=== PATIENT | female | born 1965 | race Two or more races ===

== ENCOUNTER 2020-01-20 08:34 | Inpatient (IN) | payer MEDICAID ==
[~2020-01-20] VITALS: Ht 157.5 cm; Wt 48.8 kg
[2020-01-20 08:28] VITALS: BP_SYST 10; BP_SYST 102; BP_DIAS 63; BP_DIAS 68
--- NOTE | 2020-01-20 08:34 | NUR ---
ED Nurse Note: Pt arrived to ED with RA 26 from [facility]. pt has a trach and is being ambu-bagged. pt placed in trauma and isolated. pt is unresponsive to name, touch, pain. per ems pt "suffered a stroke and is comatosed." Pt appears A&O 0. Pts upper extremities are flaccid. pt has gtube placed on abdomen, patterson intact, pt has sacral and left lower leg ulcer. Pt placed on ventilator per RT; review vent setting.
[2020-01-20] MEDS ORDERED: SYNTHROID25 MCG GT (08:43)
[2020-01-20] MEDS ORDERED: FAMOTIDINE20 MG GT (08:43)
[2020-01-20] MEDS ORDERED: NOVOLIN R100 UNIT/1 SUBQ (08:43)
[2020-01-20] MEDS ORDERED: ACETAMINOPHEN325 M1 GT (08:43)
[2020-01-20] MEDS ORDERED: DOCUSATE SODIU100 MG GT (08:43)
[2020-01-20] MEDS ORDERED: MULTIVITAMINS1 EAC8 ORAL (08:43)
--- NOTE | 2020-01-20 09:00 | NUR ---
ED Nurse Note: stool culture collected and appears black in color.
[2020-01-20 09:06] LABS: HEMATOCRIT 25.8 % (37.0-47.0); HEMOGLOBIN 8.5 G/DL (12.0-16.0); MEAN CORPUSCULAR VOLUME 90 FL (80-99); PLATELET COUNT 501 K/UL (150-450); RED BLOOD COUNT 2.88 M/UL (4.20-5.40); RED CELL DISTRIBUTION WIDTH 18.1 % (11.6-14.8)
[2020-01-20 09:07] LABS: APPEARANCE,URINE CLOUDY; BILIRUBIN, URINE NEGATIVE (NEGATIVE); GLUCOSE, URINE (UA) NEGATIVE (NEGATIVE); KETONES,URINE NEGATIVE (NEGATIVE); LEUKOCYTE ESTERASE ,URINE 3+ (NEGATIVE); NITRITE,URINE POSITIVE (NEGATIVE); PH,URINE 7 (4.5-8.0); PROTEIN,URINE 2+ (NEGATIVE); UROBILINOGEN,URINE 1 MG/DL (0.0-1.0)
[2020-01-20 09:08] LABS: WHITE BLOOD COUNT 24.6 K/UL (4.8-10.8)
--- NOTE | 2020-01-20 09:10 | NUR ---
Note alek in EDM - 01/20/20 at 0923 by BRAULIO ED Nurse Note: Xray at bedside.
[2020-01-20] MEDS ORDERED: Pantoprazole Inj ONE (09:19)
[2020-01-20 09:24] LABS: COLOR,URINE YELLOW
[2020-01-20 09:25] LABS: ANION GAP 4 mmol/L (5-15); BLOOD UREA NITROGEN 13 mg/dL (7-18); CALCIUM 8.8 MG/DL (8.5-10.1); CARBON DIOXIDE 33 MMOL/L (21-32); CHLORIDE 98 MMOL/L (98-107); CREATININE 0.4 MG/DL (0.55-1.30); POTASSIUM 4.4 MMOL/L (3.5-5.1); SODIUM 135 MMOL/L (136-145)
--- NOTE | 2020-01-20 09:25 | Emergency Room Report ---
History of Present Illness General Chief Complaint: Palpitations Source: Patient, EMS, Caregiver Present Illness HPI 84-year-old female presents to ED for palpitations. [facility] Noted by nursing staff x1 day. Tachycardic. Patient status post CVA. Status post trach on ventilator. Nonverbal at baseline. Unable to provide any additional history at this time. No signs of distress on arrival. Febrile in triage.. Recent COVID test negative. No other aggravating relieving factors. 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 COVID-19 Screening: Negative COVID-19 COVID-19 Testing Source: nasopharn Patient History Past Medical History: DM, HTN, CVA/TIA Pertinent Family History: none Social History: Denies: smoking, alcohol use, drug use Now: No Immunizations: UTD Reviewed Nursing Documentation: PMH: Agreed; PSxH: Agreed Nursing Documentation-PMH Past Medical History: No History, Except For Hx Hypertension: Yes Hx Diabetes: Yes - 2 Review of Systems All Other Systems: limited Physical Exam Vital Signs Date Time Temp Pulse Resp B/P (MAP) Pulse Ox O2 Delivery O2 Flow Rate FiO2 01/20/20 08:23 99.3 115 17 10/68 (49) 98 Room Air 01/20/20 08:28 30 Sp02 EP Interpretation: reviewed, normal General Appearance: other - nonverbal Head: normocephalic, atraumatic Eyes: bilateral eye normal inspection, bilateral eye PERRL ENT: hearing grossly normal, normal pharynx, no angioedema, normal voice Neck: full range of motion, supple/symm/no masses Respiratory: chest non-tender, lungs clear, normal breath sounds, speaking full sentences Cardiovascular #1: no edema, tachycardia Cardiovascular #2: 2+ carotid (R), 2+ carotid (L), 2+ radial (R), 2+ radial (L) , 2+ dorsalis pedis (R), 2+ dorsalis pedis (L) Gastrointestinal: normal bowel sounds, non tender, soft, non-distended, no guarding, no rebound Rectal: deferred Genitourinary: normal inspection, no CVA tenderness Musculoskeletal: back normal, non-tender Neurologic: other - nonverbal Psychiatric: other - nonverbal Reflexes: 3+ bicep (R), 3+ bicep (L), 3+ tricep (R), 3+ tricep (L), 3+ knee (R) , 3+ knee (L) Skin: other - see nursing notes Lymphatic: no adenopathy Procedures Critical Care Time Critical Care Time i. I feel this is a highly complex case requiring extensive working including EKG/Rhythm strip, Xray/CT/US, Blood/urine lab work, repeat exams while in ED, and administration of strong opiates/narcotics for pain control, admission to hospital or close patient follow up. Total time: 60 min bedside evaluation and treatment excludes procedures (EKG). Reason for critical care: tachycardia, fever, GI bleed, UTI Possible complications: hypotension, hypertension, MO, shock, arrhythmias, metabolic acidosis, end organ damage, respiratory failure. Interventions: Labs, EKG, IV fluids, chest x-ray, Tylenol, broad-spectrum antibiotics, discussion with education sales consultant Course: Presenting with tachycardia. Low-grade fever. Guaiac positive. Significant leukocytosis. Hemoglobin 8.5. Has UTI. COVID negative. Lactic within normal limits. Chest x-ray shows interstitial infiltrates. Initially hypotensive. Improved with IV fluid bolus. Given broad-spectrum antibiotics. Started on Protonix drip. Consultations: nursing staff, EMS, family Performed by: Dr Mitchell Tolerated well condition = critical j. because of unstable vital signs this patient had a condition that could potentially threaten life or limb. I feel this is a critical patient who required my full attention while patient was considered critical. Total Critical Care Time excluding procedures was greater than 60 minutes Medical Decision Making Diagnostic Impression: Primary Impression: LGI bleed Additional Impressions: Pneumonia Qualified Codes: J18.9 - Pneumonia, unspecified organism UTI (urinary tract infection) Qualified Codes: N39.0 - Urinary tract infection, site not specified Anemia Laboratory Tests Test 01/20/20 08:40 White Blood Count 24.6 K/UL (4.8-10.8) *H Red Blood Count 2.88 M/UL (4.20-5.40) L Hemoglobin 8.5 G/DL (12.0-16.0) L Hematocrit 25.8 % (37.0-47.0) L Mean Corpuscular Volume 90 FL (80-99) Mean Corpuscular Hemoglobin 29.6 PG (27.0-31.0) Mean Corpuscular Hemoglobin Concent 33.0 G/DL (32.0-36.0) Red Cell Distribution Width 18.1 % (11.6-14.8) H Platelet Count 501 K/UL (150-450) H Mean Platelet Volume 5.5 FL (6.5-10.1) L Neutrophils (%) (Auto) % (45.0-75.0) Lymphocytes (%) (Auto) % (20.0-45.0) Monocytes (%) (Auto) % (1.0-10.0) Eosinophils (%) (Auto) % (0.0-3.0) Basophils (%) (Auto) % (0.0-2.0) Differential Total Cells Counted 100 Neutrophils % (Manual) 85 % (45-75) H Lymphocytes % (Manual) 8 % (20-45) L Monocytes % (Manual) 7 % (1-10) Eosinophils % (Manual) 0 % (0-3) Basophils % (Manual) 0 % (0-2) Band Neutrophils 0 % (0-8) Platelet Estimate Adequate Platelet Morphology Normal Hypochromasia 2+ Anisocytosis 2+ Prothrombin Time 11.4 SEC (9.30-11.50) Prothromb Time International Ratio 1.0 (0.9-1.1) Activated Partial Thromboplast Time 24 SEC (23-33) D-Dimer 2.99 mg/L FEU (0.00-0.49) H Urine Color Yellow Urine Appearance Cloudy Urine pH 7 (4.5-8.0) Urine Specific [place] 1.005 (1.005-1.035) Urine Protein 2+ (NEGATIVE) H Urine Glucose (UA) Negative (NEGATIVE) Urine Ketones Negative (NEGATIVE) Urine Blood 3+ (NEGATIVE) H Urine Nitrite Positive (NEGATIVE) H Urine Bilirubin Negative (NEGATIVE) Urine Urobilinogen 1 MG/DL (0.0-1.0) H Urine Leukocyte Esterase 3+ (NEGATIVE) H Urine RBC 20-30 /HPF (0 - 2) H Urine WBC Tntc /HPF (0 - 2) H Urine Squamous Epithelial Cells Few /LPF (NONE/OCC) Urine Bacteria Moderate /HPF (NONE) H Sodium Level 135 MMOL/L (136-145) L Potassium Level 4.4 MMOL/L (3.5-5.1) Chloride Level 98 MMOL/L (98-107) Carbon Dioxide Level 33 MMOL/L (21-32) H Anion Gap 4 mmol/L (5-15) L Blood Urea Nitrogen 13 mg/dL (7-18) Creatinine 0.4 MG/DL (0.55-1.30) L Estimat Glomerular Filtration Rate > 60 mL/min (>60) Glucose Level 239 MG/DL (74-106) H Lactic Acid Level 1.50 mmol/L (0.4-2.0) Calcium Level 8.8 MG/DL (8.5-10.1) Ferritin 1046 NG/ML (8-388) H Total Bilirubin 0.3 MG/DL (0.2-1.0) Aspartate Amino Transf (AST/SGOT) 13 U/L (15-37) L Alanine Aminotransferase (ALT/SGPT) 14 U/L (12-78) Alkaline Phosphatase 171 U/L (46-116) H Lactate Dehydrogenase 173 U/L (81-234) Total Creatine Kinase 39 U/L (26-308) Creatine Kinase MB 2.7 NG/ML (0.0-3.6) Creatine Kinase MB Relative Index 6.9 Troponin I 0.000 ng/mL (0.000-0.056) C-Reactive Protein, Quantitative 22.2 mg/dL (0.00-0.90) H Pro-B-Type Natriuretic Peptide 773 pg/mL (0-125) H Total Protein 7.2 G/DL (6.4-8.2) Albumin 1.5 G/DL (3.4-5.0) L Globulin 5.7 g/dL Albumin/Globulin Ratio 0.3 (1.0-2.7) L Amylase Level 42 U/L (25-115) EKG Diagnostic Results Rate: tachycardiac Rhythm: NSR ST Segments: no acute changes ASA given to the pt in ED: No Rhythm Strip Diag. Results EP Interpretation: yes Rhythm: NSR, no PVC's, no ectopy Chest X-Ray Diagnostic Results Chest X-Ray Diagnostic Results : Chest X-Ray Ordered: Yes # of Views/Limited/Complete: 1 View Indication: Shortness of Breath EP Interpretation: Yes Interpretation: no pneumothorax, other - bilateral infiltrates Impression: Other - pneumonia Electronically Signed by: Electronically signed by Josué Mitchell MD Last Vital Signs Date Time Temp Pulse Resp B/P (MAP) Pulse Ox O2 Delivery O2 Flow Rate FiO2 01/20/20 08:50 40 01/20/20 08:44 124 10 01/20/20 08:28 100.2 102/63 100 Room Air Status: improved Disposition: ADMITTED INPATIENT Condition: Critical Referrals: Chi Castro MD (PCP) Josué Mitchell MD Jan 20, 2020 09:25
[2020-01-20] MEDS ORDERED: Pantoprazole 80 MG in NS 250 ML IV ONE (09:30)
[2020-01-20] MEDS ORDERED: Piperacillin/Tazobactam 3.375 GM in NS 110 ML IVPB ONE (09:30)
--- NOTE | 2020-01-20 09:37 | NUR ---
ED Nurse Note: Xray at bedside
[2020-01-20 09:41] LABS: ALANINE AMINOTRANSFERASE 14 U/L (12-78); ALBUMIN 1.5 G/DL (3.4-5.0); ALBUMIN/GLOBULIN RATIO 0.3 (1.0-2.7); ALKALINE PHOSPHATASE 171 U/L (46-116); AMYLASE 42 U/L (25-115); ASPARTATE AMINO TRANSFERASE 13 U/L (15-37); BILIRUBIN,TOTAL 0.3 MG/DL (0.2-1.0); CKMB 2.7 NG/ML (0.0-3.6); CREATINE KINASE 39 U/L (26-308); FERRITIN 1046 NG/ML (8-388); LACTATE DEHYDROGENASE 173 U/L (81-234)
[2020-01-20] MEDS: Acetaminophen 650mg/20.3ml GT ONE ×2 (10:12→10:22)
[2020-01-20] MEDS ORDERED: Azithromycin 500 MG in NS 275 ML IV ONE (10:15)
[2020-01-20 10:28] VITALS: BP 97/58
--- NOTE | 2020-01-20 10:29 | Diagnostic Imaging Report ---
Procedure: XRAY Chest 1v Reason for study: Shortness of breath. Comparison films: None. FINDINGS: There is a tracheostomy in place. Vascularity is normal. Bilateral mid to lower lung zone alveolar infiltrates noted. Cardiac and mediastinal silhouette are within normal limits. No large effusion seen. The bony thorax appear unremarkable. IMPRESSION: Bilateral infiltrates.
[2020-01-20] MEDS ORDERED: Acetaminophen 650 MG SUPP RECTAL ONE (10:30)
--- NOTE | 2020-01-20 11:25 | Emergency Room Report ---
Physical Exam Vital Signs Date Time Temp Pulse Resp B/P (MAP) Pulse Ox O2 Delivery O2 Flow Rate FiO2 01/20/20 08:23 99.3 115 17 10/68 (49) 98 Room Air 01/20/20 08:28 30 Medical Decision Making Diagnostic Impression: Primary Impression: LGI bleed Additional Impressions: Anemia UTI (urinary tract infection) Qualified Codes: N39.0 - Urinary tract infection, site not specified Pneumonia Qualified Codes: J18.9 - Pneumonia, unspecified organism ER Course Hospital Course 54-year-old female presenting to ED with tachycardia, fever. Differential diagnoses include: Pneumonia, UTI, sepsis, dehydration, MD/ unstable angina Clinical course Patient placed on stretcher. in isolation. 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 After initial history and physical, I ordered labs, IV fluids , EKG, chest x-ray, blood cultures, UA. Labs - electrolytes ok, marked leukocytosis, troponins negative, hb 8.5, lactic ok, UA grossly positive for UTI guaic +, covid - CXR - bilateral infiltrates EKG - sinus tachycardia no acute ischemic changes interpreted by me broad spectrum Abx given. given 30cc/kg fluid bolus. BP initially low slowly improving with IVFs. given protonix drip. Case discussed with Dr Castro and they agreed to admit patient to their service for further care and support I feel this is a highly complex case requiring extensive working including EKG/ Rhythm strip, Xray/CT/US, Blood/urine lab work, repeat exams while in ED, and administration of strong opiates/narcotics for pain control, admission to hospital or close patient follow up. Diagnosis - LGIB, anemia, pneumonia, UTI Patient admitted to SDU in critical condition Last Vital Signs Date Time Temp Pulse Resp B/P (MAP) Pulse Ox O2 Delivery O2 Flow Rate FiO2 01/20/20 11:07 98.3 01/20/20 10:28 109 10 97/58 98 Room Air 40 Status: improved Disposition: ADMITTED INPATIENT Condition: Critical Referrals: Chi Castro MD (PCP) Josué Mitchell MD Jan 20, 2020 11:25
--- NOTE | 2020-01-20 11:26 | Emergency Room Report ---
Sepsis Event Note Evaluation Current Stage of Sepsis: Sepsis Possible Source: CLABSI Focused Exam Allergies: Coded Allergies: No Known Allergies (Unverified , 01/20/20) Date Exam Occurred: Jan 20, 2020 Time Exam Occurred: 08:30 Laboratory Studies Laboratory Tests Test 01/20/20 08:40 White Blood Count 24.6 K/UL (4.8-10.8) *H Red Blood Count 2.88 M/UL (4.20-5.40) L Hemoglobin 8.5 G/DL (12.0-16.0) L Hematocrit 25.8 % (37.0-47.0) L Mean Corpuscular Volume 90 FL (80-99) Mean Corpuscular Hemoglobin 29.6 PG (27.0-31.0) Mean Corpuscular Hemoglobin Concent 33.0 G/DL (32.0-36.0) Red Cell Distribution Width 18.1 % (11.6-14.8) H Platelet Count 501 K/UL (150-450) H Mean Platelet Volume 5.5 FL (6.5-10.1) L Neutrophils (%) (Auto) % (45.0-75.0) Lymphocytes (%) (Auto) % (20.0-45.0) Monocytes (%) (Auto) % (1.0-10.0) Eosinophils (%) (Auto) % (0.0-3.0) Basophils (%) (Auto) % (0.0-2.0) Differential Total Cells Counted 100 Neutrophils % (Manual) 85 % (45-75) H Lymphocytes % (Manual) 8 % (20-45) L Monocytes % (Manual) 7 % (1-10) Eosinophils % (Manual) 0 % (0-3) Basophils % (Manual) 0 % (0-2) Band Neutrophils 0 % (0-8) Platelet Estimate Adequate Platelet Morphology Normal Hypochromasia 2+ Anisocytosis 2+ Prothrombin Time 11.4 SEC (9.30-11.50) Prothromb Time International Ratio 1.0 (0.9-1.1) Activated Partial Thromboplast Time 24 SEC (23-33) D-Dimer 2.99 mg/L FEU (0.00-0.49) H Urine Color Yellow Urine Appearance Cloudy Urine pH 7 (4.5-8.0) Urine Specific [place] 1.005 (1.005-1.035) Urine Protein 2+ (NEGATIVE) H Urine Glucose (UA) Negative (NEGATIVE) Urine Ketones Negative (NEGATIVE) Urine Blood 3+ (NEGATIVE) H Urine Nitrite Positive (NEGATIVE) H Urine Bilirubin Negative (NEGATIVE) Urine Urobilinogen 1 MG/DL (0.0-1.0) H Urine Leukocyte Esterase 3+ (NEGATIVE) H Urine RBC 20-30 /HPF (0 - 2) H Urine WBC Tntc /HPF (0 - 2) H Urine Squamous Epithelial Cells Few /LPF (NONE/OCC) Urine Bacteria Moderate /HPF (NONE) H Sodium Level 135 MMOL/L (136-145) L Potassium Level 4.4 MMOL/L (3.5-5.1) Chloride Level 98 MMOL/L (98-107) Carbon Dioxide Level 33 MMOL/L (21-32) H Anion Gap 4 mmol/L (5-15) L Blood Urea Nitrogen 13 mg/dL (7-18) Creatinine 0.4 MG/DL (0.55-1.30) L Estimat Glomerular Filtration Rate > 60 mL/min (>60) Glucose Level 239 MG/DL (74-106) H Lactic Acid Level 1.50 mmol/L (0.4-2.0) Calcium Level 8.8 MG/DL (8.5-10.1) Ferritin 1046 NG/ML (8-388) H Total Bilirubin 0.3 MG/DL (0.2-1.0) Aspartate Amino Transf (AST/SGOT) 13 U/L (15-37) L Alanine Aminotransferase (ALT/SGPT) 14 U/L (12-78) Alkaline Phosphatase 171 U/L (46-116) H Lactate Dehydrogenase 173 U/L (81-234) Total Creatine Kinase 39 U/L (26-308) Creatine Kinase MB 2.7 NG/ML (0.0-3.6) Creatine Kinase MB Relative Index 6.9 Troponin I 0.000 ng/mL (0.000-0.056) C-Reactive Protein, Quantitative 22.2 mg/dL (0.00-0.90) H Pro-B-Type Natriuretic Peptide 773 pg/mL (0-125) H Total Protein 7.2 G/DL (6.4-8.2) Albumin 1.5 G/DL (3.4-5.0) L Globulin 5.7 g/dL Albumin/Globulin Ratio 0.3 (1.0-2.7) L Amylase Level 42 U/L (25-115) Vital Signs Last 24 Hour Vital Signs Date Time Temp Pulse Resp B/P (MAP) Pulse Ox O2 Delivery O2 Flow Rate FiO2 01/20/20 11:07 98.3 01/20/20 10:28 100.2 109 10 97/58 98 Room Air 40 01/20/20 08:50 40 01/20/20 08:44 124 10 40 01/20/20 08:28 100.2 123 8 102/63 100 Room Air 30 01/20/20 08:23 99.3 115 17 10/68 (49) 98 Room Air Respiratory Exam: Crackles Cardiovascular Exam: Tachycardia Capillary Refill: Greater Than 2 Seconds Peripheral Pulse: Strong Pulse Location: Carotid Skin Exam: Normal Turgor Bedside Monitoring Date bedside monitoring occur: Jan 20, 2020 Time bedside monitoring occur: 10:30 Bedside Ultrasound Performed: No Passive Leg Raise/Fluid Bolus: Fluid Response Josué Mitchell MD Jan 20, 2020 11:26
[2020-01-20 12:01] VITALS: BP 93/63
[2020-01-20 12:28] VITALS: BP 101/65
--- NOTE | 2020-01-20 13:58 | NUR ---
ED Nurse Note: telephone report given to PETE Francisco for continuity of care
--- NOTE | 2020-01-20 14:10 | NUR ---
TRANSFER TO FLOOR: Patient transferred to SDU as ordered, per ERMD. Report given to PETE VELIZ. PT HAS NOT BELONGINGS.
--- NOTE | 2020-01-20 14:30 | NUR ---
NURSE NOTES: received patient report from No RN from ER. patient came in via gurney. came in with vent at prescribed settings. threat monitoring analyst initiated, St on the vs taken and recorded. wound care eval done by deshaun. pictures will be taken and uploaded.no belongings found. under the care of dr taylor. will continue to monitor.
[2020-01-20 14:51] VITALS: BP 111/76
--- NOTE | 2020-01-20 16:32 | NUR ---
NURSE NOTES:WOUND CARE NOTES:Pt Presented on admission with Gt, Suprapubic Cath, Multiple Pressure injuries. Unstageable Sacral Pressure injury that is Malodorous(L)10cm x (W)9.5cm. 90% soft necrosis, 10% mixed erythema with Biofilm at Base of wound. Moderate amt purulent exudate noted when base of wound minimally palpated. Periwound is black and indurated.. Full thickness Pressure Injury lateral L Tibia(L)3.8cm x (W)2.2cm . Base of wound is 10% necrotic, 25% slough ,65% pink epithelial. Edges are adherent to Base of wound. No odor or exudate noted. No erythema or induration periwound. DTPI Lateral R Tibia. (L)2.5cm x (W)1.5cm.Base of Pressure injury is purpuric with Maroon borders. Non-Blanchable erythema without induration/fluctuance medial L heel. R heel is blanchable with dry peeling skin. Purpuric area without induration /fluctuance R Hallux.(L)1.2cm x (W)0.6cm. Dry brown eschar medial R foot (L)0.4cm x (W)0.6cm. Tx.Plan: Cleanse Sacral wound with Dakin's 0.25% domingo. Apply Dakin's moist gauze to wound. Apply Moisture Barrier Paste Periwound. Cover with drsg Twice daily and prn. Cleanse wound lateral L tibia with Saline. Apply TheraHoney. Apply Cavilon Skin BArrier periwound. Cover with Optifoam drsg. Change every 3 days and prn. Apply Cavilon Skin Barrier to Lateral R tibia and R Hallux. Cover with Optifoam drsg. Change very 7 days and prn. Apply Cavilon Skin Barrier to Bilat heels and Malleoli. Cover each site with Optifoam drsg. Change every 7 days and prn. Cover Bony Prominences as needed with Optifoam drsgs. Reposition at least every 2hours or as tolerated. Off-load heels with pillow. APM</Lionel Mattress overlay.
--- NOTE | 2020-01-20 17:15 | History & Physical ---
History and Physical History & Physicial 84-year-old female presents to with palpitations. noted to be Tachycardic. Patient status post CVA. Status post trach on ventilator. Nonverbal at baseline. Unable to provide any additional history at this time. No signs of distress on arrival. Febrile in triage.. Recent COVID test negative. No other aggravating relieving factors. Patient admitted with rectal bleeding. and also elevated WBC with concern for sepsis Allergies: Coded Allergies: No Known Allergies (Unverified , 01/20/20) Past Medical History: DM, HTN, CVA/TIA, respiratory failure, comatose state, GT , tracheostomy Social History: no smoking, alcohol use, drug use; bed bound vent dependent Reviewed of systems: unable Physical WDWN NAD clear breath sounds bilaterally without rhonchi or wheeze [id number] tachy without MRG NABS nontender no HSM no CCE obtunded GT and trach Laboratory Tests Test 01/20/20 08:40 White Blood Count 24.6 K/UL (4.8-10.8) *H Red Blood Count 2.88 M/UL (4.20-5.40) L Hemoglobin 8.5 G/DL (12.0-16.0) L Hematocrit 25.8 % (37.0-47.0) L Mean Corpuscular Volume 90 FL (80-99) Mean Corpuscular Hemoglobin 29.6 PG (27.0-31.0) Mean Corpuscular Hemoglobin Concent 33.0 G/DL (32.0-36.0) Red Cell Distribution Width 18.1 % (11.6-14.8) H Platelet Count 501 K/UL (150-450) H Mean Platelet Volume 5.5 FL (6.5-10.1) L Neutrophils (%) (Auto) % (45.0-75.0) Lymphocytes (%) (Auto) % (20.0-45.0) Monocytes (%) (Auto) % (1.0-10.0) Eosinophils (%) (Auto) % (0.0-3.0) Basophils (%) (Auto) % (0.0-2.0) Differential Total Cells Counted 100 Neutrophils % (Manual) 85 % (45-75) H Lymphocytes % (Manual) 8 % (20-45) L Monocytes % (Manual) 7 % (1-10) Eosinophils % (Manual) 0 % (0-3) Basophils % (Manual) 0 % (0-2) Band Neutrophils 0 % (0-8) Platelet Estimate Adequate Platelet Morphology Normal Hypochromasia 2+ Anisocytosis 2+ Prothrombin Time 11.4 SEC (9.30-11.50) Prothromb Time International Ratio 1.0 (0.9-1.1) Activated Partial Thromboplast Time 24 SEC (23-33) D-Dimer 2.99 mg/L FEU (0.00-0.49) H Urine Color Yellow Urine Appearance Cloudy Urine pH 7 (4.5-8.0) Urine Specific [place] 1.005 (1.005-1.035) Urine Protein 2+ (NEGATIVE) H Urine Glucose (UA) Negative (NEGATIVE) Urine Ketones Negative (NEGATIVE) Urine Blood 3+ (NEGATIVE) H Urine Nitrite Positive (NEGATIVE) H Urine Bilirubin Negative (NEGATIVE) Urine Urobilinogen 1 MG/DL (0.0-1.0) H Urine Leukocyte Esterase 3+ (NEGATIVE) H Urine RBC 20-30 /HPF (0 - 2) H Urine WBC Tntc /HPF (0 - 2) H Urine Squamous Epithelial Cells Few /LPF (NONE/OCC) Urine Bacteria Moderate /HPF (NONE) H Sodium Level 135 MMOL/L (136-145) L Potassium Level 4.4 MMOL/L (3.5-5.1) Chloride Level 98 MMOL/L (98-107) Carbon Dioxide Level 33 MMOL/L (21-32) H Anion Gap 4 mmol/L (5-15) L Blood Urea Nitrogen 13 mg/dL (7-18) Creatinine 0.4 MG/DL (0.55-1.30) L Estimat Glomerular Filtration Rate > 60 mL/min (>60) Glucose Level 239 MG/DL (74-106) H Lactic Acid Level 1.50 mmol/L (0.4-2.0) Calcium Level 8.8 MG/DL (8.5-10.1) Ferritin 1046 NG/ML (8-388) H Total Bilirubin 0.3 MG/DL (0.2-1.0) Aspartate Amino Transf (AST/SGOT) 13 U/L (15-37) L Alanine Aminotransferase (ALT/SGPT) 14 U/L (12-78) Alkaline Phosphatase 171 U/L (46-116) H Lactate Dehydrogenase 173 U/L (81-234) Total Creatine Kinase 39 U/L (26-308) Creatine Kinase MB 2.7 NG/ML (0.0-3.6) Creatine Kinase MB Relative Index 6.9 Troponin I 0.000 ng/mL (0.000-0.056) C-Reactive Protein, Quantitative 22.2 mg/dL (0.00-0.90) H Pro-B-Type Natriuretic Peptide 773 pg/mL (0-125) H Total Protein 7.2 G/DL (6.4-8.2) Albumin 1.5 G/DL (3.4-5.0) L Globulin 5.7 g/dL Albumin/Globulin Ratio 0.3 (1.0-2.7) L Amylase Level 42 U/L (25-115) IMPRESSION leukocytosis possible sepsis anemia rectal bleeding palpitations pulmonary infiltrates PLAN Iv antibiotics ID evaluation consider CT chest resume SNF meds cardiology and ID and GI followup impression, plan, and exam edited and reviewed in detail care discussed with Chi Hodge MD Jan 20, 2020 17:14
--- NOTE | 2020-01-20 17:41 | Consultation ---
History of Present Illness General Date patient seen: Jan 20, 2020 Reason for Hospitalization: Palpitations Present Illness HPI 54 year old female with multiple medical comorbidities admitted to [facility] [place] for evaluation of GI bleed, abnormal labs, and palpitation. on admission noted to have large foul smelling sacral decubitus ulcer with necrotic tissue and drainage. leukocytosis. abnormal labs. malnutrition. surgery called to evaluate and assist with care. Allergies: Coded Allergies: No Known Allergies (Unverified , 01/20/20) COVID-19 Screening Contact w/high risk pt: No Experienced COVID-19 symptoms?: No Medication History Scheduled Docusate Sodium* (Docusate Sodium*), 100 MG ORAL TWICE A DAY, (Reported) Famotidine* (Pepcid 20mg tablet*), 20 MG GT DAILY, (Reported) Insulin Regular, Human* (Novolin R*), 0 SUBQ .SLIDING SCALE, (Reported) Levothyroxine Sodium* (Synthroid*), 50 MCG GT DAILY, (Reported) Multivitamin With Minerals (Multivitamins With Minerals*), 1 TAB ORAL DAILY, ( Reported) Scheduled PRN Acetaminophen* (Acetaminophen 325MG Tablet*), 650 MG GT Q6H PRN for For Pain, ( Reported) Patient History Limited by: medical condition History Provided By: Medical Record, PMD Healthcare decision maker Resuscitation status Advanced Directive on File Review of Systems Review of Symptoms General ROS: no weight loss or fever Psychological ROS: no depression or mood changes, no memory loss Ophthalmic ROS: no visual changes or eye irritation ENT ROS: no nasal congestion, hearing loss, dizziness Allergy and Immunology ROS: no allergic symptoms or urticaria Hematological and Lymphatic ROS: no swollen glands, unusual bleeding or bruising Endocrine ROS: no polyuria, polydipsia, weight changes, temperature intolerance Respiratory ROS: no cough, shortness of breath, or wheezing Cardiovascular ROS: no chest pain or dyspnea on exertion Gastrointestinal ROS: denies abdominal pain, bright red blood in stool. Musculoskeletal ROS: no myalgias or arthralgias Neurological ROS: no TIA or stroke symptoms Dermatological ROS: no new or changing skin lesions, rashes or pruritis Physical Exam Physical Exam General appearance: alert, cooperative, no distress, appears stated age Head: Normocephalic, without obvious abnormality, atraumatic Eyes: conjunctivae/corneas clear. PERRL, EOM's intact. Fundi benign Throat: Lips, mucosa, and tongue normal. Teeth and gums normal Neck: supple, symmetrical, trachea midline, no adenopathy, thyroid: not enlarged, symmetric, no tenderness/mass/nodules, no carotid bruit and no JVD Lungs: clear to auscultation bilaterally Heart: regular rate and rhythm, S1, S2 normal, no murmur, click, rub or gallop Abdomen: soft, non-tender. Bowel sounds normal. No masses, no organomegaly Extremities: extremities normal, atraumatic, no cyanosis or edema Pulses: 2+ and symmetric Skin: Skin color, see below Neurologic: Grossly normal Last 24 Hour Vital Signs Date Time Temp Pulse Resp B/P (MAP) Pulse Ox O2 Delivery O2 Flow Rate FiO2 01/20/20 16:00 Mechanical Ventilator 01/20/20 16:00 30 01/20/20 16:00 106 10 100 Mechanical Ventilator 40 01/20/20 15:55 106 10 40 01/20/20 15:03 Mechanical Ventilator 01/20/20 14:51 96.4 104 10 111/76 (88) 100 01/20/20 13:59 98.5 92 10 95/65 100 Mechanical Ventilator 40 01/20/20 13:23 96 10 40 01/20/20 12:28 98.3 93 10 101/65 100 Mechanical Ventilator 40 01/20/20 12:01 98.3 97 10 93/63 100 Mechanical Ventilator 40 01/20/20 11:41 101 10 40 01/20/20 11:07 98.3 01/20/20 10:28 100.2 109 10 97/58 98 Room Air 40 01/20/20 08:50 40 01/20/20 08:44 124 10 40 01/20/20 08:28 100.2 123 8 102/63 100 Room Air 30 01/20/20 08:23 99.3 115 17 10/68 (49) 98 Room Air Laboratory Tests Test 01/20/20 08:40 White Blood Count 24.6 K/UL (4.8-10.8) *H Red Blood Count 2.88 M/UL (4.20-5.40) L Hemoglobin 8.5 G/DL (12.0-16.0) L Hematocrit 25.8 % (37.0-47.0) L Mean Corpuscular Volume 90 FL (80-99) Mean Corpuscular Hemoglobin 29.6 PG (27.0-31.0) Mean Corpuscular Hemoglobin Concent 33.0 G/DL (32.0-36.0) Red Cell Distribution Width 18.1 % (11.6-14.8) H Platelet Count 501 K/UL (150-450) H Mean Platelet Volume 5.5 FL (6.5-10.1) L Neutrophils (%) (Auto) % (45.0-75.0) Lymphocytes (%) (Auto) % (20.0-45.0) Monocytes (%) (Auto) % (1.0-10.0) Eosinophils (%) (Auto) % (0.0-3.0) Basophils (%) (Auto) % (0.0-2.0) Differential Total Cells Counted 100 Neutrophils % (Manual) 85 % (45-75) H Lymphocytes % (Manual) 8 % (20-45) L Monocytes % (Manual) 7 % (1-10) Eosinophils % (Manual) 0 % (0-3) Basophils % (Manual) 0 % (0-2) Band Neutrophils 0 % (0-8) Platelet Estimate Adequate Platelet Morphology Normal Hypochromasia 2+ Anisocytosis 2+ Prothrombin Time 11.4 SEC (9.30-11.50) Prothromb Time International Ratio 1.0 (0.9-1.1) Activated Partial Thromboplast Time 24 SEC (23-33) D-Dimer 2.99 mg/L FEU (0.00-0.49) H Urine Color Yellow Urine Appearance Cloudy Urine pH 7 (4.5-8.0) Urine Specific [place] 1.005 (1.005-1.035) Urine Protein 2+ (NEGATIVE) H Urine Glucose (UA) Negative (NEGATIVE) Urine Ketones Negative (NEGATIVE) Urine Blood 3+ (NEGATIVE) H Urine Nitrite Positive (NEGATIVE) H Urine Bilirubin Negative (NEGATIVE) Urine Urobilinogen 1 MG/DL (0.0-1.0) H Urine Leukocyte Esterase 3+ (NEGATIVE) H Urine RBC 20-30 /HPF (0 - 2) H Urine WBC Tntc /HPF (0 - 2) H Urine Squamous Epithelial Cells Few /LPF (NONE/OCC) Urine Bacteria Moderate /HPF (NONE) H Sodium Level 135 MMOL/L (136-145) L Potassium Level 4.4 MMOL/L (3.5-5.1) Chloride Level 98 MMOL/L (98-107) Carbon Dioxide Level 33 MMOL/L (21-32) H Anion Gap 4 mmol/L (5-15) L Blood Urea Nitrogen 13 mg/dL (7-18) Creatinine 0.4 MG/DL (0.55-1.30) L Estimat Glomerular Filtration Rate > 60 mL/min (>60) Glucose Level 239 MG/DL (74-106) H Lactic Acid Level 1.50 mmol/L (0.4-2.0) Calcium Level 8.8 MG/DL (8.5-10.1) Ferritin 1046 NG/ML (8-388) H Total Bilirubin 0.3 MG/DL (0.2-1.0) Aspartate Amino Transf (AST/SGOT) 13 U/L (15-37) L Alanine Aminotransferase (ALT/SGPT) 14 U/L (12-78) Alkaline Phosphatase 171 U/L (46-116) H Lactate Dehydrogenase 173 U/L (81-234) Total Creatine Kinase 39 U/L (26-308) Creatine Kinase MB 2.7 NG/ML (0.0-3.6) Creatine Kinase MB Relative Index 6.9 Troponin I 0.000 ng/mL (0.000-0.056) C-Reactive Protein, Quantitative 22.2 mg/dL (0.00-0.90) H Pro-B-Type Natriuretic Peptide 773 pg/mL (0-125) H Total Protein 7.2 G/DL (6.4-8.2) Albumin 1.5 G/DL (3.4-5.0) L Globulin 5.7 g/dL Albumin/Globulin Ratio 0.3 (1.0-2.7) L Amylase Level 42 U/L (25-115) Microbiology Date/Time Source Procedure Growth Status 01/20/20 08:40 Nasopharynx SARS-CoV-2 RdRp Gene Assay - Final Complete Height (Feet): 5 Height (Inches): 3.00 Weight (Pounds): 110 Medications Current Medications Medications (Trade) Dose Ordered Sig/Elisa Route PRN Reason Start Time Stop Time Status Last Admin Dose Admin Acetaminophen (Tylenol) 650 mg Q4H PRN GT Mild Pain (Pain Scale 1-3) 01/20/20 17:00 02/19/20 16:59 Acetaminophen (Tylenol) 650 mg Q4H PRN GT Fever (T>100.5) 01/20/20 17:15 02/19/20 17:14 Al Hydroxide/Mg Hydroxide (Mylanta) 30 ml FOUR TIMES A DAY GT 01/20/20 21:00 02/19/20 20:59 Ascorbic Acid (Vitamin C) 500 mg DAILY GT 01/21/20 09:00 02/20/20 08:59 Docusate Sodium (Colace) 100 mg TWICE A DAY GT 01/21/20 18:00 02/20/20 17:59 Levothyroxine Sodium (Synthroid) 50 mcg DAILY@0630 GT 01/21/20 06:30 02/20/20 06:29 Multivitamins (Multivitamins W/ Minerals 15ml Liquid) 15 ml DAILY GT 01/21/20 09:00 02/20/20 08:59 Pantoprazole (Protonix) 40 mg DAILY ORAL 01/21/20 09:00 02/20/20 08:59 Pantoprazole 80 mg/Sodium Chloride 250 ml @ 25 mls/hr Q10H ONCE IV 01/20/20 09:30 01/20/20 19:29 01/20/20 09:22 Piperacillin Sod/ Tazobactam Sod 3.375 gm/Sodium Chloride 110 ml @ 27.5 mls/hr Q8HR IVPB 01/20/20 20:00 01/27/20 19:59 Vancomycin HCl (Vanco pharmacy to dose) 1 ea DAILY PRN MISC Per rx protocol 01/20/20 17:00 02/19/20 16:59 Vancomycin HCl 750 mg/Sodium Chloride 275 ml @ 183.333 mls/hr Q12HR@0600,1800 IVPB 01/21/20 06:00 01/26/20 05:59 Vancomycin HCl 1 gm/Sodium Chloride 275 ml @ 183.708 mls/hr ONCE ONCE IVPB 01/20/20 18:00 01/20/20 19:29 Assessment/Plan Problem List: (1) Stage 4 skin ulcer of sacral region Assessment & Plan: Patient Presented on admission with GT, Suprapubic Cath, Multiple Pressure injuries. Unstageable Sacral Pressure injury that is Malodorous(L)10cm x (W)9.5cm. 90% soft necrosis, 10% mixed erythema with Biofilm at Base of wound. Moderate amt purulent exudate noted when base of wound minimally palpated. Periwound is black and indurated. likely stage 4 given over necrosis the bone is directly palpable. Full thickness Pressure Injury lateral L Tibia(L)3.8cm x (W)2.2cm . Base of wound is 10% necrotic, 25% slough ,65% pink epithelial. Edges are adherent to Base of wound. No odor or exudate noted. No erythema or induration periwound. DTPI Lateral R Tibia. (L)2.5cm x (W)1.5cm.Base of Pressure injury is purpuric with Maroon borders. Non-Blanchable erythema without induration/fluctuance medial L heel. R heel is blanchable with dry peeling skin. Purpuric area without induration /fluctuance R Hallux.(L)1.2cm x (W)0.6cm. Dry brown eschar medial R foot (L)0.4cm x (W)0.6cm. Tx.Plan: Cleanse Sacral wound with Dakin's 0.25% domingo. Apply Dakin's moist gauze to wound. Apply Moisture Barrier Past Periwound. Cover with drsg Twice daily and prn. Cleanse wound lateral L tibia with Saline. Apply TheraHoney. Apply Cavilon Skin BArrier periwound. Cover with Optifoam drsg. Change every 3 days and prn. Apply Cavilon Skin Barrier to Lateral R tibia and R Hallux. Cover with Optifoam drsg. Change very 7 days and prn. Apply Cavilon Skin Barrier to Bilat heels and Malleoli. Cover each site with Optifoam drsg. Change every 7 days and prn. Cover Bony Prominences as needed with Optifoam drsgs. Reposition at least every 2hours or as tolerated. Off-load heels with pillow. APMLAl Mattress overlay. ICD Codes: L98.429 - Non-pressure chronic ulcer of back with unspecified severity SNOMED: 91449161, 901712667 (2) Anemia ICD Codes: D64.9 - Anemia, unspecified SNOMED: 989455504 (3) UTI (urinary tract infection) ICD Codes: N39.0 - Urinary tract infection, site not specified SNOMED: 49362649 Qualifiers: Qualified Codes: N39.0 - Urinary tract infection, site not specified (4) Pneumonia ICD Codes: J18.9 - Pneumonia, unspecified organism SNOMED: 316260495 Qualifiers: Qualified Codes: J18.9 - Pneumonia, unspecified organism (5) LGI bleed ICD Codes: K92.2 - Gastrointestinal hemorrhage, unspecified SNOMED: 02562263 (6) Palpitations ICD Codes: R00.2 - Palpitations SNOMED: 90147443 (7) LGI bleed ICD Codes: K92.2 - Gastrointestinal hemorrhage, unspecified SNOMED: 88867194 (8) GI bleeding Assessment & Plan: leukocytosis anemia guaiac positive no active bleeding currently trend h/h GI eval possible scope will follow with recs thank you ICD Codes: K92.2 - Gastrointestinal hemorrhage, unspecified SNOMED: 10250266 To Webb Jan 20, 2020 17:41
[2020-01-20] MEDS ORDERED: Vancomycin 1 GM in NS 275 ML IVPB ONE (18:00)
--- NOTE | 2020-01-20 19:15 | NUR ---
NURSE NOTES: Received report from Maryam Kennedy. Pt obtunded, unresponsive to pain, name and shaking. Slight smirk and head shaking upon giving deep pain stimulation. MD is aware of the LOC of patient per AM endorsement. VS within Normal limits on sinus tachy (112) on 5 lead quality assurance monitor chassis. On vent to trache. S6, SIMV 12, TV 450, FiO2 30, peep 5. With GT intact on meds only for now fo further evaluation. with left hand 20g and Right AC 18 IV lines intact, patent and asymptomatic.With suprapubic catheter to urine bag draining leonard yellow urine withotu any sediments or visible hematuria. Needs were attended. Call light within reach. Bed rails are up and wheels are locked. Continue plan of care
[2020-01-20 19:38] LABS: HEMATOCRIT 26.4 % (37.0-47.0); MEAN CORPUSCULAR VOLUME 93 FL (80-99); PLATELET COUNT 531 K/UL (150-450); RED BLOOD COUNT 2.82 M/UL (4.20-5.40); RED CELL DISTRIBUTION WIDTH 17.9 % (11.6-14.8)
[2020-01-20 19:42] LABS: WHITE BLOOD COUNT 24.2 K/UL (4.8-10.8)
--- NOTE | 2020-01-20 19:50 | NUR ---
NURSE NOTES: placed a call and spoke to Dr Hernandez and made aware of STAT CBC results.
[2020-01-20 20:00] VITALS: BP_SYST 131; BP_SYST 138; BP_DIAS 63; BP_DIAS 80
--- NOTE | 2020-01-20 20:38 | NUR ---
RESPIRATORY NOTE: Received pt on SIMV VC 10, 450VT, PS 12, 40%, PEEP +5. Pt is trach-dependent w/ a cuffed, Shiley 6 tube. Pt is obtunded. B/S mo. rhonchi, sxn small amounts of thick, turpin-yellow secretions. Vent plugged into red outlet, ambubag at bedside. Pt in no apparent distress at this time. Will continue plan of care.
[2020-01-20] MEDS: Piperacillin/Tazobactam 3.375 GM in NS 110 ML IVPB SCH (20:41)
[2020-01-20] MEDS: Pantoprazole Inj IVP SCH (20:55)
[2020-01-20] MEDS: Dakin's 0.25% (Half Strength) 16oz TOPIC SCH (20:59)
[2020-01-20] MEDS ORDERED: NovoLOG Insulin Flexpen SUBQ SCH (21:00)
--- NOTE | 2020-01-20 21:30 | NUR ---
NURSE NOTES: Placed a call and spoke to Spencer Menendez (son) and asked for verbal consent for the Endoscopy procedure of the patient tomorrow. Explained procedure, risk and benefits. Son understood and consented. Verbal consent was verified by another RN. consent form done and on the chart
--- NOTE | 2020-01-20 22:46 | General Progress Note ---
Assessment/Plan Assessment/Plan: Assessment - Melena / GIB - Anemia - malnutrition , albumin 1.5 - Resp failure, trach - s/p Suprapubic catheter - CVA / OBS Recommendations - NPO - IVF - Abx - PPI - EGD in am - Resume feed and protein supplements post EGD Thank you Kelton Hernandez MD Subjective Allergies: Coded Allergies: No Known Allergies (Unverified , 01/20/20) Objective Last 24 Hour Vital Signs Date Time Temp Pulse Resp B/P (MAP) Pulse Ox O2 Delivery O2 Flow Rate FiO2 01/20/20 20:35 117 11 40 01/20/20 20:00 40 01/20/20 20:00 Mechanical Ventilator 01/20/20 20:00 98.1 112 12 138/80 (99) 100 01/20/20 19:01 110 01/20/20 16:00 Mechanical Ventilator 01/20/20 16:00 30 01/20/20 16:00 106 10 100 Mechanical Ventilator 40 01/20/20 15:55 106 10 40 01/20/20 15:16 107 01/20/20 15:03 Mechanical Ventilator 01/20/20 14:51 96.4 104 10 111/76 (88) 100 01/20/20 13:59 98.5 92 10 95/65 100 Mechanical Ventilator 40 01/20/20 13:23 96 10 40 01/20/20 12:28 98.3 93 10 101/65 100 Mechanical Ventilator 40 01/20/20 12:01 98.3 97 10 93/63 100 Mechanical Ventilator 40 01/20/20 11:41 101 10 40 01/20/20 11:07 98.3 01/20/20 10:28 100.2 109 10 97/58 98 Room Air 40 01/20/20 08:50 40 01/20/20 08:44 124 10 40 01/20/20 08:28 100.2 123 8 102/63 100 Room Air 30 01/20/20 08:23 99.3 115 17 10/68 (49) 98 Room Air Laboratory Tests 01/20/20 08:40: White Blood Count 24.6*H, Red Blood Count 2.88L, Hemoglobin 8.5L, Hematocrit 25.8L, Mean Corpuscular Volume 90, Mean Corpuscular Hemoglobin 29.6, Mean Corpuscular Hemoglobin Concent 33.0, Red Cell Distribution Width 18.1H, Platelet Count 501H, Mean Platelet Volume 5.5L, Neutrophils (%) (Auto) , Lymphocytes (%) (Auto) , Monocytes (%) (Auto) , Eosinophils (%) (Auto) , Basophils (%) (Auto) , Differential Total Cells Counted 100, Neutrophils % ( Manual) 85H, Lymphocytes % (Manual) 8L, Monocytes % (Manual) 7, Eosinophils % ( Manual) 0, Basophils % (Manual) 0, Band Neutrophils 0, Platelet Estimate Adequate, Platelet Morphology Normal, Hypochromasia 2+, Anisocytosis 2+, Prothrombin Time 11.4, Prothromb Time International Ratio 1.0, Activated Partial Thromboplast Time 24, D-Dimer 2.99H, Urine Color Yellow, Urine Appearance Cloudy, Urine pH 7, Urine Specific [place] 1.005, Urine Protein 2+H, Urine Glucose (UA) Negative, Urine Ketones Negative, Urine Blood 3+H, Urine Nitrite PositiveH, Urine Bilirubin Negative, Urine Urobilinogen 1H, Urine Leukocyte Esterase 3+H, Urine RBC 20-30H, Urine WBC TntcH, Urine Squamous Epithelial Cells Few, Urine Bacteria ModerateH, Sodium Level 135L, Potassium Level 4.4, Chloride Level 98, Carbon Dioxide Level 33H, Anion Gap 4L, Blood Urea Nitrogen 13, Creatinine 0.4L, Estimat Glomerular Filtration Rate > 60, Glucose Level 239H, Lactic Acid Level 1.50, Calcium Level 8.8, Ferritin 1046H, Total Bilirubin 0.3, Aspartate Amino Transf (AST/SGOT) 13L, Alanine Aminotransferase (ALT/SGPT) 14, Alkaline Phosphatase 171H, Lactate Dehydrogenase 173, Total Creatine Kinase 39, Creatine Kinase MB 2.7, Creatine Kinase MB Relative Index 6.9, Troponin I 0.000, C-Reactive Protein, Quantitative 25.7H, Pro-B-Type Natriuretic Peptide 773H, Total Protein 7.2, Albumin 1.5L, Globulin 5.7, Albumin/Globulin Ratio 0.3L, Amylase Level 42 01/20/20 19:30: White Blood Count 24.2*H, Red Blood Count 2.82L, Hemoglobin 8.0L, Hematocrit 26.4L, Mean Corpuscular Volume 93, Mean Corpuscular Hemoglobin 28.4, Mean Corpuscular Hemoglobin Concent 30.4L, Red Cell Distribution Width 17.9H, Platelet Count 531H, Mean Platelet Volume 5.6L, Neutrophils (%) (Auto) , Lymphocytes (%) (Auto) , Monocytes (%) (Auto) , Eosinophils (%) (Auto) , Basophils (%) (Auto) , Differential Total Cells Counted 100, Neutrophils % ( Manual) 83H, Lymphocytes % (Manual) 3L, Monocytes % (Manual) 4, Eosinophils % ( Manual) 0, Basophils % (Manual) 0, Band Neutrophils 10H, Platelet Estimate IncreasedH, Platelet Morphology Normal, Hypochromasia 1+, Anisocytosis 2+, Polychromasia 1+ Height (Feet): 5 Height (Inches): 3.00 Weight (Pounds): 110 Kelton Hernandez MD Jan 20, 2020 22:46
[2020-01-21] VITALS: BP 126/71
--- NOTE | 2020-01-21 02:00 | NUR ---
NURSE NOTES: Patient was given bed bath. Gown and linen were change. Wound tx done. pt tolerated well. NO active bleeding noted. Continue plan of care
[2020-01-21 04:00] VITALS: BP 134/69
[2020-01-21 04:20] LABS: HEMATOCRIT 21.7 % (37.0-47.0); MEAN CORPUSCULAR VOLUME 91 FL (80-99); PLATELET COUNT 510 K/UL (150-450); RED BLOOD COUNT 2.38 M/UL (4.20-5.40); RED CELL DISTRIBUTION WIDTH 16.9 % (11.6-14.8); WHITE BLOOD COUNT 19.9 K/UL (4.8-10.8)
[2020-01-21 04:29] LABS: HEMOGLOBIN 6.8 G/DL (12.0-16.0)
[2020-01-21 04:30] LABS: INR 1.1 (0.9-1.1)
--- NOTE | 2020-01-21 04:40 | NUR ---
NURSE NOTES: Placed a call and left a voicemail to Dr Castro and Dr Hernandez regarding patient's Critical HGb result of 6.8 . No active bleeding noted. VS are stable but sinus Tachycardic. O2 Sat is 99-100%. Awaiting for response
--- NOTE | 2020-01-21 04:50 | NUR ---
NURSE NOTES: placed a call and spoke to Spencer Menendez (son) and asked for verbal consent for the Blood transfusion of 1 unit PRBC. Explained procedure, risk and benefits. Son understood and consented. Verbal consent was verified by another RN. consent form done and on the chart
[2020-01-21 04:53] LABS: ALANINE AMINOTRANSFERASE 11 U/L (12-78); ALBUMIN 1.3 G/DL (3.4-5.0); ALBUMIN/GLOBULIN RATIO 0.2 (1.0-2.7); ALKALINE PHOSPHATASE 130 U/L (46-116); ANION GAP 7 mmol/L (5-15); ASPARTATE AMINO TRANSFERASE 13 U/L (15-37); BILIRUBIN,TOTAL 0.4 MG/DL (0.2-1.0); BLOOD UREA NITROGEN 10 mg/dL (7-18); CALCIUM 8.3 MG/DL (8.5-10.1); CARBON DIOXIDE 30 MMOL/L (21-32); CHLORIDE 108 MMOL/L (98-107); CREATININE 0.4 MG/DL (0.55-1.30); POTASSIUM 3.9 MMOL/L (3.5-5.1); SODIUM 145 MMOL/L (136-145)
[2020-01-21] MEDS: Vancomycin 750mg/NS 275ml IVPB SCH ×4 (05:53→18:16)
[2020-01-21] MEDS: NovoLOG Insulin Flexpen SUBQ SCH ×4 (05:53→17:18)
[2020-01-21] MEDS: Piperacillin/Tazobactam 3.375 GM in NS 110 ML IVPB SCH ×3 (06:00→22:34)
--- NOTE | 2020-01-21 06:00 | NUR ---
NURSE NOTES: Pt will start Blood transfusion. ATB not given. informed Amy, pharmacist. Endorsed to AM nurse to call pharmacy when IV line is ready
--- NOTE | 2020-01-21 07:30 | NUR ---
NURSE HAND-OFF REPORT: Important Events on Shift: Low HGB Patient Status: Stable but on ST Diet: NPO Pending Orders: EGD and Blood transfusion PRBC today Pending Results/Labs: n Pending notification:n Latest Vital Signs: Temperature 99.0 , Pulse 111 , B/P 134 /69 , Respiratory Rate 10 , O2 SAT 100 , Mechanical Ventilator, O2 Flow Rate . Vital Sign Comment: BP monitoring EKG Rhythm: Sinus Tachycardia Rhythm change?: N MD Notified?: N -Dr Gloria BASS Response: Latest Colon Fall Score: 70 Fall Risk: High Risk Safety Measures: Call light Within Reach, Bed Alarm Zone 1, Side Rails Side Rails x3, Bed position Low and Locked. Fall Precautions: Yellow Socks Report given to Marcia york. Endorsed to start PRBC and PT is for EGD today.
--- NOTE | 2020-01-21 07:35 | NUR ---
NURSE NOTES: Received report from PETE Sinha. Patient is resting in bed, in stable condition. No s/sx of SOB, breathing is even and unlabored, vent settings are as ordered. Patient is nonverbal, observed no presence of pain or discomfort at this time. Per night nurse will receive 2 units of PRBC. First PRBC has begun transfusing, will continue to monitor patient. Bed is in lowest position, brakes engaged. Call light is kept within easy reach. Will continue to monitor patient.
[2020-01-21 08:00] VITALS: BP 127/67
--- NOTE | 2020-01-21 08:00 | NUR ---
NURSE NOTES: Began patient's 1 out of 2 blood transfusion PRBC. Vital signs: BP 131/69, HR 112, Temperature 98.1 axillary. Will monitor patient.
[2020-01-21] MEDS: Multivitamins W/Minerals 15 ML UDC GT SCH (08:11)
[2020-01-21] MEDS: Ascorbic Acid 500mg tab GT SCH (08:11)
[2020-01-21] MEDS: Pantoprazole Inj IVP SCH ×2 (08:12→20:11)
--- NOTE | 2020-01-21 08:15 | NUR ---
NURSE NOTES: Assessed patient 15 minutes after beginning first PRBC blood transfusion. Vital signs: BP 127/67, HR 116, Temperature 98.6 F axillary, no adverse reactions noted. Will continue to monitor patient.
--- NOTE | 2020-01-21 08:25 | Consultation ---
DATE OF CONSULTATION: 01/20/2020 CARDIOLOGY CONSULTATION CONSULTING PHYSICIAN: Kumar Pan MD REQUESTING PHYSICIAN: Chi Castro MD REASON FOR CONSULTATION: Tachycardia. HISTORY OF PRESENT ILLNESS: This is a 54-year-old female with respiratory failure and tracheostomy. She was transferred to the hospital for evaluation of GI bleeding. She was noted to have tachycardia. I have been asked to assist with care. PAST MEDICAL HISTORY: Includes type 2 diabetes mellitus, hypertension, cerebrovascular disease with history of CVA, respiratory failure with tracheostomy and comatose state, and dysphagia with G-tube. ALLERGIES: None. MEDICATIONS: Reviewed. FAMILY HISTORY: Not known. SOCIAL HISTORY: Not obtainable. PHYSICAL EXAMINATION: GENERAL: Finds her to have a trach, ventilator supported. LUNGS: Bilateral rhonchi. HEART: Regular rhythm. Rapid rate. Normal S1, S2. No murmur. ABDOMEN: Soft. No focal guarding or rebound. G-tube intact. EXTREMITIES: No edema. NEUROLOGIC: The patient is unresponsive. LABORATORY AND DIAGNOSTIC DATA: White count 24.6, hemoglobin 8.5, platelets 501,000. D-dimer 2.99. Urinalysis, too numerous to count white cells. BUN 13, creatinine 0.4, potassium 4.4, sodium 135, bicarb 33, and lactic acid 1.5. Troponin negative. Albumin 1.5. Pro-natriuretic peptide 773. The EKG revealed sinus tachycardia with nonspecific, no acute ST abnormalities. Chest x-ray, and bilateral basilar infiltrates. IMPRESSION: Sinus tachycardia, multifactorial; severe sepsis; leukocytosis; urinary tract infection; healthcare-associated pneumonia; ventilator-dependent respiratory failure; severe protein-calorie malnutrition; acute diastolic congestive heart failure; hypovolemia; dehydration; chronic encephalopathy and comatose state with probable component of autonomic dysfunction; and suspected GI bleeding.. PLAN: Ventilator support. Avoid beta-agonist. Panculture. Empiric antibiotics. IV fluid hydration. Monitor blood counts. Antipyretics. Avoid antiplatelets and anticoagulants for now. No role for antiarrhythmics. Kumar Pan M.D. : [place] JOB#: [id number] CC:
--- NOTE | 2020-01-21 08:25 | Consultation ---
DATE OF CONSULTATION: 01/20/2020 GASTROLOGY CONSULTATION CHIEF COMPLAINT: I was asked to see patient by Dr. Chi Castro for concern of some gastrointestinal bleeding. HISTORY OF PRESENT ILLNESS: The patient is an unfortunate 54-year-old woman with a history of stroke and brain injury with resultant functional paraplegia. She has a tracheostomy and gastrostomy and suprapubic catheter placed for long-term care. She is in a long-term half-way facility. The patient herself is nonverbal and noncommunicative and most of the information is available from her chart and discussion with the son. The son stated that the patient had an endoscopy and colonoscopy, but this was many years ago. The indications, risks, alternatives, and possible complications of the endoscopic procedure were explained to the patient's son and informed consent was obtained. PAST MEDICAL HISTORY: History of stroke, hypertension, diabetes mellitus, respiratory failure, status post gastrostomy, status post tracheostomy, status post suprapubic catheter placement. FAMILY HISTORY: Noncontributory. SOCIAL HISTORY: The patient is a long-term half-way resident, and her son looks after her affairs. MEDICATIONS: See the chart list for details. REVIEW OF SYSTEMS: Otherwise negative. PHYSICAL EXAMINATION: GENERAL: A debilitated woman, seen in her room. HEENT: Normocephalic, atraumatic. Tracheostomy was in place. NECK: Supple. CHEST: Coarse breath sounds and scattered rhonchi. CARDIOVASCULAR: Regular rate. ABDOMEN: Soft and flat with the gastrostomy tube in the left upper quadrant and suprapubic catheter in the pelvic area. EXTREMITIES: Some contractures. LABORATORY DATA: Noted. ASSESSMENT: This patient presents with anemia and dark stools, consistent with upper gastrointestinal bleeding. She has also had some hypotension and tachycardia, but this has improved. The patient should undergo an endoscopy to evaluate the source of the upper GI bleeding. In the meantime, antibiotics were given for supportive care and treatment of infiltrates. The patient's overall prognosis is poor and limited by her multiorgan dysfunction. Recommendations per above discussion and per orders written in the chart. Thank you for asking me to participate in the care of this patient. Payman Khorrami, M.D. DR: LONNIE JOB#: [id number] CC: [place]
--- NOTE | 2020-01-21 08:29 | NUR ---
RD ASSESSMENT & RECOMMENDATIONS SEE CARE ACTIVITY FOR COMPLETE ASSESSMENT DAILY ESTIMATED NEEDS: Needs based on Wound, critical care 44.1kg 27-32 kcals/kg 4424-0768 total kcals 1.25-2 g protein/kg 55-88 g total protein 25-30 mL/kg 6303-9140 total fluid mLs NUTRITION DIAGNOSIS: Increased kcal and pro needs r/t underweight status and wound healing as evidenced by BMI 16.7, pt is 81% of [employer] Body Weight, generalized wasting noted, w/ wounds including full thickness and unstageable x1, refer to WC eval for full eval. CURRENT TF:NPO ENTERAL NUTRITION RECOMMENDATIONS: As medically able, rec Glucerna 1.2 goal of 50ml/hr x22 hrs to provide 1100ml, 1320 kcal, 66g pro, 886ml free H2O - As medically able, rec start TF @30ml/hr for 6 hrs. Advance as tolerated 10ml/hr q4-6 hrs to goal. - Flush per MD. HOB Over 30 degrees. - HOLD TF 1 hr before and after synthroid meds. - TF @goal meets 100% est needs. ADDITIONAL RECOMMENDATIONS: 1) Per SNF: 5'4" tall, 97 lbs/44.09kg Maintain calibrated bed scale wts 2) Wound care: w/ TF orders add HALEY BID + ZnSo4 220mg qd x10 days 3) Lytes daily, replete as needed
[2020-01-21] MEDS: Dakin's 0.25% (Half Strength) 16oz TOPIC SCH (09:07)
--- NOTE | 2020-01-21 10:55 | Anethesia Preoperative Eval ---
Anesthesia Pre-op PMH/ROS General Date of Evaluation: Jan 21, 2020 Time of Evaluation: 10:51 Anesthesiologist: Grey ASA Score: ASA 4 Mallampati Score Class I : Soft palate, uvula, fauces, pillars visible Class II: Soft palate, uvula, fauces visible Class III: Soft palate, base of uvula visible Class IV: Only hard plate visible Mallampati Classification: Class III Surgeon: Devorah Diagnosis: GI bleed anemia Surgical Procedure: EGD Anesthesia History: none Family History: no anesthesia problems Allergies: Coded Allergies: No Known Allergies (Unverified , 01/20/20) Medications: see eMAR Patient NPO?: Yes Past Medical History Cardiovascular: Reports: HTN, arrhythmia; Denies: CAD, ND, valve dz, other Pulmonary: Reports: other - respiratory failure tracheostomy rad place; Denies: asthma, COPD, DAYSI Gastrointestinal/Genitourinary: Reports: GERD; Denies: CRI, ESRD, other Neurologic/Psychiatric: Reports: dementia, CVA; Denies: depression/anxiety, TIA, other Endocrine: Reports: DM; Denies: hypothyroidism, steroids, other HEENT: Denies: cataract (L), cataract (R), glaucoma, TULALIP (L), TULALIP (R), other Hematology/Immune: Reports: anemia - severe posthemorrhagic; Denies: DVT, bleeding disorder, other Musculoskeletal/Integumentary: Reports: OA, other - contructed; Denies: RA, DJD, DDD, edema Other: other - malnourished PMH Narrative: as above PSxH Narrative: Peg tube, tracheostomy Anesthesia Pre-op Phys. Exam Physician Exam Last Vital Signs Date Time Temp Pulse Resp B/P (MAP) Pulse Ox O2 Delivery O2 Flow Rate FiO2 01/21/20 08:00 98.6 116 14 127/67 (87) 100 01/21/20 08:00 40 01/21/20 08:00 Mechanical Ventilator Constitutional: NAD Neurologic: other - unable to obtaine Cardiovascular: RRR Respiratory: CTA Gastrointestinal: S/NT/ND Airway Exam Mallampati Score: Class III MO: limited Neck: tracheostomy ROM: limited Teeth: missing Dentures: no upper, no lower Anesthesia Pre-op A/P Labs Hematology Test 01/20/20 19:30 01/21/20 03:10 White Blood Count 24.2 K/UL (4.8-10.8) *H 19.9 K/UL (4.8-10.8) H Red Blood Count 2.82 M/UL (4.20-5.40) L 2.38 M/UL (4.20-5.40) L Hemoglobin 8.0 G/DL (12.0-16.0) L 6.8 G/DL (12.0-16.0) *L Hematocrit 26.4 % (37.0-47.0) L 21.7 % (37.0-47.0) L Mean Corpuscular Volume 93 FL (80-99) 91 FL (80-99) Mean Corpuscular Hemoglobin 28.4 PG (27.0-31.0) 28.6 PG (27.0-31.0) Mean Corpuscular Hemoglobin Concent 30.4 G/DL (32.0-36.0) L 31.3 G/DL (32.0-36.0) L Red Cell Distribution Width 17.9 % (11.6-14.8) H 16.9 % (11.6-14.8) H Platelet Count 531 K/UL (150-450) H 510 K/UL (150-450) H Mean Platelet Volume 5.6 FL (6.5-10.1) L 5.1 FL (6.5-10.1) L Neutrophils (%) (Auto) % (45.0-75.0) % (45.0-75.0) Lymphocytes (%) (Auto) % (20.0-45.0) % (20.0-45.0) Monocytes (%) (Auto) % (1.0-10.0) % (1.0-10.0) Eosinophils (%) (Auto) % (0.0-3.0) % (0.0-3.0) Basophils (%) (Auto) % (0.0-2.0) % (0.0-2.0) Differential Total Cells Counted 100 100 Neutrophils % (Manual) 83 % (45-75) H 81 % (45-75) H Lymphocytes % (Manual) 3 % (20-45) L 13 % (20-45) L Monocytes % (Manual) 4 % (1-10) 6 % (1-10) Eosinophils % (Manual) 0 % (0-3) 0 % (0-3) Basophils % (Manual) 0 % (0-2) 0 % (0-2) Band Neutrophils 10 % (0-8) H 0 % (0-8) Platelet Estimate Increased H Increased H Platelet Morphology Normal Normal Polychromasia 1+ 1+ Hypochromasia 1+ 1+ Anisocytosis 2+ 1+ Erythrocyte Sedimentation Rate 132 MM/HR (0-30) H Coagulation Test 01/21/20 03:10 Prothrombin Time 12.4 SEC (9.30-11.50) H Prothromb Time International Ratio 1.1 (0.9-1.1) Activated Partial Thromboplast Time 30 SEC (23-33) Chemistry Test 01/20/20 23:45 01/21/20 03:10 01/21/20 05:14 POC Whole Blood Glucose 152 MG/DL (74-106) H 135 MG/DL (74-106) H Sodium Level 145 MMOL/L (136-145) # Potassium Level 3.9 MMOL/L (3.5-5.1) Chloride Level 108 MMOL/L (98-107) H Carbon Dioxide Level 30 MMOL/L (21-32) Anion Gap 7 mmol/L (5-15) Blood Urea Nitrogen 10 mg/dL (7-18) Creatinine 0.4 MG/DL (0.55-1.30) L Estimat Glomerular Filtration Rate > 60 mL/min (>60) Glucose Level 139 MG/DL (74-106) #H Calcium Level 8.3 MG/DL (8.5-10.1) L Total Bilirubin 0.4 MG/DL (0.2-1.0) Aspartate Amino Transf (AST/SGOT) 13 U/L (15-37) L Alanine Aminotransferase (ALT/SGPT) 11 U/L (12-78) L Alkaline Phosphatase 130 U/L (46-116) H Total Protein 6.7 G/DL (6.4-8.2) Albumin 1.3 G/DL (3.4-5.0) L Globulin 5.4 g/dL Albumin/Globulin Ratio 0.2 (1.0-2.7) L Lipase 65 U/L (73-393) L Risk Assessment & Plan Assessment: ASA 4 Plan: MAC Status Change Before Surgery: No Pre-Antibiotics Drug: as scheduled Cas Edmonds MD Jan 21, 2020 10:55
--- NOTE | 2020-01-21 10:59 | NUR ---
NURSE NOTES: Obtained telephone consent for "endoscopy with possible biopsy, polypectomy, hemostasis, dilation and submucosal injection" to be performed by Dr. Gallardo. Spoke with patient's son, Spencer Menendez; . Second witness PETE Ballard. Consent is in chart. Noted. Will continue to monitor patient.
[2020-01-21] MEDS: Acetaminophen 650mg/20.3ml GT PRN ×2 (11:30→19:38)
--- NOTE | 2020-01-21 11:30 | NUR ---
NURSE NOTES: Assessed patient post first PRBC blood transfusion. Vital signs: BP 116/66, HR 110, Temperature 98.8 F axillary, no adverse reactions noted. Will continue to monitor patient.
--- NOTE | 2020-01-21 11:30 | General Progress Note ---
Assessment/Plan Assessment/Plan: IMPRESSION leukocytosis possible sepsis anemia rectal bleeding palpitations pulmonary infiltrates UTI PLAN Iv antibiotics ID evaluation consider CT chest- will order resume SNF meds cardiology and ID and GI followup transfuse today monitor labs impression, plan, and exam edited and reviewed in detail care discussed with RN Subjective Allergies: Coded Allergies: No Known Allergies (Unverified , 01/20/20) Subjective worsening anemia noted Objective Last 24 Hour Vital Signs Date Time Temp Pulse Resp B/P (MAP) Pulse Ox O2 Delivery O2 Flow Rate FiO2 01/21/20 10:51 107 10 40 01/21/20 08:00 98.6 116 14 127/67 (87) 100 01/21/20 08:00 40 01/21/20 08:00 Mechanical Ventilator 01/21/20 07:11 111 10 40 01/21/20 04:00 Mechanical Ventilator 01/21/20 04:00 99.0 126 12 134/69 (90) 100 01/21/20 03:31 127 01/21/20 03:25 127 14 40 01/21/20 00:00 98.2 120 12 126/71 (89) 100 01/21/20 00:00 40 01/21/20 00:00 Mechanical Ventilator 01/20/20 23:37 122 10 40 01/20/20 23:26 122 01/20/20 20:35 117 11 40 01/20/20 20:00 40 01/20/20 20:00 Mechanical Ventilator 01/20/20 20:00 98.1 112 12 138/80 (99) 100 01/20/20 19:01 110 01/20/20 16:00 Mechanical Ventilator 01/20/20 16:00 30 01/20/20 16:00 106 10 100 Mechanical Ventilator 40 01/20/20 15:55 106 10 40 01/20/20 15:16 107 01/20/20 15:03 Mechanical Ventilator 01/20/20 14:51 96.4 104 10 111/76 (88) 100 01/20/20 13:59 98.5 92 10 95/65 100 Mechanical Ventilator 40 01/20/20 13:23 96 10 40 01/20/20 12:28 98.3 93 10 101/65 100 Mechanical Ventilator 40 01/20/20 12:01 98.3 97 10 93/63 100 Mechanical Ventilator 40 01/20/20 11:41 101 10 40 Intake and Output 9/14/20 9/15/20 19:00 07:00 Intake Total 3155 ml 323.333 ml Output Total 0 ml Balance 3155 ml 323.333 ml Intake Free Water 20 ml 30 ml IV Total 3135 ml 293.333 ml Output Urine Total 0 ml # Bowel Movements 3 1 Laboratory Tests 01/20/20 19:30: White Blood Count 24.2*H, Red Blood Count 2.82L, Hemoglobin 8.0L, Hematocrit 26.4L, Mean Corpuscular Volume 93, Mean Corpuscular Hemoglobin 28.4, Mean Corpuscular Hemoglobin Concent 30.4L, Red Cell Distribution Width 17.9H, Platelet Count 531H, Mean Platelet Volume 5.6L, Neutrophils (%) (Auto) , Lymphocytes (%) (Auto) , Monocytes (%) (Auto) , Eosinophils (%) (Auto) , Basophils (%) (Auto) , Differential Total Cells Counted 100, Neutrophils % ( Manual) 83H, Lymphocytes % (Manual) 3L, Monocytes % (Manual) 4, Eosinophils % ( Manual) 0, Basophils % (Manual) 0, Band Neutrophils 10H, Platelet Estimate IncreasedH, Platelet Morphology Normal, Polychromasia 1+, Hypochromasia 1+, Anisocytosis 2+ 01/20/20 21:55: Stool Occult Blood [Pending] 01/20/20 23:45: POC Whole Blood Glucose 152H 01/21/20 03:10: White Blood Count 19.9H, Red Blood Count 2.38L, Hemoglobin 6.8*L, Hematocrit 21.7L, Mean Corpuscular Volume 91, Mean Corpuscular Hemoglobin 28.6, Mean Corpuscular Hemoglobin Concent 31.3L, Red Cell Distribution Width 16.9H, Platelet Count 510H, Mean Platelet Volume 5.1L, Neutrophils (%) (Auto) , Lymphocytes (%) (Auto) , Monocytes (%) (Auto) , Eosinophils (%) (Auto) , Basophils (%) (Auto) , Differential Total Cells Counted 100, Neutrophils % ( Manual) 81H, Lymphocytes % (Manual) 13L, Monocytes % (Manual) 6, Eosinophils % ( Manual) 0, Basophils % (Manual) 0, Band Neutrophils 0, Platelet Estimate IncreasedH, Platelet Morphology Normal, Polychromasia 1+, Hypochromasia 1+, Anisocytosis 1+, Erythrocyte Sedimentation Rate 132H, Prothrombin Time 12.4H, Prothromb Time International Ratio 1.1, Activated Partial Thromboplast Time 30, Sodium Level 145#, Potassium Level 3.9, Chloride Level 108H, Carbon Dioxide Level 30, Anion Gap 7, Blood Urea Nitrogen 10, Creatinine 0.4L, Estimat Glomerular Filtration Rate > 60, Glucose Level 139#H, Calcium Level 8.3L, Total Bilirubin 0.4, Aspartate Amino Transf (AST/SGOT) 13L, Alanine Aminotransferase ( ALT/SGPT) 11L, Alkaline Phosphatase 130H, Total Protein 6.7, Albumin 1.3L, Globulin 5.4, Albumin/Globulin Ratio 0.2L, Lipase 65L 01/21/20 05:14: POC Whole Blood Glucose 135H Height (Feet): 5 Height (Inches): 2.00 Weight (Pounds): 103 Objective WDWN NAD reduced breath sounds bilaterally without rhonchi or wheeze [id number] tachy without MRG NABS nontender no CCE poor LOC trach and GT Chi Castro MD Jan 21, 2020 11:30
[2020-01-21 12:00] VITALS: BP 116/66
[2020-01-21] MEDS ORDERED: fentaNYL 100 mcg/2 mL IV ONE (12:00)
--- NOTE | 2020-01-21 12:00 | NUR ---
NURSE NOTES: Assessed patient's temperature pre transfusion for second PRBC, temperature noted at 100.6 F axillary. Administered PRN tylenol and cooling measures. Will monitor.
--- NOTE | 2020-01-21 12:02 | Pre-Procedure Note/Attestation ---
Pre-Procedure Note/Attestation Complete Prior to Procedure Planned Procedure: not applicable Procedure Narrative: egd Indications for Procedure Pre-Operative Diagnosis: GIB Attestation I attest that I discussed the nature of the procedure; its benefits; risks and complications; and alternatives (and the risks and benefits of such alternatives ), prior to the procedure, with the patient (or the patient's legal patient representative). I attest that, if there was a reasonable possibility of needing a blood transfusion, the patient (or the patient's legal patient representative) was given the [facility] standardized written summary, pursuant to the Osiel Oumar Blood Safety Act ([place] Health and Safety Code # 1645, as amended). I attest that I re-evaluated the patient just prior to the surgery and that there has been no change in the patient's H&P, except as documented below: Alonso Gallardo MD Jan 21, 2020 12:02
--- NOTE | 2020-01-21 12:04 | Diagnostic Imaging Report ---
EXAM: XRAY Abdomen 1v HISTORY: Abdominal pain COMPARISON: None. TECHNIQUE: Frontal view of the abdomen obtained. FINDINGS: There is a nonobstructed bowel gas pattern. Increased stool lucencies noted in the colon. There is a G-tube in place. No definite pathologic calcifications identified. There is no sign of free air. No acute abnormality noted of the visualized osseous structures. IMPRESSION: INCREASED STOOL LUCENCIES IN THE COLON. G-TUBE IN PLACE.
--- NOTE | 2020-01-21 12:14 | Consultation ---
DATE OF CONSULTATION: 01/21/2020 INFECTIOUS DISEASES CONSULTATION CONSULTING PHYSICIAN: Des San MD. REFERRING PHYSICIAN: Chi Castro MD. REASON FOR CONSULTATION: Leukocytosis. HISTORY OF PRESENTING ILLNESS: This is an 54-year-old lady with history of diabetes, hypertension, CVA, respiratory failure status post tracheostomy, G-tube placement, who comes in because she was found to have rectal bleeding and leukocytosis. An Infectious Diseases consultation has been obtained for antibiotics. PAST MEDICAL HISTORY: 1. History of diabetes. 2. Hypertension. 3. CVA. 4. Respiratory failure, status post tracheostomy. 5. Status post G-tube placement. SOCIAL HISTORY: No history of smoking, alcohol, or drug use. FAMILY HISTORY: Unknown. REVIEW OF SYSTEMS: Unable to obtain currently. MEDICATIONS: As an inpatient, she is on docusate, multivitamin, ascorbic acid, levothyroxine, vancomycin, insulin, Mylanta, Protonix, Zosyn, Tylenol. ALLERGIES: No known drug allergies. PHYSICAL EXAMINATION: VITAL SIGNS: Temperature 98.5, T-max of 100.2, pulse of 116, respiratory rate of 14, blood pressure 127/67, O2 saturation of 100%. HEENT: Pupils equally reactive to light and accommodation. Mouth appears clean without thrush. NECK: Supple. No adenopathy. No JVD. Tracheostomy site is clean CARDIOVASCULAR: Regular rate and rhythm. No murmurs. LUNGS: Clear to auscultation bilaterally. No crackles. No wheezes. ABDOMEN: Soft, nontender. No organomegaly. G-tube site appears clean. EXTREMITIES: No cyanosis, no clubbing, no edema. LABORATORY AND DIAGNOSTIC DATA: White count of 24 on 01/20/2020. White count of 19 today, hemoglobin 6.8, hematocrit 21.7, MCV 91, platelet count of 510, neutrophils of 81%. Sodium 145, potassium 3.9, chloride 108, bicarb 30, BUN 10, creatinine 0.4, glucose 139, calcium 8.3. Total bilirubin 0.4, AST 13, ALT 11, alkaline phosphatase 130, total protein 6.7, albumin 1.3. Lipase of 65. C-reactive protein of 25. Beta-natriuretic peptide 773. Total protein 7.2, albumin 1.5. Amylase of 42. Troponin of 0, CK-MB 2.7, CK of 39, LDH 173. UA is showing too numerous to count white cells. Urine culture showing gram-negative rods more than 100,000 colonies. COVID-19 test is negative. Chest x-ray is showing bilateral infiltrates. ASSESSMENT: This is a 54-year-old lady with a history of diabetes, hypertension, respiratory failure status post tracheostomy, CVA, who comes in with. 1. Leukocytosis could be secondary to gram-negative urinary tract infection. 2. Gram-negative urinary tract infection. 3. Possible aspiration pneumonia. 4. Leukocytosis is improving. 5. Respiratory failure. 6. CVA. PLAN: 1. Continue IV vancomycin and Zosyn. 2. We will order sputum for Gram stain and culture. 3. We will follow up cultures and adjust antibiotics accordingly. I would like to thank, Dr. Castro for this consultation. Des San M.D. DR: Freddy JOB#: [id number] CC: Chi Castro M.D.; Fax#: [phone]
--- NOTE | 2020-01-21 12:22 | Immediate Post-Op Evaluation ---
Immediate Post-Op Evalulation Immediate Post-Op Evalulation Procedure: EGD with Bx, epinephrin injection with coagulation Date of Evaluation: Jan 21, 2020 Time of Evaluation: 12:21 IV Fluids: 1200 Blood Products: none Estimated Blood Loss: none Urinary Output: none Blood Pressure Systolic: 116 Blood Pressure Diastolic: 52 Pulse Rate: 102 Respiratory Rate: 16 O2 Sat by Pulse Oximetry: 99 Temperature (Fahrenheit): 98.9 Pain Score (1-10): 1 Nausea: No Vomiting: No Complications none Patient Status: no response, ventilated, none Cas Edmonds MD Jan 21, 2020 12:22
--- NOTE | 2020-01-21 12:23 | 48 Hour Post Anesthesia Eval ---
Post Anesthesia Evaluation Procedure: EGD with Bx, epinephrin injection with coagulation Date of Evaluation: Jan 21, 2020 Time of Evaluation: 12:55 Blood Pressure Systolic: 108 0: 54 Pulse Rate: 86 Respiratory Rate: 20 Temperature (Fahrenheit): 97.6 O2 Sat by Pulse Oximetry: 98 Airway: other - tracheostomy Nausea: No Vomiting: No Pain Intensity: 1 Hydration Status: adequate Cardiopulmonary Status: stable Mental Status/LOC: patient returned to baseline Follow-up Care/Observations: n/a Post-Anesthesia Complications: none Follow-up care needed: N/A Cas Edmonds MD Jan 21, 2020 12:23
--- NOTE | 2020-01-21 12:24 | Endoscopy Procedure Note ---
Endoscopy Procedure Note General Indication for Procedure: gib Procedures Performed: EGD Operative Findings/Diagnosis: gu Specimen: yes Pt Tolerated Procedure Well: Yes Estimated Blood Loss: none Anesthesia Anesthesiologist: elliott Anesthesia: MAC Inserted Devices Implant(s) used?: No GI Core Measures 50 yrs or older w/o bx or poly: Not Applicable 10yrs. F/U recommended: Not Applicable Alonso Gallardo MD Jan 21, 2020 12:24
--- NOTE | 2020-01-21 12:30 | NUR ---
NURSE NOTES: Reassessed patient's temperature after tylenol and cooling measures. Temperature noted at 100.2 F axillary. Contacted and informed Dr. Castro regarding persistent elevated temperature and instructions for second unit of PRBC blood transfusion. Dr. Castro acknowledged and instructed nurse to get fever down and then continue with second unit of PRBC blood transfusion. Charge nurse made aware. Will continue to monitor patient.
--- NOTE | 2020-01-21 12:45 | NUR ---
NURSE NOTES: Per microbiology patient's blood cultures is positive for gram positive cocci in clusters x 2 bottles. Patient is on Zosyn 3.375 gm IV Q8HR and Vancomycin IV per pharmacy to dose. Called and left message to Dr. San regarding assessments. Awaiting call back from Dr. San. Will continue to monitor patient.
--- NOTE | 2020-01-21 12:58 | NUR ---
CASE MANAGEMENT:REVIEW BIBA FROM [facility] PMH: TRACH/VENT/GTUBE SI: LGIB. ANEMIA. PNA. UTI 100.2 115 17 97/58 98% ON RA WBC+24.6 H/H-8.5/25.8 IS: 1L NS BOLUS IV PROTONIX IV AZITHROMYCIN TYLENOL WI URINE CX CXR : TO STEP DOWN UNIT
--- NOTE | 2020-01-21 13:07 | NUR ---
CASE MANAGEMENT:REVIEW 01/21/20 SI: LGIB. ANEMIA. PNA. UTI TRACH/VENT/GTUBE 99.5 116 14 127/67 100% ON VENT SUPPORT W/40% FIO2 WBC+19.9 H/H-6.8/21.7 IS: TRANSFUSE PRBC'S IV EPI X1 IV VANCOMYCIN Q12 IV ZOSYN Q8HRS IVF@100/HR IV PROTONIX Q12 : STEP DOWN UNIT DCP: RETURN TO [facility] UPON DISCHARGE
--- NOTE | 2020-01-21 13:45 | Procedure Note ---
DATE OF PROCEDURE: 01/21/2020 SURGEON: Alonso Gallardo MD. PROCEDURE: Upper endoscopy with biopsy and hemostasis. ANESTHESIA: Per Dr. Edmonds. INSTRUMENT: Olympus adult flexible upper endoscope. INDICATION: Upper GI bleeding. REASON FOR PROCEDURE: The procedure, risks, benefits, and possible consequences, including hemorrhage, aspiration, perforation and infection, and alternative treatments, were explained to the patient/legal guardian by Dr. Alonso Gallardo and the patient/legal guardian understood and accepted these risks. PROCEDURE IN DETAIL: After informed consent was obtained and the patient was adequately sedated, Olympus upper endoscope was advanced from mouth into the second portion of the duodenum and retroflexion was performed in the stomach. The patient had a lesion under the G-tube, possibly the source of bleeding. There was one red spot. We injected with 1 mL of 1:10,000 dilution of epinephrine and then used the gold probe cauterization to cauterize it easily. No active bleeding. The patient also has evidence of gastritis. Random biopsy from antrum was obtained to rule out H. pylori infection. SUMMARY OF FINDINGS: 1. Lesion under the G-tube site, possibly the source of bleeding, status post hemostasis. 2. Gastritis, status biopsy. RECOMMENDATIONS: 1. Follow biopsy results and treat accordingly. 2. Monitor H and H, transfuse as needed to keep hemoglobin above 7. 3. Resume tube feeding. 4. Plan for possible colonoscopy per Dr. Hernandez if needed. Alonso Gallardo M.D. DR: DERRICK JOB#: [id number] CC:
--- NOTE | 2020-01-21 14:00 | NUR ---
NURSE NOTES: Dr. Gallardo completed EGD and ordered to continue patient's tube feeding at low rate of 20 ml/hr then advance 10 ml/h as tolerated unto goal of 60 ml/hr. Patient noted with Glucerna 1.2 tube feeding formula. Orders entered, noted, and carried out. Will continue to monitor patient.
--- NOTE | 2020-01-21 14:21 | Cardiology Report ---
APPROVED REPORT EKG Measurement Heart [id number] CT [id number] <Conclusion> Sinus tachycardia with short CT Nonspecific T wave abnormality Abnormal ECG
--- NOTE | 2020-01-21 15:22 | NUR ---
NURSE NOTES: Patient noted with two different types of vent settings AC and SIMV, contacted Dr. Castro to clarify orders, per Dr. Castro place patient on AC. RT made aware. Orders entered, noted, and carried out. Will continue to monitor patient.
[2020-01-21 16:00] VITALS: BP_SYST 100; BP_SYST 121; BP_DIAS 59; BP_DIAS 60
[2020-01-21] MEDS ORDERED: NOVOLOG100 UNIT/5 SQ (16:02)
[2020-01-21] MEDS ORDERED: VITAMIN C500 MG/11 GT (16:02)
[2020-01-21] MEDS ORDERED: MULTI-DELYN237 ML GT (16:02)
[2020-01-21] MEDS ORDERED: UTI-STAT L3875 MG/31 PO (16:03)
[2020-01-21] MEDS ORDERED: PRO-STAT LIQUID30 ML GT (16:03)
--- NOTE | 2020-01-21 17:15 | NUR ---
NURSE NOTES: Per microbiology patient's blood cultures is positive for gram positive cocci in clusters x 2 bottles. Patient is on Zosyn 3.375 gm IV Q8HR and Vancomycin IV per pharmacy to dose. Second call and second message to Dr. San regarding assessments. Awaiting call back from Dr. San. Will continue to monitor patient
[2020-01-21] MEDS: Docusate 100mg/10ml Liq GT SCH (17:53)
--- NOTE | 2020-01-21 18:05 | NUR ---
NURSE NOTES: Continue to monitor pt for any untoward signs and symptoms or any signs of fever. temp- 98.8
--- NOTE | 2020-01-21 18:12 | Surgery Progress Note ---
Surgery Progress Note Subjective Additional Comments wbc noted h/h trending down scope results noted Objective Last 24 Hour Vital Signs Date Time Temp Pulse Resp B/P (MAP) Pulse Ox O2 Delivery O2 Flow Rate FiO2 01/21/20 16:23 105 01/21/20 16:00 100.2 103 14 100/59 (73) 100 01/21/20 16:00 Mechanical Ventilator 01/21/20 16:00 40 01/21/20 16:00 121/60 (80) 01/21/20 15:02 111 10 40 01/21/20 12:23 86 20 98 01/21/20 12:22 102 16 99 01/21/20 12:00 Mechanical Ventilator 01/21/20 12:00 110 01/21/20 12:00 99.5 01/21/20 12:00 100.2 111 14 116/66 (83) 100 01/21/20 12:00 40 01/21/20 11:30 100.6 01/21/20 10:51 107 10 40 01/21/20 08:00 98.6 116 14 127/67 (87) 100 01/21/20 08:00 40 01/21/20 08:00 117 01/21/20 08:00 Mechanical Ventilator 01/21/20 07:11 111 10 40 01/21/20 04:00 Mechanical Ventilator 01/21/20 04:00 99.0 126 12 134/69 (90) 100 01/21/20 03:31 127 01/21/20 03:25 127 14 40 01/21/20 00:00 98.2 120 12 126/71 (89) 100 01/21/20 00:00 40 01/21/20 00:00 Mechanical Ventilator 01/20/20 23:37 122 10 40 01/20/20 23:26 122 01/20/20 20:35 117 11 40 01/20/20 20:00 40 01/20/20 20:00 Mechanical Ventilator 01/20/20 20:00 98.1 112 12 138/80 (99) 100 01/20/20 19:01 110 I&O Intake and Output 01/20/20 01/21/20 19:00 07:00 Intake Total 3155 ml 323.333 ml Output Total 0 ml Balance 3155 ml 323.333 ml Intake Free Water 20 ml 30 ml IV Total 3135 ml 293.333 ml Output Urine Total 0 ml # Bowel Movements 3 1 Wound: other Cardiovascular: RSR Respiratory: decreased breath sounds Abdomen: soft, non-tender, present bowel sounds Extremities: no tenderness, no cyanosis Laboratory Tests Test 01/20/20 19:30 01/20/20 21:55 01/20/20 23:45 01/21/20 03:10 White Blood Count 24.2 K/UL (4.8-10.8) *H 19.9 K/UL (4.8-10.8) H Red Blood Count 2.82 M/UL (4.20-5.40) L 2.38 M/UL (4.20-5.40) L Hemoglobin 8.0 G/DL (12.0-16.0) L 6.8 G/DL (12.0-16.0) *L Hematocrit 26.4 % (37.0-47.0) L 21.7 % (37.0-47.0) L Mean Corpuscular Volume 93 FL (80-99) 91 FL (80-99) Mean Corpuscular Hemoglobin 28.4 PG (27.0-31.0) 28.6 PG (27.0-31.0) Mean Corpuscular Hemoglobin Concent 30.4 G/DL (32.0-36.0) L 31.3 G/DL (32.0-36.0) L Red Cell Distribution Width 17.9 % (11.6-14.8) H 16.9 % (11.6-14.8) H Platelet Count 531 K/UL (150-450) H 510 K/UL (150-450) H Mean Platelet Volume 5.6 FL (6.5-10.1) L 5.1 FL (6.5-10.1) L Neutrophils (%) (Auto) % (45.0-75.0) % (45.0-75.0) Lymphocytes (%) (Auto) % (20.0-45.0) % (20.0-45.0) Monocytes (%) (Auto) % (1.0-10.0) % (1.0-10.0) Eosinophils (%) (Auto) % (0.0-3.0) % (0.0-3.0) Basophils (%) (Auto) % (0.0-2.0) % (0.0-2.0) Differential Total Cells Counted 100 100 Neutrophils % (Manual) 83 % (45-75) H 81 % (45-75) H Lymphocytes % (Manual) 3 % (20-45) L 13 % (20-45) L Monocytes % (Manual) 4 % (1-10) 6 % (1-10) Eosinophils % (Manual) 0 % (0-3) 0 % (0-3) Basophils % (Manual) 0 % (0-2) 0 % (0-2) Band Neutrophils 10 % (0-8) H 0 % (0-8) Platelet Estimate Increased H Increased H Platelet Morphology Normal Normal Polychromasia 1+ 1+ Hypochromasia 1+ 1+ Anisocytosis 2+ 1+ Stool Occult Blood Positive (NEGATIVE) POC Whole Blood Glucose 152 MG/DL (74-106) H Erythrocyte Sedimentation Rate 132 MM/HR (0-30) H Prothrombin Time 12.4 SEC (9.30-11.50) H Prothromb Time International Ratio 1.1 (0.9-1.1) Activated Partial Thromboplast Time 30 SEC (23-33) Sodium Level 145 MMOL/L (136-145) # Potassium Level 3.9 MMOL/L (3.5-5.1) Chloride Level 108 MMOL/L (98-107) H Carbon Dioxide Level 30 MMOL/L (21-32) Anion Gap 7 mmol/L (5-15) Blood Urea Nitrogen 10 mg/dL (7-18) Creatinine 0.4 MG/DL (0.55-1.30) L Estimat Glomerular Filtration Rate > 60 mL/min (>60) Glucose Level 139 MG/DL (74-106) #H Calcium Level 8.3 MG/DL (8.5-10.1) L Total Bilirubin 0.4 MG/DL (0.2-1.0) Aspartate Amino Transf (AST/SGOT) 13 U/L (15-37) L Alanine Aminotransferase (ALT/SGPT) 11 U/L (12-78) L Alkaline Phosphatase 130 U/L (46-116) H Total Protein 6.7 G/DL (6.4-8.2) Albumin 1.3 G/DL (3.4-5.0) L Globulin 5.4 g/dL Albumin/Globulin Ratio 0.2 (1.0-2.7) L Lipase 65 U/L (73-393) L Test 01/21/20 05:14 01/21/20 11:58 01/21/20 16:56 POC Whole Blood Glucose 135 MG/DL (74-106) H 124 MG/DL (74-106) H 107 MG/DL (74-106) H Plan Problems: (1) Stage 4 skin ulcer of sacral region Assessment & Plan: Patient Presented on admission with GT, Suprapubic Cath, Multiple Pressure injuries. Unstageable Sacral Pressure injury that is Malodorous(L)10cm x (W)9.5cm. 90% soft necrosis, 10% mixed erythema with Biofilm at Base of wound. Moderate amt purulent exudate noted when base of wound minimally palpated. Periwound is black and indurated. likely stage 4 given over necrosis the bone is directly palpable. Full thickness Pressure Injury lateral L Tibia(L)3.8cm x (W)2.2cm . Base of wound is 10% necrotic, 25% slough ,65% pink epithelial. Edges are adherent to Base of wound. No odor or exudate noted. No erythema or induration periwound. DTPI Lateral R Tibia. (L)2.5cm x (W)1.5cm.Base of Pressure injury is purpuric with Maroon borders. Non-Blanchable erythema without induration/fluctuance medial L heel. R heel is blanchable with dry peeling skin. Purpuric area without induration /fluctuance R Hallux.(L)1.2cm x (W)0.6cm. Dry brown eschar medial R foot (L)0.4cm x (W)0.6cm. Tx.Plan: Cleanse Sacral wound with Dakin's 0.25% domingo. Apply Dakin's moist gauze to wound. Apply Moisture Barrier Past Periwound. Cover with drsg Twice daily and prn. Cleanse wound lateral L tibia with Saline. Apply TheraHoney. Apply Cavilon Skin BArrier periwound. Cover with Optifoam drsg. Change every 3 days and prn. Apply Cavilon Skin Barrier to Lateral R tibia and R Hallux. Cover with Optifoam drsg. Change very 7 days and prn. Apply Cavilon Skin Barrier to Bilat heels and Malleoli. Cover each site with Optifoam drsg. Change every 7 days and prn. Cover Bony Prominences as needed with Optifoam drsgs. Reposition at least every 2hours or as tolerated. Off-load heels with pillow. APMLAl Mattress overlay. DAILY ESTIMATED NEEDS: Needs based on Wound, critical care 44.1kg 27-32 kcals/kg 3273-5318 total kcals 1.25-2 g protein/kg 55-88 g total protein 25-30 mL/kg 2736-0592 total fluid mLs NUTRITION DIAGNOSIS: Increased kcal and pro needs r/t underweight status and wound healing as evidenced by BMI 16.7, pt is 81% of [place] Body Weight, generalized wasting noted, w/ wounds including full thickness and unstageable x1, refer to WC eval for full eval. CURRENT TF:NPO ENTERAL NUTRITION RECOMMENDATIONS: As medically able, rec Glucerna 1.2 goal of 50ml/hr x22 hrs to provide 1100ml, 1320 kcal, 66g pro, 886ml free H2O - As medically able, rec start TF @30ml/hr for 6 hrs. Advance as tolerated 10ml/hr q4-6 hrs to goal. - Flush per MD. HOB Over 30 degrees. - HOLD TF 1 hr before and after synthroid meds. - TF @goal meets 100% est needs. ADDITIONAL RECOMMENDATIONS: 1) Per SNF: 5'4" tall, 97 lbs/44.09kg Maintain calibrated bed scale wts 2) Wound care: w/ TF orders add HALEY BID + ZnSo4 220mg qd x10 days 3) Lytes daily, replete as needed (2) Anemia (3) UTI (urinary tract infection) (4) Pneumonia (5) LGI bleed (6) Palpitations (7) LGI bleed (8) GI bleeding Assessment & Plan: leukocytosis anemia guaiac positive no active bleeding currently trend h/h GI eval possible scope - results noted will follow with recs thank you There is a nonobstructed bowel gas pattern. Increased stool lucencies noted in the colon. There is a G-tube in place. No definite pathologic calcifications identified. There is no sign of free air. No acute abnormality noted of the visualized osseous structures To Webb Jan 21, 2020 18:12
--- NOTE | 2020-01-21 19:15 | NUR ---
NURSE NOTES: Received handoff report from ROSENDO Knapp. Pt is sleeping in bed comfortably with temperature of 98.2 warm to touch. Pt withdraws to pain. Pt has vent attached to pt with settings as ordered. Pt has gtube attached to pt. No feeding running Dr. Gallardo aware. per endorsement. Pt is with suprapubic patent and still flowing. IV site on Right arm gauge 22 still intact and patent. Left arm with gauge 20 patent and intact. No any signs of active bleeding noted. Pt bed in lowest position. For 2nd bag of blood transfusion, aware pt is running fever post transfusion of 1st bag. VS right now Stable. Call light within reach. Continue to plan of care.
--- NOTE | 2020-01-21 19:24 | NUR ---
NURSE HAND-OFF REPORT: Important Events on Shift: Patient Status: Stable Diet: Glucerna 1.2 goal of 60 ml/hr. Awaiting G-tube pump to begin tube feeding. Pending Orders: None Pending Results/Labs:None Pending MD notification:None Latest Vital Signs: Temperature 100.2 , Pulse 92 , B/P 121 /60 , Respiratory Rate 10 , O2 SAT 100 , Mechanical Ventilator, O2 Flow Rate . Vital Sign Comment: Stable EKG Rhythm: Sinus Tachycardia Rhythm change?: N Notified?: N -Dr Gloria BASS Response: Latest Colon Fall Score: 70 Fall Risk: High Risk Safety Measures: Call light Within Reach, Bed Alarm Zone 1, Side Rails Side Rails x3, Bed position Low and Locked. Fall Precautions: Yellow Socks Report given to PETE Reardon.
--- NOTE | 2020-01-21 19:35 | NUR ---
NURSE NOTES: Started blood transfusion. No any signs of fever. pt not in respiratory distress. shena of 98.8. Continue to monitor pt.
[2020-01-21 20:00] VITALS: BP 126/59
--- NOTE | 2020-01-21 21:40 | General Progress Note ---
Assessment/Plan Assessment/Plan: Assessment - Melena / GIB - gastric bumper lesion - Anemia - malnutrition , albumin 1.5 - Resp failure, trach - s/p Suprapubic catheter - CVA / OBS Recommendations - restart TF - IVF - Abx - PPI - follow nutritional status Subjective Allergies: Coded Allergies: No Known Allergies (Unverified , 01/20/20) Subjective seen earlier this am GI procedure postponed due to anemia and tachycardia subsequent EGD --> small lesion under GT bumper - cauterized Objective Last 24 Hour Vital Signs Date Time Temp Pulse Resp B/P (MAP) Pulse Ox O2 Delivery O2 Flow Rate FiO2 01/21/20 20:08 98.8 01/21/20 20:00 98.8 91 14 126/59 (81) 100 01/21/20 20:00 40 01/21/20 18:39 92 10 40 01/21/20 16:23 105 01/21/20 16:00 100.2 103 14 100/59 (73) 100 01/21/20 16:00 Mechanical Ventilator 01/21/20 16:00 40 01/21/20 16:00 121/60 (80) 01/21/20 15:02 111 10 40 01/21/20 12:23 86 20 98 01/21/20 12:22 102 16 99 01/21/20 12:00 Mechanical Ventilator 01/21/20 12:00 110 01/21/20 12:00 99.5 01/21/20 12:00 100.2 111 14 116/66 (83) 100 01/21/20 12:00 40 01/21/20 11:30 100.6 01/21/20 10:51 107 10 40 01/21/20 08:00 98.6 116 14 127/67 (87) 100 01/21/20 08:00 40 01/21/20 08:00 117 01/21/20 08:00 Mechanical Ventilator 01/21/20 07:11 111 10 40 01/21/20 04:00 Mechanical Ventilator 01/21/20 04:00 99.0 126 12 134/69 (90) 100 01/21/20 03:31 127 01/21/20 03:25 127 14 40 01/21/20 00:00 98.2 120 12 126/71 (89) 100 9/15/20 00:00 40 01/21/20 00:00 Mechanical Ventilator 01/20/20 23:37 122 10 40 01/20/20 23:26 122 Intake and Output 01/20/20 01/21/20 19:00 07:00 Intake Total 3155 ml 323.333 ml Output Total 0 ml Balance 3155 ml 323.333 ml Intake Free Water 20 ml 30 ml IV Total 3135 ml 293.333 ml Output Urine Total 0 ml # Bowel Movements 3 1 Laboratory Tests 01/20/20 21:55: Stool Occult Blood Positive 01/20/20 23:45: POC Whole Blood Glucose 152H 01/21/20 03:10: White Blood Count 19.9H, Red Blood Count 2.38L, Hemoglobin 6.8*L, Hematocrit 21.7L, Mean Corpuscular Volume 91, Mean Corpuscular Hemoglobin 28.6, Mean Corpuscular Hemoglobin Concent 31.3L, Red Cell Distribution Width 16.9H, Platelet Count 510H, Mean Platelet Volume 5.1L, Neutrophils (%) (Auto) , Lymphocytes (%) (Auto) , Monocytes (%) (Auto) , Eosinophils (%) (Auto) , Basophils (%) (Auto) , Differential Total Cells Counted 100, Neutrophils % ( Manual) 81H, Lymphocytes % (Manual) 13L, Monocytes % (Manual) 6, Eosinophils % ( Manual) 0, Basophils % (Manual) 0, Band Neutrophils 0, Platelet Estimate IncreasedH, Platelet Morphology Normal, Polychromasia 1+, Hypochromasia 1+, Anisocytosis 1+, Erythrocyte Sedimentation Rate 132H, Prothrombin Time 12.4H, Prothromb Time International Ratio 1.1, Activated Partial Thromboplast Time 30, Sodium Level 145#, Potassium Level 3.9, Chloride Level 108H, Carbon Dioxide Level 30, Anion Gap 7, Blood Urea Nitrogen 10, Creatinine 0.4L, Estimat Glomerular Filtration Rate > 60, Glucose Level 139#H, Calcium Level 8.3L, Total Bilirubin 0.4, Aspartate Amino Transf (AST/SGOT) 13L, Alanine Aminotransferase ( ALT/SGPT) 11L, Alkaline Phosphatase 130H, Total Protein 6.7, Albumin 1.3L, Globulin 5.4, Albumin/Globulin Ratio 0.2L, Lipase 65L 01/21/20 05:14: POC Whole Blood Glucose 135H 01/21/20 11:58: POC Whole Blood Glucose 124H 01/21/20 16:56: POC Whole Blood Glucose 107H Height (Feet): 5 Height (Inches): 2.00 Weight (Pounds): 103 Objective Thin AA woman NCAT (+) trach CTA Tachy abd soft, flat, GT no edema Kelton Hernandez MD Jan 21, 2020 21:40
--- NOTE | 2020-01-21 22:25 | NUR ---
NURSE NOTES: End of blood transfusion. VS WNL. BP:123/69, PA- 83 O2 sat -100% temp:97. Pt isn ot in respiratory distress.
[2020-01-22] VITALS: BP 106/69
--- NOTE | 2020-01-22 02:09 | Cardiology Progress Note ---
Subjective DATE OF SERVICE: Jan 21, 2020 s/p EGD with cauterized bleeding site near GTube. s/p PRBC transfusion remains on vent support via trach Objective Last 24 Hour Vital Signs Date Time Temp Pulse Resp B/P (MAP) Pulse Ox O2 Delivery O2 Flow Rate FiO2 01/22/20 00:48 77 01/22/20 00:00 Mechanical Ventilator 01/22/20 00:00 97.2 83 15 106/69 (81) 100 01/21/20 22:30 86 10 40 01/21/20 20:08 98.8 01/21/20 20:00 Mechanical Ventilator 01/21/20 20:00 87 01/21/20 20:00 98.8 91 14 126/59 (81) 100 01/21/20 20:00 40 01/21/20 18:39 92 10 40 01/21/20 16:23 105 01/21/20 16:00 100.2 103 14 100/59 (73) 100 01/21/20 16:00 Mechanical Ventilator 01/21/20 16:00 40 01/21/20 16:00 121/60 (80) 01/21/20 15:02 111 10 40 01/21/20 12:23 86 20 98 01/21/20 12:22 102 16 99 01/21/20 12:00 Mechanical Ventilator 01/21/20 12:00 110 01/21/20 12:00 99.5 01/21/20 12:00 100.2 111 14 116/66 (83) 100 01/21/20 12:00 40 01/21/20 11:30 100.6 01/21/20 10:51 107 10 40 01/21/20 08:00 98.6 116 14 127/67 (87) 100 01/21/20 08:00 40 01/21/20 08:00 117 01/21/20 08:00 Mechanical Ventilator 01/21/20 07:11 111 10 40 01/21/20 04:00 Mechanical Ventilator 01/21/20 04:00 99.0 126 12 134/69 (90) 100 01/21/20 03:31 127 01/21/20 03:25 127 14 40 ROS: unchanged from my evaluation of 01/20/20 HEENT: Mechanically Ventilated, Thin Trach secretions LUNGS: bilateral rhonchi, trach site clean ABDOMEN: normal bowel sounds, non tender, soft, no organomegaly, decreased bowel sounds EXTREMITIES: No edema Laboratory Tests Test 01/21/20 03:10 01/21/20 05:14 01/21/20 11:58 01/21/20 16:56 White Blood Count 19.9 K/UL (4.8-10.8) H Red Blood Count 2.38 M/UL (4.20-5.40) L Hemoglobin 6.8 G/DL (12.0-16.0) *L Hematocrit 21.7 % (37.0-47.0) L Mean Corpuscular Volume 91 FL (80-99) Mean Corpuscular Hemoglobin 28.6 PG (27.0-31.0) Mean Corpuscular Hemoglobin Concent 31.3 G/DL (32.0-36.0) L Red Cell Distribution Width 16.9 % (11.6-14.8) H Platelet Count 510 K/UL (150-450) H Mean Platelet Volume 5.1 FL (6.5-10.1) L Neutrophils (%) (Auto) % (45.0-75.0) Lymphocytes (%) (Auto) % (20.0-45.0) Monocytes (%) (Auto) % (1.0-10.0) Eosinophils (%) (Auto) % (0.0-3.0) Basophils (%) (Auto) % (0.0-2.0) Differential Total Cells Counted 100 Neutrophils % (Manual) 81 % (45-75) H Lymphocytes % (Manual) 13 % (20-45) L Monocytes % (Manual) 6 % (1-10) Eosinophils % (Manual) 0 % (0-3) Basophils % (Manual) 0 % (0-2) Band Neutrophils 0 % (0-8) Platelet Estimate Increased H Platelet Morphology Normal Polychromasia 1+ Hypochromasia 1+ Anisocytosis 1+ Erythrocyte Sedimentation Rate 132 MM/HR (0-30) H Prothrombin Time 12.4 SEC (9.30-11.50) H Prothromb Time International Ratio 1.1 (0.9-1.1) Activated Partial Thromboplast Time 30 SEC (23-33) Sodium Level 145 MMOL/L (136-145) # Potassium Level 3.9 MMOL/L (3.5-5.1) Chloride Level 108 MMOL/L (98-107) H Carbon Dioxide Level 30 MMOL/L (21-32) Anion Gap 7 mmol/L (5-15) Blood Urea Nitrogen 10 mg/dL (7-18) Creatinine 0.4 MG/DL (0.55-1.30) L Estimat Glomerular Filtration Rate > 60 mL/min (>60) Glucose Level 139 MG/DL (74-106) #H Calcium Level 8.3 MG/DL (8.5-10.1) L Total Bilirubin 0.4 MG/DL (0.2-1.0) Aspartate Amino Transf (AST/SGOT) 13 U/L (15-37) L Alanine Aminotransferase (ALT/SGPT) 11 U/L (12-78) L Alkaline Phosphatase 130 U/L (46-116) H Total Protein 6.7 G/DL (6.4-8.2) Albumin 1.3 G/DL (3.4-5.0) L Globulin 5.4 g/dL Albumin/Globulin Ratio 0.2 (1.0-2.7) L Lipase 65 U/L (73-393) L POC Whole Blood Glucose 135 MG/DL (74-106) H 124 MG/DL (74-106) H 107 MG/DL (74-106) H Test 01/22/20 00:19 POC Whole Blood Glucose 124 MG/DL (74-106) H Microbiology Date/Time Source Procedure Growth Status 01/20/20 08:40 Urine,Clean Catch Urine Culture - Preliminary Gram Negative Bacillus 1 Resulted 01/20/20 08:40 Nasopharynx SARS-CoV-2 RdRp Gene Assay - Final Complete 01/20/20 08:40 Blood Blood Culture - Preliminary Resulted 01/20/20 08:40 Blood Blood Culture - Preliminary Resulted Assessment/Plan Assessment/Plan GI bleed Severe sepsis Sinus tachycardia HCA Pneumonia Vent dep respiratory failure UTI Severe protein calorie malnutrition Hypovolemia/dehydration IVF Monitor hemoglobin; transfuse as needed Abx Vent support Feedings on hold Cardiac monitoring DVT prophylaxis Kumar Pan MD Jan 22, 2020 02:09
--- NOTE | 2020-01-22 02:45 | NUR ---
NURSE NOTES: Seen pt in semi-gannon's position. Changed position and changed linen. Pt stool is black and liquidy. Dr is previously aware. No signs of hypotension. No signs of respiratory distress. Continue plan of care.
[2020-01-22 04:00] VITALS: BP 102/62
[2020-01-22] MEDS: Piperacillin/Tazobactam 3.375 GM in NS 110 ML IVPB SCH (05:27)
[2020-01-22] MEDS: Vancomycin 750mg/NS 275ml IVPB SCH ×8 (05:27→23:21)
[2020-01-22] MEDS: NovoLOG Insulin Flexpen SUBQ SCH ×5 (05:29→23:25)
[2020-01-22 05:48] LABS: HEMATOCRIT 30.2 % (37.0-47.0); HEMOGLOBIN 9.7 G/DL (12.0-16.0); MEAN CORPUSCULAR VOLUME 90 FL (80-99); PLATELET COUNT 494 K/UL (150-450); RED BLOOD COUNT 3.38 M/UL (4.20-5.40); RED CELL DISTRIBUTION WIDTH 16.3 % (11.6-14.8); WHITE BLOOD COUNT 17.2 K/UL (4.8-10.8)
[2020-01-22 06:26] LABS: ALANINE AMINOTRANSFERASE 13 U/L (12-78); ALBUMIN 1.2 G/DL (3.4-5.0); ALBUMIN/GLOBULIN RATIO 0.2 (1.0-2.7); ALKALINE PHOSPHATASE 113 U/L (46-116); ANION GAP 8 mmol/L (5-15); ASPARTATE AMINO TRANSFERASE 14 U/L (15-37); BILIRUBIN,TOTAL 0.4 MG/DL (0.2-1.0); BLOOD UREA NITROGEN 9 mg/dL (7-18); CALCIUM 8.2 MG/DL (8.5-10.1); CARBON DIOXIDE 27 MMOL/L (21-32); CHLORIDE 112 MMOL/L (98-107); CREATININE 0.3 MG/DL (0.55-1.30); POTASSIUM 3.5 MMOL/L (3.5-5.1); SODIUM 147 MMOL/L (136-145)
--- NOTE | 2020-01-22 07:00 | NUR ---
RESPIRATORY NOTE: PT RECEIVED ON CMV WITH CURRENT SETTINGS. AC/VC: 10, 450, 40%, +5. ALARMS ARE ON AND AUDIBLE. VENT CIRCUIT IS SECURE AND OUT OF THE WAY. NO S/S OF RESPIRATORY DISTRESS NOTED AT THIS TIME. WILL CONTINUE TO MONITOR.
--- NOTE | 2020-01-22 07:03 | NUR ---
NURSE HAND-OFF REPORT: Important Events on Shift:Low-grade fever Patient Status: stable Diet: Glucerna 1.2, goal is 60cc/hr. Pending Orders: n Pending Results/Labs: vanco trough Pending notification:n Latest Vital Signs: Temperature 96.4 , Pulse 91 , B/P 102 /62 , Respiratory Rate 14 , O2 SAT 100 , Mechanical Ventilator, O2 Flow Rate . Vital Sign Comment: [] EKG Rhythm: Sinus Rhythm Rhythm change?: N MD Notified?: N -Dr Gloria BASS Response: Latest Colon Fall Score: 70 Fall Risk: High Risk Safety Measures: Call light Within Reach, Bed Alarm Zone 1, Side Rails Side Rails x3, Bed position Low and Locked. Fall Precautions: Yellow Socks Report given to PETE Knapp
--- NOTE | 2020-01-22 07:25 | NUR ---
NURSE NOTES: Received report from PETE Reardon. Patient is resting in bed, in stable condition. No s/sx of SOB, breathing is even and unlabored, patient is on vent settings as ordered. Patient is nonverbal, observed no presence of pain or discomfort at this time. Bed is in lowest position, brakes engaged. Call light is kept within easy reach. Will continue to monitor patient.
[2020-01-22 08:00] VITALS: BP 114/73
[2020-01-22] MEDS: Multivitamins W/Minerals 15 ML UDC GT SCH (08:07)
[2020-01-22] MEDS: Ascorbic Acid 500mg tab GT SCH (08:07)
[2020-01-22] MEDS: Docusate 100mg/10ml Liq GT SCH ×2 (08:07→17:05)
[2020-01-22] MEDS: Dakin's 0.25% (Half Strength) 16oz TOPIC SCH (08:08)
[2020-01-22] MEDS: Pantoprazole Inj IVP SCH ×2 (08:25→20:38)
--- NOTE | 2020-01-22 09:43 | General Progress Note ---
Assessment/Plan Assessment/Plan: IMPRESSION leukocytosis possible sepsis anemia rectal bleeding palpitations pulmonary infiltrates UTI bacteremia sepsis PLAN Iv antibiotics ID evaluation noted consider CT chest- will order and assess further resume SNF meds cardiology and ID and GI followup monitor HH monitor labs maintain vent impression, plan, and exam edited and reviewed in detail care discussed with RN Subjective ROS Limited/Unobtainable: Yes Allergies: Coded Allergies: No Known Allergies (Unverified , 01/20/20) Subjective s/p transfusion s/p EGD Objective Last 24 Hour Vital Signs Date Time Temp Pulse Resp B/P (MAP) Pulse Ox O2 Delivery O2 Flow Rate FiO2 01/22/20 08:00 97.0 79 14 114/73 (87) 100 01/22/20 08:00 80 01/22/20 08:00 40 01/22/20 08:00 Mechanical Ventilator 01/22/20 04:00 Mechanical Ventilator 01/22/20 04:00 96.4 94 14 102/62 (75) 100 01/22/20 04:00 91 01/22/20 04:00 40 01/22/20 02:53 90 11 40 01/22/20 00:48 77 01/22/20 00:00 Mechanical Ventilator 01/22/20 00:00 97.2 83 15 106/69 (81) 100 01/21/20 22:30 86 10 40 01/21/20 20:08 98.8 01/21/20 20:00 Mechanical Ventilator 01/21/20 20:00 87 01/21/20 20:00 98.8 91 14 126/59 (81) 100 01/21/20 20:00 40 01/21/20 18:39 92 10 40 01/21/20 16:23 105 01/21/20 16:00 100.2 103 14 100/59 (73) 100 01/21/20 16:00 Mechanical Ventilator 01/21/20 16:00 40 01/21/20 16:00 121/60 (80) 01/21/20 15:02 111 10 40 01/21/20 12:23 86 20 98 01/21/20 12:22 102 16 99 01/21/20 12:00 Mechanical Ventilator 01/21/20 12:00 110 01/21/20 12:00 99.5 01/21/20 12:00 100.2 111 14 116/66 (83) 100 01/21/20 12:00 40 01/21/20 11:30 100.6 01/21/20 10:51 107 10 40 Intake and Output 01/21/20 01/22/20 19:00 07:00 Intake Total 401.667 ml 1820.0 ml Output Total 300 ml 400 ml Balance 101.667 ml 1420.0 ml Intake Free Water 150 ml 180 ml IV Total 191.667 ml 1310.0 ml Tube Feeding 60 ml 330 ml Output Urine Total 300 ml 400 ml # Bowel Movements 4 1 Laboratory Tests 01/21/20 11:58: POC Whole Blood Glucose 124H 01/21/20 16:56: POC Whole Blood Glucose 107H 01/22/20 00:19: POC Whole Blood Glucose 124H 01/22/20 04:55: White Blood Count 17.2H, Red Blood Count 3.38L, Hemoglobin 9.7#L, Hematocrit 30.2#L, Mean Corpuscular Volume 90, Mean Corpuscular Hemoglobin 28.6, Mean Corpuscular Hemoglobin Concent 31.9L, Red Cell Distribution Width 16.3H, Platelet Count 494H, Mean Platelet Volume 5.1L, Neutrophils (%) (Auto) , Lymphocytes (%) (Auto) , Monocytes (%) (Auto) , Eosinophils (%) (Auto) , Basophils (%) (Auto) , Neutrophils % (Manual) [Pending], Lymphocytes % (Manual) [Pending], Platelet Estimate [Pending], Platelet Morphology [Pending], Sodium Level 147H, Potassium Level 3.5, Chloride Level 112H, Carbon Dioxide Level 27, Anion Gap 8, Blood Urea Nitrogen 9, Creatinine 0.3L, Estimat Glomerular Filtration Rate > 60, Glucose Level 171H, Calcium Level 8.2L, Total Bilirubin 0.4, Aspartate Amino Transf (AST/SGOT) 14L, Alanine Aminotransferase (ALT/SGPT) 13, Alkaline Phosphatase 113, Total Protein 6.1L, Albumin 1.2L, Globulin 4.9, Albumin/Globulin Ratio 0.2L, Vancomycin Level Trough 10.5 01/22/20 04:58: POC Whole Blood Glucose 142H Height (Feet): 5 Height (Inches): 2.00 Weight (Pounds): 103 Objective WDWN NAD reduced breath sounds bilaterally without rhonchi or wheeze [id number] tachy without MRG NABS nontender no CCE poor LOC trach and GT Chi Castro MD Jan 22, 2020 09:43
--- NOTE | 2020-01-22 09:53 | NUR ---
NURSE NOTES: Patient noted with sodium level of 147. Patient is on normal saline IV at 100 ml/hr. Contacted and informed Dr. Hernandez of assessments. Dr. Hernandez acknowledged and ordered to change IV fluids to 0.45% normal saline IV 100 ml/hr. Orders entered, noted, and carried out. Will continue to monitor patient.
--- NOTE | 2020-01-22 10:39 | Infectious Diseases Prog Note ---
"Assessment/Plan Assessment/Plan antibiotics : vancomycin iv, zosyn A 1. enterobacter UTI 2. staph aureus | gram negative pneumonia COVID 19 negative 3. gram positive sepsis 4. respiratory failure 5. CVA 6. diabetes mellitus 7. hypertension P 1. continue iv vancomycin 2. d/c zosyn 3. start cefepime 4. will follow up cultures Subjective ROS Limited/Unobtainable: Yes Allergies: Coded Allergies: No Known Allergies (Unverified , 01/20/20) Objective Last 24 Hour Vital Signs Date Time Temp Pulse Resp B/P (MAP) Pulse Ox O2 Delivery O2 Flow Rate FiO2 01/22/20 08:00 97.0 79 14 114/73 (87) 100 01/22/20 08:00 80 01/22/20 08:00 40 01/22/20 08:00 Mechanical Ventilator 01/22/20 04:00 Mechanical Ventilator 01/22/20 04:00 96.4 94 14 102/62 (75) 100 01/22/20 04:00 91 01/22/20 04:00 40 01/22/20 02:53 90 11 40 01/22/20 00:48 77 01/22/20 00:00 Mechanical Ventilator 01/22/20 00:00 97.2 83 15 106/69 (81) 100 01/21/20 22:30 86 10 40 01/21/20 20:08 98.8 01/21/20 20:00 Mechanical Ventilator 01/21/20 20:00 87 01/21/20 20:00 98.8 91 14 126/59 (81) 100 01/21/20 20:00 40 01/21/20 18:39 92 10 40 01/21/20 16:23 105 01/21/20 16:00 100.2 103 14 100/59 (73) 100 01/21/20 16:00 Mechanical Ventilator 01/21/20 16:00 40 01/21/20 16:00 121/60 (80) 01/21/20 15:02 111 10 40 01/21/20 12:23 86 20 98 01/21/20 12:22 102 16 99 01/21/20 12:00 Mechanical Ventilator 01/21/20 12:00 110 01/21/20 12:00 99.5 01/21/20 12:00 100.2 111 14 116/66 (83) 100 01/21/20 12:00 40 01/21/20 11:30 100.6 01/21/20 10:51 107 10 40 Height (Feet): 5 Height (Inches): 2.00 Weight (Pounds): 103 HEENT: status post trach Respiratory/Chest: lungs clear Cardiovascular: normal rate, regular rhythm, no gallop/murmur Abdomen: soft, non tender, other - GT Extremities: no edema Microbiology Date/Time Source Procedure Growth Status 01/20/20 11:40 Sputum Gram Stain Pending Resulted 01/20/20 11:40 Sputum Culture - Preliminary Staphylococcus Aureus Gram Negative Bacillus 1 Resulted 01/20/20 08:40 Urine,Clean Catch Urine Culture - Preliminary Enterobacter Cloacae Complex Resulted 01/20/20 08:40 Nasopharynx SARS-CoV-2 RdRp Gene Assay - Final Complete 01/20/20 08:40 Blood Blood Culture - Preliminary Gram Positive Cocci Resulted 01/20/20 08:40 Blood Blood Culture - Preliminary Gram Positive Cocci Resulted Laboratory Tests Test 01/21/20 11:58 01/21/20 16:56 01/22/20 00:19 01/22/20 04:55 POC Whole Blood Glucose 124 MG/DL (74-106) H 107 MG/DL (74-106) H 124 MG/DL (74-106) H White Blood Count 17.2 K/UL (4.8-10.8) H Red Blood Count 3.38 M/UL (4.20-5.40) L Hemoglobin 9.7 G/DL (12.0-16.0) #L Hematocrit 30.2 % (37.0-47.0) #L Mean Corpuscular Volume 90 FL (80-99) Mean Corpuscular Hemoglobin 28.6 PG (27.0-31.0) Mean Corpuscular Hemoglobin Concent 31.9 G/DL (32.0-36.0) L Red Cell Distribution Width 16.3 % (11.6-14.8) H Platelet Count 494 K/UL (150-450) H Mean Platelet Volume 5.1 FL (6.5-10.1) L Neutrophils (%) (Auto) % (45.0-75.0) Lymphocytes (%) (Auto) % (20.0-45.0) Monocytes (%) (Auto) % (1.0-10.0) Eosinophils (%) (Auto) % (0.0-3.0) Basophils (%) (Auto) % (0.0-2.0) Neutrophils % (Manual) Pending Lymphocytes % (Manual) Pending Platelet Estimate Pending Platelet Morphology Pending Sodium Level 147 MMOL/L (136-145) H Potassium Level 3.5 MMOL/L (3.5-5.1) Chloride Level 112 MMOL/L (98-107) H Carbon Dioxide Level 27 MMOL/L (21-32) Anion Gap 8 mmol/L (5-15) Blood Urea Nitrogen 9 mg/dL (7-18) Creatinine 0.3 MG/DL (0.55-1.30) L Estimat Glomerular Filtration Rate > 60 mL/min (>60) Glucose Level 171 MG/DL (74-106) H Calcium Level 8.2 MG/DL (8.5-10.1) L Total Bilirubin 0.4 MG/DL (0.2-1.0) Aspartate Amino Transf (AST/SGOT) 14 U/L (15-37) L Alanine Aminotransferase (ALT/SGPT) 13 U/L (12-78) Alkaline Phosphatase 113 U/L (46-116) Total Protein 6.1 G/DL (6.4-8.2) L Albumin 1.2 G/DL (3.4-5.0) L Globulin 4.9 g/dL Albumin/Globulin Ratio 0.2 (1.0-2.7) L Vancomycin Level Trough 10.5 ug/mL (5.0-12.0) Test 01/22/20 04:58 POC Whole Blood Glucose 142 MG/DL (74-106) H Current Medications Medications (Trade) Dose Ordered Sig/Elisa Route PRN Reason Start Time Stop Time Status Last Admin Dose Admin Acetaminophen (Tylenol) 650 mg Q4H PRN GT Mild Pain (Pain Scale 1-3) 01/20/20 17:00 02/19/20 16:59 01/21/20 19:38 Acetaminophen (Tylenol) 650 mg Q4H PRN GT Fever (T>100.5) 01/20/20 17:15 02/19/20 17:14 01/21/20 11:30 Al Hydroxide/Mg Hydroxide (Mylanta) 30 ml FOUR TIMES A DAY GT 01/20/20 21:00 02/19/20 20:59 01/22/20 08:07 Ascorbic Acid (Vitamin C) 500 mg DAILY GT 01/21/20 09:00 02/20/20 08:59 01/22/20 08:07 Dextrose (Dextrose 50%) 25 ml Q30M PRN IV Hypoglycemia 01/20/20 19:00 04/19/20 18:59 Dextrose (Dextrose 50%) 50 ml Q30M PRN IV Hypoglycemia 01/20/20 19:00 04/19/20 18:59 Docusate Sodium (Colace) 100 mg TWICE A DAY GT 01/21/20 18:00 02/20/20 17:59 01/22/20 08:07 Insulin Aspart (NovoLOG) Q6HR SUBQ 01/21/20 00:00 04/19/20 20:59 01/22/20 05:29 Levothyroxine Sodium (Synthroid) 50 mcg DAILY@0630 GT 01/21/20 06:30 02/20/20 06:29 01/22/20 05:27 Multivitamins (Multivitamins W/ Minerals 15ml Liquid) 15 ml DAILY GT 01/21/20 09:00 02/20/20 08:59 01/22/20 08:07 Pantoprazole (Protonix) 40 mg EVERY 12 HOURS IVP 01/20/20 21:00 02/19/20 20:59 01/22/20 08:25 Piperacillin Sod/ Tazobactam Sod 3.375 gm/Sodium Chloride 110 ml @ 27.5 mls/hr Q8HR IVPB 01/20/20 20:00 01/27/20 19:59 01/22/20 05:27 Sodium Hypochlorite (Dakin's Half Strength) 1 applic DAILY TOPIC 01/20/20 20:00 02/19/20 19:59 01/22/20 08:08 Sodium Chloride 1,000 ml @ 100 mls/hr Q10H IV 01/22/20 09:30 02/21/20 09:29 01/22/20 09:37 Vancomycin HCl (Vanco pharmacy to dose) 1 ea DAILY PRN MISC Per rx protocol 01/20/20 17:00 02/19/20 16:59 Vancomycin HCl 750 mg/Sodium Chloride 275 ml @ 183.333 mls/hr Q8HR@0000,0800,1600 IVPB 01/22/20 16:00 01/27/20 15:59 Des San MD Jan 22, 2020 10:39"
[2020-01-22] MEDS: Cefepime HCl 2 GM in D5W 55 ML IV SCH ×2 (11:44→20:39)
[2020-01-22 12:00] VITALS: BP 105/66
--- NOTE | 2020-01-22 13:56 | NUR ---
NURSE NOTES: Patient noted bilateral upper extremity + 3 pitting edema. Patient is on 1/2 NS IVF at 100 ml/h per orders of Dr. Hernandez, VS BP 105/66 HR 86 bpm SR, patient is on tube feeding Glucerna 1.2 currently at 40 ml/hr to reach goal of 60 ml/hr, patient was noted with 60 ml residual on 60 ml/hr tube feeding rate. Tube feeding held for one hour, 0 ml residual noted and restarted tube feeding at 40 ml/hr. Contacted and informed Dr. Hernandez of assessments. Dr. Hernandez acknowledged and ordered to discontinue 1/2 NS IV fluids. Orders entered, noted, and carried out. Will continue to monitor patient.
--- NOTE | 2020-01-22 14:14 | Surgery Progress Note ---
Surgery Progress Note Subjective Additional Comments no acute events comfortable no bleeding h/h noted wbc improved resuming tube feeds today Objective Last 24 Hour Vital Signs Date Time Temp Pulse Resp B/P (MAP) Pulse Ox O2 Delivery O2 Flow Rate FiO2 01/22/20 12:00 Mechanical Ventilator 01/22/20 12:00 40 01/22/20 12:00 96.6 86 14 105/66 (79) 100 01/22/20 12:00 85 01/22/20 10:40 85 10 40 01/22/20 08:00 97.0 79 14 114/73 (87) 100 01/22/20 08:00 80 01/22/20 08:00 40 01/22/20 08:00 Mechanical Ventilator 01/22/20 07:00 81 10 40 01/22/20 04:00 Mechanical Ventilator 01/22/20 04:00 96.4 94 14 102/62 (75) 100 01/22/20 04:00 91 01/22/20 04:00 40 01/22/20 02:53 90 11 40 01/22/20 00:48 77 01/22/20 00:00 Mechanical Ventilator 01/22/20 00:00 97.2 83 15 106/69 (81) 100 01/21/20 22:30 86 10 40 01/21/20 20:08 98.8 01/21/20 20:00 Mechanical Ventilator 01/21/20 20:00 87 01/21/20 20:00 98.8 91 14 126/59 (81) 100 01/21/20 20:00 40 01/21/20 18:39 92 10 40 01/21/20 16:23 105 01/21/20 16:00 100.2 103 14 100/59 (73) 100 01/21/20 16:00 Mechanical Ventilator 01/21/20 16:00 40 01/21/20 16:00 121/60 (80) 01/21/20 15:02 111 10 40 I&O Intake and Output 01/21/20 01/22/20 19:00 07:00 Intake Total 401.667 ml 1820.0 ml Output Total 300 ml 400 ml Balance 101.667 ml 1420.0 ml Intake Free Water 150 ml 180 ml IV Total 191.667 ml 1310.0 ml Tube Feeding 60 ml 330 ml Output Urine Total 300 ml 400 ml # Bowel Movements 4 1 Dressing: other Wound: other Cardiovascular: RSR Respiratory: decreased breath sounds Abdomen: soft, non-tender, present bowel sounds Extremities: no tenderness, no cyanosis Laboratory Tests Test 01/21/20 16:56 01/22/20 00:19 01/22/20 04:55 01/22/20 04:58 POC Whole Blood Glucose 107 MG/DL (74-106) H 124 MG/DL (74-106) H 142 MG/DL (74-106) H White Blood Count 17.2 K/UL (4.8-10.8) H Red Blood Count 3.38 M/UL (4.20-5.40) L Hemoglobin 9.7 G/DL (12.0-16.0) #L Hematocrit 30.2 % (37.0-47.0) #L Mean Corpuscular Volume 90 FL (80-99) Mean Corpuscular Hemoglobin 28.6 PG (27.0-31.0) Mean Corpuscular Hemoglobin Concent 31.9 G/DL (32.0-36.0) L Red Cell Distribution Width 16.3 % (11.6-14.8) H Platelet Count 494 K/UL (150-450) H Mean Platelet Volume 5.1 FL (6.5-10.1) L Neutrophils (%) (Auto) % (45.0-75.0) Lymphocytes (%) (Auto) % (20.0-45.0) Monocytes (%) (Auto) % (1.0-10.0) Eosinophils (%) (Auto) % (0.0-3.0) Basophils (%) (Auto) % (0.0-2.0) Differential Total Cells Counted 100 Neutrophils % (Manual) 87 % (45-75) H Lymphocytes % (Manual) 3 % (20-45) L Monocytes % (Manual) 9 % (1-10) Eosinophils % (Manual) 1 % (0-3) Basophils % (Manual) 0 % (0-2) Band Neutrophils 0 % (0-8) Platelet Estimate Adequate Platelet Morphology Normal Hypochromasia 2+ Anisocytosis 1+ Sodium Level 147 MMOL/L (136-145) H Potassium Level 3.5 MMOL/L (3.5-5.1) Chloride Level 112 MMOL/L (98-107) H Carbon Dioxide Level 27 MMOL/L (21-32) Anion Gap 8 mmol/L (5-15) Blood Urea Nitrogen 9 mg/dL (7-18) Creatinine 0.3 MG/DL (0.55-1.30) L Estimat Glomerular Filtration Rate > 60 mL/min (>60) Glucose Level 171 MG/DL (74-106) H Calcium Level 8.2 MG/DL (8.5-10.1) L Total Bilirubin 0.4 MG/DL (0.2-1.0) Aspartate Amino Transf (AST/SGOT) 14 U/L (15-37) L Alanine Aminotransferase (ALT/SGPT) 13 U/L (12-78) Alkaline Phosphatase 113 U/L (46-116) Total Protein 6.1 G/DL (6.4-8.2) L Albumin 1.2 G/DL (3.4-5.0) L Globulin 4.9 g/dL Albumin/Globulin Ratio 0.2 (1.0-2.7) L Vancomycin Level Trough 10.5 ug/mL (5.0-12.0) Test 01/22/20 11:37 POC Whole Blood Glucose 158 MG/DL (74-106) H Plan Problems: (1) Stage 4 skin ulcer of sacral region Assessment & Plan: Patient Presented on admission with GT, Suprapubic Cath, Multiple Pressure injuries. Unstageable Sacral Pressure injury that is Malodorous(L)10cm x (W)9.5cm. 90% soft necrosis, 10% mixed erythema with Biofilm at Base of wound. Moderate amt purulent exudate noted when base of wound minimally palpated. Periwound is black and indurated. likely stage 4 given over necrosis the bone is directly palpable. Full thickness Pressure Injury lateral L Tibia(L)3.8cm x (W)2.2cm . Base of wound is 10% necrotic, 25% slough ,65% pink epithelial. Edges are adherent to Base of wound. No odor or exudate noted. No erythema or induration periwound. DTPI Lateral R Tibia. (L)2.5cm x (W)1.5cm.Base of Pressure injury is purpuric with Maroon borders. Non-Blanchable erythema without induration/fluctuance medial L heel. R heel is blanchable with dry peeling skin. Purpuric area without induration /fluctuance R Hallux.(L)1.2cm x (W)0.6cm. Dry brown eschar medial R foot (L)0.4cm x (W)0.6cm. Tx.Plan: Cleanse Sacral wound with Dakin's 0.25% domingo. Apply Dakin's moist gauze to wound. Apply Moisture Barrier Past Periwound. Cover with drsg Twice daily and prn. Cleanse wound lateral L tibia with Saline. Apply TheraHoney. Apply Cavilon Skin BArrier periwound. Cover with Optifoam drsg. Change every 3 days and prn. Apply Cavilon Skin Barrier to Lateral R tibia and R Hallux. Cover with Optifoam drsg. Change very 7 days and prn. Apply Cavilon Skin Barrier to Bilat heels and Malleoli. Cover each site with Optifoam drsg. Change every 7 days and prn. Cover Bony Prominences as needed with Optifoam drsgs. Reposition at least every 2hours or as tolerated. Off-load heels with pillow. APMLAl Mattress overlay. DAILY ESTIMATED NEEDS: Needs based on Wound, critical care 44.1kg 27-32 kcals/kg 2309-2158 total kcals 1.25-2 g protein/kg 55-88 g total protein 25-30 mL/kg 2029-4663 total fluid mLs NUTRITION DIAGNOSIS: Increased kcal and pro needs r/t underweight status and wound healing as evidenced by BMI 16.7, pt is 81% of [place] Body Weight, generalized wasting noted, w/ wounds including full thickness and unstageable x1, refer to WC eval for full eval. CURRENT TF:NPO ENTERAL NUTRITION RECOMMENDATIONS: As medically able, rec Glucerna 1.2 goal of 50ml/hr x22 hrs to provide 1100ml, 1320 kcal, 66g pro, 886ml free H2O - As medically able, rec start TF @30ml/hr for 6 hrs. Advance as tolerated 10ml/hr q4-6 hrs to goal. - Flush per MD. HOB Over 30 degrees. - HOLD TF 1 hr before and after synthroid meds. - TF @goal meets 100% est needs. ADDITIONAL RECOMMENDATIONS: 1) Per SNF: 5'4" tall, 97 lbs/44.09kg Maintain calibrated bed scale wts 2) Wound care: w/ TF orders add HALEY BID + ZnSo4 220mg qd x10 days 3) Lytes daily, replete as needed (2) Anemia (3) UTI (urinary tract infection) (4) Pneumonia (5) LGI bleed (6) Palpitations (7) LGI bleed (8) GI bleeding Assessment & Plan: leukocytosis anemia guaiac positive no active bleeding currently trend h/h GI eval possible scope - results noted will follow with recs thank you There is a nonobstructed bowel gas pattern. Increased stool lucencies noted in the colon. There is a G-tube in place. No definite pathologic calcifications identified. There is no sign of free air. No acute abnormality noted of the visualized osseous structures oT Webb Jan 22, 2020 14:14
--- NOTE | 2020-01-22 15:33 | NUR ---
CASE MANAGEMENT:REVIEW 01/22/20 SI: LGIB. ANEMIA. PNA. UTI TRACH/VENT/GTUBE 96.6 86 14 105/66 100% ON VENT SUPPORT W/40% FIO2 WBC+17.2 H/H-9.7/30.2 IS: IV VANCOMYCIN Q8HRS IV CEFEPIME Q12 : STEP DOWN UNIT DCP: [facility]
--- NOTE | 2020-01-22 15:39 | NUR ---
NURSE NOTES: Pt given bed bath, noted tarry stools, known assessment. Wound dressing done per wound care nurse recommendations.
[2020-01-22 16:00] VITALS: BP 104/66
--- NOTE | 2020-01-22 17:52 | NUR ---
NURSE NOTES: Patient noted with elevated D-dimer, 2.99, on 01/20/2020. No SOB noted, tolerating vent settings as ordered, patient has no medical history of DVT noted. Patient has SCD for embolism prevention. Contacted and followed up with Dr. Castro regarding assessments. Dr. Castro acknowledged and gave no new orders at this time. Will continue to monitor patient.
[2020-01-22] MEDS ORDERED: Tubing IV Secondary IV ONE (18:31)
[2020-01-22] MEDS ORDERED: NS 275ml ONE (18:31)
[2020-01-22] MEDS ORDERED: Tubing Blood Filter IV ONE (18:31)
[2020-01-22] MEDS ORDERED: NS 500ML ONE (18:31)
--- NOTE | 2020-01-22 19:05 | NUR ---
NURSE HAND-OFF REPORT: Important Events on Shift: Patient Status: Stable Diet: Glucerna 1.2 goal of 60 ml/hr currently at 40 ml/hr to advance as tolerated. Pending Orders: None Pending Results/Labs:None Pending MD notification:None Latest Vital Signs: Temperature 97.5 , Pulse 95 , B/P 104 /66 , Respiratory Rate 10 , O2 SAT 100 , Mechanical Ventilator, O2 Flow Rate . Vital Sign Comment: None EKG Rhythm: Sinus Rhythm Rhythm change?: N Notified?: N -Dr Gloria BASS Response: Latest Colon Fall Score: 70 Fall Risk: High Risk Safety Measures: Call light Within Reach, Bed Alarm Zone 1, Side Rails Side Rails x3, Bed position Low and Locked. Fall Precautions: Yellow Socks Report given to PETE Mojica.
--- NOTE | 2020-01-22 19:10 | NUR ---
NURSE NOTES: Received pt's report from PETE Knapp. Pt is on bed, sleeping. Pt is on vent, SpO2 99%, HR 99, RR 10. No s/s of respiratory distress noted. Pt is on G-tube, Glucerna 1.2 running now. Pt is on suprapubic catheter, yellow color urine noted. IV sites are clean and intact noted. Call-light within reach, bed is low and locked. Will continue to monitor with plan of care.
[2020-01-22 20:00] VITALS: BP 104/62
--- NOTE | 2020-01-22 22:40 | General Progress Note ---
Subjective Allergies: Coded Allergies: No Known Allergies (Unverified , 01/20/20) Subjective above noted on TF IVF discontinued Objective Last 24 Hour Vital Signs Date Time Temp Pulse Resp B/P (MAP) Pulse Ox O2 Delivery O2 Flow Rate FiO2 01/22/20 22:26 106 10 40 01/22/20 19:05 103 11 40 01/22/20 16:00 40 01/22/20 16:00 Mechanical Ventilator 01/22/20 16:00 91 01/22/20 16:00 97.5 95 10 104/66 (79) 100 01/22/20 15:21 88 10 40 01/22/20 12:00 Mechanical Ventilator 01/22/20 12:00 40 01/22/20 12:00 96.6 86 14 105/66 (79) 100 01/22/20 12:00 85 01/22/20 10:40 85 10 40 01/22/20 08:00 97.0 79 14 114/73 (87) 100 01/22/20 08:00 80 01/22/20 08:00 40 01/22/20 08:00 Mechanical Ventilator 01/22/20 07:00 81 10 40 01/22/20 04:00 Mechanical Ventilator 01/22/20 04:00 96.4 94 14 102/62 (75) 100 01/22/20 04:00 91 01/22/20 04:00 40 01/22/20 02:53 90 11 40 01/22/20 00:48 77 01/22/20 00:00 Mechanical Ventilator 01/22/20 00:00 97.2 83 15 106/69 (81) 100 Intake and Output 01/21/20 01/22/20 19:00 07:00 Intake Total 401.667 ml 1820.0 ml Output Total 300 ml 400 ml Balance 101.667 ml 1420.0 ml Intake Free Water 150 ml 180 ml IV Total 191.667 ml 1310.0 ml Tube Feeding 60 ml 330 ml Output Urine Total 300 ml 400 ml # Bowel Movements 4 1 Laboratory Tests 01/22/20 00:19: POC Whole Blood Glucose 124H 01/22/20 04:55: White Blood Count 17.2H, Red Blood Count 3.38L, Hemoglobin 9.7#L, Hematocrit 30 .2#L, Mean Corpuscular Volume 90, Mean Corpuscular Hemoglobin 28.6, Mean Corpuscular Hemoglobin Concent 31.9L, Red Cell Distribution Width 16.3H, Platelet Count 494H, Mean Platelet Volume 5.1L, Neutrophils (%) (Auto) , Lymphocytes (%) (Auto) , Monocytes (%) (Auto) , Eosinophils (%) (Auto) , Basophils (%) (Auto) , Differential Total Cells Counted 100, Neutrophils % (Manual) 87H, Lymphocytes % (Manual) 3L, Monocytes % (Manual) 9, Eosinophils % (Manual) 1, Basophils % (Manual) 0, Band Neutrophils 0, Platelet Estimate Adequate, Platelet Morphology Normal, Hypochromasia 2+, Anisocytosis 1+, Sodium Level 147H, Potassium Level 3.5, Chloride Level 112H, Carbon Dioxide Level 27, Anion Gap 8, Blood Urea Nitrogen 9, Creatinine 0.3L, Estimat Glomerular Filtration Rate > 60, Glucose Level 171H, Calcium Level 8.2L, Total Bilirubin 0.4, Aspartate Amino Transf (AST/SGOT) 14L, Alanine Aminotransferase (ALT/SGPT) 13, Alkaline Phosphatase 113, Total Protein 6.1L, Albumin 1.2L, Globulin 4.9, Albumin/Globulin Ratio 0.2L, Vancomycin Level Trough 10.5 01/22/20 04:58: POC Whole Blood Glucose 142H 01/22/20 11:37: POC Whole Blood Glucose 158H 01/22/20 16:34: POC Whole Blood Glucose 191H Height (Feet): 5 Height (Inches): 2.00 Weight (Pounds): 103 Objective Thin AA woman NCAT (+) trach CTA Tachy abd soft, flat, GT no edema Assessment/Plan Assessment/Plan: Assessment - Melena / GIB - gastric bumper lesion - Anemia - malnutrition , albumin 1.5 - Resp failure, trach - s/p Suprapubic catheter - CVA / OBS Recommendations - advance TF - d/c IVF - Abx - PPI - follow nutritional status Kelton Hernandez MD Jan 22, 2020 22:40
--- NOTE | 2020-01-22 23:35 | Cardiology Progress Note ---
Subjective DATE OF SERVICE: Jan 22, 2020 s/p EGD with cauterized bleeding site near GTube. s/p PRBC transfusion remains on vent support via trach Feedings resumed by Gtube; IVF discont'd Objective Last 24 Hour Vital Signs Date Time Temp Pulse Resp B/P (MAP) Pulse Ox O2 Delivery O2 Flow Rate FiO2 01/22/20 22:26 106 10 40 01/22/20 20:00 Mechanical Ventilator 01/22/20 20:00 98.1 102 10 104/62 (76) 99 01/22/20 20:00 40 01/22/20 19:05 103 11 40 01/22/20 16:00 40 01/22/20 16:00 Mechanical Ventilator 01/22/20 16:00 91 01/22/20 16:00 97.5 95 10 104/66 (79) 100 01/22/20 15:21 88 10 40 01/22/20 12:00 Mechanical Ventilator 01/22/20 12:00 40 01/22/20 12:00 96.6 86 14 105/66 (79) 100 01/22/20 12:00 85 01/22/20 10:40 85 10 40 01/22/20 08:00 97.0 79 14 114/73 (87) 100 01/22/20 08:00 80 01/22/20 08:00 40 01/22/20 08:00 Mechanical Ventilator 01/22/20 07:00 81 10 40 01/22/20 04:00 Mechanical Ventilator 01/22/20 04:00 96.4 94 14 102/62 (75) 100 01/22/20 04:00 91 01/22/20 04:00 40 01/22/20 02:53 90 11 40 01/22/20 00:48 77 01/22/20 00:00 Mechanical Ventilator 01/22/20 00:00 97.2 83 15 106/69 (81) 100 ROS: unchanged from my evaluation of 01/20/20 HEENT: Mechanically Ventilated, Thin Trach secretions LUNGS: bilateral rhonchi, trach site clean ABDOMEN: normal bowel sounds, non tender, soft, no organomegaly, decreased bowel sounds EXTREMITIES: No edema Laboratory Tests Test 01/22/20 00:19 01/22/20 04:55 01/22/20 04:58 01/22/20 11:37 POC Whole Blood Glucose 124 MG/DL (74-106) H 142 MG/DL (74-106) H 158 MG/DL (74-106) H White Blood Count 17.2 K/UL (4.8-10.8) H Red Blood Count 3.38 M/UL (4.20-5.40) L Hemoglobin 9.7 G/DL (12.0-16.0) #L Hematocrit 30.2 % (37.0-47.0) #L Mean Corpuscular Volume 90 FL (80-99) Mean Corpuscular Hemoglobin 28.6 PG (27.0-31.0) Mean Corpuscular Hemoglobin Concent 31.9 G/DL (32.0-36.0) L Red Cell Distribution Width 16.3 % (11.6-14.8) H Platelet Count 494 K/UL (150-450) H Mean Platelet Volume 5.1 FL (6.5-10.1) L Neutrophils (%) (Auto) % (45.0-75.0) Lymphocytes (%) (Auto) % (20.0-45.0) Monocytes (%) (Auto) % (1.0-10.0) Eosinophils (%) (Auto) % (0.0-3.0) Basophils (%) (Auto) % (0.0-2.0) Differential Total Cells Counted 100 Neutrophils % (Manual) 87 % (45-75) H Lymphocytes % (Manual) 3 % (20-45) L Monocytes % (Manual) 9 % (1-10) Eosinophils % (Manual) 1 % (0-3) Basophils % (Manual) 0 % (0-2) Band Neutrophils 0 % (0-8) Platelet Estimate Adequate Platelet Morphology Normal Hypochromasia 2+ Anisocytosis 1+ Sodium Level 147 MMOL/L (136-145) H Potassium Level 3.5 MMOL/L (3.5-5.1) Chloride Level 112 MMOL/L (98-107) H Carbon Dioxide Level 27 MMOL/L (21-32) Anion Gap 8 mmol/L (5-15) Blood Urea Nitrogen 9 mg/dL (7-18) Creatinine 0.3 MG/DL (0.55-1.30) L Estimat Glomerular Filtration Rate > 60 mL/min (>60) Glucose Level 171 MG/DL (74-106) H Calcium Level 8.2 MG/DL (8.5-10.1) L Total Bilirubin 0.4 MG/DL (0.2-1.0) Aspartate Amino Transf (AST/SGOT) 14 U/L (15-37) L Alanine Aminotransferase (ALT/SGPT) 13 U/L (12-78) Alkaline Phosphatase 113 U/L (46-116) Total Protein 6.1 G/DL (6.4-8.2) L Albumin 1.2 G/DL (3.4-5.0) L Globulin 4.9 g/dL Albumin/Globulin Ratio 0.2 (1.0-2.7) L Vancomycin Level Trough 10.5 ug/mL (5.0-12.0) Test 01/22/20 16:34 POC Whole Blood Glucose 191 MG/DL (74-106) H Microbiology Date/Time Source Procedure Growth Status 01/21/20 14:15 Sputum Gram Stain - Final Resulted 01/21/20 14:15 Sputum Sputum Culture Pending Resulted 01/20/20 11:40 Sputum Gram Stain - Final Resulted 01/20/20 11:40 Sputum Culture - Preliminary Staphylococcus Aureus Gram Negative Bacillus 1 Resulted 01/20/20 09:00 Stool Stool Culture - Preliminary NORMAL FECAL PIPPA. Resulted 01/20/20 08:40 Urine,Clean Catch Urine Culture - Preliminary Enterobacter Cloacae Complex Resulted 01/20/20 08:40 Nasopharynx SARS-CoV-2 RdRp Gene Assay - Final Complete 01/20/20 08:40 Blood Blood Culture - Preliminary Gram Positive Cocci Resulted 01/20/20 08:40 Blood Blood Culture - Preliminary Gram Positive Cocci Resulted Assessment/Plan Assessment/Plan GI bleed Severe sepsis Sinus tachycardia HCA Pneumonia Vent dep respiratory failure UTI Severe protein calorie malnutrition Hypovolemia/dehydration/hypernatremia IVF discontinued Monitor hemoglobin; transfuse as needed Abx Vent support Feedings on-going; observe for residuals Cardiac monitoring DVT prophylaxis Free water per Kumar Peters MD Jan 22, 2020 23:35
[2020-01-23] VITALS: BP 124/75
--- NOTE | 2020-01-23 | NUR ---
NURSE NOTES: Pt has mild fever 100.0, cooling measure applied.
[2020-01-23 04:00] VITALS: BP 137/88
--- NOTE | 2020-01-23 04:00 | NUR ---
NURSE NOTES: Rectum cultures for VRE and CRE are delivered to Lab.
--- NOTE | 2020-01-23 04:41 | NUR ---
NURSE HAND-OFF REPORT: Important Events on Shift:Pt is tachycardia. Patient Status: Stable, except HR Diet: Glucerna 1.2 Pending Orders: N/A Pending Results/Labs:N/A Pending MD notification:N/A Latest Vital Signs: Temperature 100.0 , Pulse 113 , B/P 124 /75 , Respiratory Rate 10 , O2 SAT 99 , Mechanical Ventilator, O2 Flow Rate . Vital Sign Comment: Tackycardia, Mild fever. EKG Rhythm: Sinus Tachycardia Rhythm change?: N Notified?: N -Dr Gloria BASS Response: Latest Colon Fall Score: 70 Fall Risk: High Risk Safety Measures: Call light Within Reach, Bed Alarm Zone 1, Side Rails Side Rails x3, Bed position Low and Locked. Fall Precautions: Yellow Socks Report given to PETE Knapp.
[2020-01-23] MEDS: NovoLOG Insulin Flexpen SUBQ SCH ×4 (05:45→23:34)
--- NOTE | 2020-01-23 07:20 | NUR ---
NURSE NOTES: Nurse report given by PETE Mojica. Patient's sleeping, responses to deep pain stimulation, obtunded, nonverbal, AAO x 0. No s/s of distress or SOB, no s/s of pain using FLACC score. IVs are saline locked, flushed well, no s/s of tenderness or infiltration. Vent/trach present, oral care and trach care provided. GT noted, flushed well, no residual noted. Supra pubic catheter, draining well with yellow color urine. Wound assessment performed, sacral stage 4 noted. Bilateral arms noted with +4 pitting edema, bilateral extremities elevated. Will continue to monitor.
--- NOTE | 2020-01-23 07:30 | NUR ---
NURSE HAND-OFF REPORT: Important Events on Shift:[Fever] Patient Status: Stable at this moment Diet: Glucerna 1.2 Pending Orders: N/A Pending Results/Labs:Rectum culture for CRE,VRE, sputum culture. Pending MD notification:N/A Latest Vital Signs: Temperature 97.9 , Pulse 114 , B/P 137 /88 , Respiratory Rate 10 , O2 SAT 98 , Mechanical Ventilator, O2 Flow Rate . Vital Sign Comment: stable EKG Rhythm: Sinus Tachycardia Rhythm change?: N Notified?: N -Dr Gloria BASS Response: Latest Colon Fall Score: 70 Fall Risk: High Risk Safety Measures: Call light Within Reach, Bed Alarm Zone 1, Side Rails Side Rails x3, Bed position Low and Locked. Fall Precautions: Yellow Socks Report given to PETE Melo.
[2020-01-23 08:00] VITALS: BP 122/76
--- NOTE | 2020-01-23 08:09 | General Progress Note ---
Subjective ROS Limited/Unobtainable: Yes Allergies: Coded Allergies: No Known Allergies (Unverified , 01/20/20) Subjective off IVF Objective Last 24 Hour Vital Signs Date Time Temp Pulse Resp B/P (MAP) Pulse Ox O2 Delivery O2 Flow Rate FiO2 01/23/20 08:00 40 01/23/20 04:00 113 01/23/20 04:00 97.9 114 10 137/88 (104) 98 01/23/20 04:00 40 01/23/20 04:00 Mechanical Ventilator 01/23/20 02:49 94 10 40 01/23/20 00:00 40 01/23/20 00:00 100.0 117 10 124/75 (91) 99 01/23/20 00:00 Mechanical Ventilator 01/22/20 23:31 118 01/22/20 22:26 106 10 40 01/22/20 20:00 Mechanical Ventilator 01/22/20 20:00 98.1 102 10 104/62 (76) 99 01/22/20 20:00 40 01/22/20 19:05 103 11 40 01/22/20 19:04 102 01/22/20 16:00 40 01/22/20 16:00 Mechanical Ventilator 01/22/20 16:00 91 01/22/20 16:00 97.5 95 10 104/66 (79) 100 01/22/20 15:21 88 10 40 01/22/20 12:00 Mechanical Ventilator 01/22/20 12:00 40 01/22/20 12:00 96.6 86 14 105/66 (79) 100 01/22/20 12:00 85 01/22/20 10:40 85 10 40 Intake and Output 01/22/20 01/23/20 19:00 07:00 Intake Total 1470.000 ml 740.000 ml Output Total 450 ml Balance 1020.000 ml 740.000 ml Intake Free Water 260 ml 50 ml IV Total 730.000 ml 330.000 ml Tube Feeding 480 ml 360 ml Output Urine Total 450 ml # Bowel Movements 4 Laboratory Tests 01/22/20 11:37: POC Whole Blood Glucose 158H 01/22/20 16:34: POC Whole Blood Glucose 191H Height (Feet): 5 Height (Inches): 2.00 Weight (Pounds): 103 Objective WDWN NAD reduced breath sounds bilaterally without rhonchi or wheeze [id number] tachy without MRG NABS nontender no CCE poor LOC trach and GT Assessment/Plan Assessment/Plan: IMPRESSION leukocytosis possible sepsis anemia rectal bleeding palpitations pulmonary infiltrates UTI bacteremia sepsis PLAN Iv antibiotics ID evaluation noted await CT chest resume SNF meds cardiology and ID and GI followup monitor HH monitor labs maintain vent optimize not ready for dc yet impression, plan, and exam edited and reviewed in detail care discussed with Chi Hodge MD Jan 23, 2020 08:09
[2020-01-23] MEDS: Vancomycin 750mg/NS 275ml IVPB SCH ×2 (08:21)
[2020-01-23] MEDS: Cefepime HCl 2 GM in D5W 55 ML IV SCH ×2 (08:21→20:39)
[2020-01-23] MEDS: Docusate 100mg/10ml Liq GT SCH ×2 (08:22→17:41)
[2020-01-23] MEDS: Pantoprazole Inj IVP SCH ×2 (08:22→20:42)
[2020-01-23] MEDS: Multivitamins W/Minerals 15 ML UDC GT SCH (08:22)
[2020-01-23] MEDS: Ascorbic Acid 500mg tab GT SCH (08:22)
[2020-01-23] MEDS: Dakin's 0.25% (Half Strength) 16oz TOPIC SCH (08:23)
--- NOTE | 2020-01-23 09:36 | Infectious Diseases Prog Note ---
Assessment/Plan Assessment/Plan A 1. Enterobacter & MSSA UTI 2. staph aureus( MSSA) & serratia pneumonia COVID 19 negative 3. Positive blood cultures,likely contamination 4. Ventilator dependent respiratory failure 5. CVA 6. Diabetes mellitus 7. Hypertension 8. GI bleeding, Melena P 1. Discontinue iv vancomycin 2. Continue cefepime 3. will follow up cultures Subjective ROS Limited/Unobtainable: Yes Constitutional: Reports: fever, other - [id number] Allergies: Coded Allergies: No Known Allergies (Unverified , 01/20/20) Objective Last 24 Hour Vital Signs Date Time Temp Pulse Resp B/P (MAP) Pulse Ox O2 Delivery O2 Flow Rate FiO2 01/23/20 08:00 Mechanical Ventilator 01/23/20 08:00 98.1 100 12 122/76 (91) 97 01/23/20 08:00 109 01/23/20 08:00 40 01/23/20 07:10 108 10 40 01/23/20 04:00 113 01/23/20 04:00 97.9 114 10 137/88 (104) 98 01/23/20 04:00 40 01/23/20 04:00 Mechanical Ventilator 01/23/20 02:49 94 10 40 01/23/20 00:00 40 01/23/20 00:00 100.0 117 10 124/75 (91) 99 01/23/20 00:00 Mechanical Ventilator 01/22/20 23:31 118 01/22/20 22:26 106 10 40 01/22/20 20:00 Mechanical Ventilator 01/22/20 20:00 98.1 102 10 104/62 (76) 99 01/22/20 20:00 40 01/22/20 19:05 103 11 40 01/22/20 19:04 102 01/22/20 16:00 40 01/22/20 16:00 Mechanical Ventilator 01/22/20 16:00 91 01/22/20 16:00 97.5 95 10 104/66 (79) 100 01/22/20 15:21 88 10 40 01/22/20 12:00 Mechanical Ventilator 01/22/20 12:00 40 01/22/20 12:00 96.6 86 14 105/66 (79) 100 01/22/20 12:00 85 01/22/20 10:40 85 10 40 Height (Feet): 5 Height (Inches): 2.00 Weight (Pounds): 103 General Appearance: no acute distress HEENT: status post trach Respiratory/Chest: lungs clear, other - on ventilator Cardiovascular: normal rate Abdomen: soft, non tender, other - GT in place Extremities: other - hands edema, SCD of legs Neurologic/Psychiatric: unresponsiveness Microbiology Date/Time Source Procedure Growth Status 01/23/20 02:30 Rectum Received 01/21/20 14:15 Sputum Gram Stain - Final Resulted 01/21/20 14:15 Sputum Culture - Preliminary Gram Negative Bacillus 1 Resulted 01/20/20 11:40 Sputum Gram Stain - Final Complete 01/20/20 11:40 Sputum Culture - Final Staphylococcus Aureus Serratia Marcescens Usual Respiratory Alida Complete Laboratory Tests Test 01/22/20 11:37 01/22/20 16:34 POC Whole Blood Glucose 158 MG/DL (74-106) H 191 MG/DL (74-106) H Current Medications Medications (Trade) Dose Ordered Sig/Elisa Route PRN Reason Start Time Stop Time Status Last Admin Dose Admin Acetaminophen (Tylenol) 650 mg Q4H PRN GT Mild Pain (Pain Scale 1-3) 01/20/20 17:00 02/19/20 16:59 01/21/20 19:38 Acetaminophen (Tylenol) 650 mg Q4H PRN GT Fever (T>100.5) 01/20/20 17:15 02/19/20 17:14 01/21/20 11:30 Al Hydroxide/Mg Hydroxide (Mylanta) 30 ml FOUR TIMES A DAY GT 01/20/20 21:00 02/19/20 20:59 01/23/20 08:22 Ascorbic Acid (Vitamin C) 500 mg DAILY GT 01/21/20 09:00 02/20/20 08:59 01/23/20 08:22 Cefepime HCl 2 gm/ Dextrose 55 ml @ 110 mls/hr EVERY 12 HOURS IV 01/22/20 12:00 01/29/20 11:59 01/23/20 08:21 Dextrose (Dextrose 50%) 25 ml Q30M PRN IV Hypoglycemia 01/20/20 19:00 04/19/20 18:59 Dextrose (Dextrose 50%) 50 ml Q30M PRN IV Hypoglycemia 01/20/20 19:00 04/19/20 18:59 Docusate Sodium (Colace) 100 mg TWICE A DAY GT 01/21/20 18:00 02/20/20 17:59 01/23/20 08:22 Insulin Aspart (NovoLOG) Q6HR SUBQ 01/21/20 00:00 04/19/20 20:59 01/23/20 05:45 Levothyroxine Sodium (Synthroid) 50 mcg DAILY@0630 GT 01/21/20 06:30 02/20/20 06:29 01/23/20 05:42 Multivitamins (Multivitamins W/ Minerals 15ml Liquid) 15 ml DAILY GT 01/21/20 09:00 02/20/20 08:59 01/23/20 08:22 Pantoprazole (Protonix) 40 mg EVERY 12 HOURS IVP 01/20/20 21:00 02/19/20 20:59 01/23/20 08:22 Sodium Hypochlorite (Dakin's Half Strength) 1 applic DAILY TOPIC 01/20/20 20:00 02/19/20 19:59 01/23/20 08:23 Vancomycin HCl (Vanco pharmacy to dose) 1 ea DAILY PRN MISC Per rx protocol 01/20/20 17:00 02/19/20 16:59 Vancomycin HCl 750 mg/Sodium Chloride 275 ml @ 183.333 mls/hr Q8HR@0000,0800,1600 IVPB 01/22/20 16:00 01/27/20 15:59 01/23/20 08:21 Jaspal Cintron MD Jan 23, 2020 09:36
--- NOTE | 2020-01-23 09:45 | NUR ---
NURSE NOTES: Patient's getting CT scan of the head and chest; patient went down to the CT with nurse and RT at bedside. ST 112, O2 at 100% with ambu bag.
--- NOTE | 2020-01-23 10:10 | NUR ---
NURSE NOTES: Patient came back from CT. Patient tolerated well, no s/s of distress or SOB, ST 108. Patient's connected back with ventilator, RR 10, O2 100%. Resumed feeding and IV medication. Air mattress and SCD reconnected. Vital signs stable: BP 135/72, RR 10, O2 100%, Temp 98.2, TN 115. Suction provided. Will continue to monitor.
--- NOTE | 2020-01-23 10:21 | Surgery Progress Note ---
Surgery Progress Note Subjective Additional Comments labs improving wbc trending down path noted from scope oay Objective Last 24 Hour Vital Signs Date Time Temp Pulse Resp B/P (MAP) Pulse Ox O2 Delivery O2 Flow Rate FiO2 01/23/20 08:00 Mechanical Ventilator 01/23/20 08:00 98.1 100 12 122/76 (91) 97 01/23/20 08:00 109 01/23/20 08:00 40 01/23/20 07:10 108 10 40 01/23/20 04:00 113 01/23/20 04:00 97.9 114 10 137/88 (104) 98 01/23/20 04:00 40 01/23/20 04:00 Mechanical Ventilator 01/23/20 02:49 94 10 40 01/23/20 00:00 40 01/23/20 00:00 100.0 117 10 124/75 (91) 99 01/23/20 00:00 Mechanical Ventilator 01/22/20 23:31 118 01/22/20 22:26 106 10 40 01/22/20 20:00 Mechanical Ventilator 01/22/20 20:00 98.1 102 10 104/62 (76) 99 01/22/20 20:00 40 01/22/20 19:05 103 11 40 01/22/20 19:04 102 01/22/20 16:00 40 01/22/20 16:00 Mechanical Ventilator 01/22/20 16:00 91 01/22/20 16:00 97.5 95 10 104/66 (79) 100 01/22/20 15:21 88 10 40 01/22/20 12:00 Mechanical Ventilator 01/22/20 12:00 40 01/22/20 12:00 96.6 86 14 105/66 (79) 100 01/22/20 12:00 85 01/22/20 10:40 85 10 40 I&O Intake and Output 01/22/20 01/23/20 19:00 07:00 Intake Total 1470.000 ml 740.000 ml Output Total 450 ml Balance 1020.000 ml 740.000 ml Intake Free Water 260 ml 50 ml IV Total 730.000 ml 330.000 ml Tube Feeding 480 ml 360 ml Output Urine Total 450 ml # Bowel Movements 4 Dressing: saturated Cardiovascular: RSR Respiratory: decreased breath sounds Abdomen: soft, non-tender, present bowel sounds Extremities: no tenderness, no cyanosis Laboratory Tests Test 01/22/20 11:37 01/22/20 16:34 POC Whole Blood Glucose 158 MG/DL (74-106) H 191 MG/DL (74-106) H Plan Problems: (1) Stage 4 skin ulcer of sacral region Assessment & Plan: Patient Presented on admission with GT, Suprapubic Cath, Multiple Pressure injuries. Unstageable Sacral Pressure injury that is Malodorous(L)10cm x (W)9.5cm. 90% soft necrosis, 10% mixed erythema with Biofilm at Base of wound. Moderate amt purulent exudate noted when base of wound minimally palpated. Periwound is black and indurated. likely stage 4 given over necrosis the bone is directly palpable. Full thickness Pressure Injury lateral L Tibia(L)3.8cm x (W)2.2cm . Base of wound is 10% necrotic, 25% slough ,65% pink epithelial. Edges are adherent to Base of wound. No odor or exudate noted. No erythema or induration periwound. DTPI Lateral R Tibia. (L)2.5cm x (W)1.5cm.Base of Pressure injury is purpuric with Maroon borders. Non-Blanchable erythema without induration/fluctuance medial L heel. R heel is blanchable with dry peeling skin. Purpuric area without induration /fluctuance R Hallux.(L)1.2cm x (W)0.6cm. Dry brown eschar medial R foot (L)0.4cm x (W)0.6cm. Tx.Plan: Cleanse Sacral wound with Dakin's 0.25% domingo. Apply Dakin's moist gauze to wound. Apply Moisture Barrier Past Periwound. Cover with drsg Twice daily and prn. Cleanse wound lateral L tibia with Saline. Apply TheraHoney. Apply Cavilon Skin BArrier periwound. Cover with Optifoam drsg. Change every 3 days and prn. Apply Cavilon Skin Barrier to Lateral R tibia and R Hallux. Cover with Optifoam drsg. Change very 7 days and prn. Apply Cavilon Skin Barrier to Bilat heels and Malleoli. Cover each site with Optifoam drsg. Change every 7 days and prn. Cover Bony Prominences as needed with Optifoam drsgs. Reposition at least every 2hours or as tolerated. Off-load heels with pillow. APMLAl Mattress overlay. DAILY ESTIMATED NEEDS: Needs based on Wound, critical care 44.1kg 27-32 kcals/kg 9266-1428 total kcals 1.25-2 g protein/kg 55-88 g total protein 25-30 mL/kg 1014-2092 total fluid mLs NUTRITION DIAGNOSIS: Increased kcal and pro needs r/t underweight status and wound healing as evidenced by BMI 16.7, pt is 81% of [place] Body Weight, generalized wasting noted, w/ wounds including full thickness and unstageable x1, refer to WC eval for full eval. CURRENT TF:NPO ENTERAL NUTRITION RECOMMENDATIONS: As medically able, rec Glucerna 1.2 goal of 50ml/hr x22 hrs to provide 1100ml, 1320 kcal, 66g pro, 886ml free H2O - As medically able, rec start TF @30ml/hr for 6 hrs. Advance as tolerated 10ml/hr q4-6 hrs to goal. - Flush per MD. HOB Over 30 degrees. - HOLD TF 1 hr before and after synthroid meds. - TF @goal meets 100% est needs. ADDITIONAL RECOMMENDATIONS: 1) Per SNF: 5'4" tall, 97 lbs/44.09kg Maintain calibrated bed scale wts 2) Wound care: w/ TF orders add HALEY BID + ZnSo4 220mg qd x10 days 3) Lytes daily, replete as needed (2) Anemia (3) UTI (urinary tract infection) (4) Pneumonia (5) LGI bleed (6) Palpitations (7) LGI bleed (8) GI bleeding Assessment & Plan: leukocytosis anemia guaiac positive no active bleeding currently trend h/h GI eval possible scope - results noted will follow with recs thank you There is a nonobstructed bowel gas pattern. Increased stool lucencies noted in the colon. There is a G-tube in place. No definite pathologic calcifications identified. There is no sign of free air. No acute abnormality noted of the visualized osseous structures To Webb Jan 23, 2020 10:21
[2020-01-23 12:00] VITALS: BP 124/75
[2020-01-23] MEDS ORDERED: Tubing IV Blood Pump IV ONE (13:55)
[2020-01-23] MEDS ORDERED: 1/2 NS 1000ml IV ONE (13:55)
[2020-01-23] MEDS ORDERED: Tubing IV Secondary IV ONE (13:55)
--- NOTE | 2020-01-23 14:28 | Diagnostic Imaging Report ---
Indication: Altered mental status Technique: Continuous helical CT scanning of the head was performed utilizing automated exposure control without intravenous contrast material. Axial and coronal reconstructions were obtained. Comparison: None CT dose: Total DLP 1125.7 mGycm; CTDI vol 53.4 mGy Findings: There is no acute intracranial hemorrhage, mass effect or cortical edema. There is no shift of midline structures. The ventricles, cisterns and sulci are within normal limits for age. Mild periventricular hypoattenuation is seen, a nonspecific finding. Bilateral mastoid effusions. There is complete opacification of the right maxillary sinus with bony changes suggesting chronic sinusitis. There is also opacification of the posterior nasopharynx. IMPRESSION: No evidence of acute intracranial hemorrhage, mass effect or cortical edema. MRI may be obtained for more sensitive evaluation as clinically indicated. Findings suggesting chronic sinusitis of the right maxillary sinus. Bilateral mastoid effusions versus mastoiditis. Partial opacification of the posterior nasopharynx. The CT scanner at [facility] is accredited by the [employer] and the scans are performed using protocols designed to limit radiation exposure to as low as reasonably achievable to attain images of sufficient resolution adequate for diagnostic evaluation.
--- NOTE | 2020-01-23 15:16 | Diagnostic Imaging Report ---
EXAM: CT CT Chest no Contrast CLINICAL HISTORY: Reason For Exam: SOB. TECHNIQUE: Axial images obtained through the chest without contrast. All CT scans at this facility are performed using dose modulation techniques as appropriate to a performed exam including the following: automated exposure control with adjustment of the mA and/or kV according to patient size. RADIATION DOSE: CTDIvol: 3 mGy DLP: 106 mGy-cm Dose information generated by the CT scanner is available in PACS. COMPARISON: Chest x-ray 01/20/2020 FINDINGS: Tracheostomy again noted in place. There are bilateral dependent alveolar infiltrates in both lungs. Air bronchograms noted within the consolidation at the right lung base. There are bilateral moderate layering pleural effusions. Within the aerated anterior lung segments, there are scattered ground glass infiltrates as well. There is no pathologic size adenopathy. Images through the upper abdomen show NG tube in place. IMPRESSION: BILATERAL SCATTERED GROUNDGLASS INFILTRATES ALONG WITH POSTERIOR DEPENDENT CONSOLIDATIONS WITH AIR BRONCHOGRAM. BILATERAL PLEURAL EFFUSIONS.
[2020-01-23 16:00] VITALS: BP 104/63
--- NOTE | 2020-01-23 16:31 | NUR ---
CASE MANAGEMENT:REVIEW 01/23/20 SI: LGIB. ANEMIA. PNA. UTI TRACH/VENT/GTUBE T 98.2 HR 115 RR 10 B/P 124/75 SATS 98% ON MECH VENT FIO2 40 LABS: GLU 185 IS: IV VANCOMYCIN Q8HRS IV CEFEPIME Q12 INSULIN ASPART SUBQ Q6H : STEP DOWN UNIT DCP: FROM [facility]
--- NOTE | 2020-01-23 16:33 | NUR ---
INSURANCE PROGRESS NOTES AND REVIEW FAXED [facility] JOSE # [phone] EXT [phone] FAX# [phone] CM S/W WITH JOSE @ [facility] PATIENT IS OK TO STAY AT THIS HOSPITAL IF NO SURGERIES TO BE PERFORMED.
--- NOTE | 2020-01-23 19:17 | NUR ---
NURSE NOTES: Received pt's report from EPTE Melo. Pt is on bed, sleeping. Pt is on vent. SpO2 99%, RR 10, HR 90. No s/s of respiratory distress noted. Pt is on suprapubic catheter, yellow urine noted. Pt is on G-tube, Glucerna 1.2 running. IV site clean and intact noted. Pt is on SCD. Call-light within reach. Bed is low and locked. Will continue to monitor with plan of care.
--- NOTE | 2020-01-23 19:17 | NUR ---
NURSE HAND-OFF REPORT: Important Events on Shift: chest CT and head CT performed Patient Status: fair Diet: tube feeding Pending Orders: n/a Pending Results/Labs:n/a Pending notification: left message to Dr. Castro regarding Chest CT result Latest Vital Signs: Temperature 99.2 , Pulse 98 , B/P 104 /63 , Respiratory Rate 10 , O2 SAT 100 , Mechanical Ventilator, O2 Flow Rate . Vital Sign Comment: EKG Rhythm: Sinus Tachycardia Rhythm change?: N MD Notified?: N -Dr Gloria BASS Response: Latest Colon Fall Score: 70 Fall Risk: High Risk Safety Measures: Call light Within Reach, Bed Alarm Zone 1, Side Rails Side Rails x3, Bed position Low and Locked. Fall Precautions: Yellow Socks Report given to PETE Jaramillo.
--- NOTE | 2020-01-23 19:26 | General Progress Note ---
Subjective Allergies: Coded Allergies: No Known Allergies (Unverified , 01/20/20) Subjective above noted on TF non communicative Objective Last 24 Hour Vital Signs Date Time Temp Pulse Resp B/P (MAP) Pulse Ox O2 Delivery O2 Flow Rate FiO2 01/23/20 18:50 98 10 40 01/23/20 16:00 Mechanical Ventilator 01/23/20 16:00 97 01/23/20 16:00 40 01/23/20 16:00 99.2 98 10 104/63 (77) 100 01/23/20 12:00 115 01/23/20 12:00 98.2 114 10 124/75 (91) 98 01/23/20 12:00 Mechanical Ventilator 01/23/20 12:00 40 01/23/20 11:10 117 10 40 01/23/20 08:00 Mechanical Ventilator 01/23/20 08:00 98.1 100 12 122/76 (91) 97 01/23/20 08:00 109 01/23/20 08:00 40 01/23/20 07:10 108 10 40 01/23/20 04:00 113 01/23/20 04:00 97.9 114 10 137/88 (104) 98 01/23/20 04:00 40 01/23/20 04:00 Mechanical Ventilator 01/23/20 02:49 94 10 40 01/23/20 00:00 40 01/23/20 00:00 100.0 117 10 124/75 (91) 99 01/23/20 00:00 Mechanical Ventilator 01/22/20 23:31 118 01/22/20 22:26 106 10 40 01/22/20 20:00 Mechanical Ventilator 01/22/20 20:00 98.1 102 10 104/62 (76) 99 01/22/20 20:00 40 Intake and Output 01/22/20 01/23/20 19:00 07:00 Intake Total 1470.000 ml 780.000 ml Output Total 450 ml Balance 1020.000 ml 780.000 ml Intake Free Water 260 ml 50 ml IV Total 730.000 ml 330.000 ml Tube Feeding 480 ml 400 ml Output Urine Total 450 ml # Bowel Movements 4 Laboratory Tests 01/23/20 12:04: POC Whole Blood Glucose 185H 01/23/20 17:40: POC Whole Blood Glucose 155H Height (Feet): 5 Height (Inches): 2.00 Weight (Pounds): 103 Objective Thin AA woman NCAT (+) trach CTA Tachy abd soft, flat, GT no edema Assessment/Plan Assessment/Plan: Assessment - Melena / GIB - gastric bumper lesion - Anemia - malnutrition , albumin 1.5 - Resp failure, trach - s/p Suprapubic catheter - pyuria - CVA / OBS Recommendations - Continue TF - Abx - PPI - follow nutritional status Kelton Hernandez MD Jan 23, 2020 19:26
[2020-01-23 20:00] VITALS: BP 100/58
[2020-01-23] MEDS: Acetaminophen 650mg/20.3ml GT PRN (20:42)
--- NOTE | 2020-01-23 21:00 | NUR ---
NURSE NOTES: Pt has fever, cooling measure applied, PRN Tylenol given.
[2020-01-24] VITALS: BP 104/65
--- NOTE | 2020-01-24 01:19 | Cardiology Progress Note ---
Subjective DATE OF SERVICE: Jan 23, 2020 s/p EGD with cauterized bleeding site near GTube. s/p PRBC transfusion remains on vent support via trach Feedings resumed by Gtube; IVF discont'd Objective Last 24 Hour Vital Signs Date Time Temp Pulse Resp B/P (MAP) Pulse Ox O2 Delivery O2 Flow Rate FiO2 01/24/20 00:00 Mechanical Ventilator 01/24/20 00:00 40 01/24/20 00:00 97.3 78 10 104/65 (78) 100 01/23/20 22:55 79 10 40 01/23/20 21:12 98.1 01/23/20 20:00 Mechanical Ventilator 01/23/20 20:00 100.5 95 10 100/58 (72) 98 01/23/20 20:00 94 01/23/20 20:00 40 01/23/20 18:50 98 10 40 01/23/20 16:00 Mechanical Ventilator 01/23/20 16:00 97 01/23/20 16:00 40 01/23/20 16:00 99.2 98 10 104/63 (77) 100 01/23/20 12:00 115 01/23/20 12:00 98.2 114 10 124/75 (91) 98 01/23/20 12:00 Mechanical Ventilator 01/23/20 12:00 40 01/23/20 11:10 117 10 40 01/23/20 08:00 Mechanical Ventilator 01/23/20 08:00 98.1 100 12 122/76 (91) 97 01/23/20 08:00 109 01/23/20 08:00 40 01/23/20 07:10 108 10 40 01/23/20 04:00 113 01/23/20 04:00 97.9 114 10 137/88 (104) 98 01/23/20 04:00 40 01/23/20 04:00 Mechanical Ventilator 01/23/20 02:49 94 10 40 ROS: unchanged from my evaluation of 01/20/20 HEENT: Mechanically Ventilated, Thin Trach secretions LUNGS: bilateral rhonchi, trach site clean ABDOMEN: normal bowel sounds, non tender, soft, no organomegaly, decreased bowel sounds, other - suprapubic cath EXTREMITIES: No edema Laboratory Tests Test 01/23/20 12:04 01/23/20 17:40 POC Whole Blood Glucose 185 MG/DL (74-106) H 155 MG/DL (74-106) H Microbiology Date/Time Source Procedure Growth Status 01/23/20 02:30 Rectum Received 01/21/20 14:15 Sputum Gram Stain - Final Resulted 01/21/20 14:15 Sputum Culture - Preliminary Gram Negative Bacillus 1 Resulted Assessment/Plan Assessment/Plan GI bleed Severe sepsis Sinusitis Mastoiditis Sinus tachycardia HCA Pneumonia Vent dep respiratory failure UTI Severe protein calorie malnutrition Hypovolemia/dehydration/hypernatremia IVF discontinued Monitor hemoglobin; transfuse as needed Abx Vent support Feedings on-going; observe for residuals Cardiac monitoring DVT prophylaxis Free water per Kumar Peters MD Jan 24, 2020 01:19
[2020-01-24 04:00] VITALS: BP 113/70
[2020-01-24] MEDS: NovoLOG Insulin Flexpen SUBQ SCH ×3 (05:39→18:08)
--- NOTE | 2020-01-24 07:20 | NUR ---
NURSE NOTES: received report from mena pavon rn. pt is seen lyingi n bed eye closed. pt is arousable with deep pain. pt has no fever at this time. pt on SCD attached. Pt has IV site line is intact and patent and draining well. Pt has no signs of pain at this time. pt has no signs of respiratory distress. Pt has Gtube site attached to pt patent and intact. With vent attached to pt with settings as ordered. Continue to plan of care. Bed in lowest position. Call light within reach.
--- NOTE | 2020-01-24 07:27 | NUR ---
NURSE HAND-OFF REPORT: Important Events on Shift:Pt had fever Patient Status: stable at this moment Diet: Glucerna 1.2 Pending Orders: n/a Pending Results/Labs:Rectum culture for VRE, CRE Pending MD notification:n/a Latest Vital Signs: Temperature 97.2 , Pulse 78 , B/P 113 /70 , Respiratory Rate 11 , O2 SAT 98 , Mechanical Ventilator, O2 Flow Rate . Vital Sign Comment: stable EKG Rhythm: Sinus Rhythm Rhythm change?: N Notified?: N -Dr Gloria BASS Response: Latest Colon Fall Score: 70 Fall Risk: High Risk Safety Measures: Call light Within Reach, Bed Alarm Zone 1, Side Rails Side Rails x3, Bed position Low and Locked. Fall Precautions: Yellow Socks Report given to PETE Haddad.
--- NOTE | 2020-01-24 08:10 | General Progress Note ---
Subjective ROS Limited/Unobtainable: Yes Allergies: Coded Allergies: No Known Allergies (Unverified , 01/20/20) Subjective off IVF Objective Last 24 Hour Vital Signs Date Time Temp Pulse Resp B/P (MAP) Pulse Ox O2 Delivery O2 Flow Rate FiO2 01/24/20 07:29 88 11 40 01/24/20 04:00 Mechanical Ventilator 01/24/20 04:00 97.2 86 11 113/70 (84) 98 01/24/20 04:00 78 01/24/20 04:00 40 01/24/20 02:50 76 10 40 01/24/20 00:00 Mechanical Ventilator 01/24/20 00:00 40 01/24/20 00:00 97.3 78 10 104/65 (78) 100 01/23/20 23:55 79 01/23/20 22:55 79 10 40 01/23/20 21:12 98.1 01/23/20 20:00 Mechanical Ventilator 01/23/20 20:00 100.5 95 10 100/58 (72) 98 01/23/20 20:00 94 01/23/20 20:00 40 01/23/20 18:50 98 10 40 01/23/20 16:00 Mechanical Ventilator 01/23/20 16:00 97 01/23/20 16:00 40 01/23/20 16:00 99.2 98 10 104/63 (77) 100 01/23/20 12:00 115 01/23/20 12:00 98.2 114 10 124/75 (91) 98 01/23/20 12:00 Mechanical Ventilator 01/23/20 12:00 40 01/23/20 11:10 117 10 40 Intake and Output 01/23/20 01/24/20 19:00 07:00 Intake Total 590 ml 685 ml Output Total 800 ml 650 ml Balance -210 ml 35 ml Intake Free Water 150 ml 50 ml IV Total 55 ml Tube Feeding 440 ml 480 ml Other 100 ml Output Urine Total 800 ml 650 ml Laboratory Tests 01/23/20 12:04: POC Whole Blood Glucose 185H 01/23/20 17:40: POC Whole Blood Glucose 155H Height (Feet): 5 Height (Inches): 2.00 Weight (Pounds): 103 Objective WDWN NAD reduced breath sounds bilaterally without rhonchi or wheeze [id number] tachy without MRG NABS nontender no CCE poor LOC trach and GT Assessment/Plan Assessment/Plan: IMPRESSION leukocytosis possible sepsis anemia rectal bleeding palpitations pulmonary infiltrates UTI bacteremia sepsis PLAN Iv antibiotics ID evaluation noted reviewed CT head and CT chest resume SNF meds cardiology and ID and GI followup monitor HH monitor labs maintain vent optimize not ready for dc yet impression, plan, and exam edited and reviewed in detail care discussed with Chi Hodge MD Jan 24, 2020 08:10
[2020-01-24 08:12] VITALS: BP 110/71
[2020-01-24] MEDS: Docusate 100mg/10ml Liq GT SCH ×2 (08:28→18:04)
[2020-01-24] MEDS: Multivitamins W/Minerals 15 ML UDC GT SCH (08:28)
[2020-01-24] MEDS: Dakin's 0.25% (Half Strength) 16oz TOPIC SCH (08:29)
[2020-01-24] MEDS: Pantoprazole Inj IVP SCH ×2 (08:29→21:15)
[2020-01-24] MEDS: Ascorbic Acid 500mg tab GT SCH (08:29)
[2020-01-24] MEDS: Cefepime HCl 2 GM in D5W 55 ML IV SCH ×2 (08:29→21:15)
--- NOTE | 2020-01-24 09:28 | NUR ---
RD ASSESSMENT & RECOMMENDATIONS SEE CARE ACTIVITY FOR COMPLETE ASSESSMENT DAILY ESTIMATED NEEDS: Needs based on Wound, critical care 44.1kg 27-32 kcals/kg 8240-9691 total kcals 1.25-2 g protein/kg 55-88 g total protein 25-30 mL/kg 4567-8134 total fluid mLs NUTRITION DIAGNOSIS: Increased kcal and pro needs r/t underweight status and wound healing as evidenced by BMI 16.7, pt is 81% of [place] Body Weight, generalized wasting noted, w/ wounds including full thickness and unstageable x1, refer to WC eval for full eval. CURRENT TF:Glucerna 1.2 @ 60ml/hr x 22 hrs ENTERAL NUTRITION RECOMMENDATIONS: As medically able, rec Glucerna 1.2 goal of 50ml/hr x22 hrs to provide 1100ml, 1320 kcal, 66g pro, 886ml free H2O - LOWER goal rate to 50ml/hr x 22 hrs: meets 100% est kcal/prot needs, current goal rate exceeds est needs - Flush per MD. HOB Over 30 degrees. - HOLD TF 1 hr before and after synthroid meds. ADDITIONAL RECOMMENDATIONS: 1) Per SNF: 5'4" tall, 97 lbs/44.09kg Maintain calibrated bed scale wts 2) Wound care: add HALEY BID add ZnSo4 220mg qd x10 days continue Vit C 3) Lytes daily, replete as needed
--- NOTE | 2020-01-24 10:31 | NUR ---
CASE MANAGEMENT:REVIEW 01/24/20 SI: LGIB. ANEMIA. PNA. UTI TRACH/VENT/GTUBE T 97.3 HR 82 RR 17 B/P 110/71 SATS 97% ON MECH VENT FIO2 40 LABS: GLU 155 IS: IV VANCOMYCIN Q8HRS IV CEFEPIME Q12 INSULIN ASPART SUBQ Q6H : STEP DOWN UNIT DCP: FROM [place] PLAN OF CARE: monitor HH monitor labs maintain vent
--- NOTE | 2020-01-24 10:38 | NUR ---
INSURANCE PROGRESS NOTES AND REVIEW FAXED [facility] # [phone] EXT [id number] FAX# [phone]
--- NOTE | 2020-01-24 11:00 | NUR ---
NURSE NOTES: Dr. fong seen pt. Made aware that pt runs fever 100.5 last night. But pt remains afebrile this morning. No new orders made.
--- NOTE | 2020-01-24 11:06 | Infectious Diseases Prog Note ---
"Assessment/Plan Assessment/Plan antibiotics : cefepime 01.22.20 - A 1. enterobacter | staph aureus UTI 2. staph aureus | serratia pneumonia COVID 19 negative 3. + blood culture with coag neg staph likely contaminated 4. respiratory failure 5. CVA 6. diabetes mellitus 7. hypertension 8. fever improving P 1. continue iv cefepime 7 more days 2. will follow up cultures Subjective ROS Limited/Unobtainable: Yes Allergies: Coded Allergies: No Known Allergies (Unverified , 01/20/20) Objective Last 24 Hour Vital Signs Date Time Temp Pulse Resp B/P (MAP) Pulse Ox O2 Delivery O2 Flow Rate FiO2 01/24/20 10:46 92 10 40 01/24/20 08:12 97.3 82 17 110/71 (84) 97 01/24/20 08:00 86 01/24/20 08:00 Mechanical Ventilator 01/24/20 08:00 Mechanical Ventilator 01/24/20 08:00 40 01/24/20 07:29 88 11 40 01/24/20 04:00 Mechanical Ventilator 01/24/20 04:00 97.2 86 11 113/70 (84) 98 01/24/20 04:00 78 01/24/20 04:00 40 01/24/20 02:50 76 10 40 01/24/20 00:00 Mechanical Ventilator 01/24/20 00:00 40 01/24/20 00:00 97.3 78 10 104/65 (78) 100 01/23/20 23:55 79 01/23/20 22:55 79 10 40 01/23/20 21:12 98.1 01/23/20 20:00 Mechanical Ventilator 01/23/20 20:00 100.5 95 10 100/58 (72) 98 01/23/20 20:00 94 01/23/20 20:00 40 01/23/20 18:50 98 10 40 01/23/20 16:00 Mechanical Ventilator 01/23/20 16:00 97 01/23/20 16:00 40 01/23/20 16:00 99.2 98 10 104/63 (77) 100 01/23/20 12:00 115 01/23/20 12:00 98.2 114 10 124/75 (91) 98 01/23/20 12:00 Mechanical Ventilator 01/23/20 12:00 40 01/23/20 11:10 117 10 40 Height (Feet): 5 Height (Inches): 2.00 Weight (Pounds): 103 HEENT: status post trach Respiratory/Chest: lungs clear Cardiovascular: normal rate, regular rhythm, no gallop/murmur, other - GT Abdomen: soft, non tender, other - GT Extremities: no edema Microbiology Date/Time Source Procedure Growth Status 01/23/20 02:30 Rectum Received 01/21/20 14:15 Sputum Gram Stain - Final Resulted 01/21/20 14:15 Sputum Culture - Preliminary Gram Negative Bacillus 1 Gram Negative Bacillus 2 Resulted Laboratory Tests Test 01/23/20 12:04 01/23/20 17:40 POC Whole Blood Glucose 185 MG/DL (74-106) H 155 MG/DL (74-106) H Current Medications Medications (Trade) Dose Ordered Sig/Elisa Route PRN Reason Start Time Stop Time Status Last Admin Dose Admin Acetaminophen (Tylenol) 650 mg Q4H PRN GT Mild Pain (Pain Scale 1-3) 01/20/20 17:00 02/19/20 16:59 01/21/20 19:38 Acetaminophen (Tylenol) 650 mg Q4H PRN GT Fever (T>100.5) 01/20/20 17:15 02/19/20 17:14 01/23/20 20:42 Al Hydroxide/Mg Hydroxide (Mylanta) 30 ml FOUR TIMES A DAY GT 01/20/20 21:00 02/19/20 20:59 01/24/20 08:28 Ascorbic Acid (Vitamin C) 500 mg DAILY GT 01/21/20 09:00 02/20/20 08:59 01/24/20 08:29 Cefepime HCl 2 gm/ Dextrose 55 ml @ 110 mls/hr EVERY 12 HOURS IV 01/22/20 12:00 01/29/20 11:59 01/24/20 08:29 Dextrose (Dextrose 50%) 25 ml Q30M PRN IV Hypoglycemia 01/20/20 19:00 04/19/20 18:59 Dextrose (Dextrose 50%) 50 ml Q30M PRN IV Hypoglycemia 01/20/20 19:00 04/19/20 18:59 Docusate Sodium (Colace) 100 mg TWICE A DAY GT 01/21/20 18:00 02/20/20 17:59 01/24/20 08:28 Insulin Aspart (NovoLOG) Q6HR SUBQ 01/21/20 00:00 04/19/20 20:59 01/24/20 05:39 Levothyroxine Sodium (Synthroid) 50 mcg DAILY@0630 GT 01/21/20 06:30 02/20/20 06:29 01/24/20 05:37 Multivitamins (Multivitamins W/ Minerals 15ml Liquid) 15 ml DAILY GT 01/21/20 09:00 02/20/20 08:59 01/24/20 08:28 Pantoprazole (Protonix) 40 mg EVERY 12 HOURS IVP 01/20/20 21:00 02/19/20 20:59 01/24/20 08:29 Sodium Hypochlorite (Dakin's Half Strength) 1 applic DAILY TOPIC 01/20/20 20:00 02/19/20 19:59 01/24/20 08:29 Des San MD Jan 24, 2020 11:06"
--- NOTE | 2020-01-24 11:36 | Surgery Progress Note ---
Surgery Progress Note Subjective Additional Comments no acute events labs noted on abx comfortable Objective Last 24 Hour Vital Signs Date Time Temp Pulse Resp B/P (MAP) Pulse Ox O2 Delivery O2 Flow Rate FiO2 01/24/20 10:46 92 10 40 01/24/20 08:12 97.3 82 17 110/71 (84) 97 01/24/20 08:00 86 01/24/20 08:00 Mechanical Ventilator 01/24/20 08:00 Mechanical Ventilator 01/24/20 08:00 40 01/24/20 07:29 88 11 40 01/24/20 04:00 Mechanical Ventilator 01/24/20 04:00 97.2 86 11 113/70 (84) 98 01/24/20 04:00 78 01/24/20 04:00 40 01/24/20 02:50 76 10 40 01/24/20 00:00 Mechanical Ventilator 01/24/20 00:00 40 01/24/20 00:00 97.3 78 10 104/65 (78) 100 01/23/20 23:55 79 01/23/20 22:55 79 10 40 01/23/20 21:12 98.1 01/23/20 20:00 Mechanical Ventilator 01/23/20 20:00 100.5 95 10 100/58 (72) 98 01/23/20 20:00 94 01/23/20 20:00 40 01/23/20 18:50 98 10 40 01/23/20 16:00 Mechanical Ventilator 01/23/20 16:00 97 01/23/20 16:00 40 01/23/20 16:00 99.2 98 10 104/63 (77) 100 01/23/20 12:00 115 01/23/20 12:00 98.2 114 10 124/75 (91) 98 01/23/20 12:00 Mechanical Ventilator 01/23/20 12:00 40 I&O Intake and Output 01/23/20 01/24/20 19:00 07:00 Intake Total 590 ml 685 ml Output Total 800 ml 650 ml Balance -210 ml 35 ml Intake Free Water 150 ml 50 ml IV Total 55 ml Tube Feeding 440 ml 480 ml Other 100 ml Output Urine Total 800 ml 650 ml Dressing: other Wound: other Cardiovascular: RSR Respiratory: decreased breath sounds Abdomen: soft, non-tender, present bowel sounds Extremities: no tenderness, no cyanosis Laboratory Tests Test 01/23/20 12:04 01/23/20 17:40 01/24/20 11:28 POC Whole Blood Glucose 185 MG/DL (74-106) H 155 MG/DL (74-106) H 198 MG/DL (74-106) H Plan Problems: (1) Stage 4 skin ulcer of sacral region Assessment & Plan: Patient Presented on admission with GT, Suprapubic Cath, Multiple Pressure injuries. Unstageable Sacral Pressure injury that is Malodorous(L)10cm x (W)9.5cm. 90% soft necrosis, 10% mixed erythema with Biofilm at Base of wound. Moderate amt purulent exudate noted when base of wound minimally palpated. Periwound is black and indurated. likely stage 4 given over necrosis the bone is directly palpable. Full thickness Pressure Injury lateral L Tibia(L)3.8cm x (W)2.2cm . Base of w ound is 10% necrotic, 25% slough ,65% pink epithelial. Edges are adherent to Base of wound. No odor or exudate noted. No erythema or induration periwound. DTPI Lateral R Tibia. (L)2.5cm x (W)1.5cm.Base of Pressure injury is purpuric with Maroon borders. Non-Blanchable erythema without induration/fluctuance medial L heel. R heel is blanchable with dry peeling skin. Purpuric area without induration /fluctuance R Hallux.(L)1.2cm x (W)0.6cm. Dry brown eschar medial R foot (L)0.4cm x (W)0.6cm. Tx.Plan: Cleanse Sacral wound with Dakin's 0.25% domingo. Apply Dakin's moist gauze to wound. Apply Moisture Barrier Past Periwound. Cover with drsg Twice daily and prn. Cleanse wound lateral L tibia with Saline. Apply TheraHoney. Apply Cavilon Skin BArrier periwound. Cover with Optifoam drsg. Change every 3 days and prn. Apply Cavilon Skin Barrier to Lateral R tibia and R Hallux. Cover with Optifoam drsg. Change very 7 days and prn. Apply Cavilon Skin Barrier to Bilat heels and Malleoli. Cover each site with Optifoam drsg. Change every 7 days and prn. Cover Bony Prominences as needed with Optifoam drsgs. Reposition at least every 2hours or as tolerated. Off-load heels with pillow. APMLAl Mattress overlay. DAILY ESTIMATED NEEDS: Needs based on Wound, critical care 44.1kg 27-32 kcals/kg 9684-4551 total kcals 1.25-2 g protein/kg 55-88 g total protein 25-30 mL/kg 9430-6423 total fluid mLs NUTRITION DIAGNOSIS: Increased kcal and pro needs r/t underweight status and wound healing as evidenced by BMI 16.7, pt is 81% of [place] Body Weight, generalized wasting noted, w/ wounds including full thickness and unstageable x1, refer to WC eval for full eval. CURRENT TF:NPO ENTERAL NUTRITION RECOMMENDATIONS: As medically able, rec Glucerna 1.2 goal of 50ml/hr x22 hrs to provide 1100ml, 1320 kcal, 66g pro, 886ml free H2O - As medically able, rec start TF @30ml/hr for 6 hrs. Advance as tolerated 10ml/hr q4-6 hrs to goal. - Flush per MD. HOB Over 30 degrees. - HOLD TF 1 hr before and after synthroid meds. - TF @goal meets 100% est needs. ADDITIONAL RECOMMENDATIONS: 1) Per SNF: 5'4" tall, 97 lbs/44.09kg Maintain calibrated bed scale wts 2) Wound care: w/ TF orders add HALEY BID + ZnSo4 220mg qd x10 days 3) Lytes daily, replete as needed (2) Anemia (3) UTI (urinary tract infection) (4) Pneumonia (5) LGI bleed (6) Palpitations (7) LGI bleed (8) GI bleeding Assessment & Plan: leukocytosis anemia guaiac positive no active bleeding currently trend h/h GI eval possible scope - results noted will follow with recs thank you There is a nonobstructed bowel gas pattern. Increased stool lucencies noted in the colon. There is a G-tube in place. No definite pathologic calcifications identified. There is no sign of free air. No acute abnormality noted of the visualized osseous structures DAILY ESTIMATED NEEDS: Needs based on Wound, critical care 44.1kg 27-32 kcals/kg 3464-5978 total kcals 1.25-2 g protein/kg 55-88 g total protein 25-30 mL/kg 6388-3002 total fluid mLs NUTRITION DIAGNOSIS: Increased kcal and pro needs r/t underweight status and wound healing as evidenced by BMI 16.7, pt is 81% of [place] Body Weight, generalized wasting noted, w/ wounds including full thickness and unstageable x1, refer to WC eval for full eval. CURRENT TF:Glucerna 1.2 @ 60ml/hr x 22 hrs ENTERAL NUTRITION RECOMMENDATIONS: As medically able, rec Glucerna 1.2 goal of 50ml/hr x22 hrs to provide 1100ml, 1320 kcal, 66g pro, 886ml free H2O - LOWER goal rate to 50ml/hr x 22 hrs: meets 100% est kcal/prot needs, current goal rate exceeds est needs - Flush per MD. HOB Over 30 degrees. - HOLD TF 1 hr before and after synthroid meds. ADDITIONAL RECOMMENDATIONS: 1) Per SNF: 5'4" tall, 97 lbs/44.09kg Maintain calibrated bed scale wts 2) Wound care: add HALEY BID add ZnSo4 220mg qd x10 days continue Vit C 3) Lytes daily, replete as needed To Webb Jan 24, 2020 11:36
[2020-01-24 12:00] VITALS: BP 118/71
[2020-01-24 16:00] VITALS: BP 120/72
[2020-01-24] MEDS: Acetaminophen 650mg/20.3ml GT PRN (18:05)
--- NOTE | 2020-01-24 18:15 | General Progress Note ---
Subjective Allergies: Coded Allergies: No Known Allergies (Unverified , 01/20/20) Subjective above noted on TF non communicative Objective Last 24 Hour Vital Signs Date Time Temp Pulse Resp B/P (MAP) Pulse Ox O2 Delivery O2 Flow Rate FiO2 01/24/20 16:00 98.1 96 18 120/72 (88) 99 01/24/20 16:00 Mechanical Ventilator 01/24/20 16:00 40 01/24/20 15:58 96 10 40 01/24/20 12:00 95 01/24/20 12:00 Mechanical Ventilator 01/24/20 12:00 98.1 96 18 118/71 (87) 99 01/24/20 12:00 40 01/24/20 10:46 92 10 40 01/24/20 08:12 97.3 82 17 110/71 (84) 97 01/24/20 08:00 86 01/24/20 08:00 Mechanical Ventilator 01/24/20 08:00 Mechanical Ventilator 01/24/20 08:00 40 01/24/20 07:29 88 11 40 01/24/20 04:00 Mechanical Ventilator 01/24/20 04:00 97.2 86 11 113/70 (84) 98 01/24/20 04:00 78 01/24/20 04:00 40 01/24/20 02:50 76 10 40 01/24/20 00:00 Mechanical Ventilator 01/24/20 00:00 40 01/24/20 00:00 97.3 78 10 104/65 (78) 100 01/23/20 23:55 79 01/23/20 22:55 79 10 40 01/23/20 21:12 98.1 01/23/20 20:00 Mechanical Ventilator 01/23/20 20:00 100.5 95 10 100/58 (72) 98 01/23/20 20:00 94 01/23/20 20:00 40 01/23/20 18:50 98 10 40 Intake and Output 01/23/20 01/24/20 19:00 07:00 Intake Total 590 ml 685 ml Output Total 800 ml 650 ml Balance -210 ml 35 ml Intake Free Water 150 ml 50 ml IV Total 55 ml Tube Feeding 440 ml 480 ml Other 100 ml Output Urine Total 800 ml 650 ml Laboratory Tests 01/24/20 11:28: POC Whole Blood Glucose 198H 01/24/20 17:54: POC Whole Blood Glucose 179H Height (Feet): 5 Height (Inches): 2.00 Weight (Pounds): 103 Objective Thin AA woman NCAT (+) trach CTA Tachy abd soft, flat, GT no edema Assessment/Plan Assessment/Plan: Assessment - Melena / GIB - gastric bumper lesion - Anemia - malnutrition , albumin 1.5 - Resp failure, trach - s/p Suprapubic catheter - pyuria - CVA / OBS Recommendations - Continue TF - Abx - PPI - follow nutritional status - I will return Monday to see pt Kelton Hernandez MD Jan 24, 2020 18:15
--- NOTE | 2020-01-24 19:35 | NUR ---
NURSE HAND-OFF REPORT: Important Events on Shift: Pt stable. Gtube Glucerna 1.2 goal reached Patient Status: Stable, no fever Diet: Gtube feeding Pending Orders: None Pending Results/Labs:None Pending notification:None Latest Vital Signs: Temperature 98.1 , Pulse 105 , B/P 120 /72 , Respiratory Rate 10 , O2 SAT 99 , Mechanical Ventilator, O2 Flow Rate . Vital Sign Comment: WNL EKG Rhythm: Sinus Rhythm Rhythm change?: N Notified?: N -Dr Gloria BASS Response: Latest Colon Fall Score: 70 Fall Risk: High Risk Safety Measures: Call light Within Reach, Bed Alarm Zone 1, Side Rails Side Rails x3, Bed position Low and Locked. Fall Precautions: Yellow Socks Report given to [PETE Flores].
--- NOTE | 2020-01-24 19:36 | NUR ---
NURSE NOTES: Received report from PETE Haddad. Pt is obtunded. Pt is on Trach to vent with Shiley #6 .settings are AC 10 TV 450 Fio2 40% PEEP 5 SpO2 99%,ST with HR of 106. No s/s of respiratory distress noted. Pt is on suprapubic catheter, yellow urine noted. Pt is on G-tube, Glucerna 1.2 running at 60cc/hr .No GT residual noted, HOB elevated. IV site clean and intact noted. Bed is low and locked.Bed alarm on. Will continue to monitor with plan of care.
[2020-01-24 20:00] VITALS: BP 104/58
[2020-01-25] VITALS: BP 129/85
--- NOTE | 2020-01-25 00:30 | NUR ---
NURSE NOTES: Patient asleep in bed comfortably. no s/s of acute distress noted with current vent settings. o2 satting 96-100%.Afebrile. vss.Turned and repositioned.patient has small black tarry stool . sponge bath given.no grimacing or moaning noted.
[2020-01-25] MEDS: NovoLOG Insulin Flexpen SUBQ SCH ×5 (00:44→23:23)
--- NOTE | 2020-01-25 02:56 | Cardiology Progress Note ---
Subjective DATE OF SERVICE: Jan 24, 2020 s/p EGD with cauterized bleeding site near GTube. s/p PRBC transfusion remains on vent support via trach Feedings resumed by Gtube; IVF discont'd +blood cultures noted Objective Last 24 Hour Vital Signs Date Time Temp Pulse Resp B/P (MAP) Pulse Ox O2 Delivery O2 Flow Rate FiO2 01/25/20 00:00 Mechanical Ventilator 01/25/20 00:00 100 01/25/20 00:00 97.0 98 12 129/85 (100) 100 01/24/20 23:25 96 10 40 01/24/20 20:00 99.7 106 12 104/58 (73) 96 01/24/20 20:00 40 01/24/20 20:00 Mechanical Ventilator 01/24/20 20:00 105 01/24/20 19:18 105 10 40 01/24/20 18:43 98.1 01/24/20 16:00 98.1 96 18 120/72 (88) 99 01/24/20 16:00 88 01/24/20 16:00 Mechanical Ventilator 01/24/20 16:00 40 01/24/20 15:58 96 10 40 01/24/20 12:00 95 01/24/20 12:00 Mechanical Ventilator 01/24/20 12:00 98.1 96 18 118/71 (87) 99 01/24/20 12:00 40 01/24/20 10:46 92 10 40 01/24/20 08:12 97.3 82 17 110/71 (84) 97 01/24/20 08:00 86 01/24/20 08:00 Mechanical Ventilator 01/24/20 08:00 Mechanical Ventilator 01/24/20 08:00 40 01/24/20 07:29 88 11 40 01/24/20 04:00 Mechanical Ventilator 01/24/20 04:00 97.2 86 11 113/70 (84) 98 01/24/20 04:00 78 01/24/20 04:00 40 ROS: unchanged from my evaluation of 01/20/20 HEENT: Mechanically Ventilated, Thin Trach secretions RHYTHM: NSR, ST LUNGS: bilateral rhonchi, trach site clean ABDOMEN: normal bowel sounds, non tender, soft, no organomegaly, decreased bowel sounds, other - suprapubic cath EXTREMITIES: No edema Laboratory Tests Test 01/24/20 11:28 01/24/20 17:54 01/25/20 00:40 POC Whole Blood Glucose 198 MG/DL (74-106) H 179 MG/DL (74-106) H 233 MG/DL (74-106) H Microbiology Date/Time Source Procedure Growth Status 01/23/20 02:30 Rectum - Final NO CARBAPENEM-RESISTANT ENTEROBACTERI... Complete 01/23/20 02:30 Rectum VRE Culture - Final NO VANCOMYCIN RESISTANT ENTEROCOCCUS ... Complete Assessment/Plan Assessment/Plan GI bleed Severe sepsis Bacteremia with risk for endocarditis Sinusitis Mastoiditis Sinus tachycardia [facility] Pneumonia Vent dep respiratory failure UTI Severe protein calorie malnutrition Hypovolemia/dehydration/hypernatremia IVF discontinued Monitor hemoglobin; transfuse as needed Abx Vent support Feedings on-going; observe for residuals Cardiac monitoring DVT prophylaxis Free water per GTube 2D Echo Kumar Pan MD Jan 25, 2020 02:56
[2020-01-25 04:00] VITALS: BP 136/86
--- NOTE | 2020-01-25 07:15 | NUR ---
NURSE NOTES: Received report from PETE Flores. PT is lying bed in semi-gannon's position. Pt is attached to vent settings as ordered.Pt has suprapubic draing and patent. IV site on Right hand patent and asymptomatic.. pt has no signs of respiratory distress. No pain noted at this time. Pt is obtunded and non verbal open eyes spontaneously. Bed in lowest position. Call light within reach. Continue to plan of care.
[2020-01-25 07:28] LABS: BASOPHILS % (AUTO) 0.3 % (0.0-2.0); EOSINOPHILS % (AUTO) 0.4 % (0.0-3.0); HEMATOCRIT 30.5 % (37.0-47.0); HEMOGLOBIN 9.7 G/DL (12.0-16.0); LYMPHOCYTES % (AUTO) 10.2 % (20.0-45.0); MEAN CORPUSCULAR VOLUME 89 FL (80-99); MONOCYTES % (AUTO) 4.4 % (1.0-10.0); NEUTROPHILS % (AUTO) 84.7 % (45.0-75.0); PLATELET COUNT 445 K/UL (150-450); RED BLOOD COUNT 3.43 M/UL (4.20-5.40); WHITE BLOOD COUNT 15.4 K/UL (4.8-10.8)
--- NOTE | 2020-01-25 07:29 | NUR ---
NURSE HAND-OFF REPORT: Important Events on Shift: Patient Status: stable Diet: GTF with Glucerna 1.2 at 60cc/hr Pending Orders: NO Pending Results/Labs:NO Pending MD notification:NO Latest Vital Signs: Temperature 98.1 , Pulse 98 , B/P 136 /86 , Respiratory Rate 18 , O2 SAT 100 , Mechanical Ventilator, O2 Flow Rate . Vital Sign Comment:NO EKG Rhythm: Sinus Rhythm Rhythm change?: N Notified?: N -Dr Gloria BASS Response: Latest Colon Fall Score: 70 Fall Risk: High Risk Safety Measures: Call light Within Reach, Bed Alarm Zone 1, Side Rails Side Rails x3, Bed position Low and Locked. Fall Precautions: Yellow Socks Report given to PRINCESS FREEMAN.
[2020-01-25 08:00] VITALS: BP 142/66
[2020-01-25 08:01] LABS: ALANINE AMINOTRANSFERASE 12 U/L (12-78); ALBUMIN 1.2 G/DL (3.4-5.0); ALBUMIN/GLOBULIN RATIO 0.2 (1.0-2.7); ALKALINE PHOSPHATASE 132 U/L (46-116); ANION GAP 2 mmol/L (5-15); ASPARTATE AMINO TRANSFERASE 16 U/L (15-37); BILIRUBIN,TOTAL 0.2 MG/DL (0.2-1.0); BLOOD UREA NITROGEN 9 mg/dL (7-18); CALCIUM 8.1 MG/DL (8.5-10.1); CARBON DIOXIDE 37 MMOL/L (21-32); CHLORIDE 105 MMOL/L (98-107); CREATININE 0.3 MG/DL (0.55-1.30); POTASSIUM 4.1 MMOL/L (3.5-5.1); SODIUM 144 MMOL/L (136-145)
[2020-01-25] MEDS: Docusate 100mg/10ml Liq GT SCH ×2 (08:36→17:53)
[2020-01-25] MEDS: Dakin's 0.25% (Half Strength) 16oz TOPIC SCH (08:37)
[2020-01-25] MEDS: Multivitamins W/Minerals 15 ML UDC GT SCH (08:37)
[2020-01-25] MEDS: Pantoprazole Inj IVP SCH ×2 (08:37→20:14)
[2020-01-25] MEDS: Cefepime HCl 2 GM in D5W 55 ML IV SCH ×2 (08:37→20:14)
[2020-01-25] MEDS: Ascorbic Acid 500mg tab GT SCH (08:37)
[2020-01-25] MEDS: Zinc Sulfate 220mg ORAL SCH (08:37)
--- NOTE | 2020-01-25 10:40 | NUR ---
Seen pt lying in bed. Eyes closed and resting. VS WNL. No fever noted at this time.
[2020-01-25 12:00] VITALS: BP 134/83
--- NOTE | 2020-01-25 12:22 | Pulmonology Progress Note ---
Subjective ROS Limited/Unobtainable: No Constitutional: Reports: fever, other - [id number] Allergies: Coded Allergies: No Known Allergies (Unverified , 01/20/20) Objective Last 24 Hour Vital Signs Date Time Temp Pulse Resp B/P (MAP) Pulse Ox O2 Delivery O2 Flow Rate FiO2 01/25/20 10:58 91 10 40 01/25/20 09:00 96 01/25/20 08:00 Mechanical Ventilator 01/25/20 08:00 97.5 98 16 142/66 (91) 100 01/25/20 08:00 40 01/25/20 07:38 95 10 40 01/25/20 04:00 102 01/25/20 04:00 Mechanical Ventilator 01/25/20 04:00 98.1 98 18 136/86 (103) 100 01/25/20 04:00 40 01/25/20 03:24 102 10 40 01/25/20 00:00 Mechanical Ventilator 01/25/20 00:00 100 01/25/20 00:00 40 01/25/20 00:00 97.0 98 12 129/85 (100) 100 01/24/20 23:25 96 10 40 01/24/20 20:00 99.7 106 12 104/58 (73) 96 01/24/20 20:00 40 01/24/20 20:00 Mechanical Ventilator 01/24/20 20:00 105 01/24/20 19:18 105 10 40 01/24/20 18:43 98.1 01/24/20 16:00 98.1 96 18 120/72 (88) 99 01/24/20 16:00 88 01/24/20 16:00 Mechanical Ventilator 01/24/20 16:00 40 01/24/20 15:58 96 10 40 Intake and Output 01/24/20 01/25/20 19:00 07:00 Intake Total 870 ml 925 ml Output Total 650 ml 650 ml Balance 220 ml 275 ml Intake Free Water 100 ml 150 ml IV Total 110 ml 55 ml Tube Feeding 660 ml 720 ml Output Urine Total 650 ml 650 ml # Bowel Movements 2 3 Microbiology Date/Time Source Procedure Growth Status 01/23/20 02:30 Rectum - Final NO CARBAPENEM-RESISTANT ENTEROBACTERI... Complete 01/23/20 02:30 Rectum VRE Culture - Final NO VANCOMYCIN RESISTANT ENTEROCOCCUS ... Complete Laboratory Tests 01/24/20 17:54: POC Whole Blood Glucose 179H 01/25/20 00:40: POC Whole Blood Glucose 233H 01/25/20 05:56: POC Whole Blood Glucose 256H 01/25/20 06:25: White Blood Count 15.4H, Red Blood Count 3.43L, Hemoglobin 9.7L, Hematocrit 30.5L, Mean Corpuscular Volume 89, Mean Corpuscular Hemoglobin 28.4, Mean Corpuscular Hemoglobin Concent 31.9L, Red Cell Distribution Width 16.0H, Platelet Count 445, Mean Platelet Volume 5.2L, Neutrophils (%) (Auto) 84.7H, Lymphocytes (%) (Auto) 10.2L, Monocytes (%) (Auto) 4.4, Eosinophils (%) (Auto) 0.4, Basophils (%) (Auto) 0.3, Sodium Level 144, Potassium Level 4.1, Chloride Level 105, Carbon Dioxide Level 37H, Anion Gap 2L, Blood Urea Nitrogen 9, Creatinine 0.3L, Estimat Glomerular Filtration Rate > 60, Glucose Level 242H, Calcium Level 8.1L, Total Bilirubin 0.2, Aspartate Amino Transf (AST/SGOT) 16, Alanine Aminotransferase (ALT/SGPT) 12, Alkaline Phosphatase 132H, Total Protein 6.1L, Albumin 1.2L, Globulin 4.9, Albumin/Globulin Ratio 0.2L 01/25/20 11:16: POC Whole Blood Glucose 219H Current Medications Medications (Trade) Dose Ordered Sig/Elisa Route PRN Reason Start Time Stop Time Status Last Admin Dose Admin Acetaminophen (Tylenol) 650 mg Q4H PRN GT Mild Pain (Pain Scale 1-3) 01/20/20 17:00 02/19/20 16:59 01/24/20 18:05 Acetaminophen (Tylenol) 650 mg Q4H PRN GT Fever (T>100.5) 01/20/20 17:15 02/19/20 17:14 01/23/20 20:42 Al Hydroxide/Mg Hydroxide (Mylanta) 30 ml FOUR TIMES A DAY GT 01/20/20 21:00 02/19/20 20:59 01/25/20 08:36 Ascorbic Acid (Vitamin C) 500 mg DAILY GT 01/21/20 09:00 02/20/20 08:59 01/25/20 08:37 Cefepime HCl 2 gm/ Dextrose 55 ml @ 110 mls/hr EVERY 12 HOURS IV 01/22/20 12:00 01/31/20 23:59 01/25/20 08:37 Dextrose (Dextrose 50%) 25 ml Q30M PRN IV Hypoglycemia 01/20/20 19:00 04/19/20 18:59 Dextrose (Dextrose 50%) 50 ml Q30M PRN IV Hypoglycemia 01/20/20 19:00 04/19/20 18:59 Docusate Sodium (Colace) 100 mg TWICE A DAY GT 01/21/20 18:00 02/20/20 17:59 01/25/20 08:36 Insulin Aspart (NovoLOG) Q6HR SUBQ 01/21/20 00:00 04/19/20 20:59 01/25/20 06:25 Levothyroxine Sodium (Synthroid) 50 mcg DAILY@0630 GT 01/21/20 06:30 02/20/20 06:29 01/25/20 06:24 Multivitamins (Multivitamins W/ Minerals 15ml Liquid) 15 ml DAILY GT 01/21/20 09:00 02/20/20 08:59 01/25/20 08:37 Pantoprazole (Protonix) 40 mg EVERY 12 HOURS IVP 01/20/20 21:00 02/19/20 20:59 01/25/20 08:37 Sodium Hypochlorite (Dakin's Half Strength) 1 applic DAILY TOPIC 01/20/20 20:00 02/19/20 19:59 01/25/20 08:37 Zinc Sulfate (Zinc Sulfate) 220 mg DAILY ORAL 01/25/20 09:00 02/04/20 08:59 01/25/20 08:37 Assessment/Plan Assessment/Plan Pulmonary Progress Note Subjective ROS Limited/Unobtainable: Yes Allergies: Coded Allergies: No Known Allergies (Unverified , 01/20/20) Objective Vital Signs Noted Laboratory Tests Noted Height (Feet): 5 Height (Inches): 2.00 Weight (Pounds): 103 Objective WDWN NAD reduced breath sounds bilaterally without rhonchi or wheeze [id number] tachy without MRG NABS nontender no CCE poor LOC trach and GT Assessment/Plan IMPRESSION leukocytosis possible sepsis anemia rectal bleeding palpitations pulmonary infiltrates UTI bacteremia sepsis PLAN Iv antibiotics ID evaluation noted reviewed CT head and CT chest resume SNF meds cardiology and ID and GI followup monitor HH monitor labs maintain vent optimize impression, plan, and exam edited and reviewed in detail care discussed with Kumar Pillai MD Jan 25, 2020 12:22
--- NOTE | 2020-01-25 15:03 | Surgery Progress Note ---
Surgery Progress Note Subjective Additional Comments afebrile HD stable labs okay no n/v Objective Last 24 Hour Vital Signs Date Time Temp Pulse Resp B/P (MAP) Pulse Ox O2 Delivery O2 Flow Rate FiO2 01/25/20 12:00 98.4 101 14 134/83 (100) 99 01/25/20 12:00 40 01/25/20 12:00 101 01/25/20 12:00 Mechanical Ventilator 01/25/20 10:58 91 10 40 01/25/20 09:00 96 01/25/20 08:00 Mechanical Ventilator 01/25/20 08:00 97.5 98 16 142/66 (91) 100 01/25/20 08:00 40 01/25/20 07:38 95 10 40 01/25/20 04:00 102 01/25/20 04:00 Mechanical Ventilator 01/25/20 04:00 98.1 98 18 136/86 (103) 100 01/25/20 04:00 40 01/25/20 03:24 102 10 40 01/25/20 00:00 Mechanical Ventilator 01/25/20 00:00 100 01/25/20 00:00 40 01/25/20 00:00 97.0 98 12 129/85 (100) 100 01/24/20 23:25 96 10 40 01/24/20 20:00 99.7 106 12 104/58 (73) 96 01/24/20 20:00 40 01/24/20 20:00 Mechanical Ventilator 01/24/20 20:00 105 01/24/20 19:18 105 10 40 01/24/20 18:43 98.1 01/24/20 16:00 98.1 96 18 120/72 (88) 99 01/24/20 16:00 88 01/24/20 16:00 Mechanical Ventilator 01/24/20 16:00 40 01/24/20 15:58 96 10 40 I&O Intake and Output 01/24/20 01/25/20 19:00 07:00 Intake Total 870 ml 925 ml Output Total 650 ml 650 ml Balance 220 ml 275 ml Intake Free Water 100 ml 150 ml IV Total 110 ml 55 ml Tube Feeding 660 ml 720 ml Output Urine Total 650 ml 650 ml # Bowel Movements 2 3 Dressing: other Wound: other Cardiovascular: RSR Respiratory: decreased breath sounds Abdomen: soft, non-tender, present bowel sounds Extremities: no cyanosis Laboratory Tests Test 01/24/20 17:54 01/25/20 00:40 01/25/20 05:56 01/25/20 06:25 POC Whole Blood Glucose 179 MG/DL (74-106) H 233 MG/DL (74-106) H 256 MG/DL (74-106) H White Blood Count 15.4 K/UL (4.8-10.8) H Red Blood Count 3.43 M/UL (4.20-5.40) L Hemoglobin 9.7 G/DL (12.0-16.0) L Hematocrit 30.5 % (37.0-47.0) L Mean Corpuscular Volume 89 FL (80-99) Mean Corpuscular Hemoglobin 28.4 PG (27.0-31.0) Mean Corpuscular Hemoglobin Concent 31.9 G/DL (32.0-36.0) L Red Cell Distribution Width 16.0 % (11.6-14.8) H Platelet Count 445 K/UL (150-450) Mean Platelet Volume 5.2 FL (6.5-10.1) L Neutrophils (%) (Auto) 84.7 % (45.0-75.0) H Lymphocytes (%) (Auto) 10.2 % (20.0-45.0) L Monocytes (%) (Auto) 4.4 % (1.0-10.0) Eosinophils (%) (Auto) 0.4 % (0.0-3.0) Basophils (%) (Auto) 0.3 % (0.0-2.0) Sodium Level 144 MMOL/L (136-145) Potassium Level 4.1 MMOL/L (3.5-5.1) Chloride Level 105 MMOL/L (98-107) Carbon Dioxide Level 37 MMOL/L (21-32) H Anion Gap 2 mmol/L (5-15) L Blood Urea Nitrogen 9 mg/dL (7-18) Creatinine 0.3 MG/DL (0.55-1.30) L Estimat Glomerular Filtration Rate > 60 mL/min (>60) Glucose Level 242 MG/DL (74-106) H Calcium Level 8.1 MG/DL (8.5-10.1) L Total Bilirubin 0.2 MG/DL (0.2-1.0) Aspartate Amino Transf (AST/SGOT) 16 U/L (15-37) Alanine Aminotransferase (ALT/SGPT) 12 U/L (12-78) Alkaline Phosphatase 132 U/L (46-116) H Total Protein 6.1 G/DL (6.4-8.2) L Albumin 1.2 G/DL (3.4-5.0) L Globulin 4.9 g/dL Albumin/Globulin Ratio 0.2 (1.0-2.7) L Test 01/25/20 11:16 POC Whole Blood Glucose 219 MG/DL (74-106) H Plan Problems: (1) Stage 4 skin ulcer of sacral region Assessment & Plan: Patient Presented on admission with GT, Suprapubic Cath, Multiple Pressure injuries. Unstageable Sacral Pressure injury that is Malodorous(L)10cm x (W)9.5cm. 90% soft necrosis, 10% mixed erythema with Biofilm at Base of wound. Moderate amt purulent exudate noted when base of wound minimally palpated. Periwound is black and indurated. likely stage 4 given over necrosis the bone is directly palpable. Full thickness Pressure Injury lateral L Tibia(L)3.8cm x (W)2.2cm . Base of wound is 10% necrotic, 25% slough ,65% pink epithelial. Edges are adherent to Base of wound. No odor or exudate noted. No erythema or induration periwound. DTPI Lateral R Tibia. (L)2.5cm x (W)1.5cm.Base of Pressure injury is purpuric with Maroon borders. Non-Blanchable erythema without induration/fluctuance medial L heel. R heel is blanchable with dry peeling skin. Purpuric area without induration /fluctuance R Hallux.(L)1.2cm x (W)0.6cm. Dry brown eschar medial R foot (L)0.4cm x (W)0.6cm. Tx.Plan: Cleanse Sacral wound with Dakin's 0.25% domingo. Apply Dakin's moist gauze to wound. Apply Moisture Barrier Past Periwound. Cover with drsg Twice daily and prn. Cleanse wound lateral L tibia with Saline. Apply TheraHoney. Apply Cavilon Skin BArrier periwound. Cover with Optifoam drsg. Change every 3 days and prn. Apply Cavilon Skin Barrier to Lateral R tibia and R Hallux. Cover with Optifoam drsg. Change very 7 days and prn. Apply Cavilon Skin Barrier to Bilat heels and Malleoli. Cover each site with Optifoam drsg. Change every 7 days and prn. Cover Bony Prominences as needed with Optifoam drsgs. Reposition at least every 2hours or as tolerated. Off-load heels with pillow. APMLAl Mattress overlay. DAILY ESTIMATED NEEDS: Needs based on Wound, critical care 44.1kg 27-32 kcals/kg 1809-4508 total kcals 1.25-2 g protein/kg 55-88 g total protein 25-30 mL/kg 9097-5424 total fluid mLs NUTRITION DIAGNOSIS: Increased kcal and pro needs r/t underweight status and wound healing as evidenced by BMI 16.7, pt is 81% of [place] Body Weight, generalized wasting noted, w/ wounds including full thickness and unstageable x1, refer to WC eval for full eval. CURRENT TF:NPO ENTERAL NUTRITION RECOMMENDATIONS: As medically able, rec Glucerna 1.2 goal of 50ml/hr x22 hrs to provide 1100ml, 1320 kcal, 66g pro, 886ml free H2O - As medically able, rec start TF @30ml/hr for 6 hrs. Advance as tolerated 10ml/hr q4-6 hrs to goal. - Flush per MD. HOB Over 30 degrees. - HOLD TF 1 hr before and after synthroid meds. - TF @goal meets 100% est needs. ADDITIONAL RECOMMENDATIONS: 1) Per SNF: 5'4" tall, 97 lbs/44.09kg Maintain calibrated bed scale wts 2) Wound care: w/ TF orders add HALEY BID + ZnSo4 220mg qd x10 days 3) Lytes daily, replete as needed (2) Anemia (3) UTI (urinary tract infection) (4) Pneumonia (5) LGI bleed (6) Palpitations (7) LGI bleed (8) GI bleeding Assessment & Plan: leukocytosis anemia guaiac positive no active bleeding currently trend h/h GI eval possible scope - results noted will follow with recs thank you There is a nonobstructed bowel gas pattern. Increased stool lucencies noted in the colon. There is a G-tube in place. No definite pathologic calcifications identified. There is no sign of free air. No acute abnormality noted of the visualized osseous structures DAILY ESTIMATED NEEDS: Needs based on Wound, critical care 44.1kg 27-32 kcals/kg 7420-1098 total kcals 1.25-2 g protein/kg 55-88 g total protein 25-30 mL/kg 1905-3472 total fluid mLs NUTRITION DIAGNOSIS: Increased kcal and pro needs r/t underweight status and wound healing as evidenced by BMI 16.7, pt is 81% of [place] Body Weight, generalized wasting noted, w/ wounds including full thickness and unstageable x1, refer to WC eval for full eval. CURRENT TF:Glucerna 1.2 @ 60ml/hr x 22 hrs ENTERAL NUTRITION RECOMMENDATIONS: As medically able, rec Glucerna 1.2 goal of 50ml/hr x22 hrs to provide 1100ml, 1320 kcal, 66g pro, 886ml free H2O - LOWER goal rate to 50ml/hr x 22 hrs: meets 100% est kcal/prot needs, current goal rate exceeds est needs - Flush per MD. HOB Over 30 degrees. - HOLD TF 1 hr before and after synthroid meds. ADDITIONAL RECOMMENDATIONS: 1) Per SNF: 5'4" tall, 97 lbs/44.09kg Maintain calibrated bed scale wts 2) Wound care: add HALEY BID add ZnSo4 220mg qd x10 days continue Vit C 3) Lytes daily, replete as needed To Webb Jan 25, 2020 15:03
[2020-01-25 16:00] VITALS: BP 129/74
--- NOTE | 2020-01-25 19:10 | NUR ---
NURSE NOTES: Received report from Marcia Haddad. Pt obtunded, unresponsive to light pain, name and shaking. Slight smirk and head shaking upon giving deep pain stimulation. VS within Normal limits on sinus tachy (110) on 5 lead lead cashier. On vent to trache. S6, AC10, TV 450, FiO2 40%, peep 5. On glucerna 1.2 at 60cc/hr infusing well withotu residual and sediments. with right hand 22g and left AC 22g IV lines intact, patent and asymptomatic.With suprapubic catheter to urine bag draining leonard yellow urine without any sediments or visible hematuria. Needs were attended. Call light within reach. Bed rails are up and wheels are locked. Continue plan of care
--- NOTE | 2020-01-25 19:15 | NUR ---
NURSE HAND-OFF REPORT: Important Events on Shift: 2d echo done-60%, stable, no fever Patient Status: Stable Diet: Gtube feeding Pending Orders: None Pending Results/Labs: None Pending MD notification: None Latest Vital Signs: Temperature 98.4 , Pulse 94 , B/P 129 /74 , Respiratory Rate 15 , O2 SAT 100 , Mechanical Ventilator, O2 Flow Rate . Vital Sign Comment: WNL EKG Rhythm: Sinus Rhythm Rhythm change?: Y MD Notified?: N -Dr Gloria BASS Response: Latest Colon Fall Score: 70 Fall Risk: High Risk Safety Measures: Call light Within Reach, Bed Alarm Zone 1, Side Rails Side Rails x3, Bed position Low and Locked. Fall Precautions: Yellow Socks Report given to [LEONARDO raymond].
[2020-01-25 20:00] VITALS: BP 110/63
--- NOTE | 2020-01-25 20:30 | NUR ---
NURSE NOTES: Provided cooling measures such as cold packs and off blankets. No sweating but warm to touch. Continue to monitor the patient
[2020-01-25] MEDS: Acetaminophen 650mg/20.3ml GT PRN (20:54)
[2020-01-26] VITALS: BP 107/72
--- NOTE | 2020-01-26 01:19 | Cardiology Progress Note ---
Subjective DATE OF SERVICE: Jan 24, 2019 s/p EGD with cauterized bleeding site near GTube. s/p PRBC transfusion remains on vent support via trach Feedings resumed by Gtube; IVF discont'd +blood cultures noted Objective Last 24 Hour Vital Signs Date Time Temp Pulse Resp B/P (MAP) Pulse Ox O2 Delivery O2 Flow Rate FiO2 01/26/20 00:00 Mechanical Ventilator 01/26/20 00:00 97.9 88 15 107/72 (84) 100 01/25/20 23:33 89 01/25/20 22:46 87 10 40 01/25/20 21:24 98.2 01/25/20 20:00 100.8 99 15 110/63 (79) 100 01/25/20 20:00 40 01/25/20 20:00 Mechanical Ventilator 01/25/20 19:55 100 10 40 01/25/20 19:31 101 01/25/20 19:10 94 01/25/20 16:00 98.4 99 15 129/74 (92) 100 01/25/20 16:00 40 01/25/20 16:00 Mechanical Ventilator 01/25/20 15:00 94 10 40 01/25/20 15:00 94 10 100 Mechanical Ventilator 40 01/25/20 12:00 98.4 101 14 134/83 (100) 99 01/25/20 12:00 40 01/25/20 12:00 101 01/25/20 12:00 Mechanical Ventilator 01/25/20 10:58 91 10 40 01/25/20 09:00 96 01/25/20 08:00 Mechanical Ventilator 01/25/20 08:00 97.5 98 16 142/66 (91) 100 01/25/20 08:00 40 01/25/20 07:38 95 10 40 01/25/20 04:00 102 01/25/20 04:00 Mechanical Ventilator 01/25/20 04:00 98.1 98 18 136/86 (103) 100 01/25/20 04:00 40 01/25/20 03:24 102 10 40 ROS: unchanged from my evaluation of 01/20/20 HEENT: Mechanically Ventilated, Thin Trach secretions RHYTHM: NSR, ST LUNGS: bilateral rhonchi, trach site clean ABDOMEN: normal bowel sounds, non tender, soft, no organomegaly, decreased bowel sounds, other - suprapubic cath EXTREMITIES: No edema Laboratory Tests Test 01/25/20 05:56 01/25/20 06:25 01/25/20 11:16 01/25/20 17:52 POC Whole Blood Glucose 256 MG/DL (74-106) H 219 MG/DL (74-106) H 195 MG/DL (74-106) H White Blood Count 15.4 K/UL (4.8-10.8) H Red Blood Count 3.43 M/UL (4.20-5.40) L Hemoglobin 9.7 G/DL (12.0-16.0) L Hematocrit 30.5 % (37.0-47.0) L Mean Corpuscular Volume 89 FL (80-99) Mean Corpuscular Hemoglobin 28.4 PG (27.0-31.0) Mean Corpuscular Hemoglobin Concent 31.9 G/DL (32.0-36.0) L Red Cell Distribution Width 16.0 % (11.6-14.8) H Platelet Count 445 K/UL (150-450) Mean Platelet Volume 5.2 FL (6.5-10.1) L Neutrophils (%) (Auto) 84.7 % (45.0-75.0) H Lymphocytes (%) (Auto) 10.2 % (20.0-45.0) L Monocytes (%) (Auto) 4.4 % (1.0-10.0) Eosinophils (%) (Auto) 0.4 % (0.0-3.0) Basophils (%) (Auto) 0.3 % (0.0-2.0) Sodium Level 144 MMOL/L (136-145) Potassium Level 4.1 MMOL/L (3.5-5.1) Chloride Level 105 MMOL/L (98-107) Carbon Dioxide Level 37 MMOL/L (21-32) H Anion Gap 2 mmol/L (5-15) L Blood Urea Nitrogen 9 mg/dL (7-18) Creatinine 0.3 MG/DL (0.55-1.30) L Estimat Glomerular Filtration Rate > 60 mL/min (>60) Glucose Level 242 MG/DL (74-106) H Calcium Level 8.1 MG/DL (8.5-10.1) L Total Bilirubin 0.2 MG/DL (0.2-1.0) Aspartate Amino Transf (AST/SGOT) 16 U/L (15-37) Alanine Aminotransferase (ALT/SGPT) 12 U/L (12-78) Alkaline Phosphatase 132 U/L (46-116) H Total Protein 6.1 G/DL (6.4-8.2) L Albumin 1.2 G/DL (3.4-5.0) L Globulin 4.9 g/dL Albumin/Globulin Ratio 0.2 (1.0-2.7) L Test 01/25/20 23:20 POC Whole Blood Glucose 210 MG/DL (74-106) H Microbiology Date/Time Source Procedure Growth Status 01/23/20 02:30 Rectum - Final NO CARBAPENEM-RESISTANT ENTEROBACTERI... Complete 01/23/20 02:30 Rectum VRE Culture - Final NO VANCOMYCIN RESISTANT ENTEROCOCCUS ... Complete Assessment/Plan Assessment/Plan GI bleed Severe sepsis Bacteremia with risk for endocarditis Sinusitis Mastoiditis Sinus tachycardia [facility] Pneumonia Vent dep respiratory failure UTI Severe protein calorie malnutrition Hypovolemia/dehydration/hypernatremia IRDM with hyperglycemia Monitor hemoglobin; transfuse as needed Abx Vent support Feedings on-going; observe for residuals Cardiac monitoring DVT prophylaxis Free water per GTube Protein supplement Advance insulin regimen 2D Echo to be reviewed Kumar Pan MD Jan 26, 2020 01:19
--- NOTE | 2020-01-26 01:30 | NUR ---
NURSE NOTES: Patient was given bed bath. Gown and linen were change. Wound tx done. pt tolerated well.Continue plan of care
[2020-01-26 04:00] VITALS: BP 108/73
[2020-01-26] MEDS: NovoLOG Insulin Flexpen SUBQ SCH ×4 (05:16→23:30)
[2020-01-26] MEDS ORDERED: NovoLOG Insulin Flexpen SUBQ SCH (06:30)
--- NOTE | 2020-01-26 07:10 | NUR ---
NURSE NOTES: received patient report from christiano tom. patient is on bed asleep. on vent at prescribed rate. gtube feeding at prescribed rate. Sr on the monitor. no acute events last night. wound care per order. will follow plan of care.
--- NOTE | 2020-01-26 07:10 | NUR ---
NURSE HAND-OFF REPORT: Important Events on Shift: none Patient Status: none Diet: glucerna at 60cc/hr Pending Orders: n Pending Results/Labs:n Pending MD notification:n Latest Vital Signs: Temperature 98.2 , Pulse 93 , B/P 108 /73 , Respiratory Rate 15 , O2 SAT 100 , Mechanical Ventilator, O2 Flow Rate . Vital Sign Comment: n EKG Rhythm: Sinus Rhythm Rhythm change?: Y Notified?: N -Dr Gloria BASS Response: Latest Cooln Fall Score: 70 Fall Risk: High Risk Safety Measures: Call light Within Reach, Bed Alarm Zone 1, Side Rails Side Rails x3, Bed position Low and Locked. Fall Precautions: Yellow Socks Report given to PETE Francisco.
[2020-01-26 07:38] VITALS: BP 100/69
[2020-01-26] MEDS: Ascorbic Acid 500mg tab GT SCH (08:20)
[2020-01-26] MEDS: Pantoprazole Inj IVP SCH ×2 (08:20→20:24)
[2020-01-26] MEDS: Zinc Sulfate 220mg ORAL SCH (08:20)
[2020-01-26] MEDS: Dakin's 0.25% (Half Strength) 16oz TOPIC SCH (08:21)
[2020-01-26] MEDS: Docusate 100mg/10ml Liq GT SCH ×2 (08:21→16:39)
[2020-01-26] MEDS: Multivitamins W/Minerals 15 ML UDC GT SCH (08:21)
[2020-01-26] MEDS: Cefepime HCl 2 GM in D5W 55 ML IV SCH (08:28)
--- NOTE | 2020-01-26 08:48 | Pulmonology Progress Note ---
Subjective ROS Limited/Unobtainable: No Constitutional: Reports: fever, other - Oc=[id number] Allergies: Coded Allergies: No Known Allergies (Unverified , 01/20/20) Objective Last 24 Hour Vital Signs Date Time Temp Pulse Resp B/P (MAP) Pulse Ox O2 Delivery O2 Flow Rate FiO2 01/26/20 07:45 40 01/26/20 07:38 98.0 96 16 100/69 (79) 99 01/26/20 04:00 98.2 93 15 108/73 (85) 100 01/26/20 04:00 40 01/26/20 04:00 Mechanical Ventilator 01/26/20 03:34 91 01/26/20 03:12 94 10 40 01/26/20 00:00 Mechanical Ventilator 01/26/20 00:00 97.9 88 15 107/72 (84) 100 01/25/20 23:33 89 01/25/20 22:46 87 10 40 01/25/20 21:24 98.2 01/25/20 20:00 100.8 99 15 110/63 (79) 100 01/25/20 20:00 40 01/25/20 20:00 Mechanical Ventilator 01/25/20 19:55 100 10 40 01/25/20 19:31 101 01/25/20 19:10 94 01/25/20 16:00 98.4 99 15 129/74 (92) 100 01/25/20 16:00 40 01/25/20 16:00 Mechanical Ventilator 01/25/20 15:00 94 10 40 01/25/20 15:00 94 10 100 Mechanical Ventilator 40 01/25/20 12:00 98.4 101 14 134/83 (100) 99 01/25/20 12:00 40 01/25/20 12:00 101 01/25/20 12:00 Mechanical Ventilator 01/25/20 10:58 91 10 40 01/25/20 09:00 96 Intake and Output 01/25/20 01/26/20 19:00 07:00 Intake Total 930 ml 925 ml Output Total 750 ml 1800 ml Balance 180 ml -875 ml Intake Free Water 100 ml 150 ml IV Total 110 ml 55 ml Tube Feeding 720 ml 720 ml Output Urine Total 750 ml 1800 ml # Bowel Movements 3 1 Laboratory Tests 01/25/20 11:16: POC Whole Blood Glucose 219H 01/25/20 17:52: POC Whole Blood Glucose 195H 01/25/20 23:20: POC Whole Blood Glucose 210H 01/26/20 05:14: POC Whole Blood Glucose 185H Current Medications Medications (Trade) Dose Ordered Sig/Elisa Route PRN Reason Start Time Stop Time Status Last Admin Dose Admin Acetaminophen (Tylenol) 650 mg Q4H PRN GT Mild Pain (Pain Scale 1-3) 01/20/20 17:00 02/19/20 16:59 01/25/20 20:54 Acetaminophen (Tylenol) 650 mg Q4H PRN GT Fever (T>100.5) 01/20/20 17:15 02/19/20 17:14 01/23/20 20:42 Al Hydroxide/Mg Hydroxide (Mylanta) 30 ml FOUR TIMES A DAY GT 01/20/20 21:00 02/19/20 20:59 01/26/20 08:20 Ascorbic Acid (Vitamin C) 500 mg DAILY GT 01/21/20 09:00 02/20/20 08:59 01/26/20 08:20 Cefepime HCl 2 gm/ Dextrose 55 ml @ 110 mls/hr EVERY 12 HOURS IV 01/22/20 12:00 01/31/20 23:59 01/26/20 08:28 Dextrose (Dextrose 50%) 25 ml Q30M PRN IV Hypoglycemia 01/26/20 01:30 04/25/20 01:29 Dextrose (Dextrose 50%) 50 ml Q30M PRN IV Hypoglycemia 01/26/20 01:30 04/25/20 01:29 Docusate Sodium (Colace) 100 mg TWICE A DAY GT 01/21/20 18:00 02/20/20 17:59 01/25/20 17:53 Insulin Aspart (NovoLOG) Q6HR SUBQ 01/26/20 06:00 04/25/20 05:59 01/26/20 05:16 Levothyroxine Sodium (Synthroid) 50 mcg DAILY@0630 GT 01/21/20 06:30 02/20/20 06:29 01/26/20 05:59 Multivitamins (Multivitamins W/ Minerals 15ml Liquid) 15 ml DAILY GT 01/21/20 09:00 02/20/20 08:59 01/26/20 08:21 Pantoprazole (Protonix) 40 mg EVERY 12 HOURS IVP 01/20/20 21:00 02/19/20 20:59 01/26/20 08:20 Sodium Hypochlorite (Dakin's Half Strength) 1 applic DAILY TOPIC 01/20/20 20:00 02/19/20 19:59 01/26/20 08:21 Zinc Sulfate (Zinc Sulfate) 220 mg DAILY ORAL 01/25/20 09:00 02/04/20 08:59 01/26/20 08:20 Assessment/Plan Assessment/Plan Pulmonary Progress Note Subjective ROS Limited/Unobtainable: Yes Allergies: Coded Allergies: No Known Allergies (Unverified , 01/20/20) Objective Vital Signs Noted Laboratory Tests Noted Height (Feet): 5 Height (Inches): 2.00 Weight (Pounds): 103 Objective WDWN NAD reduced breath sounds bilaterally without rhonchi or wheeze S1S2RR tachy without MRG NABS nontender no CCE poor LOC trach and GT Assessment/Plan IMPRESSION leukocytosis possible sepsis anemia rectal bleeding palpitations pulmonary infiltrates UTI bacteremia sepsis PLAN Iv antibiotics ID evaluation noted reviewed CT head and CT chest resume SNF meds cardiology and ID and GI followup monitor monitor labs maintain vent optimize impression, plan, and exam edited and reviewed in detail care discussed with Kumar Pillai MD Jan 26, 2020 08:48
--- NOTE | 2020-01-26 09:00 | General Progress Note ---
Subjective ROS Limited/Unobtainable: No Allergies: Coded Allergies: No Known Allergies (Unverified , 01/20/20) Objective Last 24 Hour Vital Signs Date Time Temp Pulse Resp B/P (MAP) Pulse Ox O2 Delivery O2 Flow Rate FiO2 01/26/20 07:45 40 01/26/20 07:38 98.0 96 16 100/69 (79) 99 01/26/20 04:00 98.2 93 15 108/73 (85) 100 01/26/20 04:00 40 01/26/20 04:00 Mechanical Ventilator 01/26/20 03:34 91 01/26/20 03:12 94 10 40 01/26/20 00:00 Mechanical Ventilator 01/26/20 00:00 97.9 88 15 107/72 (84) 100 01/25/20 23:33 89 01/25/20 22:46 87 10 40 01/25/20 21:24 98.2 01/25/20 20:00 100.8 99 15 110/63 (79) 100 01/25/20 20:00 40 01/25/20 20:00 Mechanical Ventilator 01/25/20 19:55 100 10 40 01/25/20 19:31 101 01/25/20 19:10 94 01/25/20 16:00 98.4 99 15 129/74 (92) 100 01/25/20 16:00 40 01/25/20 16:00 Mechanical Ventilator 01/25/20 15:00 94 10 40 01/25/20 15:00 94 10 100 Mechanical Ventilator 40 01/25/20 12:00 98.4 101 14 134/83 (100) 99 01/25/20 12:00 40 01/25/20 12:00 101 01/25/20 12:00 Mechanical Ventilator 01/25/20 10:58 91 10 40 Intake and Output 01/25/20 01/26/20 19:00 07:00 Intake Total 930 ml 925 ml Output Total 750 ml 1800 ml Balance 180 ml -875 ml Intake Free Water 100 ml 150 ml IV Total 110 ml 55 ml Tube Feeding 720 ml 720 ml Output Urine Total 750 ml 1800 ml # Bowel Movements 3 1 Laboratory Tests 01/25/20 11:16: POC Whole Blood Glucose 219H 01/25/20 17:52: POC Whole Blood Glucose 195H 01/25/20 23:20: POC Whole Blood Glucose 210H 01/26/20 05:14: POC Whole Blood Glucose 185H Height (Feet): 5 Height (Inches): 2.00 Weight (Pounds): 103 General Appearance: lethargic EENT: normal ENT inspection Neck: supple Cardiovascular: normal rate Respiratory/Chest: decreased breath sounds Abdomen: normal bowel sounds, non tender, soft Extremities: non-tender Assessment/Plan Assessment/Plan: Assessment/Plan Assessment/Plan: Assessment - Melena / GIB - gastric bumper lesion - Anemia - malnutrition , albumin 1.5 - Resp failure, trach - s/p Suprapubic catheter - pyuria - CVA / OBS Recommendations - Continue TF - Abx - PPI - follow nutritional status Alonso Gallardo MD Jan 26, 2020 09:00
[2020-01-26 12:00] VITALS: BP 112/68
--- NOTE | 2020-01-26 13:22 | Surgery Progress Note ---
Surgery Progress Note Subjective Additional Comments no acute events Objective Last 24 Hour Vital Signs Date Time Temp Pulse Resp B/P (MAP) Pulse Ox O2 Delivery O2 Flow Rate FiO2 01/26/20 12:00 40 01/26/20 11:09 101 10 40 01/26/20 08:00 Mechanical Ventilator 01/26/20 07:58 95 01/26/20 07:45 40 01/26/20 07:38 98.0 96 16 100/69 (79) 99 01/26/20 07:30 97 10 40 01/26/20 04:00 98.2 93 15 108/73 (85) 100 01/26/20 04:00 40 01/26/20 04:00 Mechanical Ventilator 01/26/20 03:34 91 01/26/20 03:12 94 10 40 01/26/20 00:00 Mechanical Ventilator 01/26/20 00:00 97.9 88 15 107/72 (84) 100 01/25/20 23:33 89 01/25/20 22:46 87 10 40 01/25/20 21:24 98.2 01/25/20 20:00 100.8 99 15 110/63 (79) 100 01/25/20 20:00 40 01/25/20 20:00 Mechanical Ventilator 01/25/20 19:55 100 10 40 01/25/20 19:31 101 01/25/20 19:10 94 01/25/20 16:00 98.4 99 15 129/74 (92) 100 01/25/20 16:00 40 01/25/20 16:00 Mechanical Ventilator 01/25/20 15:00 94 10 40 01/25/20 15:00 94 10 100 Mechanical Ventilator 40 I&O Intake and Output 01/25/20 01/26/20 19:00 07:00 Intake Total 930 ml 925 ml Output Total 750 ml 1800 ml Balance 180 ml -875 ml Intake Free Water 100 ml 150 ml IV Total 110 ml 55 ml Tube Feeding 720 ml 720 ml Output Urine Total 750 ml 1800 ml # Bowel Movements 3 1 Dressing: other Wound: other Cardiovascular: RSR Respiratory: decreased breath sounds Abdomen: soft, non-tender, present bowel sounds Extremities: no tenderness, no cyanosis Laboratory Tests Test 01/25/20 17:52 01/25/20 23:20 01/26/20 05:14 01/26/20 12:35 POC Whole Blood Glucose 195 MG/DL (74-106) H 210 MG/DL (74-106) H 185 MG/DL (74-106) H 116 MG/DL (74-106) H Plan Problems: (1) Stage 4 skin ulcer of sacral region Assessment & Plan: Patient Presented on admission with GT, Suprapubic Cath, Multiple Pressure injuries. Unstageable Sacral Pressure injury that is Malodorous(L)10cm x (W)9.5cm. 90% soft necrosis, 10% mixed erythema with Biofilm at Base of wound. Moderate amt purulent exudate noted when base of wound minimally palpated. Periwound is black and indurated. likely stage 4 given over necrosis the bone is directly palpable. Full thickness Pressure Injury lateral L Tibia(L)3.8cm x (W)2.2cm . Base of wound is 10% necrotic, 25% slough ,65% pink epithelial. Edges are adherent to Base of wound. No odor or exudate noted. No erythema or induration periwound. DTPI Lateral R Tibia. (L)2.5cm x (W)1.5cm.Base of Pressure injury is purpuric with Maroon borders. Non-Blanchable erythema without induration/fluctuance medial L heel. R heel is blanchable with dry peeling skin. Purpuric area without induration /fluctuance R Hallux.(L)1.2cm x (W)0.6cm. Dry brown eschar medial R foot (L)0.4cm x (W)0.6cm. Tx.Plan: Cleanse Sacral wound with Dakin's 0.25% domingo. Apply Dakin's moist gauze to wound. Apply Moisture Barrier Past Periwound. Cover with drsg Twice daily and prn. Cleanse wound lateral L tibia with Saline. Apply TheraHoney. Apply Cavilon Skin BArrier periwound. Cover with Optifoam drsg. Change every 3 days and prn. Apply Cavilon Skin Barrier to Lateral R tibia and R Hallux. Cover with Optifoam drsg. Change very 7 days and prn. Apply Cavilon Skin Barrier to Bilat heels and Malleoli. Cover each site with Optifoam drsg. Change every 7 days and prn. Cover Bony Prominences as needed with Optifoam drsgs. Reposition at least every 2hours or as tolerated. Off-load heels with pillow. APMLAl Mattress overlay. DAILY ESTIMATED NEEDS: Needs based on Wound, critical care 44.1kg 27-32 kcals/kg 8794-7757 total kcals 1.25-2 g protein/kg 55-88 g total protein 25-30 mL/kg 9567-1295 total fluid mLs NUTRITION DIAGNOSIS: Increased kcal and pro needs r/t underweight status and wound healing as evidenced by BMI 16.7, pt is 81% of [place] Body Weight, generalized wasting noted, w/ wounds including full thickness and unstageable x1, refer to WC eval for full eval. CURRENT TF:NPO ENTERAL NUTRITION RECOMMENDATIONS: As medically able, rec Glucerna 1.2 goal of 50ml/hr x22 hrs to provide 1100ml, 1320 kcal, 66g pro, 886ml free H2O - As medically able, rec start TF @30ml/hr for 6 hrs. Advance as tolerated 10ml/hr q4-6 hrs to goal. - Flush per MD. HOB Over 30 degrees. - HOLD TF 1 hr before and after synthroid meds. - TF @goal meets 100% est needs. ADDITIONAL RECOMMENDATIONS: 1) Per SNF: 5'4" tall, 97 lbs/44.09kg Maintain calibrated bed scale wts 2) Wound care: w/ TF orders add HALEY BID + ZnSo4 220mg qd x10 days 3) Lytes daily, replete as needed (2) Anemia (3) UTI (urinary tract infection) (4) Pneumonia (5) LGI bleed (6) Palpitations (7) LGI bleed (8) GI bleeding Assessment & Plan: leukocytosis anemia guaiac positive no active bleeding currently trend h/h GI eval possible scope - results noted will follow with recs thank you There is a nonobstructed bowel gas pattern. Increased stool lucencies noted in the colon. There is a G-tube in place. No definite pathologic calcifications identified. There is no sign of free air. No acute abnormality noted of the visualized osseous structures DAILY ESTIMATED NEEDS: Needs based on Wound, critical care 44.1kg 27-32 kcals/kg 2608-8112 total kcals 1.25-2 g protein/kg 55-88 g total protein 25-30 mL/kg 2800-8855 total fluid mLs NUTRITION DIAGNOSIS: Increased kcal and pro needs r/t underweight status and wound healing as evidenced by BMI 16.7, pt is 81% of [place] Body Weight, generalized wasting noted, w/ wounds including full thickness and unstageable x1, refer to WC eval for full eval. CURRENT TF:Glucerna 1.2 @ 60ml/hr x 22 hrs ENTERAL NUTRITION RECOMMENDATIONS: As medically able, rec Glucerna 1.2 goal of 50ml/hr x22 hrs to provide 1100ml, 1320 kcal, 66g pro, 886ml free H2O - LOWER goal rate to 50ml/hr x 22 hrs: meets 100% est kcal/prot needs, current goal rate exceeds est needs - Flush per MD. HOB Over 30 degrees. - HOLD TF 1 hr before and after synthroid meds. ADDITIONAL RECOMMENDATIONS: 1) Per SNF: 5'4" tall, 97 lbs/44.09kg Maintain calibrated bed scale wts 2) Wound care: add HALEY BID add ZnSo4 220mg qd x10 days continue Vit C 3) Lytes daily, replete as needed To Webb Jan 26, 2020 13:22
--- NOTE | 2020-01-26 14:24 | Infectious Diseases Prog Note ---
Assessment/Plan Assessment/Plan A 1. Enterobacter & MSSA UTI 2. staph aureus( MSSA), Acinetobacter & serratia pneumonia COVID 19 negative 3. Positive blood cultures,likely contamination 4. Ventilator dependent respiratory failure 5. CVA 6. Diabetes mellitus 7. Hypertension 8. GI bleeding, Melena P 1. Change cefepime to Meropenem 2. will follow up cultures Subjective ROS Limited/Unobtainable: Yes Constitutional: Reports: fever, other - last night Allergies: Coded Allergies: No Known Allergies (Unverified , 01/20/20) Objective Last 24 Hour Vital Signs Date Time Temp Pulse Resp B/P (MAP) Pulse Ox O2 Delivery O2 Flow Rate FiO2 01/26/20 12:00 Mechanical Ventilator 01/26/20 12:00 104 01/26/20 12:00 99.7 99 16 112/68 (83) 100 01/26/20 12:00 40 01/26/20 11:09 101 10 40 01/26/20 08:00 Mechanical Ventilator 01/26/20 07:58 95 01/26/20 07:45 40 01/26/20 07:38 98.0 96 16 100/69 (79) 99 01/26/20 07:30 97 10 40 01/26/20 04:00 98.2 93 15 108/73 (85) 100 01/26/20 04:00 40 01/26/20 04:00 Mechanical Ventilator 01/26/20 03:34 91 01/26/20 03:12 94 10 40 01/26/20 00:00 Mechanical Ventilator 01/26/20 00:00 97.9 88 15 107/72 (84) 100 01/25/20 23:33 89 01/25/20 22:46 87 10 40 01/25/20 21:24 98.2 01/25/20 20:00 100.8 99 15 110/63 (79) 100 01/25/20 20:00 40 01/25/20 20:00 Mechanical Ventilator 01/25/20 19:55 100 10 40 01/25/20 19:31 101 01/25/20 19:10 94 01/25/20 16:00 98.4 99 15 129/74 (92) 100 01/25/20 16:00 40 01/25/20 16:00 Mechanical Ventilator 01/25/20 15:00 94 10 40 01/25/20 15:00 94 10 100 Mechanical Ventilator 40 Height (Feet): 5 Height (Inches): 2.00 Weight (Pounds): 103 General Appearance: no acute distress HEENT: status post trach Respiratory/Chest: rhonchi - bilaterally, other - on ventilator Cardiovascular: tachycardia Abdomen: soft, non tender, other - GT feeding Extremities: other - dependent edema Neurologic/Psychiatric: aphasia Laboratory Tests Test 01/25/20 17:52 01/25/20 23:20 01/26/20 05:14 01/26/20 12:35 POC Whole Blood Glucose 195 MG/DL (74-106) H 210 MG/DL (74-106) H 185 MG/DL (74-106) H 116 MG/DL (74-106) H Current Medications Medications (Trade) Dose Ordered Sig/Elisa Route PRN Reason Start Time Stop Time Status Last Admin Dose Admin Acetaminophen (Tylenol) 650 mg Q4H PRN GT Mild Pain (Pain Scale 1-3) 01/20/20 17:00 02/19/20 16:59 01/25/20 20:54 Acetaminophen (Tylenol) 650 mg Q4H PRN GT Fever (T>100.5) 01/20/20 17:15 02/19/20 17:14 01/23/20 20:42 Al Hydroxide/Mg Hydroxide (Mylanta) 30 ml FOUR TIMES A DAY GT 01/20/20 21:00 02/19/20 20:59 01/26/20 12:44 Ascorbic Acid (Vitamin C) 500 mg DAILY GT 01/21/20 09:00 02/20/20 08:59 01/26/20 08:20 Cefepime HCl 2 gm/ Dextrose 55 ml @ 110 mls/hr EVERY 12 HOURS IV 01/22/20 12:00 01/31/20 23:59 01/26/20 08:28 Dextrose (Dextrose 50%) 25 ml Q30M PRN IV Hypoglycemia 01/26/20 01:30 04/25/20 01:29 Dextrose (Dextrose 50%) 50 ml Q30M PRN IV Hypoglycemia 01/26/20 01:30 04/25/20 01:29 Docusate Sodium (Colace) 100 mg TWICE A DAY GT 01/21/20 18:00 02/20/20 17:59 01/25/20 17:53 Insulin Aspart (NovoLOG) Q6HR SUBQ 01/26/20 06:00 04/25/20 05:59 01/26/20 05:16 Levothyroxine Sodium (Synthroid) 50 mcg DAILY@0630 GT 01/21/20 06:30 02/20/20 06:29 01/26/20 05:59 Multivitamins (Multivitamins W/ Minerals 15ml Liquid) 15 ml DAILY GT 01/21/20 09:00 02/20/20 08:59 01/26/20 08:21 Pantoprazole (Protonix) 40 mg EVERY 12 HOURS IVP 01/20/20 21:00 02/19/20 20:59 01/26/20 08:20 Sodium Hypochlorite (Dakin's Half Strength) 1 applic DAILY TOPIC 01/20/20 20:00 02/19/20 19:59 01/26/20 08:21 Zinc Sulfate (Zinc Sulfate) 220 mg DAILY ORAL 01/25/20 09:00 02/04/20 08:59 01/26/20 08:20 Jaspal Cintron MD Jan 26, 2020 14:24
[2020-01-26 16:00] VITALS: BP 123/70
[2020-01-26] MEDS: Meropenem 1 GM in NS 55 ML IVPB SCH ×4 (16:26→23:26)
[2020-01-26] MEDS: Acetaminophen 650mg/20.3ml GT PRN (17:11)
--- NOTE | 2020-01-26 19:23 | NUR ---
NURSE HAND-OFF REPORT: Important Events on Shift:fever 100.4 Patient Status: full code Diet: glucerna 1.2 @ 60 Pending Orders: Pending Results/Labs:[] Pending MD notification:[] Latest Vital Signs: Temperature 99.7 , Pulse 99 , B/P 123 /70 , Respiratory Rate 18 , O2 SAT 100 , Mechanical Ventilator, O2 Flow Rate . Vital Sign Comment: stable EKG Rhythm: Sinus Rhythm Rhythm change?: N Notified?: N -Dr Gloria BASS Response: Latest Colon Fall Score: 70 Fall Risk: High Risk Safety Measures: Call light Within Reach, Bed Alarm Zone 2, Side Rails Side Rails x2, Bed position Low and Locked. Fall Precautions: Yellow Socks Report given to sharron tom.
--- NOTE | 2020-01-26 19:24 | NUR ---
NURSE NOTES: received pt from Maryam FREEMAN., pt is resting on the bed at this time, opens eyes, and obtunded. pt is now at SR. Vent intact, no SOB noted. O2sat is at 98%. Right hand 22 and Left AC 22 G IV sites are intact, clean, and patent. no active bleeding noted at this time. ABD soft round. call light within reach. bed at the lowest position, alarmed, and locked. will continue to monitor pt with plan of care.
[2020-01-26 20:00] VITALS: BP 106/71
[2020-01-27] VITALS: BP 116/78
--- NOTE | 2020-01-27 | NUR ---
NURSE NOTES: pt is comfortably resting and sleeping at this time. no SOB noted. no FLACC pain noted. call light within reach. will continue to monitor pt with plan of care.
--- NOTE | 2020-01-27 02:00 | NUR ---
NURSE NOTES: cleaned pt, oral care given, no SOB noted at this time. O2 sat is at 100%. pt is resting on the bed. large BM noted dark green color with isadora texture. repositioned pt Q 2hrs. call light within reach. will continue to monitor pt with plan of care.
--- NOTE | 2020-01-27 02:39 | Cardiology Progress Note ---
Subjective DATE OF SERVICE: Jan 26, 2020 s/p EGD with cauterized bleeding site near GTube. s/p PRBC transfusion remains on vent support via trach Feedings continued by Gtube; IVF discont'd +blood cultures noted 2D Echo: no valvular vegetations, severe pulm hypertension, normal ej fxn Objective Last 24 Hour Vital Signs Date Time Temp Pulse Resp B/P (MAP) Pulse Ox O2 Delivery O2 Flow Rate FiO2 01/27/20 00:00 97.7 86 17 116/78 (91) 100 01/27/20 00:00 Mechanical Ventilator 01/26/20 23:48 86 01/26/20 22:56 82 10 40 01/26/20 20:00 40 01/26/20 20:00 98.5 91 18 106/71 (83) 100 01/26/20 20:00 Mechanical Ventilator 01/26/20 19:38 84 01/26/20 19:32 88 10 40 01/26/20 17:41 99.7 01/26/20 16:00 40 01/26/20 16:00 Mechanical Ventilator 01/26/20 16:00 100.4 99 18 123/70 (87) 100 01/26/20 15:26 103 01/26/20 15:08 107 10 40 01/26/20 12:00 Mechanical Ventilator 01/26/20 12:00 104 01/26/20 12:00 99.7 99 16 112/68 (83) 100 01/26/20 12:00 40 01/26/20 11:09 101 10 40 01/26/20 08:00 Mechanical Ventilator 01/26/20 07:58 95 01/26/20 07:45 40 01/26/20 07:38 98.0 96 16 100/69 (79) 99 01/26/20 07:30 97 10 40 01/26/20 04:00 98.2 93 15 108/73 (85) 100 01/26/20 04:00 40 01/26/20 04:00 Mechanical Ventilator 01/26/20 03:34 91 01/26/20 03:12 94 10 40 ROS: unchanged from my evaluation of 01/20/20 HEENT: Mechanically Ventilated, Thin Trach secretions RHYTHM: NSR, ST LUNGS: bilateral rhonchi, trach site clean ABDOMEN: normal bowel sounds, non tender, soft, no organomegaly, decreased bowel sounds, other - suprapubic cath EXTREMITIES: No edema Laboratory Tests Test 01/26/20 05:14 01/26/20 12:35 01/26/20 16:26 01/26/20 23:28 POC Whole Blood Glucose 185 MG/DL (74-106) H 116 MG/DL (74-106) H Pending Pending Assessment/Plan Assessment/Plan GI bleed Severe sepsis Bacteremia with low risk for endocarditis based on 2D echo findings Sinusitis Mastoiditis Sinus tachycardia HCA Pneumonia Vent dep respiratory failure UTI Severe protein calorie malnutrition Hypovolemia/dehydration/hypernatremia IRDM with hyperglycemia Severe pulmonary hypertension Monitor hemoglobin; transfuse as needed Abx Vent support Feedings on-going; observe for residuals Cardiac monitoring DVT prophylaxis Free water per GTube Protein supplement Advance insulin regimen Kumar Pan MD Jan 27, 2020 02:38
[2020-01-27 04:00] VITALS: BP 128/80
[2020-01-27] MEDS: NovoLOG Insulin Flexpen SUBQ SCH ×3 (05:05→18:00)
[2020-01-27 05:17] LABS: BASOPHILS % (AUTO) 0.6 % (0.0-2.0); EOSINOPHILS % (AUTO) 1.2 % (0.0-3.0); HEMATOCRIT 31.5 % (37.0-47.0); HEMOGLOBIN 9.9 G/DL (12.0-16.0); LYMPHOCYTES % (AUTO) 16.1 % (20.0-45.0); MEAN CORPUSCULAR VOLUME 90 FL (80-99); MONOCYTES % (AUTO) 3.7 % (1.0-10.0); NEUTROPHILS % (AUTO) 78.5 % (45.0-75.0); PLATELET COUNT 439 K/UL (150-450); RED BLOOD COUNT 3.51 M/UL (4.20-5.40); WHITE BLOOD COUNT 11.7 K/UL (4.8-10.8)
--- NOTE | 2020-01-27 07:15 | NUR ---
NURSE HAND-OFF REPORT: Important Events on Shift:large dark green BM, had fever once but no fever after words, endorsed to follow up with sputum culture result Patient Status: stable Diet: Glucerna 1.2 @ 60ml/hr Pending Orders: none Pending Results/Labs:n/a Pending notification:n/a Latest Vital Signs: Temperature 97.0 , Pulse 77 , B/P 128 /80 , Respiratory Rate 15 , O2 SAT 100 , Mechanical Ventilator, O2 Flow Rate . Vital Sign Comment: stable EKG Rhythm: Sinus Rhythm Rhythm change?: N Notified?: N -Dr Gloria BASS Response: Latest Colon Fall Score: 70 Fall Risk: High Risk Safety Measures: Call light Within Reach, Bed Alarm Zone 2, Side Rails Side Rails x2, Bed position Low and Locked. Fall Precautions: Yellow Socks Report given to Rodger FREEMAN.
[2020-01-27] MEDS: Meropenem 1 GM in NS 55 ML IVPB SCH ×2 (07:57→15:38)
[2020-01-27 08:00] VITALS: BP 125/74
--- NOTE | 2020-01-27 08:03 | General Progress Note ---
Subjective ROS Limited/Unobtainable: Yes Allergies: Coded Allergies: No Known Allergies (Unverified , 01/20/20) Subjective events noted consultants appreciated Objective Last 24 Hour Vital Signs Date Time Temp Pulse Resp B/P (MAP) Pulse Ox O2 Delivery O2 Flow Rate FiO2 01/27/20 04:00 Mechanical Ventilator 01/27/20 04:00 97.0 77 15 128/80 (96) 100 01/27/20 04:00 40 01/27/20 03:36 82 01/27/20 03:12 86 10 40 01/27/20 00:00 97.7 86 17 116/78 (91) 100 01/27/20 00:00 Mechanical Ventilator 01/26/20 23:48 86 01/26/20 22:56 82 10 40 01/26/20 20:00 40 01/26/20 20:00 98.5 91 18 106/71 (83) 100 01/26/20 20:00 Mechanical Ventilator 01/26/20 19:38 84 01/26/20 19:32 88 10 40 01/26/20 17:41 99.7 01/26/20 16:00 40 01/26/20 16:00 Mechanical Ventilator 01/26/20 16:00 100.4 99 18 123/70 (87) 100 01/26/20 15:26 103 01/26/20 15:08 107 10 40 01/26/20 12:00 Mechanical Ventilator 01/26/20 12:00 104 01/26/20 12:00 99.7 99 16 112/68 (83) 100 01/26/20 12:00 40 01/26/20 11:09 101 10 40 Intake and Output 01/26/20 01/27/20 19:00 07:00 Intake Total 1030 ml 835 ml Output Total 750 ml 900 ml Balance 280 ml -65 ml Intake Free Water 200 ml 120 ml IV Total 110 ml 55 ml Tube Feeding 720 ml 660 ml Output Urine Total 750 ml 900 ml # Bowel Movements 2 2 Laboratory Tests 01/26/20 12:35: POC Whole Blood Glucose 116H 01/26/20 16:26: POC Whole Blood Glucose [Pending] 01/26/20 23:28: POC Whole Blood Glucose [Pending] 01/27/20 03:23: White Blood Count 11.7H, Red Blood Count 3.51L, Hemoglobin 9.9L, Hematocrit 31.5L, Mean Corpuscular Volume 90, Mean Corpuscular Hemoglobin 28.1, Mean Corpuscular Hemoglobin Concent 31.3L, Red Cell Distribution Width 16.0H, Platelet Count 439, Mean Platelet Volume 5.4L, Neutrophils (%) (Auto) 78.5H, Lymphocytes (%) (Auto) 16.1L, Monocytes (%) (Auto) 3.7, Eosinophils (%) (Auto) 1.2, Basophils (%) (Auto) 0.6 01/27/20 05:04: POC Whole Blood Glucose [Pending] Height (Feet): 5 Height (Inches): 2.00 Weight (Pounds): 103 Objective WDWN NAD reduced breath sounds bilaterally without rhonchi or wheeze [id number] tachy without MRG NABS nontender no CCE poor LOC trach and GT Assessment/Plan Assessment/Plan: IMPRESSION leukocytosis possible sepsis anemia rectal bleeding palpitations pulmonary infiltrates UTI bacteremia sepsis PLAN Iv antibiotics ID evaluation maintain SNF meds repeat CXR monitor HH monitor labs maintain vent optimize not ready for dc yet impression, plan, and exam edited and reviewed in detail care discussed with Chi Hodge MD Jan 27, 2020 08:03
[2020-01-27] MEDS: Ascorbic Acid 500mg tab GT SCH (09:09)
[2020-01-27] MEDS: Zinc Sulfate 220mg ORAL SCH (09:09)
[2020-01-27] MEDS: Docusate 100mg/10ml Liq GT SCH ×2 (09:09→18:21)
[2020-01-27] MEDS: Pantoprazole Inj IVP SCH ×2 (09:09→21:10)
[2020-01-27] MEDS: Multivitamins W/Minerals 15 ML UDC GT SCH (09:09)
[2020-01-27] MEDS: Dakin's 0.25% (Half Strength) 16oz TOPIC SCH (09:10)
--- NOTE | 2020-01-27 09:21 | Surgery Progress Note ---
Surgery Progress Note Subjective Additional Comments h/h stable wbc trending down on matress. trach okay tf going patterson in place Objective Last 24 Hour Vital Signs Date Time Temp Pulse Resp B/P (MAP) Pulse Ox O2 Delivery O2 Flow Rate FiO2 01/27/20 07:21 113 10 40 01/27/20 04:00 Mechanical Ventilator 01/27/20 04:00 97.0 77 15 128/80 (96) 100 01/27/20 04:00 40 01/27/20 03:36 82 01/27/20 03:12 86 10 40 01/27/20 00:00 97.7 86 17 116/78 (91) 100 01/27/20 00:00 Mechanical Ventilator 01/26/20 23:48 86 01/26/20 22:56 82 10 40 01/26/20 20:00 40 01/26/20 20:00 98.5 91 18 106/71 (83) 100 01/26/20 20:00 Mechanical Ventilator 01/26/20 19:38 84 01/26/20 19:32 88 10 40 01/26/20 17:41 99.7 01/26/20 16:00 40 01/26/20 16:00 Mechanical Ventilator 01/26/20 16:00 100.4 99 18 123/70 (87) 100 01/26/20 15:26 103 01/26/20 15:08 107 10 40 01/26/20 12:00 Mechanical Ventilator 01/26/20 12:00 104 01/26/20 12:00 99.7 99 16 112/68 (83) 100 01/26/20 12:00 40 01/26/20 11:09 101 10 40 I&O Intake and Output 01/26/20 01/27/20 19:00 07:00 Intake Total 1030 ml 835 ml Output Total 750 ml 900 ml Balance 280 ml -65 ml Intake Free Water 200 ml 120 ml IV Total 110 ml 55 ml Tube Feeding 720 ml 660 ml Output Urine Total 750 ml 900 ml # Bowel Movements 2 2 Dressing: other Wound: other Cardiovascular: RSR Respiratory: decreased breath sounds Abdomen: soft, non-tender, present bowel sounds Extremities: no tenderness, no cyanosis Laboratory Tests Test 01/26/20 12:35 01/26/20 16:26 01/26/20 23:28 01/27/20 03:23 POC Whole Blood Glucose 116 MG/DL (74-106) H Pending Pending White Blood Count 11.7 K/UL (4.8-10.8) H Red Blood Count 3.51 M/UL (4.20-5.40) L Hemoglobin 9.9 G/DL (12.0-16.0) L Hematocrit 31.5 % (37.0-47.0) L Mean Corpuscular Volume 90 FL (80-99) Mean Corpuscular Hemoglobin 28.1 PG (27.0-31.0) Mean Corpuscular Hemoglobin Concent 31.3 G/DL (32.0-36.0) L Red Cell Distribution Width 16.0 % (11.6-14.8) H Platelet Count 439 K/UL (150-450) Mean Platelet Volume 5.4 FL (6.5-10.1) L Neutrophils (%) (Auto) 78.5 % (45.0-75.0) H Lymphocytes (%) (Auto) 16.1 % (20.0-45.0) L Monocytes (%) (Auto) 3.7 % (1.0-10.0) Eosinophils (%) (Auto) 1.2 % (0.0-3.0) Basophils (%) (Auto) 0.6 % (0.0-2.0) Test 01/27/20 05:04 POC Whole Blood Glucose Pending Plan Problems: (1) Stage 4 skin ulcer of sacral region Assessment & Plan: Patient Presented on admission with GT, Suprapubic Cath, Multiple Pressure injuries. Unstageable Sacral Pressure injury that is Malodorous(L)10cm x (W)9.5cm. 90% soft necrosis, 10% mixed erythema with Biofilm at Base of wound. Moderate amt purulent exudate noted when base of wound minimally palpated. Periwound is black and indurated. likely stage 4 given over necrosis the bone is directly palpable. Full thickness Pressure Injury lateral L Tibia(L)3.8cm x (W)2.2cm . Base of wound is 10% necrotic, 25% slough ,65% pink epithelial. Edges are adherent to Base of wound. No odor or exudate noted. No erythema or induration periwound. DTPI Lateral R Tibia. (L)2.5cm x (W)1.5cm.Base of Pressure injury is purpuric with Maroon borders. Non-Blanchable erythema without induration/fluctuance medial L heel. R heel is blanchable with dry peeling skin. Purpuric area without induration /fluctuance R Hallux.(L)1.2cm x (W)0.6cm. Dry brown eschar medial R foot (L)0.4cm x (W)0.6cm. Tx.Plan: Cleanse Sacral wound with Dakin's 0.25% domingo. Apply Dakin's moist gauze to wound. Apply Moisture Barrier Past Periwound. Cover with drsg Twice daily and prn. Cleanse wound lateral L tibia with Saline. Apply TheraHoney. Apply Cavilon Skin BArrier periwound. Cover with Optifoam drsg. Change every 3 days and prn. Apply Cavilon Skin Barrier to Lateral R tibia and R Hallux. Cover with Optifoam drsg. Change very 7 days and prn. Apply Cavilon Skin Barrier to Bilat heels and Malleoli. Cover each site with Optifoam drsg. Change every 7 days and prn. Cover Bony Prominences as needed with Optifoam drsgs. Reposition at least every 2hours or as tolerated. Off-load heels with pillow. APMLAl Mattress overlay. DAILY ESTIMATED NEEDS: Needs based on Wound, critical care 44.1kg 27-32 kcals/kg 6864-0934 total kcals 1.25-2 g protein/kg 55-88 g total protein 25-30 mL/kg 7847-4419 total fluid mLs NUTRITION DIAGNOSIS: Increased kcal and pro needs r/t underweight status and wound healing as evidenced by BMI 16.7, pt is 81% of [place] Body Weight, generalized wasting noted, w/ wounds including full thickness and unstageable x1, refer to WC eval for full eval. CURRENT TF:NPO ENTERAL NUTRITION RECOMMENDATIONS: As medically able, rec Glucerna 1.2 goal of 50ml/hr x22 hrs to provide 1100ml, 1320 kcal, 66g pro, 886ml free H2O - As medically able, rec start TF @30ml/hr for 6 hrs. Advance as tolerated 10ml/hr q4-6 hrs to goal. - Flush per HOB Over 30 degrees. - HOLD TF 1 hr before and after synthroid meds. - TF @goal meets 100% est needs. ADDITIONAL RECOMMENDATIONS: 1) Per SNF: 5'4" tall, 97 lbs/44.09kg Maintain calibrated bed scale wts 2) Wound care: w/ TF orders add HALEY BID + ZnSo4 220mg qd x10 days 3) Lytes daily, replete as needed (2) Anemia (3) UTI (urinary tract infection) (4) Pneumonia (5) LGI bleed (6) Palpitations (7) LGI bleed (8) GI bleeding Assessment & Plan: leukocytosis anemia guaiac positive no active bleeding currently trend h/h GI eval possible scope - results noted will follow with recs thank you There is a nonobstructed bowel gas pattern. Increased stool lucencies noted in the colon. There is a G-tube in place. No definite pathologic calcifications identified. There is no sign of free air. No acute abnormality noted of the visualized osseous structures DAILY ESTIMATED NEEDS: Needs based on Wound, critical care 44.1kg 27-32 kcals/kg 5290-1781 total kcals 1.25-2 g protein/kg 55-88 g total protein 25-30 mL/kg 2537-6595 total fluid mLs NUTRITION DIAGNOSIS: Increased kcal and pro needs r/t underweight status and wound healing as evidenced by BMI 16.7, pt is 81% of [place] Body Weight, generalized wasting noted, w/ wounds including full thickness and unstageable x1, refer to WC eval for full eval. CURRENT TF:Glucerna 1.2 @ 60ml/hr x 22 hrs ENTERAL NUTRITION RECOMMENDATIONS: As medically able, rec Glucerna 1.2 goal of 50ml/hr x22 hrs to provide 1100ml, 1320 kcal, 66g pro, 886ml free H2O - LOWER goal rate to 50ml/hr x 22 hrs: meets 100% est kcal/prot needs, current goal rate exceeds est needs - Flush per MD. HOB Over 30 degrees. - HOLD TF 1 hr before and after synthroid meds. ADDITIONAL RECOMMENDATIONS: 1) Per SNF: 5'4" tall, 97 lbs/44.09kg Maintain calibrated bed scale wts 2) Wound care: add HALEY BID add ZnSo4 220mg qd x10 days continue Vit C 3) Lytes daily, replete as needed To Webb Jan 27, 2020 09:21
--- NOTE | 2020-01-27 10:35 | Infectious Diseases Prog Note ---
Assessment/Plan Assessment/Plan A 1. Enterobacter & MSSA UTI 2. staph aureus( MSSA), Acinetobacter & serratia pneumonia COVID 19 negative 3. Positive blood cultures,likely contamination 4. Ventilator dependent respiratory failure 5. CVA 6. Diabetes mellitus 7. Hypertension 8. GI bleeding, Melena P 1. Continue Meropenem 2. will follow up cultures Subjective ROS Limited/Unobtainable: Yes Allergies: Coded Allergies: No Known Allergies (Unverified , 01/20/20) Objective Last 24 Hour Vital Signs Date Time Temp Pulse Resp B/P (MAP) Pulse Ox O2 Delivery O2 Flow Rate FiO2 01/27/20 07:21 113 10 40 01/27/20 04:00 Mechanical Ventilator 01/27/20 04:00 97.0 77 15 128/80 (96) 100 01/27/20 04:00 40 01/27/20 03:36 82 01/27/20 03:12 86 10 40 01/27/20 00:00 97.7 86 17 116/78 (91) 100 01/27/20 00:00 Mechanical Ventilator 01/26/20 23:48 86 01/26/20 22:56 82 10 40 01/26/20 20:00 40 01/26/20 20:00 98.5 91 18 106/71 (83) 100 01/26/20 20:00 Mechanical Ventilator 01/26/20 19:38 84 01/26/20 19:32 88 10 40 01/26/20 17:41 99.7 01/26/20 16:00 40 01/26/20 16:00 Mechanical Ventilator 01/26/20 16:00 100.4 99 18 123/70 (87) 100 01/26/20 15:26 103 01/26/20 15:08 107 10 40 01/26/20 12:00 Mechanical Ventilator 01/26/20 12:00 104 01/26/20 12:00 99.7 99 16 112/68 (83) 100 01/26/20 12:00 40 01/26/20 11:09 101 10 40 Height (Feet): 5 Height (Inches): 2.00 Weight (Pounds): 103 General Appearance: no acute distress HEENT: mucous membranes moist, status post trach Respiratory/Chest: lungs clear, other - on ventilator Cardiovascular: tachycardia Abdomen: soft, non tender Extremities: other - hands edema Neurologic/Psychiatric: unresponsiveness, aphasia Laboratory Tests Test 01/26/20 12:35 01/26/20 16:26 01/26/20 23:28 01/27/20 03:23 POC Whole Blood Glucose 116 MG/DL (74-106) H Pending Pending White Blood Count 11.7 K/UL (4.8-10.8) H Red Blood Count 3.51 M/UL (4.20-5.40) L Hemoglobin 9.9 G/DL (12.0-16.0) L Hematocrit 31.5 % (37.0-47.0) L Mean Corpuscular Volume 90 FL (80-99) Mean Corpuscular Hemoglobin 28.1 PG (27.0-31.0) Mean Corpuscular Hemoglobin Concent 31.3 G/DL (32.0-36.0) L Red Cell Distribution Width 16.0 % (11.6-14.8) H Platelet Count 439 K/UL (150-450) Mean Platelet Volume 5.4 FL (6.5-10.1) L Neutrophils (%) (Auto) 78.5 % (45.0-75.0) H Lymphocytes (%) (Auto) 16.1 % (20.0-45.0) L Monocytes (%) (Auto) 3.7 % (1.0-10.0) Eosinophils (%) (Auto) 1.2 % (0.0-3.0) Basophils (%) (Auto) 0.6 % (0.0-2.0) Test 01/27/20 05:04 POC Whole Blood Glucose Pending Current Medications Medications (Trade) Dose Ordered Sig/Elisa Route PRN Reason Start Time Stop Time Status Last Admin Dose Admin Acetaminophen (Tylenol) 650 mg Q4H PRN GT Mild Pain (Pain Scale 1-3) 01/20/20 17:00 02/19/20 16:59 01/25/20 20:54 Acetaminophen (Tylenol) 650 mg Q4H PRN GT Fever (T>100.5) 01/20/20 17:15 02/19/20 17:14 01/26/20 17:11 Al Hydroxide/Mg Hydroxide (Mylanta) 30 ml Q4HR PRN GT Abdominal cramps 01/26/20 18:45 02/19/20 20:59 Ascorbic Acid (Vitamin C) 500 mg DAILY GT 01/21/20 09:00 02/20/20 08:59 01/27/20 09:09 Dextrose (Dextrose 50%) 25 ml Q30M PRN IV Hypoglycemia 01/26/20 01:30 04/25/20 01:29 Dextrose (Dextrose 50%) 50 ml Q30M PRN IV Hypoglycemia 01/26/20 01:30 04/25/20 01:29 Docusate Sodium (Colace) 100 mg TWICE A DAY GT 01/21/20 18:00 02/20/20 17:59 01/27/20 09:09 Insulin Aspart (NovoLOG) Q6HR SUBQ 01/26/20 06:00 04/25/20 05:59 01/26/20 23:30 Levothyroxine Sodium (Synthroid) 50 mcg DAILY@0630 GT 01/21/20 06:30 02/20/20 06:29 01/27/20 05:45 Meropenem 1 gm/ Sodium Chloride 55 ml @ 110 mls/hr Q8H IVPB 01/26/20 16:00 01/31/20 15:59 01/27/20 07:57 Multivitamins (Multivitamins W/ Minerals 15ml Liquid) 15 ml DAILY GT 01/21/20 09:00 02/20/20 08:59 01/27/20 09:09 Pantoprazole (Protonix) 40 mg EVERY 12 HOURS IVP 01/20/20 21:00 02/19/20 20:59 01/27/20 09:09 Sodium Hypochlorite (Dakin's Half Strength) 1 applic DAILY TOPIC 01/20/20 20:00 02/19/20 19:59 01/27/20 09:10 Zinc Sulfate (Zinc Sulfate) 220 mg DAILY ORAL 01/25/20 09:00 02/04/20 08:59 01/27/20 09:09 Jaspal Cintron MD Jan 27, 2020 10:35
[2020-01-27 12:00] VITALS: BP 106/65
[2020-01-27] MEDS: Acetaminophen 650mg/20.3ml GT PRN ×2 (15:39→21:10)
--- NOTE | 2020-01-27 15:55 | NUR ---
CASE MANAGEMENT: REVIEW SI: GI BLEED . UTI . ANEMIA T 100.2 HR 120 RR 10 BP 106/65 SAT 96% MECH VENT FIO2 40 WBC 11.7 H/H 9.9/31.5 WBC 184 IS: MEROPENEM IV Q8HR PROTONIX IV Q12HR S/P TRANSFUSION PRBC STEP DOWN UNIT STATUS DCP: PATIENT IS FROM [facility]
[2020-01-27 16:00] VITALS: BP 123/69
--- NOTE | 2020-01-27 16:52 | Diagnostic Imaging Report ---
Indication: Shortness of breath Technique: One view of the chest Comparison: 01/20/2020 Findings: Stable satisfactory position of tracheostomy. Bilateral interstitial and airspace disease is again demonstrated. This appears worse in the left perihilar region, probably unchanged elsewhere.. There may be increased pleural fluid bilaterally. Impression: Increasing left perihilar consolidation on a background of stable diffuse interstitial and airspace disease. Increased bilateral pleural fluid
--- NOTE | 2020-01-27 19:10 | NUR ---
RESPIRATORY NOTE: PT RECEIVED STABLE ON CMV WITH CURRENT SETTINGS. AIRWAY IS SECURE AND PATENT. VENT CIRCUIT IS SECURE AND OUT OF THE WAY. NO S/S OF RESPIRATORY DISTRESS NOTED AT THIS TIME. WILL CONTINUE TO MONITOR.
--- NOTE | 2020-01-27 19:30 | NUR ---
NURSE NOTES: Report received from PETE Soares. Observed pt lying in the bed, obtunded, flaccid. SR on manager cardiac cath. Trach to vent, Shiley 6, AC 10/450/40%/5. GT intact, running Glucerna 1.2 at 60cc/hr. Suprapubic cath noted, intact. IV on R AC 22G, SL. L AC 22G, TKO. Noted pt temperature of 100, prn will be given, cooling measures done. Bed in the lowest position. Side rails up x3. Will continue to monitor.
[2020-01-27 20:00] VITALS: BP 107/68
--- NOTE | 2020-01-27 21:26 | General Progress Note ---
Subjective Allergies: Coded Allergies: No Known Allergies (Unverified , 01/20/20) Subjective above noted on TF non communicative Objective Last 24 Hour Vital Signs Date Time Temp Pulse Resp B/P (MAP) Pulse Ox O2 Delivery O2 Flow Rate FiO2 01/27/20 20:00 Mechanical Ventilator 01/27/20 20:00 40 01/27/20 20:00 100.2 90 10 107/68 (81) 100 01/27/20 16:15 99.8 01/27/20 16:00 Mechanical Ventilator 01/27/20 16:00 120 01/27/20 16:00 40 01/27/20 16:00 99.1 120 10 123/69 (87) 98 01/27/20 15:10 110 10 40 01/27/20 12:00 100.2 120 10 106/65 (79) 96 01/27/20 12:00 119 01/27/20 12:00 40 01/27/20 12:00 Mechanical Ventilator 01/27/20 11:16 113 10 40 01/27/20 10:47 107 01/27/20 08:00 97.7 109 10 125/74 (91) 96 01/27/20 08:00 40 01/27/20 08:00 Mechanical Ventilator 01/27/20 07:21 113 10 40 01/27/20 04:00 Mechanical Ventilator 01/27/20 04:00 97.0 77 15 128/80 (96) 100 01/27/20 04:00 40 01/27/20 03:36 82 01/27/20 03:12 86 10 40 01/27/20 00:00 97.7 86 17 116/78 (91) 100 01/27/20 00:00 Mechanical Ventilator 01/26/20 23:48 86 01/26/20 22:56 82 10 40 Intake and Output 01/26/20 01/27/20 19:00 07:00 Intake Total 1030 ml 835 ml Output Total 750 ml 900 ml Balance 280 ml -65 ml Intake Free Water 200 ml 120 ml IV Total 110 ml 55 ml Tube Feeding 720 ml 660 ml Output Urine Total 750 ml 900 ml # Bowel Movements 2 2 Laboratory Tests 01/26/20 23:28: POC Whole Blood Glucose [Pending] 01/27/20 03:23: White Blood Count 11.7H, Red Blood Count 3.51L, Hemoglobin 9.9L, Hematocrit 31. 5L, Mean Corpuscular Volume 90, Mean Corpuscular Hemoglobin 28.1, Mean Corpuscular Hemoglobin Concent 31.3L, Red Cell Distribution Width 16.0H, Platelet Count 439, Mean Platelet Volume 5.4L, Neutrophils (%) (Auto) 78.5H, Lymphocytes (%) (Auto) 16.1L, Monocytes (%) (Auto) 3.7, Eosinophils (%) (Auto) 1.2, Basophils (%) (Auto) 0.6 01/27/20 05:04: POC Whole Blood Glucose [Pending] 01/27/20 12:07: POC Whole Blood Glucose 184H 01/27/20 18:01: POC Whole Blood Glucose [Pending] Height (Feet): 5 Height (Inches): 2.00 Weight (Pounds): 103 Objective Thin AA woman NCAT (+) trach CTA Tachy abd soft, flat, GT no edema Assessment/Plan Assessment/Plan: Assessment - Melena / GIB - gastric bumper lesion - Anemia - malnutrition , albumin 1.2 - Resp failure, trach - s/p Suprapubic catheter - pyuria - CVA / OBS Recommendations - Continue TF - Abx - PPI - follow nutritional status Kelton Hernandez MD Jan 27, 2020 21:26
[2020-01-28] VITALS: BP 121/72
--- NOTE | 2020-01-28 00:10 | NUR ---
NURSE NOTES: Pt lying in the bed. No acute distress noted at this time. T of 99.8 noted. VS WNL. Reposition done. Oral care given. Will continue to monitor.
[2020-01-28] MEDS: Meropenem 1 GM in NS 55 ML IVPB SCH ×3 (00:21→17:14)
[2020-01-28] MEDS: NovoLOG Insulin Flexpen SUBQ SCH ×4 (00:22→17:14)
--- NOTE | 2020-01-28 03:16 | Cardiology Progress Note ---
Subjective DATE OF SERVICE: Jan 27, 2020 s/p EGD with cauterized bleeding site near GTube. s/p PRBC transfusion remains on vent support via trach Feedings continued by Gtube; IVF discont'd +blood cultures noted 2D Echo: no valvular vegetations, severe pulm hypertension, normal ej fxn CXR (01/26) Worsening infiltrate and effusions Objective Last 24 Hour Vital Signs Date Time Temp Pulse Resp B/P (MAP) Pulse Ox O2 Delivery O2 Flow Rate FiO2 01/28/20 02:16 97 01/28/20 00:00 Mechanical Ventilator 01/28/20 00:00 99.8 88 10 121/72 (88) 100 01/27/20 23:10 89 10 40 01/27/20 21:40 99.8 01/27/20 20:00 Mechanical Ventilator 01/27/20 20:00 40 01/27/20 20:00 100.2 90 10 107/68 (81) 100 01/27/20 20:00 98 01/27/20 19:10 94 10 40 01/27/20 16:15 99.8 01/27/20 16:00 Mechanical Ventilator 01/27/20 16:00 120 01/27/20 16:00 40 01/27/20 16:00 99.1 120 10 123/69 (87) 98 01/27/20 15:10 110 10 40 01/27/20 12:00 100.2 120 10 106/65 (79) 96 01/27/20 12:00 119 01/27/20 12:00 40 01/27/20 12:00 Mechanical Ventilator 01/27/20 11:16 113 10 40 01/27/20 10:47 107 01/27/20 08:00 97.7 109 10 125/74 (91) 96 01/27/20 08:00 40 01/27/20 08:00 Mechanical Ventilator 01/27/20 07:21 113 10 40 01/27/20 04:00 Mechanical Ventilator 01/27/20 04:00 97.0 77 15 128/80 (96) 100 01/27/20 04:00 40 01/27/20 03:36 82 ROS: unchanged from my evaluation of 01/20/20 HEENT: Mechanically Ventilated, Thin Trach secretions RHYTHM: NSR, ST LUNGS: bilateral rhonchi, trach site clean ABDOMEN: normal bowel sounds, non tender, soft, no organomegaly, decreased bowel sounds, other - suprapubic cath EXTREMITIES: No edema Laboratory Tests Test 01/27/20 03:23 01/27/20 05:04 01/27/20 12:07 01/27/20 18:01 White Blood Count 11.7 K/UL (4.8-10.8) H Red Blood Count 3.51 M/UL (4.20-5.40) L Hemoglobin 9.9 G/DL (12.0-16.0) L Hematocrit 31.5 % (37.0-47.0) L Mean Corpuscular Volume 90 FL (80-99) Mean Corpuscular Hemoglobin 28.1 PG (27.0-31.0) Mean Corpuscular Hemoglobin Concent 31.3 G/DL (32.0-36.0) L Red Cell Distribution Width 16.0 % (11.6-14.8) H Platelet Count 439 K/UL (150-450) Mean Platelet Volume 5.4 FL (6.5-10.1) L Neutrophils (%) (Auto) 78.5 % (45.0-75.0) H Lymphocytes (%) (Auto) 16.1 % (20.0-45.0) L Monocytes (%) (Auto) 3.7 % (1.0-10.0) Eosinophils (%) (Auto) 1.2 % (0.0-3.0) Basophils (%) (Auto) 0.6 % (0.0-2.0) POC Whole Blood Glucose Pending 184 MG/DL (74-106) H Pending Test 01/28/20 00:04 POC Whole Blood Glucose 172 MG/DL (74-106) H Assessment/Plan Assessment/Plan GI bleed Severe sepsis Bacteremia with low risk for endocarditis based on 2D echo findings Sinusitis Mastoiditis Sinus tachycardia HCA Pneumonia Vent dep respiratory failure UTI Severe protein calorie malnutrition Hypovolemia/dehydration/hypernatremia IRDM with hyperglycemia Severe pulmonary hypertension Monitor hemoglobin; transfuse as needed Abx Vent support Feedings on-going; observe for residuals Cardiac monitoring DVT prophylaxis Free water per GTube Protein supplement Advance insulin regimen Check BNP; consider diuresis and anti-failure regimen Kumar Pan MD Jan 28, 2020 03:16
[2020-01-28 04:00] VITALS: BP 117/72
[2020-01-28 05:03] LABS: BASOPHILS % (AUTO) 0.4 % (0.0-2.0); EOSINOPHILS % (AUTO) 0.9 % (0.0-3.0); HEMATOCRIT 29.5 % (37.0-47.0); HEMOGLOBIN 9.4 G/DL (12.0-16.0); LYMPHOCYTES % (AUTO) 12.3 % (20.0-45.0); MEAN CORPUSCULAR VOLUME 90 FL (80-99); NEUTROPHILS % (AUTO) 81.5 % (45.0-75.0); PLATELET COUNT 431 K/UL (150-450); RED BLOOD COUNT 3.28 M/UL (4.20-5.40); RED CELL DISTRIBUTION WIDTH 15.8 % (11.6-14.8); WHITE BLOOD COUNT 14.8 K/UL (4.8-10.8)
[2020-01-28 05:51] LABS: ALANINE AMINOTRANSFERASE 9 U/L (12-78); ALBUMIN 1.2 G/DL (3.4-5.0); ALBUMIN/GLOBULIN RATIO 0.2 (1.0-2.7); ALKALINE PHOSPHATASE 118 U/L (46-116); ANION GAP -1 mmol/L (5-15); ASPARTATE AMINO TRANSFERASE 14 U/L (15-37); BILIRUBIN,TOTAL 0.2 MG/DL (0.2-1.0); BLOOD UREA NITROGEN 11 mg/dL (7-18); CALCIUM 8.7 MG/DL (8.5-10.1); CARBON DIOXIDE 40 MMOL/L (21-32); CHLORIDE 102 MMOL/L (98-107); CREATININE 0.3 MG/DL (0.55-1.30); POTASSIUM 4.7 MMOL/L (3.5-5.1); SODIUM 142 MMOL/L (136-145)
--- NOTE | 2020-01-28 07:42 | NUR ---
NURSE HAND-OFF REPORT: Important Events on Shift: No acute distress noted at this time. Patient Status: stable Diet: Glucerna 1.2, 60cc/hr. Pending Orders: n Pending Results/Labs:n Pending MD notification:n Latest Vital Signs: Temperature 98.6 , Pulse 97 , B/P 117 /72 , Respiratory Rate 10 , O2 SAT 97 , Mechanical Ventilator, O2 Flow Rate . Vital Sign Comment: [] EKG Rhythm: Sinus Rhythm Rhythm change?: N MD Notified?: N -Dr Gloria BASS Response: Latest Colon Fall Score: 35 Fall Risk: Medium Risk Safety Measures: Call light Within Reach, Bed Alarm Zone 2, Side Rails Side Rails x2, Bed position Low and Locked. Fall Precautions: Yellow Socks Report given to PETE Simons.
--- NOTE | 2020-01-28 07:45 | NUR ---
NURSE NOTES: Report report on pt. Pt is laying in bed, obtunded. Left eye and upper left cheek appear swollen, pressure taken off left side and patient reposition midline to alleviate swelling. Pt is noted to be SR on teletypesetter monitor. Trach to vent, Shiley 6, AC 10/450/40%/5. GT is noted and running Glucerna 1.2 at 60cc/hr. Pt has suprapubic cath is noted and draining to gravity. IV on R hand 22G, SL is not flushing and L AC 22G, TKO. Aspiration precautions noted, HOB elevated, Bed in the lowest position. Side rails up x3. Will continue to monitor.
--- NOTE | 2020-01-28 07:55 | General Progress Note ---
Subjective ROS Limited/Unobtainable: Yes Allergies: Coded Allergies: No Known Allergies (Unverified , 01/20/20) Subjective events noted consultants appreciated low grade fevers CXR worse Objective Last 24 Hour Vital Signs Date Time Temp Pulse Resp B/P (MAP) Pulse Ox O2 Delivery O2 Flow Rate FiO2 01/28/20 04:00 98.6 97 10 117/72 (87) 97 01/28/20 04:00 104 01/28/20 04:00 Mechanical Ventilator 01/28/20 04:00 40 01/28/20 03:14 91 10 40 01/28/20 00:00 97 01/28/20 00:00 40 01/28/20 00:00 Mechanical Ventilator 01/28/20 00:00 99.8 88 10 121/72 (88) 100 01/27/20 23:10 89 10 40 01/27/20 21:40 99.8 01/27/20 20:00 Mechanical Ventilator 01/27/20 20:00 40 01/27/20 20:00 100.2 90 10 107/68 (81) 100 01/27/20 20:00 98 01/27/20 19:10 94 10 40 01/27/20 16:15 99.8 01/27/20 16:00 Mechanical Ventilator 01/27/20 16:00 120 01/27/20 16:00 40 01/27/20 16:00 99.1 120 10 123/69 (87) 98 01/27/20 15:10 110 10 40 01/27/20 12:00 100.2 120 10 106/65 (79) 96 01/27/20 12:00 119 01/27/20 12:00 40 01/27/20 12:00 Mechanical Ventilator 01/27/20 11:16 113 10 40 01/27/20 10:47 107 01/27/20 08:00 97.7 109 10 125/74 (91) 96 01/27/20 08:00 40 01/27/20 08:00 Mechanical Ventilator Intake and Output 01/27/20 01/28/20 19:00 07:00 Intake Total 120 ml 800 ml Output Total 1200 ml Balance 120 ml -400 ml Intake Free Water 200 ml Tube Feeding 120 ml 600 ml Output Urine Total 1200 ml # Bowel Movements 2 Laboratory Tests 01/27/20 12:07: POC Whole Blood Glucose 184H 01/27/20 18:01: POC Whole Blood Glucose [Pending] 01/28/20 00:04: POC Whole Blood Glucose 172H 01/28/20 03:40: White Blood Count 14.8H, Red Blood Count 3.28L, Hemoglobin 9.4L, Hematocrit 29.5L, Mean Corpuscular Volume 90, Mean Corpuscular Hemoglobin 28.7, Mean Corpuscular Hemoglobin Concent 31.8L, Red Cell Distribution Width 15.8H, Platelet Count 431, Mean Platelet Volume 5.7L, Neutrophils (%) (Auto) 81.5H, Lymphocytes (%) (Auto) 12.3L, Monocytes (%) (Auto) 5.0, Eosinophils (%) (Auto) 0.9, Basophils (%) (Auto) 0.4, Sodium Level 142, Potassium Level 4.7, Chloride Level 102, Carbon Dioxide Level 40H, Anion Gap -1L, Blood Urea Nitrogen 11, Creatinine 0.3L, Estimat Glomerular Filtration Rate > 60, Glucose Level 162H, Calcium Level 8.7, Magnesium Level 2.3, Total Bilirubin 0.2, Aspartate Amino Transf (AST/SGOT) 14L, Alanine Aminotransferase (ALT/SGPT) 9L, Alkaline Phosphatase 118H, Pro-B-Type Natriuretic Peptide 1193H, Total Protein 6.2L, A lbumin 1.2L, Globulin 5.0, Albumin/Globulin Ratio 0.2L 01/28/20 05:48: POC Whole Blood Glucose [Pending] Height (Feet): 5 Height (Inches): 2.00 Weight (Pounds): 103 Objective WDWN NAD reduced breath sounds bilaterally without rhonchi or wheeze [id number] tachy without MRG NABS nontender no CCE poor LOC trach and GT Assessment/Plan Assessment/Plan: IMPRESSION leukocytosis possible sepsis anemia rectal bleeding palpitations pulmonary infiltrates UTI bacteremia sepsis PLAN Iv antibiotics per ID ID care reviewed SNF meds repeat CXR for change monitor HH monitor labs maintain vent optimize not ready for dc yet with elevated wbc and fevers impression, plan, and exam edited and reviewed in detail care discussed with Chi Hodge MD Jan 28, 2020 07:55
[2020-01-28 08:00] VITALS: BP 129/79
--- NOTE | 2020-01-28 08:05 | NUR ---
RD ASSESSMENT & RECOMMENDATIONS SEE CARE ACTIVITY FOR COMPLETE ASSESSMENT DAILY ESTIMATED NEEDS: Needs based on Wound, critical care 44.1kg 27-32 kcals/kg 8020-0528 total kcals 1.25-2 g protein/kg 55-88 g total protein 25-30 mL/kg 9416-4970 total fluid mLs NUTRITION DIAGNOSIS: Increased kcal and pro needs r/t underweight status and wound healing as evidenced by BMI 16.7, pt is 81% of [place] Body Weight, generalized wasting noted, w/ wounds including full thickness and unstageable x1, refer to WC eval for full eval. CURRENT TF:Glucerna 1.2 @ 60ml/hr x 22 hrs ENTERAL NUTRITION RECOMMENDATIONS: Glucerna 1.2 goal of 50ml/hr x22 hrs to provide 1100ml, 1320 kcal, 66g pro, 886ml free H2O - LOWER goal rate to 50ml/hr x 22 hrs: meets 100% est kcal/prot needs, current goal rate exceeds est needs - Flush per MD. HOB Over 30 degrees. - HOLD TF 1 hr before and after synthroid meds. ADDITIONAL RECOMMENDATIONS: 1) Per SNF: 5'4" tall, 97 lbs/44.09kg Maintain calibrated bed scale wts 2) Wound care: add HALEY BID continue Vit C and ZnSO4 3) Lytes daily, replete as needed 4) Monitor BGs, need for long acting insulin
[2020-01-28] MEDS: Pantoprazole Inj IVP SCH ×2 (08:27→21:52)
[2020-01-28] MEDS: Docusate 100mg/10ml Liq GT SCH ×2 (08:27→17:14)
[2020-01-28] MEDS: Multivitamins W/Minerals 15 ML UDC GT SCH (08:27)
[2020-01-28] MEDS: Zinc Sulfate 220mg ORAL SCH (08:27)
[2020-01-28] MEDS: Ascorbic Acid 500mg tab GT SCH (08:27)
[2020-01-28] MEDS: Dakin's 0.25% (Half Strength) 16oz TOPIC SCH (08:28)
--- NOTE | 2020-01-28 10:17 | NUR ---
INSURANCE CLINICALS FAXED TO [facility] [phone] [id number]
--- NOTE | 2020-01-28 10:56 | NUR ---
NURSE NOTES: Pt lying in the bed. No acute distress noted at this time. VS WNL. Reposition done. Oral care given. Will continue to monitor.
--- NOTE | 2020-01-28 11:30 | Infectious Diseases Prog Note ---
"Assessment/Plan Assessment/Plan antibiotics : meropenem A 1. enterobacter | staph aureus UTI 2. acenitoabcter | serratia | staph aureus pneumonia COVID 19 negative 3. + blood culture with coag neg staph likely contaminated 4. respiratory failure 5. CVA 6. diabetes mellitus 7. hypertension 8. fever improving P 1. continue meropenem 4 more days 2. will follow up cultures Subjective ROS Limited/Unobtainable: Yes Allergies: Coded Allergies: No Known Allergies (Unverified , 01/20/20) Objective Last 24 Hour Vital Signs Date Time Temp Pulse Resp B/P (MAP) Pulse Ox O2 Delivery O2 Flow Rate FiO2 01/28/20 08:00 93 01/28/20 08:00 Mechanical Ventilator 01/28/20 08:00 97.9 92 11 129/79 (96) 97 01/28/20 08:00 40 01/28/20 07:15 91 19 40 01/28/20 04:00 98.6 97 10 117/72 (87) 97 01/28/20 04:00 104 01/28/20 04:00 Mechanical Ventilator 01/28/20 04:00 40 01/28/20 03:14 91 10 40 01/28/20 00:00 97 01/28/20 00:00 40 01/28/20 00:00 Mechanical Ventilator 01/28/20 00:00 99.8 88 10 121/72 (88) 100 01/27/20 23:10 89 10 40 01/27/20 21:40 99.8 01/27/20 20:00 Mechanical Ventilator 01/27/20 20:00 40 01/27/20 20:00 100.2 90 10 107/68 (81) 100 01/27/20 20:00 98 01/27/20 19:10 94 10 40 01/27/20 16:15 99.8 01/27/20 16:00 Mechanical Ventilator 01/27/20 16:00 120 01/27/20 16:00 40 01/27/20 16:00 99.1 120 10 123/69 (87) 98 01/27/20 15:10 110 10 40 01/27/20 12:00 100.2 120 10 106/65 (79) 96 01/27/20 12:00 119 01/27/20 12:00 40 01/27/20 12:00 Mechanical Ventilator Height (Feet): 5 Height (Inches): 2.00 Weight (Pounds): 103 HEENT: status post trach Respiratory/Chest: lungs clear Cardiovascular: normal rate, regular rhythm, no gallop/murmur, other - GT Abdomen: soft, non tender Extremities: no edema Laboratory Tests Test 01/27/20 12:07 01/27/20 18:01 01/28/20 00:04 01/28/20 03:40 POC Whole Blood Glucose 184 MG/DL (74-106) H Pending 172 MG/DL (74-106) H White Blood Count 14.8 K/UL (4.8-10.8) H Red Blood Count 3.28 M/UL (4.20-5.40) L Hemoglobin 9.4 G/DL (12.0-16.0) L Hematocrit 29.5 % (37.0-47.0) L Mean Corpuscular Volume 90 FL (80-99) Mean Corpuscular Hemoglobin 28.7 PG (27.0-31.0) Mean Corpuscular Hemoglobin Concent 31.8 G/DL (32.0-36.0) L Red Cell Distribution Width 15.8 % (11.6-14.8) H Platelet Count 431 K/UL (150-450) Mean Platelet Volume 5.7 FL (6.5-10.1) L Neutrophils (%) (Auto) 81.5 % (45.0-75.0) H Lymphocytes (%) (Auto) 12.3 % (20.0-45.0) L Monocytes (%) (Auto) 5.0 % (1.0-10.0) Eosinophils (%) (Auto) 0.9 % (0.0-3.0) Basophils (%) (Auto) 0.4 % (0.0-2.0) Sodium Level 142 MMOL/L (136-145) Potassium Level 4.7 MMOL/L (3.5-5.1) Chloride Level 102 MMOL/L (98-107) Carbon Dioxide Level 40 MMOL/L (21-32) H Anion Gap -1 mmol/L (5-15) L Blood Urea Nitrogen 11 mg/dL (7-18) Creatinine 0.3 MG/DL (0.55-1.30) L Estimat Glomerular Filtration Rate > 60 mL/min (>60) Glucose Level 162 MG/DL (74-106) H Calcium Level 8.7 MG/DL (8.5-10.1) Magnesium Level 2.3 MG/DL (1.8-2.4) Total Bilirubin 0.2 MG/DL (0.2-1.0) Aspartate Amino Transf (AST/SGOT) 14 U/L (15-37) L Alanine Aminotransferase (ALT/SGPT) 9 U/L (12-78) L Alkaline Phosphatase 118 U/L (46-116) H Pro-B-Type Natriuretic Peptide 1193 pg/mL (0-125) H Total Protein 6.2 G/DL (6.4-8.2) L Albumin 1.2 G/DL (3.4-5.0) L Globulin 5.0 g/dL Albumin/Globulin Ratio 0.2 (1.0-2.7) L Test 01/28/20 05:48 POC Whole Blood Glucose Pending Current Medications Medications (Trade) Dose Ordered Sig/Elisa Route PRN Reason Start Time Stop Time Status Last Admin Dose Admin Acetaminophen (Tylenol) 650 mg Q4H PRN GT Mild Pain (Pain Scale 1-3) 01/20/20 17:00 02/19/20 16:59 01/27/20 21:10 Acetaminophen (Tylenol) 650 mg Q4H PRN GT Fever (T>100.5) 01/20/20 17:15 02/19/20 17:14 01/27/20 15:39 Al Hydroxide/Mg Hydroxide (Mylanta) 30 ml Q4HR PRN GT Abdominal cramps 01/26/20 18:45 02/19/20 20:59 Ascorbic Acid (Vitamin C) 500 mg DAILY GT 01/21/20 09:00 02/20/20 08:59 01/28/20 08:27 Dextrose (Dextrose 50%) 25 ml Q30M PRN IV Hypoglycemia 01/26/20 01:30 04/25/20 01:29 Dextrose (Dextrose 50%) 50 ml Q30M PRN IV Hypoglycemia 01/26/20 01:30 04/25/20 01:29 Docusate Sodium (Colace) 100 mg TWICE A DAY GT 01/21/20 18:00 02/20/20 17:59 01/28/20 08:27 Insulin Aspart (NovoLOG) Q6HR SUBQ 01/26/20 06:00 04/25/20 05:59 01/28/20 06:36 Levothyroxine Sodium (Synthroid) 50 mcg DAILY@0630 GT 01/21/20 06:30 02/20/20 06:29 01/28/20 06:33 Meropenem 1 gm/ Sodium Chloride 55 ml @ 110 mls/hr Q8H IVPB 01/26/20 16:00 01/31/20 15:59 01/28/20 08:27 Multivitamins (Multivitamins W/ Minerals 15ml Liquid) 15 ml DAILY GT 01/21/20 09:00 02/20/20 08:59 01/28/20 08:27 Pantoprazole (Protonix) 40 mg EVERY 12 HOURS IVP 01/20/20 21:00 02/19/20 20:59 01/28/20 08:27 Sodium Hypochlorite (Dakin's Half Strength) 1 applic DAILY TOPIC 01/20/20 20:00 02/19/20 19:59 01/28/20 08:28 Zinc Sulfate (Zinc Sulfate) 220 mg DAILY ORAL 01/25/20 09:00 02/04/20 08:59 01/28/20 08:27 Des San MD Jan 28, 2020 11:30"
[2020-01-28 12:00] VITALS: BP 145/78
--- NOTE | 2020-01-28 13:03 | NUR ---
CASE MANAGEMENT: REVIEW SI: GI BLEED . UTI . ANEMIA T 99.8 HR 104 RR 10 BP 121/72 SAT 97% MECH VENT FIO2 40 WBC 14.8 H/H 9.4/29.5 BNP 1193 IS: MEROPENEM IV Q8HR PROTONIX IV Q12HR STEP DOWN UNIT STATUS DCP: PATIENT IS FROM [facility]
--- NOTE | 2020-01-28 13:54 | Surgery Progress Note ---
Surgery Progress Note Subjective Additional Comments afebrile HD stable labs noted exam stable Objective Last 24 Hour Vital Signs Date Time Temp Pulse Resp B/P (MAP) Pulse Ox O2 Delivery O2 Flow Rate FiO2 01/28/20 12:00 98 01/28/20 12:00 Mechanical Ventilator 01/28/20 12:00 40 01/28/20 11:37 94 11 40 01/28/20 08:00 93 01/28/20 08:00 Mechanical Ventilator 01/28/20 08:00 97.9 92 11 129/79 (96) 97 01/28/20 08:00 40 01/28/20 07:15 91 19 40 01/28/20 04:00 98.6 97 10 117/72 (87) 97 01/28/20 04:00 104 01/28/20 04:00 Mechanical Ventilator 01/28/20 04:00 40 01/28/20 03:14 91 10 40 01/28/20 00:00 97 01/28/20 00:00 40 01/28/20 00:00 Mechanical Ventilator 01/28/20 00:00 99.8 88 10 121/72 (88) 100 01/27/20 23:10 89 10 40 01/27/20 21:40 99.8 01/27/20 20:00 Mechanical Ventilator 01/27/20 20:00 40 01/27/20 20:00 100.2 90 10 107/68 (81) 100 01/27/20 20:00 98 01/27/20 19:10 94 10 40 01/27/20 16:15 99.8 01/27/20 16:00 Mechanical Ventilator 01/27/20 16:00 120 01/27/20 16:00 40 01/27/20 16:00 99.1 120 10 123/69 (87) 98 01/27/20 15:10 110 10 40 I&O Intake and Output 01/27/20 01/28/20 19:00 07:00 Intake Total 120 ml 800 ml Output Total 1200 ml Balance 120 ml -400 ml Intake Free Water 200 ml Tube Feeding 120 ml 600 ml Output Urine Total 1200 ml # Bowel Movements 2 Dressing: other Wound: other Cardiovascular: RSR Respiratory: decreased breath sounds Abdomen: soft, non-tender, present bowel sounds Extremities: no cyanosis Laboratory Tests Test 01/27/20 18:01 01/28/20 00:04 01/28/20 03:40 01/28/20 05:48 POC Whole Blood Glucose Pending 172 MG/DL (74-106) H Pending White Blood Count 14.8 K/UL (4.8-10.8) H Red Blood Count 3.28 M/UL (4.20-5.40) L Hemoglobin 9.4 G/DL (12.0-16.0) L Hematocrit 29.5 % (37.0-47.0) L Mean Corpuscular Volume 90 FL (80-99) Mean Corpuscular Hemoglobin 28.7 PG (27.0-31.0) Mean Corpuscular Hemoglobin Concent 31.8 G/DL (32.0-36.0) L Red Cell Distribution Width 15.8 % (11.6-14.8) H Platelet Count 431 K/UL (150-450) Mean Platelet Volume 5.7 FL (6.5-10.1) L Neutrophils (%) (Auto) 81.5 % (45.0-75.0) H Lymphocytes (%) (Auto) 12.3 % (20.0-45.0) L Monocytes (%) (Auto) 5.0 % (1.0-10.0) Eosinophils (%) (Auto) 0.9 % (0.0-3.0) Basophils (%) (Auto) 0.4 % (0.0-2.0) Sodium Level 142 MMOL/L (136-145) Potassium Level 4.7 MMOL/L (3.5-5.1) Chloride Level 102 MMOL/L (98-107) Carbon Dioxide Level 40 MMOL/L (21-32) H Anion Gap -1 mmol/L (5-15) L Blood Urea Nitrogen 11 mg/dL (7-18) Creatinine 0.3 MG/DL (0.55-1.30) L Estimat Glomerular Filtration Rate > 60 mL/min (>60) Glucose Level 162 MG/DL (74-106) H Calcium Level 8.7 MG/DL (8.5-10.1) Magnesium Level 2.3 MG/DL (1.8-2.4) Total Bilirubin 0.2 MG/DL (0.2-1.0) Aspartate Amino Transf (AST/SGOT) 14 U/L (15-37) L Alanine Aminotransferase (ALT/SGPT) 9 U/L (12-78) L Alkaline Phosphatase 118 U/L (46-116) H Pro-B-Type Natriuretic Peptide 1193 pg/mL (0-125) H Total Protein 6.2 G/DL (6.4-8.2) L Albumin 1.2 G/DL (3.4-5.0) L Globulin 5.0 g/dL Albumin/Globulin Ratio 0.2 (1.0-2.7) L Test 01/28/20 11:54 POC Whole Blood Glucose 121 MG/DL (74-106) H Plan Problems: (1) Stage 4 skin ulcer of sacral region Assessment & Plan: Patient Presented on admission with GT, Suprapubic Cath, M ultiple Pressure injuries. Unstageable Sacral Pressure injury that is Malodorous(L)10cm x (W)9.5cm. 90% soft necrosis, 10% mixed erythema with Biofilm at Base of wound. Moderate amt purulent exudate noted when base of wound minimally palpated. Periwound is black and indurated. likely stage 4 given over necrosis the bone is directly palpable. Full thickness Pressure Injury lateral L Tibia(L)3.8cm x (W)2.2cm . Base of wound is 10% necrotic, 25% slough ,65% pink epithelial. Edges are adherent to Base of wound. No odor or exudate noted. No erythema or induration periwound. DTPI Lateral R Tibia. (L)2.5cm x (W)1.5cm.Base of Pressure injury is purpuric with Maroon borders. Non-Blanchable erythema without induration/fluctuance medial L heel. R heel is blanchable with dry peeling skin. Purpuric area without induration /fluctuance R Hallux.(L)1.2cm x (W)0.6cm. Dry brown eschar medial R foot (L)0.4cm x (W)0.6cm. Tx.Plan: Cleanse Sacral wound with Dakin's 0.25% domingo. Apply Dakin's moist gauze to wound. Apply Moisture Barrier Past Periwound. Cover with drsg Twice daily and prn. Cleanse wound lateral L tibia with Saline. Apply TheraHoney. Apply Cavilon Skin BArrier periwound. Cover with Optifoam drsg. Change every 3 days and prn. Apply Cavilon Skin Barrier to Lateral R tibia and R Hallux. Cover with Optifoam drsg. Change very 7 days and prn. Apply Cavilon Skin Barrier to Bilat heels and Malleoli. Cover each site with Optifoam drsg. Change every 7 days and prn. Cover Bony Prominences as needed with Optifoam drsgs. Reposition at least every 2hours or as tolerated. Off-load heels with pillow. APMLAl Mattress overlay. DAILY ESTIMATED NEEDS: Needs based on Wound, critical care 44.1kg 27-32 kcals/kg 1185-0197 total kcals 1.25-2 g protein/kg 55-88 g total protein 25-30 mL/kg 3323-7997 total fluid mLs NUTRITION DIAGNOSIS: Increased kcal and pro needs r/t underweight status and wound healing as evidenced by BMI 16.7, pt is 81% of [place] Body Weight, generalized wasting noted, w/ wounds including full thickness and unstageable x1, refer to WC eval for full eval. CURRENT TF:Glucerna 1.2 @ 60ml/hr x 22 hrs ENTERAL NUTRITION RECOMMENDATIONS: Glucerna 1.2 goal of 50ml/hr x22 hrs to provide 1100ml, 1320 kcal, 66g pro, 886ml free H2O - LOWER goal rate to 50ml/hr x 22 hrs: meets 100% est kcal/prot needs, current goal rate exceeds est needs - Flush per MD. HOB Over 30 degrees. - HOLD TF 1 hr before and after synthroid meds. ADDITIONAL RECOMMENDATIONS: 1) Per SNF: 5'4" tall, 97 lbs/44.09kg Maintain calibrated bed scale wts 2) Wound care: add HALEY BID continue Vit C and ZnSO4 3) Lytes daily, replete as needed 4) Monitor BGs, need for long acting insulin (2) Anemia (3) UTI (urinary tract infection) (4) Pneumonia (5) LGI bleed (6) Palpitations (7) LGI bleed (8) GI bleeding Assessment & Plan: leukocytosis anemia guaiac positive no active bleeding currently trend h/h GI eval possible scope - results noted will follow with recs thank you There is a nonobstructed bowel gas pattern. Increased stool lucencies noted in the colon. There is a G-tube in place. No definite pathologic calcifications ident ified. There is no sign of free air. No acute abnormality noted of the visualized osseous structures DAILY ESTIMATED NEEDS: Needs based on Wound, critical care 44.1kg 27-32 kcals/kg 3035-1569 total kcals 1.25-2 g protein/kg 55-88 g total protein 25-30 mL/kg 3047-0749 total fluid mLs NUTRITION DIAGNOSIS: Increased kcal and pro needs r/t underweight status and wound healing as evidenced by BMI 16.7, pt is 81% of [place] Body Weight, generalized wasting noted, w/ wounds including full thickness and unstageable x1, refer to WC eval for full eval. CURRENT TF:Glucerna 1.2 @ 60ml/hr x 22 hrs ENTERAL NUTRITION RECOMMENDATIONS: As medically able, rec Glucerna 1.2 goal of 50ml/hr x22 hrs to provide 1100ml, 1320 kcal, 66g pro, 886ml free H2O - LOWER goal rate to 50ml/hr x 22 hrs: meets 100% est kcal/prot needs, current goal rate exceeds est needs - Flush per MD. HOB Over 30 degrees. - HOLD TF 1 hr before and after synthroid meds. ADDITIONAL RECOMMENDATIONS: 1) Per SNF: 5'4" tall, 97 lbs/44.09kg Maintain calibrated bed scale wts 2) Wound care: add HALEY BID add ZnSo4 220mg qd x10 days continue Vit C 3) Lytes daily, replete as needed To Wbeb Jan 28, 2020 13:54
[2020-01-28 16:00] VITALS: BP 127/74
--- NOTE | 2020-01-28 19:15 | NUR ---
NURSE NOTES: Receivd pt from PETE Moreno. Pt in bed lying, obtunded but responding to sternal rub. In no apparent distress. ST at 105 on promotions team leader. Trach to vent, Shiley 6, AC 10/450/40%/5. Respirations even and unlabored. GT running Glucerna 1.2 at 60cc/hr w/no residual noted. Suprapubic cath intact. IV on R AC 22G, SL. L AC 22G w/o signs of infiltration infusing both w/NS at TKO. VSS. Afebrile Bed in the lowest position and locked. Bed alarm engaged. Side rails up x3. Will continue POC
--- NOTE | 2020-01-28 19:27 | NUR ---
NURSE HAND-OFF REPORT: Important Events on Shift: left eye swelling going down, no fever, VSS Patient Status: stable Diet: GT feeding Pending Orders: Pending Results/Labs: Pending MD notification: Latest Vital Signs: Temperature 98.1 , Pulse 96 , B/P 127 /74 , Respiratory Rate 10 , O2 SAT 98 , Mechanical Ventilator, O2 Flow Rate . Vital Sign Comment: n/a EKG Rhythm: Sinus Rhythm Rhythm change?: N Notified?: N -Dr Gloria BASS Response: Latest Colon Fall Score: 35 Fall Risk: Medium Risk Safety Measures: Call light Within Reach, Bed Alarm Zone 2, Side Rails Side Rails x2, Bed position Low and Locked. Fall Precautions: Yellow Socks Report given to Ra FREEMAN.
[2020-01-28 20:00] VITALS: BP 107/66
--- NOTE | 2020-01-28 22:34 | General Progress Note ---
Subjective Allergies: Coded Allergies: No Known Allergies (Unverified , 01/20/20) Subjective above noted on TF non communicative Objective Last 24 Hour Vital Signs Date Time Temp Pulse Resp B/P (MAP) Pulse Ox O2 Delivery O2 Flow Rate FiO2 01/28/20 20:55 Mechanical Ventilator 01/28/20 20:00 105 01/28/20 20:00 98.4 96 11 107/66 (80) 98 01/28/20 20:00 40 01/28/20 19:00 96 10 40 01/28/20 16:00 98.1 97 10 127/74 (91) 98 01/28/20 16:00 98 01/28/20 15:34 97 10 40 01/28/20 15:25 40 01/28/20 15:21 Mechanical Ventilator 01/28/20 12:00 98 01/28/20 12:00 Mechanical Ventilator 01/28/20 12:00 40 01/28/20 12:00 98.1 100 10 145/78 (100) 100 01/28/20 11:37 94 11 40 01/28/20 08:00 93 01/28/20 08:00 Mechanical Ventilator 01/28/20 08:00 97.9 92 11 129/79 (96) 97 01/28/20 08:00 40 01/28/20 07:15 91 19 40 01/28/20 04:00 98.6 97 10 117/72 (87) 97 01/28/20 04:00 104 01/28/20 04:00 Mechanical Ventilator 01/28/20 04:00 40 01/28/20 03:14 91 10 40 01/28/20 00:00 97 01/28/20 00:00 40 01/28/20 00:00 Mechanical Ventilator 01/28/20 00:00 99.8 88 10 121/72 (88) 100 01/27/20 23:10 89 10 40 Intake and Output 01/27/20 01/28/20 19:00 07:00 Intake Total 120 ml 860 ml Output Total 1200 ml Balance 120 ml -340 ml Intake Free Water 200 ml Tube Feeding 120 ml 660 ml Output Urine Total 1200 ml # Bowel Movements 2 Laboratory Tests 01/28/20 00:04: POC Whole Blood Glucose 172H 01/28/20 03:40: White Blood Count 14.8H, Red Blood Count 3.28L, Hemoglobin 9.4L, Hematocrit 29.5L, Mean Corpuscular Volume 90, Mean Corpuscular Hemoglobin 28.7, Mean Corpuscular Hemoglobin Concent 31.8L, Red Cell Distribution Width 15.8H, Platelet Count 431, Mean Platelet Volume 5.7L, Neutrophils (%) (Auto) 81.5H, Lymphocytes (%) (Auto) 12.3L, Monocytes (%) (Auto) 5.0, Eosinophils (%) (Auto) 0.9, Basophils (%) (Auto) 0.4, Sodium Level 142, Potassium Level 4.7, Chloride Level 102, Carbon Dioxide Level 40H, Anion Gap -1L, Blood Urea Nitrogen 11, Creatinine 0.3L, Estimat Glomerular Filtration Rate > 60, Glucose Level 162H, Calcium Level 8.7, Magnesium Level 2.3, Total Bilirubin 0.2, Aspartate Amino Transf (AST/SGOT) 14L, Alanine Aminotransferase (ALT/SGPT) 9L, Alkaline Phosphatase 118H, Pro-B-Type Natriuretic Peptide 1193H, Total Protein 6.2L, Albumin 1.2L, Globulin 5.0, Albumin/Globulin Ratio 0.2L 01/28/20 05:48: POC Whole Blood Glucose [Pending] 01/28/20 11:54: POC Whole Blood Glucose 121H 01/28/20 17:22: POC Whole Blood Glucose 150H Height (Feet): 5 Height (Inches): 2.00 Weight (Pounds): 103 Objective Thin AA woman NCAT (+) trach CTA Tachy abd soft, flat, GT no edema Assessment/Plan Assessment/Plan: Assessment - Melena / GIB - gastric bumper lesion - Anemia - malnutrition , albumin 1.2 - Resp failure, trach - s/p Suprapubic catheter - pyuria - CVA / OBS Recommendations - Continue TF - Abx - PPI - follow nutritional status Kelton Hernandez MD Jan 28, 2020 22:34
--- NOTE | 2020-01-28 23:28 | Cardiology Progress Note ---
Subjective DATE OF SERVICE: Jan 28, 2020 s/p EGD with cauterized bleeding site near GTube. s/p PRBC transfusion remains on vent support via trach Feedings continued by Gtube; IVF discont'd +blood cultures noted 2D Echo: no valvular vegetations, severe pulm hypertension, normal ej fxn CXR (01/26) Worsening infiltrate and effusions BNP up to 1193 Objective Last 24 Hour Vital Signs Date Time Temp Pulse Resp B/P (MAP) Pulse Ox O2 Delivery O2 Flow Rate FiO2 01/28/20 22:44 105 10 40 01/28/20 20:55 Mechanical Ventilator 01/28/20 20:00 105 01/28/20 20:00 98.4 96 11 107/66 (80) 98 01/28/20 20:00 40 01/28/20 19:00 96 10 40 01/28/20 16:00 98.1 97 10 127/74 (91) 98 01/28/20 16:00 98 01/28/20 15:34 97 10 40 01/28/20 15:25 40 01/28/20 15:21 Mechanical Ventilator 01/28/20 12:00 98 01/28/20 12:00 Mechanical Ventilator 01/28/20 12:00 40 01/28/20 12:00 98.1 100 10 145/78 (100) 100 01/28/20 11:37 94 11 40 01/28/20 08:00 93 01/28/20 08:00 Mechanical Ventilator 01/28/20 08:00 97.9 92 11 129/79 (96) 97 01/28/20 08:00 40 01/28/20 07:15 91 19 40 01/28/20 04:00 98.6 97 10 117/72 (87) 97 01/28/20 04:00 104 01/28/20 04:00 Mechanical Ventilator 01/28/20 04:00 40 01/28/20 03:14 91 10 40 01/28/20 00:00 97 01/28/20 00:00 40 01/28/20 00:00 Mechanical Ventilator 01/28/20 00:00 99.8 88 10 121/72 (88) 100 ROS: unchanged from my evaluation of 01/20/20 HEENT: Mechanically Ventilated, Thin Trach secretions RHYTHM: NSR, ST LUNGS: bilateral rhonchi, trach site clean ABDOMEN: normal bowel sounds, non tender, soft, no organomegaly, decreased bowel sounds, other - suprapubic cath EXTREMITIES: No edema Laboratory Tests Test 01/28/20 00:04 01/28/20 03:40 01/28/20 05:48 01/28/20 11:54 POC Whole Blood Glucose 172 MG/DL (74-106) H Pending 121 MG/DL (74-106) H White Blood Count 14.8 K/UL (4.8-10.8) H Red Blood Count 3.28 M/UL (4.20-5.40) L Hemoglobin 9.4 G/DL (12.0-16.0) L Hematocrit 29.5 % (37.0-47.0) L Mean Corpuscular Volume 90 FL (80-99) Mean Corpuscular Hemoglobin 28.7 PG (27.0-31.0) Mean Corpuscular Hemoglobin Concent 31.8 G/DL (32.0-36.0) L Red Cell Distribution Width 15.8 % (11.6-14.8) H Platelet Count 431 K/UL (150-450) Mean Platelet Volume 5.7 FL (6.5-10.1) L Neutrophils (%) (Auto) 81.5 % (45.0-75.0) H Lymphocytes (%) (Auto) 12.3 % (20.0-45.0) L Monocytes (%) (Auto) 5.0 % (1.0-10.0) Eosinophils (%) (Auto) 0.9 % (0.0-3.0) Basophils (%) (Auto) 0.4 % (0.0-2.0) Sodium Level 142 MMOL/L (136-145) Potassium Level 4.7 MMOL/L (3.5-5.1) Chloride Level 102 MMOL/L (98-107) Carbon Dioxide Level 40 MMOL/L (21-32) H Anion Gap -1 mmol/L (5-15) L Blood Urea Nitrogen 11 mg/dL (7-18) Creatinine 0.3 MG/DL (0.55-1.30) L Estimat Glomerular Filtration Rate > 60 mL/min (>60) Glucose Level 162 MG/DL (74-106) H Calcium Level 8.7 MG/DL (8.5-10.1) Magnesium Level 2.3 MG/DL (1.8-2.4) Total Bilirubin 0.2 MG/DL (0.2-1.0) Aspartate Amino Transf (AST/SGOT) 14 U/L (15-37) L Alanine Aminotransferase (ALT/SGPT) 9 U/L (12-78) L Alkaline Phosphatase 118 U/L (46-116) H Pro-B-Type Natriuretic Peptide 1193 pg/mL (0-125) H Total Protein 6.2 G/DL (6.4-8.2) L Albumin 1.2 G/DL (3.4-5.0) L Globulin 5.0 g/dL Albumin/Globulin Ratio 0.2 (1.0-2.7) L Test 01/28/20 17:22 POC Whole Blood Glucose 150 MG/DL (74-106) H Assessment/Plan Assessment/Plan GI bleed Severe sepsis Bacteremia with low risk for endocarditis based on 2D echo findings Sinusitis Mastoiditis Sinus tachycardia HCA Pneumonia Vent dep respiratory failure UTI Severe protein calorie malnutrition Hypovolemia/dehydration/hypernatremia IRDM with hyperglycemia Severe pulmonary hypertension Ac/chr diastolic CHF Monitor hemoglobin; transfuse as needed Abx Vent support Feedings on-going; observe for residuals Cardiac monitoring DVT prophylaxis Free water per GTube Protein supplement Advance insulin regimen Trend BNP; anti-failure regimen advanced. Kumar Pan MD Jan 28, 2020 23:28
[2020-01-29] VITALS: BP 124/72
--- NOTE | 2020-01-29 | NUR ---
NURSE NOTES: Condition unchanged. VSS. Afebrile. Respirations even and unlabored. Remain SR with on youth nutritional monitor. No distress noted. HOB elevated.
[2020-01-29] MEDS: Meropenem 1 GM in NS 55 ML IVPB SCH ×4 (00:08→22:59)
--- NOTE | 2020-01-29 04:00 | NUR ---
NURSE NOTES: Remain asleep. Responds to pain only. VSS. Afebrile. Respirations even and unlabored. SR with on ekg monitor tech. No distress noted. HOB elevated. Will continue POC
[2020-01-29] MEDS: NovoLOG Insulin Flexpen SUBQ SCH ×5 (06:11→23:01)
--- NOTE | 2020-01-29 07:15 | NUR ---
HAND-OFF: Report given to PETE Melo.
--- NOTE | 2020-01-29 07:45 | NUR ---
NURSE HAND-OFF REPORT: Important Events on Shift: Received report from PETE Knapp Patient Status: Diet: Pending Orders: Pending Results/Labs: Pending MD notification: Latest Vital Signs: Temperature 98.4 , Pulse 107 , B/P 167 /72 , Respiratory Rate 27 , O2 SAT 100 , Mechanical Ventilator, O2 Flow Rate . Vital Sign Comment: EKG Rhythm: Sinus Tachycardia Rhythm change?: N Notified?: N -Dr Gloria BASS Response: Latest Colon Fall Score: 35 Fall Risk: Medium Risk Safety Measures: Call light Within Reach, Bed Alarm Zone 2, Side Rails Side Rails x2, Bed position Low and Locked. Fall Precautions: Yellow Socks Report given to PETE Noe.
[2020-01-29 08:00] VITALS: BP 167/72
--- NOTE | 2020-01-29 08:15 | NUR ---
NURSE NOTES: Received report from PETE Meeks. Pt is in bed, obtunded and not in acute distress. No facial grimacing noted. Pt is on trach on vent with the following setting AC10, TV 450, FiO2 40%, PEEP 5 and O2 sat 95%. Vital signs are BP 167/72, HR 92, T 98.4. SR on registered nurse cardiac. GT is patent and intact with no residual, and running Glucerna 1.2 @ 60 mL/hr. Urinary catheter is patent and intact and draining yellowish urine. IV sites are patent and intact. Bed is in lowest position, alarm on, call within reached, aspiration, and fall precautions were implemented. Will closely monitor pt. Will continue with the plan of care.
[2020-01-29] MEDS: Zinc Sulfate 220mg ORAL SCH (09:22)
[2020-01-29] MEDS: Docusate 100mg/10ml Liq GT SCH ×2 (09:22→17:08)
[2020-01-29] MEDS: Pantoprazole Inj IVP SCH ×2 (09:22→20:01)
[2020-01-29] MEDS: Multivitamins W/Minerals 15 ML UDC GT SCH (09:22)
[2020-01-29] MEDS: Dakin's 0.25% (Half Strength) 16oz TOPIC SCH (09:23)
[2020-01-29] MEDS: Ascorbic Acid 500mg tab GT SCH (10:13)
--- NOTE | 2020-01-29 11:21 | Infectious Diseases Prog Note ---
"Assessment/Plan Assessment/Plan antibiotics : meropenem A 1. enterobacter | staph aureus UTI 2. acenitoabcter | serratia | staph aureus pneumonia COVID 19 negative 3. + blood culture with coag neg staph likely contaminated 4. respiratory failure 5. CVA 6. diabetes mellitus 7. hypertension 8. fever improving P 1. continue meropenem 3 more days 2. will follow up cultures Subjective ROS Limited/Unobtainable: Yes Allergies: Coded Allergies: No Known Allergies (Unverified , 01/20/20) Objective Last 24 Hour Vital Signs Date Time Temp Pulse Resp B/P (MAP) Pulse Ox O2 Delivery O2 Flow Rate FiO2 01/29/20 08:00 98.4 92 27 167/72 (103) 100 01/29/20 08:00 40 01/29/20 08:00 107 01/29/20 08:00 Mechanical Ventilator 01/29/20 06:37 87 10 40 01/29/20 04:00 40 01/29/20 04:00 99 01/29/20 04:00 Mechanical Ventilator 01/29/20 02:57 115 10 40 01/29/20 00:00 103 01/29/20 00:00 Mechanical Ventilator 01/29/20 00:00 98.2 103 10 124/72 (89) 98 01/29/20 00:00 40 01/28/20 22:44 105 10 40 01/28/20 20:55 Mechanical Ventilator 01/28/20 20:00 105 01/28/20 20:00 98.4 96 11 107/66 (80) 98 01/28/20 20:00 40 01/28/20 19:00 96 10 40 01/28/20 16:00 98.1 97 10 127/74 (91) 98 01/28/20 16:00 98 01/28/20 15:34 97 10 40 01/28/20 15:25 40 01/28/20 15:21 Mechanical Ventilator 01/28/20 12:00 98 01/28/20 12:00 Mechanical Ventilator 01/28/20 12:00 40 01/28/20 12:00 98.1 100 10 145/78 (100) 100 01/28/20 11:37 94 11 40 Height (Feet): 5 Height (Inches): 2.00 Weight (Pounds): 103 HEENT: status post trach Respiratory/Chest: lungs clear Cardiovascular: normal rate, regular rhythm, no gallop/murmur Abdomen: soft, non tender, other - GT Extremities: no edema Laboratory Tests Test 01/28/20 11:54 01/28/20 17:22 01/29/20 06:00 POC Whole Blood Glucose 121 MG/DL (74-106) H 150 MG/DL (74-106) H 206 MG/DL (74-106) H Current Medications Medications (Trade) Dose Ordered Sig/Elisa Route PRN Reason Start Time Stop Time Status Last Admin Dose Admin Acetaminophen (Tylenol) 650 mg Q4H PRN GT Mild Pain (Pain Scale 1-3) 01/20/20 17:00 02/19/20 16:59 01/27/20 21:10 Acetaminophen (Tylenol) 650 mg Q4H PRN GT Fever (T>100.5) 01/20/20 17:15 02/19/20 17:14 01/27/20 15:39 Al Hydroxide/Mg Hydroxide (Mylanta) 30 ml Q4HR PRN GT Abdominal cramps 01/26/20 18:45 02/19/20 20:59 Ascorbic Acid (Vitamin C) 500 mg DAILY GT 01/21/20 09:00 02/20/20 08:59 01/29/20 10:13 Dextrose (Dextrose 50%) 25 ml Q30M PRN IV Hypoglycemia 01/26/20 01:30 04/25/20 01:29 Dextrose (Dextrose 50%) 50 ml Q30M PRN IV Hypoglycemia 01/26/20 01:30 04/25/20 01:29 Docusate Sodium (Colace) 100 mg TWICE A DAY GT 01/21/20 18:00 02/20/20 17:59 01/29/20 09:22 Insulin Aspart (NovoLOG) Q6HR SUBQ 01/26/20 06:00 04/25/20 05:59 01/29/20 06:11 Levothyroxine Sodium (Synthroid) 50 mcg DAILY@0630 GT 01/21/20 06:30 02/20/20 06:29 01/29/20 06:08 Meropenem 1 gm/ Sodium Chloride 55 ml @ 110 mls/hr Q8H IVPB 01/26/20 16:00 01/31/20 15:59 01/29/20 09:24 Multivitamins (Multivitamins W/ Minerals 15ml Liquid) 15 ml DAILY GT 01/21/20 09:00 02/20/20 08:59 01/29/20 09:22 Pantoprazole (Protonix) 40 mg EVERY 12 HOURS IVP 01/20/20 21:00 02/19/20 20:59 01/29/20 09:22 Sodium Hypochlorite (Dakin's Half Strength) 1 applic DAILY TOPIC 01/20/20 20:00 02/19/20 19:59 01/29/20 09:23 Zinc Sulfate (Zinc Sulfate) 220 mg DAILY ORAL 01/25/20 09:00 02/04/20 08:59 01/29/20 09:22 Des San MD Jan 29, 2020 11:21"
[2020-01-29 12:00] VITALS: BP 111/72
[2020-01-29] MEDS ORDERED: NS 275ml ONE ×4 (12:53→13:14)
[2020-01-29] MEDS ORDERED: D5W 275ml ONE (13:14)
--- NOTE | 2020-01-29 14:53 | NUR ---
CASE MANAGEMENT: REVIEW SI: GI BLEED . UTI . ANEMIA T 98.1 HR 102 RR 27 BP 167/72 SAT 98% MECH VENT FIO2 40 IS: MEROPENEM IV Q8HR PROTONIX IV Q12HR STEP DOWN UNIT STATUS DCP: PATIENT IS FROM [facility]
--- NOTE | 2020-01-29 15:57 | Surgery Progress Note ---
Surgery Progress Note Subjective Symptoms: tolerating diet, passing flatus, other, pain decreased Objective Last 24 Hour Vital Signs Date Time Temp Pulse Resp B/P (MAP) Pulse Ox O2 Delivery O2 Flow Rate FiO2 01/29/20 12:00 Mechanical Ventilator 01/29/20 12:00 100 01/29/20 12:00 40 01/29/20 12:00 98.1 102 11 111/72 (85) 98 01/29/20 11:09 100 10 40 01/29/20 08:00 98.4 92 27 167/72 (103) 100 01/29/20 08:00 40 01/29/20 08:00 107 01/29/20 08:00 Mechanical Ventilator 01/29/20 06:37 87 10 40 01/29/20 04:00 40 01/29/20 04:00 99 01/29/20 04:00 Mechanical Ventilator 01/29/20 02:57 115 10 40 01/29/20 00:00 103 01/29/20 00:00 Mechanical Ventilator 01/29/20 00:00 98.2 103 10 124/72 (89) 98 01/29/20 00:00 40 01/28/20 22:44 105 10 40 01/28/20 20:55 Mechanical Ventilator 01/28/20 20:00 105 01/28/20 20:00 98.4 96 11 107/66 (80) 98 01/28/20 20:00 40 01/28/20 19:00 96 10 40 01/28/20 16:00 98.1 97 10 127/74 (91) 98 01/28/20 16:00 98 I&O Intake and Output 01/28/20 01/29/20 19:00 07:00 Intake Total 820 ml 655 ml Output Total 1800 ml Balance -980 ml 655 ml Intake Free Water 50 ml 50 ml IV Total 110 ml 55 ml Tube Feeding 660 ml 550 ml Output Urine Total 1800 ml # Bowel Movements 1 Dressing: saturated Cardiovascular: RSR Respiratory: decreased breath sounds Abdomen: soft, non-tender, present bowel sounds Extremities: no edema, no tenderness, no cyanosis Laboratory Tests Test 01/28/20 17:22 01/29/20 06:00 01/29/20 12:38 POC Whole Blood Glucose 150 MG/DL (74-106) H 206 MG/DL (74-106) H 151 MG/DL (74-106) H Plan Problems: (1) Stage 4 skin ulcer of sacral region Assessment & Plan: Patient Presented on admission with GT, Suprapubic Cath, Multiple Pressure injuries. Unstageable Sacral Pressure injury that is Malodorous(L)10cm x (W)9.5cm. 90% soft necrosis, 10% mixed erythema with Biofilm at Base of wound. Moderate amt purulent exudate noted when base of wound minimally palpated. Periwound is black and indurated. likely stage 4 given over necrosis the bone is directly palpable. Full thickness Pressure Injury lateral L Tibia(L)3.8cm x (W)2.2cm . Base of wound is 10% necrotic, 25% slough ,65% pink epithelial. Edges are adherent to Base of wound. No odor or exudate noted. No erythema or induration periwound. DTPI Lateral R Tibia. (L)2.5cm x (W)1.5cm.Base of Pressure injury is purpuric with Maroon borders. Non-Blanchable erythema without induration/fluctuance medial L heel. R heel is blanchable with dry peeling skin. Purpuric area without induration /fluctuance R Hallux.(L)1.2cm x (W)0.6cm. Dry brown eschar medial R foot (L)0.4cm x (W)0.6cm. Tx.Plan: Cleanse Sacral wound with Dakin's 0.25% domingo. Apply Dakin's moist gauze to wound. Apply Moisture Barrier Past Periwound. Cover with drsg Twice daily and prn. Cleanse wound lateral L tibia with Saline. Apply TheraHoney. Apply Cavilon Skin BArrier periwound. Cover with Optifoam drsg. Change every 3 days and prn. Apply Cavilon Skin Barrier to Lateral R tibia and R Hallux. Cover with Optifoam drsg. Change very 7 days and prn. Apply Cavilon Skin Barrier to Bilat heels and Malleoli. Cover each site with Optifoam drsg. Change every 7 days and prn. Cover Bony Prominences as needed with Optifoam drsgs. Reposition at least every 2hours or as tolerated. Off-load heels with pillow. APMLAl Mattress overlay. DAILY ESTIMATED NEEDS: Needs based on Wound, critical care 44.1kg 27-32 kcals/kg 7065-1858 total kcals 1.25-2 g protein/kg 55-88 g total protein 25-30 mL/kg 7557-4145 total fluid mLs NUTRITION DIAGNOSIS: Increased kcal and pro needs r/t underweight status and wound healing as evidenced by BMI 16.7, pt is 81% of [place] Body Weight, generalized wasting noted, w/ wounds including full thickness and unstageable x1, refer to WC eval for full eval. CURRENT TF:Glucerna 1.2 @ 60ml/hr x 22 hrs ENTERAL NUTRITION RECOMMENDATIONS: Glucerna 1.2 goal of 50ml/hr x22 hrs to provide 1100ml, 1320 kcal, 66g pro, 886ml free H2O - LOWER goal rate to 50ml/hr x 22 hrs: meets 100% est kcal/prot needs, current goal rate exceeds est needs - Flush per MD. HOB Over 30 degrees. - HOLD TF 1 hr before and after synthroid meds. ADDITIONAL RECOMMENDATIONS: 1) Per SNF: 5'4" tall, 97 lbs/44.09kg Maintain calibrated bed scale wts 2) Wound care: add HALEY BID continue Vit C and ZnSO4 3) Lytes daily, replete as needed 4) Monitor BGs, need for long acting insulin (2) Anemia (3) UTI (urinary tract infection) (4) Pneumonia (5) LGI bleed (6) Palpitations (7) LGI bleed (8) GI bleeding Assessment & Plan: leukocytosis anemia guaiac positive no active bleeding currently trend h/h GI eval possible scope - results noted will follow with recs thank you There is a nonobstructed bowel gas pattern. Increased stool lucencies noted in the colon. There is a G-tube in place. No definite pathologic calcifications identified. There is no sign of free air. No acute abnormality noted of the visualized osseous structures DAILY ESTIMATED NEEDS: Needs based on Wound, critical care 44.1kg 27-32 kcals/kg 7422-1205 total kcals 1.25-2 g protein/kg 55-88 g total protein 25-30 mL/kg 1138-1145 total fluid mLs NUTRITION DIAGNOSIS: Increased kcal and pro needs r/t underweight status and wound healing as evidenced by BMI 16.7, pt is 81% of [place] Body Weight, generalized wasting noted, w/ wounds including full thickness and unstageable x1, refer to WC eval for full eval. CURRENT TF:Glucerna 1.2 @ 60ml/hr x 22 hrs ENTERAL NUTRITION RECOMMENDATIONS: As medically able, rec Glucerna 1.2 goal of 50ml/hr x22 hrs to provide 1100ml, 1320 kcal, 66g pro, 886ml free H2O - LOWER goal rate to 50ml/hr x 22 hrs: meets 100% est kcal/prot needs, current goal rate exceeds est needs - Flush per MD. HOB Over 30 degrees. - HOLD TF 1 hr before and after synthroid meds. ADDITIONAL RECOMMENDATIONS: 1) Per SNF: 5'4" tall, 97 lbs/44.09kg Maintain calibrated bed scale wts 2) Wound care: add HALEY BID add ZnSo4 220mg qd x10 days continue Vit C 3) Lytes daily, replete as needed To Webb Jan 29, 2020 15:57
[2020-01-29 16:00] VITALS: BP 120/78
--- NOTE | 2020-01-29 17:09 | General Progress Note ---
Subjective Allergies: Coded Allergies: No Known Allergies (Unverified , 01/20/20) Subjective events noted consultants appreciated low grade fevers CXR worse Objective Last 24 Hour Vital Signs Date Time Temp Pulse Resp B/P (MAP) Pulse Ox O2 Delivery O2 Flow Rate FiO2 01/29/20 15:38 104 10 40 01/29/20 12:00 Mechanical Ventilator 01/29/20 12:00 100 01/29/20 12:00 40 01/29/20 12:00 98.1 102 11 111/72 (85) 98 01/29/20 11:09 100 10 40 01/29/20 08:00 98.4 92 27 167/72 (103) 100 01/29/20 08:00 40 01/29/20 08:00 107 01/29/20 08:00 Mechanical Ventilator 01/29/20 06:37 87 10 40 01/29/20 04:00 40 01/29/20 04:00 99 01/29/20 04:00 Mechanical Ventilator 01/29/20 02:57 115 10 40 01/29/20 00:00 103 01/29/20 00:00 Mechanical Ventilator 01/29/20 00:00 98.2 103 10 124/72 (89) 98 01/29/20 00:00 40 01/28/20 22:44 105 10 40 01/28/20 20:55 Mechanical Ventilator 01/28/20 20:00 105 01/28/20 20:00 98.4 96 11 107/66 (80) 98 01/28/20 20:00 40 01/28/20 19:00 96 10 40 Intake and Output 01/28/20 01/29/20 19:00 07:00 Intake Total 820 ml 655 ml Output Total 1800 ml Balance -980 ml 655 ml Intake Free Water 50 ml 50 ml IV Total 110 ml 55 ml Tube Feeding 660 ml 550 ml Output Urine Total 1800 ml # Bowel Movements 1 Laboratory Tests 01/28/20 17:22: POC Whole Blood Glucose 150H 01/29/20 06:00: POC Whole Blood Glucose 206H 01/29/20 12:38: POC Whole Blood Glucose 151H 01/29/20 17:02: POC Whole Blood Glucose 176H Height (Feet): 5 Height (Inches): 2.00 Weight (Pounds): 103 Objective WDWN NAD reduced breath sounds bilaterally without rhonchi or wheeze S1S2RR tachy without MRG NABS nontender no CCE poor LOC trach and GT Assessment/Plan Assessment/Plan: IMPRESSION leukocytosis possible sepsis anemia rectal bleeding palpitations pulmonary infiltrates UTI bacteremia sepsis PLAN Iv antibiotics per ID ID care reviewed SNF meds repeat CXR for change in am monitor HH monitor labs maintain vent optimize hope to dc in am if imaging improved impression, plan, and exam edited and reviewed in detail care discussed with Chi Hodge MD Jan 29, 2020 17:09
--- NOTE | 2020-01-29 19:15 | NUR ---
NURSE NOTES: Received report from Indy RN and Mariann RN, pt. in bed obtunded, no signs or symptoms of acute cardiac or respiratory distress noted, bed alarm on, side rails up x's3 and safety brakes engaged, pt. appears to be tolerating current vent settings AC 10, TV 450, Fio2 at 40% and peep 5- no distress noted, pt. has G tube feeding running Glucerna 1.2 at 60cc/hr- no residual noted, pt. has suprapubic catheter- intact and draining to gravity, pt. appears clean and dry, KAMARI 22G IV intact and patent-TKO, RAC 22G- IV intact and patent, all needs attended too, will continue to monitor pt. and with plan of care.
--- NOTE | 2020-01-29 19:16 | NUR ---
NURSE HAND-OFF REPORT: Important Events on Shift:none Patient Status: full code, stable Diet: Glucerna 1.2 @ 60 mL/hr Pending Orders: N Pending Results/Labs:N Pending MD notification:N Latest Vital Signs: Temperature 98.1 , Pulse 99 , B/P 120 /78 , Respiratory Rate 14 , O2 SAT 97 , Mechanical Ventilator, O2 Flow Rate . Vital Sign Comment: stable EKG Rhythm: Sinus Rhythm Rhythm change?: N MD Notified?: N -Dr Gloria BASS Response: Latest Colon Fall Score: 35 Fall Risk: Medium Risk Safety Measures: Call light Within Reach, Bed Alarm Zone 2, Side Rails Side Rails x2, Bed position Low and Locked. Fall Precautions: Yellow Socks Report given to PETE Rios.
[2020-01-29 20:00] VITALS: BP 134/85
--- NOTE | 2020-01-29 20:46 | General Progress Note ---
Subjective Allergies: Coded Allergies: No Known Allergies (Unverified , 01/20/20) Subjective above noted on TF non communicative d/w son over phone all questions answered Objective Last 24 Hour Vital Signs Date Time Temp Pulse Resp B/P (MAP) Pulse Ox O2 Delivery O2 Flow Rate FiO2 01/29/20 20:43 95 10 40 01/29/20 20:00 97.5 97 16 134/85 (101) 98 01/29/20 16:00 98.1 99 14 120/78 (92) 97 01/29/20 16:00 Mechanical Ventilator 01/29/20 16:00 99 01/29/20 16:00 40 01/29/20 15:38 104 10 40 01/29/20 12:00 Mechanical Ventilator 01/29/20 12:00 100 01/29/20 12:00 40 01/29/20 12:00 98.1 102 11 111/72 (85) 98 01/29/20 11:09 100 10 40 01/29/20 08:00 98.4 92 27 167/72 (103) 100 01/29/20 08:00 40 01/29/20 08:00 107 01/29/20 08:00 Mechanical Ventilator 01/29/20 06:37 87 10 40 01/29/20 04:00 40 01/29/20 04:00 99 01/29/20 04:00 Mechanical Ventilator 01/29/20 02:57 115 10 40 01/29/20 00:00 103 01/29/20 00:00 Mechanical Ventilator 01/29/20 00:00 98.2 103 10 124/72 (89) 98 01/29/20 00:00 40 01/28/20 22:44 105 10 40 01/28/20 20:55 Mechanical Ventilator Intake and Output 01/28/20 01/29/20 19:00 07:00 Intake Total 820 ml 655 ml Output Total 1800 ml Balance -980 ml 655 ml Intake Free Water 50 ml 50 ml IV Total 110 ml 55 ml Tube Feeding 660 ml 550 ml Output Urine Total 1800 ml # Bowel Movements 1 Laboratory Tests 01/29/20 06:00: POC Whole Blood Glucose 206H 01/29/20 12:38: POC Whole Blood Glucose 151H 01/29/20 17:02: POC Whole Blood Glucose 176H Height (Feet): 5 Height (Inches): 2.00 Weight (Pounds): 103 Objective Thin AA woman NCAT (+) trach CTA Tachy abd soft, flat, GT no edema Assessment/Plan Assessment/Plan: Assessment - Melena / GIB - gastric bumper lesion - Anemia - malnutrition , albumin 1.2 - Resp failure, trach - s/p Suprapubic catheter - pyuria - CVA / OBS Recommendations - Continue TF - Abx - PPI - follow nutritional status Kelton Hernandez MD Jan 29, 2020 20:46
[2020-01-30] VITALS: BP 101/67
--- NOTE | 2020-01-30 01:00 | NUR ---
NURSE NOTES: Full bed bath given- linens changed- oral care provided, repositioned and turned pt.- pt. appears to be tolerating current vent settings and feeding- all needs attended too, will continue to monitor pt. and with plan of care.
--- NOTE | 2020-01-30 01:12 | Cardiology Progress Note ---
Subjective DATE OF SERVICE: Jan 29, 2020 s/p EGD with cauterized bleeding site near GTube. s/p PRBC transfusion remains on vent support via trach Feedings continued by Gtube; IVF discont'd +blood cultures noted 2D Echo: no valvular vegetations, severe pulm hypertension, normal ej fxn CXR (01/26) Worsening infiltrate and effusions BNP up to 1193 yesterday Objective Last 24 Hour Vital Signs Date Time Temp Pulse Resp B/P (MAP) Pulse Ox O2 Delivery O2 Flow Rate FiO2 01/30/20 00:00 40 01/30/20 00:00 Mechanical Ventilator 01/30/20 00:00 96.6 99 16 101/67 (78) 98 01/29/20 23:29 98 01/29/20 23:26 88 12 40 01/29/20 20:43 95 10 40 01/29/20 20:00 40 01/29/20 20:00 Mechanical Ventilator 01/29/20 20:00 97.5 97 16 134/85 (101) 98 01/29/20 19:20 96 01/29/20 16:00 98.1 99 14 120/78 (92) 97 01/29/20 16:00 Mechanical Ventilator 01/29/20 16:00 99 01/29/20 16:00 40 01/29/20 15:38 104 10 40 01/29/20 12:00 Mechanical Ventilator 01/29/20 12:00 100 01/29/20 12:00 40 01/29/20 12:00 98.1 102 11 111/72 (85) 98 01/29/20 11:09 100 10 40 01/29/20 08:00 98.4 92 27 167/72 (103) 100 01/29/20 08:00 40 01/29/20 08:00 107 01/29/20 08:00 Mechanical Ventilator 01/29/20 06:37 87 10 40 01/29/20 04:00 40 01/29/20 04:00 99 01/29/20 04:00 Mechanical Ventilator 01/29/20 02:57 115 10 40 ROS: unchanged from my evaluation of 01/20/20 HEENT: Mechanically Ventilated, Thin Trach secretions RHYTHM: NSR, ST LUNGS: bilateral rhonchi, trach site clean ABDOMEN: normal bowel sounds, non tender, soft, no organomegaly, decreased bowel sounds, other - suprapubic cath EXTREMITIES: No edema Laboratory Tests Test 01/29/20 06:00 01/29/20 12:38 01/29/20 17:02 01/29/20 22:50 POC Whole Blood Glucose 206 MG/DL (74-106) H 151 MG/DL (74-106) H 176 MG/DL (74-106) H 146 MG/DL (74-106) H Assessment/Plan Assessment/Plan GI bleed Severe sepsis Bacteremia with low risk for endocarditis based on 2D echo findings Sinusitis Mastoiditis Sinus tachycardia HCA Pneumonia Vent dep respiratory failure UTI Severe protein calorie malnutrition Hypovolemia/dehydration/hypernatremia IRDM with hyperglycemia Severe pulmonary hypertension Ac/chr diastolic CHF Monitor hemoglobin; transfuse as needed Abx Vent support Feedings on-going; observe for residuals Cardiac monitoring DVT prophylaxis Free water per GTube Protein supplement Advance insulin regimen Trend BNP; anti-failure regimen advanced with add'l diuresis today. Kumar Pan MD Jan 30, 2020 01:12
[2020-01-30 04:00] VITALS: BP 102/63
[2020-01-30 04:31] LABS: HEMATOCRIT 32.2 % (37.0-47.0); HEMOGLOBIN 10.3 G/DL (12.0-16.0); MEAN CORPUSCULAR VOLUME 88 FL (80-99); PLATELET COUNT 479 K/UL (150-450); RED BLOOD COUNT 3.64 M/UL (4.20-5.40); RED CELL DISTRIBUTION WIDTH 15.4 % (11.6-14.8); WHITE BLOOD COUNT 20.6 K/UL (4.8-10.8)
[2020-01-30] MEDS: Acetaminophen 650mg/20.3ml GT PRN ×2 (04:40→19:10)
--- NOTE | 2020-01-30 04:40 | NUR ---
NURSE NOTES: pt. appears warm to touch- heart rate trending up to 110's- temp now 101.0 axillary- cooling measures and Tylenol administered- will continue to monitor pt. and with plan of care- pt. remains stable.
[2020-01-30 04:57] LABS: ANION GAP -1 mmol/L (5-15); BLOOD UREA NITROGEN 13 mg/dL (7-18); CARBON DIOXIDE 40 MMOL/L (21-32); CHLORIDE 97 MMOL/L (98-107); CREATININE 0.3 MG/DL (0.55-1.30); POTASSIUM 4.5 MMOL/L (3.5-5.1); SODIUM 136 MMOL/L (136-145)
--- NOTE | 2020-01-30 05:35 | NUR ---
NURSE NOTES: reassessed pts temp now 99.0 axillary- temp appears to be trending down-cooling measures and Tylenol appears to be successful- will continue to monitor pt. and with plan of care.
[2020-01-30] MEDS: NovoLOG Insulin Flexpen SUBQ SCH ×4 (06:03→23:07)
--- NOTE | 2020-01-30 07:10 | NUR ---
NURSE HAND-OFF REPORT: Important Events on Shift:fever Patient Status: Stable Diet: Glucerna 1.2 Pending Orders: Pending Results/Labs: Pending MD notification: Latest Vital Signs: Temperature 99.9 , Pulse 104 , B/P 102 /63 , Respiratory Rate 10 , O2 SAT 98 , Mechanical Ventilator, O2 Flow Rate . Vital Sign Comment: EKG Rhythm: Sinus Rhythm Rhythm change?: MD Notified?: MD Response: Latest Colon Fall Score: 35 Fall Risk: Medium Risk Safety Measures: Call light Within Reach, Bed Alarm Zone 2, Side Rails Side Rails x2, Bed position Low and Locked. Fall Precautions: Yellow Socks Report given to Lorie Meeks RN -pt. remains stable and no signs of distress noted.
--- NOTE | 2020-01-30 07:10 | NUR ---
NURSE NOTES: Received patient from PETE Rios under the care of Dr. Castro for the admitting dx. of Sepsis and tachycardia. Noted NKA and full code. Patient is obtunded but responds to pain. Trach noted Shiley 6 with settings of AC 10 VT 450 FiO2 40% PEEP 5. On GT feeding of Glucerna 1.2 @60cc/hr continuous. Will continue with current plan of care.
[2020-01-30 08:00] VITALS: BP 90/52
[2020-01-30] MEDS: Meropenem 1 GM in NS 55 ML IVPB SCH ×3 (08:07→23:05)
--- NOTE | 2020-01-30 09:09 | General Progress Note ---
Subjective ROS Limited/Unobtainable: Yes Allergies: Coded Allergies: No Known Allergies (Unverified , 01/20/20) Subjective events noted consultants appreciated low grade fevers and elevated wbc CXR worse and pending follow up Objective Last 24 Hour Vital Signs Date Time Temp Pulse Resp B/P (MAP) Pulse Ox O2 Delivery O2 Flow Rate FiO2 01/30/20 08:00 40 01/30/20 08:00 96.4 106 18 90/52 (65) 98 01/30/20 08:00 Mechanical Ventilator 01/30/20 07:02 104 10 40 01/30/20 05:10 99.9 01/30/20 04:00 101.0 116 16 102/63 (76) 98 01/30/20 04:00 40 01/30/20 04:00 Mechanical Ventilator 01/30/20 03:51 116 01/30/20 03:12 113 15 40 01/30/20 00:00 40 01/30/20 00:00 Mechanical Ventilator 01/30/20 00:00 96.6 99 16 101/67 (78) 98 01/29/20 23:29 98 01/29/20 23:26 88 12 40 01/29/20 20:43 95 10 40 01/29/20 20:00 40 01/29/20 20:00 Mechanical Ventilator 01/29/20 20:00 97.5 97 16 134/85 (101) 98 01/29/20 19:20 96 01/29/20 16:00 98.1 99 14 120/78 (92) 97 01/29/20 16:00 Mechanical Ventilator 01/29/20 16:00 99 01/29/20 16:00 40 01/29/20 15:38 104 10 40 01/29/20 12:00 Mechanical Ventilator 01/29/20 12:00 100 01/29/20 12:00 40 01/29/20 12:00 98.1 102 11 111/72 (85) 98 01/29/20 11:09 100 10 40 Intake and Output 01/29/20 01/30/20 19:00 07:00 Intake Total 660 ml 760 ml Output Total 1700 ml Balance 660 ml -940 ml Intake Free Water 120 ml 50 ml IV Total 110 ml Tube Feeding 540 ml 600 ml Output Urine Total 1700 ml # Bowel Movements 1 Laboratory Tests 01/29/20 12:38: POC Whole Blood Glucose 151H 01/29/20 17:02: POC Whole Blood Glucose 176H 01/29/20 22:50: POC Whole Blood Glucose 146H 01/30/20 03:30: White Blood Count 20.6H, Red Blood Count 3.64L, Hemoglobin 10.3L, Hematocrit 32.2L, Mean Corpuscular Volume 88, Mean Corpuscular Hemoglobin 28.3, Mean Corpuscular Hemoglobin Concent 32.0, Red Cell Distribution Width 15.4H, Platelet Count 479H, Mean Platelet Volume 5.8L, Neutrophils (%) (Auto) , Lymphocytes (%) (Auto) , Monocytes (%) (Auto) , Eosinophils (%) (Auto) , Basophils (%) (Auto) , Neutrophils % (Manual) [Pending], Lymphocytes % (Manual) [Pending], Platelet Estimate [Pending], Platelet Morphology [Pending], Sodium Level 136, Potassium Level 4.5, Chloride Level 97L, Carbon Dioxide Level 40H, Anion Gap -1L, Blood Urea Nitrogen 13, Creatinine 0.3L, Estimat Glomerular Filtration Rate > 60, Glucose Level 183H, Calcium Level 9.0, Magnesium Level 1.9, Pro-B-Type Natriuretic Peptide 341H 01/30/20 04:42: POC Whole Blood Glucose 182H Height (Feet): 5 Height (Inches): 2.00 Weight (Pounds): 103 Objective WDWN NAD reduced breath sounds bilaterally without rhonchi or wheeze S1S2RR tachy without MRG NABS nontender no CCE poor LOC trach and GT Assessment/Plan Assessment/Plan: IMPRESSION leukocytosis possible sepsis anemia rectal bleeding palpitations pulmonary infiltrates UTI bacteremia sepsis PLAN Iv antibiotics per ID monitor wbc ID care reviewed/ not ready for dc SNF meds repeat CXR for change today monitor HH monitor labs maintain vent optimize hope to dc in am if imaging improved and wbc better impression, plan, and exam edited and reviewed in detail care discussed with Chi Hodge MD Jan 30, 2020 09:09
[2020-01-30] MEDS: Zinc Sulfate 220mg ORAL SCH (09:55)
[2020-01-30] MEDS: Multivitamins W/Minerals 15 ML UDC GT SCH (09:55)
[2020-01-30] MEDS: Docusate 100mg/10ml Liq GT SCH ×2 (09:55→18:46)
[2020-01-30] MEDS: Ascorbic Acid 500mg tab GT SCH (09:55)
[2020-01-30] MEDS: Pantoprazole Inj IVP SCH ×2 (09:56→20:00)
[2020-01-30] MEDS: Dakin's 0.25% (Half Strength) 16oz TOPIC SCH (09:56)
--- NOTE | 2020-01-30 10:32 | Infectious Diseases Prog Note ---
Assessment/Plan Assessment/Plan A 1. Enterobacter & MSSA UTI 2. staph aureus( MSSA), Acinetobacter & serratia pneumonia COVID 19 negative 3. Positive blood cultures,likely contamination 4. Ventilator dependent respiratory failure 5. CVA 6. Diabetes mellitus 7. Hypertension 8. GI bleeding, Melena 9. Sepsis P 1. Continue Meropenem 2. add IV Vancomycin 3. Blood culture X2 4. repeat CXR 5. UA, Urine culture Subjective ROS Limited/Unobtainable: Yes Constitutional: Reports: fever, other - [id number] Allergies: Coded Allergies: No Known Allergies (Unverified , 01/20/20) Objective Last 24 Hour Vital Signs Date Time Temp Pulse Resp B/P (MAP) Pulse Ox O2 Delivery O2 Flow Rate FiO2 01/30/20 08:00 40 01/30/20 08:00 96.4 106 18 90/52 (65) 98 01/30/20 08:00 Mechanical Ventilator 01/30/20 07:02 104 10 40 01/30/20 05:10 99.9 01/30/20 04:00 101.0 116 16 102/63 (76) 98 01/30/20 04:00 40 01/30/20 04:00 Mechanical Ventilator 01/30/20 03:51 116 01/30/20 03:12 113 15 40 01/30/20 00:00 40 01/30/20 00:00 Mechanical Ventilator 01/30/20 00:00 96.6 99 16 101/67 (78) 98 01/29/20 23:29 98 01/29/20 23:26 88 12 40 01/29/20 20:43 95 10 40 01/29/20 20:00 40 01/29/20 20:00 Mechanical Ventilator 01/29/20 20:00 97.5 97 16 134/85 (101) 98 01/29/20 19:20 96 01/29/20 16:00 98.1 99 14 120/78 (92) 97 01/29/20 16:00 Mechanical Ventilator 01/29/20 16:00 99 01/29/20 16:00 40 01/29/20 15:38 104 10 40 01/29/20 12:00 Mechanical Ventilator 01/29/20 12:00 100 01/29/20 12:00 40 01/29/20 12:00 98.1 102 11 111/72 (85) 98 01/29/20 11:09 100 10 40 Height (Feet): 5 Height (Inches): 2.00 Weight (Pounds): 103 HEENT: status post trach Respiratory/Chest: lungs clear, other - on ventilator Cardiovascular: tachycardia Abdomen: soft, non tender, other - GT feeding Extremities: other - mild hands edema, Neurologic/Psychiatric: unresponsiveness Laboratory Tests Test 01/29/20 12:38 01/29/20 17:02 01/29/20 22:50 01/30/20 03:30 POC Whole Blood Glucose 151 MG/DL (74-106) H 176 MG/DL (74-106) H 146 MG/DL (74-106) H White Blood Count 20.6 K/UL (4.8-10.8) H Red Blood Count 3.64 M/UL (4.20-5.40) L Hemoglobin 10.3 G/DL (12.0-16.0) L Hematocrit 32.2 % (37.0-47.0) L Mean Corpuscular Volume 88 FL (80-99) Mean Corpuscular Hemoglobin 28.3 PG (27.0-31.0) Mean Corpuscular Hemoglobin Concent 32.0 G/DL (32.0-36.0) Red Cell Distribution Width 15.4 % (11.6-14.8) H Platelet Count 479 K/UL (150-450) H Mean Platelet Volume 5.8 FL (6.5-10.1) L Neutrophils (%) (Auto) % (45.0-75.0) Lymphocytes (%) (Auto) % (20.0-45.0) Monocytes (%) (Auto) % (1.0-10.0) Eosinophils (%) (Auto) % (0.0-3.0) Basophils (%) (Auto) % (0.0-2.0) Differential Total Cells Counted 100 Neutrophils % (Manual) 86 % (45-75) H Lymphocytes % (Manual) 12 % (20-45) L Monocytes % (Manual) 2 % (1-10) Eosinophils % (Manual) 0 % (0-3) Basophils % (Manual) 0 % (0-2) Band Neutrophils 0 % (0-8) Platelet Estimate Adequate Platelet Morphology Normal Hypochromasia 1+ Anisocytosis 1+ Sodium Level 136 MMOL/L (136-145) Potassium Level 4.5 MMOL/L (3.5-5.1) Chloride Level 97 MMOL/L (98-107) L Carbon Dioxide Level 40 MMOL/L (21-32) H Anion Gap -1 mmol/L (5-15) L Blood Urea Nitrogen 13 mg/dL (7-18) Creatinine 0.3 MG/DL (0.55-1.30) L Estimat Glomerular Filtration Rate > 60 mL/min (>60) Glucose Level 183 MG/DL (74-106) H Calcium Level 9.0 MG/DL (8.5-10.1) Magnesium Level 1.9 MG/DL (1.8-2.4) Pro-B-Type Natriuretic Peptide 341 pg/mL (0-125) H Test 01/30/20 04:42 POC Whole Blood Glucose 182 MG/DL (74-106) H Current Medications Medications (Trade) Dose Ordered Sig/Elisa Route PRN Reason Start Time Stop Time Status Last Admin Dose Admin Acetaminophen (Tylenol) 650 mg Q4H PRN GT Mild Pain (Pain Scale 1-3) 01/20/20 17:00 02/19/20 16:59 01/27/20 21:10 Acetaminophen (Tylenol) 650 mg Q4H PRN GT Fever (T>100.5) 01/20/20 17:15 02/19/20 17:14 01/30/20 04:40 Al Hydroxide/Mg Hydroxide (Mylanta) 30 ml Q4HR PRN GT Abdominal cramps 01/26/20 18:45 02/19/20 20:59 Ascorbic Acid (Vitamin C) 500 mg DAILY GT 01/21/20 09:00 02/20/20 08:59 01/30/20 09:55 Dextrose (Dextrose 50%) 25 ml Q30M PRN IV Hypoglycemia 01/26/20 01:30 04/25/20 01:29 Dextrose (Dextrose 50%) 50 ml Q30M PRN IV Hypoglycemia 01/26/20 01:30 04/25/20 01:29 Docusate Sodium (Colace) 100 mg TWICE A DAY GT 01/21/20 18:00 02/20/20 17:59 01/30/20 09:55 Insulin Aspart (NovoLOG) Q6HR SUBQ 01/26/20 06:00 04/25/20 05:59 01/30/20 06:03 Levothyroxine Sodium (Synthroid) 50 mcg DAILY@0630 GT 01/21/20 06:30 02/20/20 06:29 01/30/20 06:02 Meropenem 1 gm/ Sodium Chloride 55 ml @ 110 mls/hr Q8H IVPB 01/26/20 16:00 01/31/20 15:59 01/30/20 08:07 Multivitamins (Multivitamins W/ Minerals 15ml Liquid) 15 ml DAILY GT 01/21/20 09:00 02/20/20 08:59 01/30/20 09:55 Pantoprazole (Protonix) 40 mg EVERY 12 HOURS IVP 01/20/20 21:00 02/19/20 20:59 01/30/20 09:56 Sodium Hypochlorite (Dakin's Half Strength) 1 applic DAILY TOPIC 01/20/20 20:00 02/19/20 19:59 01/30/20 09:56 Zinc Sulfate (Zinc Sulfate) 220 mg DAILY ORAL 01/25/20 09:00 02/04/20 08:59 01/30/20 09:55 Jaspal Cintron MD Jan 30, 2020 10:32
--- NOTE | 2020-01-30 10:45 | NUR ---
RADIOLOGY DEPT., CHEST X-RAY DONE.-P.DYE
[2020-01-30 12:00] VITALS: BP 100/49
[2020-01-30] MEDS ORDERED: Vancomycin 1gm/D5W 275ml IVPB ONE ×2 (12:00)
--- NOTE | 2020-01-30 12:20 | NUR ---
NURSE NOTES: patient noted obtunded, GT flushing well. Tolerating vent settings well, with no Signs and symptoms of pain or discomfort noted at this time. Will continue to monitor.
--- NOTE | 2020-01-30 13:39 | Surgery Progress Note ---
Surgery Progress Note Subjective Additional Comments febrile, tachy leukocytosis h/h stable trach okay tolerating tf Objective Last 24 Hour Vital Signs Date Time Temp Pulse Resp B/P (MAP) Pulse Ox O2 Delivery O2 Flow Rate FiO2 01/30/20 12:00 96.2 97 18 100/49 (66) 98 01/30/20 12:00 Mechanical Ventilator 01/30/20 12:00 40 01/30/20 10:59 97 10 40 01/30/20 08:00 40 01/30/20 08:00 105 01/30/20 08:00 96.4 106 18 90/52 (65) 98 01/30/20 08:00 Mechanical Ventilator 01/30/20 07:02 104 10 40 01/30/20 05:10 99.9 01/30/20 04:00 101.0 116 16 102/63 (76) 98 01/30/20 04:00 40 01/30/20 04:00 Mechanical Ventilator 01/30/20 03:51 116 01/30/20 03:12 113 15 40 01/30/20 00:00 40 01/30/20 00:00 Mechanical Ventilator 01/30/20 00:00 96.6 99 16 101/67 (78) 98 01/29/20 23:29 98 01/29/20 23:26 88 12 40 01/29/20 20:43 95 10 40 01/29/20 20:00 40 01/29/20 20:00 Mechanical Ventilator 01/29/20 20:00 97.5 97 16 134/85 (101) 98 01/29/20 19:20 96 01/29/20 16:00 98.1 99 14 120/78 (92) 97 01/29/20 16:00 Mechanical Ventilator 01/29/20 16:00 99 01/29/20 16:00 40 01/29/20 15:38 104 10 40 I&O Intake and Output 01/29/20 01/30/20 19:00 07:00 Intake Total 660 ml 760 ml Output Total 1700 ml Balance 660 ml -940 ml Intake Free Water 120 ml 50 ml IV Total 110 ml Tube Feeding 540 ml 600 ml Output Urine Total 1700 ml # Bowel Movements 1 Dressing: other Wound: other Cardiovascular: RSR Respiratory: decreased breath sounds Abdomen: soft, non-tender, present bowel sounds Extremities: no tenderness, no cyanosis, other Laboratory Tests Test 01/29/20 17:02 01/29/20 22:50 01/30/20 03:30 01/30/20 04:42 POC Whole Blood Glucose 176 MG/DL (74-106) H 146 MG/DL (74-106) H 182 MG/DL (74-106) H White Blood Count 20.6 K/UL (4.8-10.8) H Red Blood Count 3.64 M/UL (4.20-5.40) L Hemoglobin 10.3 G/DL (12.0-16.0) L Hematocrit 32.2 % (37.0-47.0) L Mean Corpuscular Volume 88 FL (80-99) Mean Corpuscular Hemoglobin 28.3 PG (27.0-31.0) Mean Corpuscular Hemoglobin Concent 32.0 G/DL (32.0-36.0) Red Cell Distribution Width 15.4 % (11.6-14.8) H Platelet Count 479 K/UL (150-450) H Mean Platelet Volume 5.8 FL (6.5-10.1) L Neutrophils (%) (Auto) % (45.0-75.0) Lymphocytes (%) (Auto) % (20.0-45.0) Monocytes (%) (Auto) % (1.0-10.0) Eosinophils (%) (Auto) % (0.0-3.0) Basophils (%) (Auto) % (0.0-2.0) Differential Total Cells Counted 100 Neutrophils % (Manual) 86 % (45-75) H Lymphocytes % (Manual) 12 % (20-45) L Monocytes % (Manual) 2 % (1-10) Eosinophils % (Manual) 0 % (0-3) Basophils % (Manual) 0 % (0-2) Band Neutrophils 0 % (0-8) Platelet Estimate Adequate Platelet Morphology Normal Hypochromasia 1+ Anisocytosis 1+ Sodium Level 136 MMOL/L (136-145) Potassium Level 4.5 MMOL/L (3.5-5.1) Chloride Level 97 MMOL/L (98-107) L Carbon Dioxide Level 40 MMOL/L (21-32) H Anion Gap -1 mmol/L (5-15) L Blood Urea Nitrogen 13 mg/dL (7-18) Creatinine 0.3 MG/DL (0.55-1.30) L Estimat Glomerular Filtration Rate > 60 mL/min (>60) Glucose Level 183 MG/DL (74-106) H Calcium Level 9.0 MG/DL (8.5-10.1) Magnesium Level 1.9 MG/DL (1.8-2.4) Pro-B-Type Natriuretic Peptide 341 pg/mL (0-125) H Test 01/30/20 12:02 POC Whole Blood Glucose Pending Plan Problems: (1) Stage 4 skin ulcer of sacral region Assessment & Plan: Patient Presented on admission with GT, Suprapubic Cath, Multiple Pressure injuries. Unstageable Sacral Pressure injury that is Malodorous(L)10cm x (W)9.5cm. 90% soft necrosis, 10% mixed erythema with Biofilm at Base of wound. Moderate amt p urulent exudate noted when base of wound minimally palpated. Periwound is black and indurated. likely stage 4 given over necrosis the bone is directly palpable. Full thickness Pressure Injury lateral L Tibia(L)3.8cm x (W)2.2cm . Base of wound is 10% necrotic, 25% slough ,65% pink epithelial. Edges are adherent to Base of wound. No odor or exudate noted. No erythema or induration periwound. DTPI Lateral R Tibia. (L)2.5cm x (W)1.5cm.Base of Pressure injury is purpuric with Maroon borders. Non-Blanchable erythema without induration/fluctuance medial L heel. R heel is blanchable with dry peeling skin. Purpuric area without induration /fluctuance R Hallux.(L)1.2cm x (W)0.6cm. Dry brown eschar medial R foot (L)0.4cm x (W)0.6cm. Tx.Plan: Cleanse Sacral wound with Dakin's 0.25% domingo. Apply Dakin's moist gauze to wound. Apply Moisture Barrier Past Periwound. Cover with drsg Twice daily and prn. Cleanse wound lateral L tibia with Saline. Apply TheraHoney. Apply Cavilon Skin BArrier periwound. Cover with Optifoam drsg. Change every 3 days and prn. Apply Cavilon Skin Barrier to Lateral R tibia and R Hallux. Cover with Optifoam drsg. Change very 7 days and prn. Apply Cavilon Skin Barrier to Bilat heels and Malleoli. Cover each site with Optifoam drsg. Change every 7 days and prn. Cover Bony Prominences as needed with Optifoam drsgs. Reposition at least every 2hours or as tolerated. Off-load heels with pillow. APMLAl Mattress overlay. DAILY ESTIMATED NEEDS: Needs based on Wound, critical care 44.1kg 27-32 kcals/kg 5253-6819 total kcals 1.25-2 g protein/kg 55-88 g total protein 25-30 mL/kg 5307-0625 total fluid mLs NUTRITION DIAGNOSIS: Increased kcal and pro needs r/t underweight status and wound healing as evidenced by BMI 16.7, pt is 81% of [place] Body Weight, generalized wasting noted, w/ wounds including full thickness and unstageable x1, refer to WC eval for full eval. CURRENT TF:Glucerna 1.2 @ 60ml/hr x 22 hrs ENTERAL NUTRITION RECOMMENDATIONS: Glucerna 1.2 goal of 50ml/hr x22 hrs to provide 1100ml, 1320 kcal, 66g pro, 886ml free H2O - LOWER goal rate to 50ml/hr x 22 hrs: meets 100% est kcal/prot needs, current goal rate exceeds est needs - Flush per MD. HOB Over 30 degrees. - HOLD TF 1 hr before and after synthroid meds. ADDITIONAL RECOMMENDATIONS: 1) Per SNF: 5'4" tall, 97 lbs/44.09kg Maintain calibrated bed scale wts 2) Wound care: add HALEY BID continue Vit C and ZnSO4 3) Lytes daily, replete as needed 4) Monitor BGs, need for long acting insulin (2) Anemia (3) UTI (urinary tract infection) (4) Pneumonia (5) LGI bleed (6) Palpitations (7) LGI bleed (8) GI bleeding Assessment & Plan: leukocytosis anemia guaiac positive no active bleeding currently trend h/h GI eval possible scope - results noted will follow with recs thank you There is a nonobstructed bowel gas pattern. Increased stool lucencies noted in the colon. There is a G-tube in place. No definite pathologic calcifications identified. There is no sign of free air. No acute abnormality noted of the visualized osseous structures DAILY ESTIMATED NEEDS: Needs based on Wound, critical care 44.1kg 27-32 kcals/kg 1044-6508 total kcals 1.25-2 g protein/kg 55-88 g total protein 25-30 mL/kg 0142-2484 total fluid mLs NUTRITION DIAGNOSIS: Increased kcal and pro needs r/t underweight status and wound healing as evidenced by BMI 16.7, pt is 81% of [place] Body Weight, generalized wasting noted, w/ wounds including full thickness and unstageable x1, refer to WC eval for full eval. CURRENT TF:Glucerna 1.2 @ 60ml/hr x 22 hrs ENTERAL NUTRITION RECOMMENDATIONS: As medically able, rec Glucerna 1.2 goal of 50ml/hr x22 hrs to provide 1100ml, 1320 kcal, 66g pro, 886ml free H2O - LOWER goal rate to 50ml/hr x 22 hrs: meets 100% est kcal/prot needs, current goal rate exceeds est needs - Flush per MD. HOB Over 30 degrees. - HOLD TF 1 hr before and after synthroid meds. ADDITIONAL RECOMMENDATIONS: 1) Per SNF: 5'4" tall, 97 lbs/44.09kg Maintain calibrated bed scale wts 2) Wound care: add HALEY BID add ZnSo4 220mg qd x10 days continue Vit C 3) Lytes daily, replete as needed To Webb Jan 30, 2020 13:39
[2020-01-30] MEDS ORDERED: NS 275ml ONE (14:19)
--- NOTE | 2020-01-30 14:34 | Cardiology Report ---
APPROVED REPORT EXAM: Two-dimensional and M-mode echocardiogram with Doppler and color Doppler. INDICATION Endocarditis M-Mode DIMENSIONS IVSd0.7 (0.7-1.1cm)Left Atrium (MM)1.5 (1.6-4.0cm) LVDd3.2 (3.5-5.6cm)Aortic Root2.9 (2.0-3.7cm) PWd0.6 (0.7-1.1cm)Aortic Cusp Exc.1.5 (1.5-2.0cm) IVSs1.5 cmEPSS0.2 (>1.0cm) LVDs1.9 (2.5-4.0cm) PWs0.8 cm <Conclusion> Normal left ventricular chamber size, systolic function and wall motion. Left ventricular ejection fraction estimated to be 60-65 %. No evidence of left ventricular hypertrophy. Small pericardial effusion. All other cardiac chamber sizes are within normal limits. Focal aortic valve sclerosis with adequate cusp excursion. Thickened mitral valve leaflets with normal excursion. Mitral annulus and aortic root calcification. Pulmonic valve not well visualized. Normal tricuspid valve structure. IVC at normal size and non-collapsing with respiration suggestive of increased RA pressure. No discrete vegetations seen. A color flow and spectral Doppler study was performed and revealed: No aortic insufficiency. Mild mitral regurgitation. Mitral inflow indicate normal left ventricular diastolic function. Moderate tricuspid regurgitation. Tricuspid systolic velocities suggests peak right ventricular systolic pressure of 56 mmHg, consistent with severe pulmonary hypertension. Trace pulmonic regurgitation present.
--- NOTE | 2020-01-30 14:45 | Diagnostic Imaging Report ---
. Indication: Shortness of breath Technique: One view of the chest Comparison: 01/27/2020 Findings: Bilateral basilar infiltrates and pleural fluid, generalized mild interstitial congestion persists, probably unchanged allowing for differences in exposure technique. The heart size is normal. Tracheostomy remains. Impression: Unchanged, over one day, findings as above.
[2020-01-30 16:00] VITALS: BP 95/61
--- NOTE | 2020-01-30 17:18 | NUR ---
CASE MANAGEMENT: REVIEW 01/30/2020 SI:SEPSIS. VS: T 96.2 HR 97 RR 18 B/P 100/49 SATS 98% ON MECH VENT FIO2 40 LABS: WBC 20.6 CL 97 CO2 40 CR 0.3 GLU 182 BNP 341 IS:PROTONIX IV Q12H INSULIN ASPART SUBQ Q6H MEROPENEM IV Q8H VANCO IV Q8H SDU DCP: ELICIA PLAN OF CARE: WALTER
--- NOTE | 2020-01-30 17:21 | NUR ---
INSURANCE CLINICALS FAXED TO [facility] [phone] PH [phone] EXT [phone]
--- NOTE | 2020-01-30 17:30 | NUR ---
NURSE NOTES: Patient wound care done, tolerated well. Covered with dry padded dressing. Noted with 70% eschar, 10% slough and 20% granulated tissue with small serosanguineous discharge. Kept clean and dry at all times. Will continue to monitor.
--- NOTE | 2020-01-30 19:32 | NUR ---
NURSE NOTES: Received report from PETE Melo, pt. in bed obtunded, no signs or symptoms of acute cardiac or respiratory distress noted, Pt. ST on monitor 104, bed alarm on, side rails up x's3 and safety brakes engaged, pt. appears to be tolerating current vent settings AC 10, TV 450, Fio2 at 40% and peep 5- no distress noted, pt. has G tube feeding running Glucerna 1.2 at 60cc/hr- no residual noted, pt. has suprapubic catheter- intact and draining to gravity, call light within easy reach, bed locked in position, pt. appears clean and dry, KAMARI 22G IV intact and patent-TKO, RAC 22G- IV intact and patent, all needs attended too, will continue to monitor pt. and with plan of care.
[2020-01-30 20:00] VITALS: BP 108/57
[2020-01-30] MEDS: Vancomycin 500mg/D5W 110ml IVPB SCH ×2 (20:00)
--- NOTE | 2020-01-30 20:18 | Cardiology Progress Note ---
Subjective DATE OF SERVICE: Jan 30, 2020 s/p EGD with cauterized bleeding site near GTube. s/p PRBC transfusion remains on vent support via trach Feedings continued by Gtube; IVF discont'd +blood cultures noted 2D Echo: no valvular vegetations, severe pulm hypertension, normal ej fxn CXR (01/26) Worsening infiltrate and effusions BNP decresed from 1193 to 341. Objective Last 24 Hour Vital Signs Date Time Temp Pulse Resp B/P (MAP) Pulse Ox O2 Delivery O2 Flow Rate FiO2 01/30/20 19:30 95 10 40 01/30/20 16:10 92 10 99 Mechanical Ventilator 40 01/30/20 16:00 Mechanical Ventilator 01/30/20 16:00 40 01/30/20 16:00 99.5 101 16 95/61 (72) 99 01/30/20 16:00 95 01/30/20 15:24 92 10 40 01/30/20 12:00 96.2 97 18 100/49 (66) 98 01/30/20 12:00 96 01/30/20 12:00 Mechanical Ventilator 01/30/20 12:00 40 01/30/20 10:59 97 10 40 01/30/20 08:00 40 01/30/20 08:00 105 01/30/20 08:00 96.4 106 18 90/52 (65) 98 01/30/20 08:00 Mechanical Ventilator 01/30/20 07:02 104 10 40 01/30/20 05:10 99.9 01/30/20 04:00 101.0 116 16 102/63 (76) 98 01/30/20 04:00 40 01/30/20 04:00 Mechanical Ventilator 01/30/20 03:51 116 01/30/20 03:12 113 15 40 01/30/20 00:00 40 01/30/20 00:00 Mechanical Ventilator 01/30/20 00:00 96.6 99 16 101/67 (78) 98 01/29/20 23:29 98 01/29/20 23:26 88 12 40 01/29/20 20:43 95 10 40 ROS: unchanged from my evaluation of 01/20/20 HEENT: Mechanically Ventilated, Thin Trach secretions RHYTHM: NSR, ST LUNGS: bilateral rhonchi, trach site clean ABDOMEN: normal bowel sounds, non tender, soft, no organomegaly, decreased bowel sounds, other - suprapubic cath EXTREMITIES: No edema Laboratory Tests Test 01/29/20 22:50 01/30/20 03:30 01/30/20 04:42 01/30/20 12:02 POC Whole Blood Glucose 146 MG/DL (74-106) H 182 MG/DL (74-106) H Pending White Blood Count 20.6 K/UL (4.8-10.8) H Red Blood Count 3.64 M/UL (4.20-5.40) L Hemoglobin 10.3 G/DL (12.0-16.0) L Hematocrit 32.2 % (37.0-47.0) L Mean Corpuscular Volume 88 FL (80-99) Mean Corpuscular Hemoglobin 28.3 PG (27.0-31.0) Mean Corpuscular Hemoglobin Concent 32.0 G/DL (32.0-36.0) Red Cell Distribution Width 15.4 % (11.6-14.8) H Platelet Count 479 K/UL (150-450) H Mean Platelet Volume 5.8 FL (6.5-10.1) L Neutrophils (%) (Auto) % (45.0-75.0) Lymphocytes (%) (Auto) % (20.0-45.0) Monocytes (%) (Auto) % (1.0-10.0) Eosinophils (%) (Auto) % (0.0-3.0) Basophils (%) (Auto) % (0.0-2.0) Differential Total Cells Counted 100 Neutrophils % (Manual) 86 % (45-75) H Lymphocytes % (Manual) 12 % (20-45) L Monocytes % (Manual) 2 % (1-10) Eosinophils % (Manual) 0 % (0-3) Basophils % (Manual) 0 % (0-2) Band Neutrophils 0 % (0-8) Platelet Estimate Adequate Platelet Morphology Normal Hypochromasia 1+ Anisocytosis 1+ Sodium Level 136 MMOL/L (136-145) Potassium Level 4.5 MMOL/L (3.5-5.1) Chloride Level 97 MMOL/L (98-107) L Carbon Dioxide Level 40 MMOL/L (21-32) H Anion Gap -1 mmol/L (5-15) L Blood Urea Nitrogen 13 mg/dL (7-18) Creatinine 0.3 MG/DL (0.55-1.30) L Estimat Glomerular Filtration Rate > 60 mL/min (>60) Glucose Level 183 MG/DL (74-106) H Calcium Level 9.0 MG/DL (8.5-10.1) Magnesium Level 1.9 MG/DL (1.8-2.4) Pro-B-Type Natriuretic Peptide 341 pg/mL (0-125) H Test 01/30/20 18:28 POC Whole Blood Glucose Pending Assessment/Plan Assessment/Plan GI bleed Severe sepsis Bacteremia with low risk for endocarditis based on 2D echo findings Sinusitis Mastoiditis Sinus tachycardia HCA Pneumonia Vent dep respiratory failure UTI Severe protein calorie malnutrition Hypovolemia/dehydration/hypernatremia IRDM with hyperglycemia Severe pulmonary hypertension Ac/chr diastolic CHF Monitor hemoglobin; transfuse as needed Abx Vent support Feedings on-going; observe for residuals Cardiac monitoring DVT prophylaxis Free water per GTube Protein supplement Advance insulin regimen Trend BNP; anti-failure regimen advanced with add'l diuresis again today. Kumar Pan MD Jan 30, 2020 20:18
--- NOTE | 2020-01-30 21:10 | General Progress Note ---
Subjective Allergies: Coded Allergies: No Known Allergies (Unverified , 01/20/20) Subjective above noted on TF non communicative Objective Last 24 Hour Vital Signs Date Time Temp Pulse Resp B/P (MAP) Pulse Ox O2 Delivery O2 Flow Rate FiO2 01/30/20 20:00 98.5 97 16 108/57 (74) 97 01/30/20 19:40 98.5 01/30/20 19:30 95 10 40 01/30/20 16:10 92 10 99 Mechanical Ventilator 40 01/30/20 16:00 Mechanical Ventilator 01/30/20 16:00 40 01/30/20 16:00 99.5 101 16 95/61 (72) 99 01/30/20 16:00 95 01/30/20 15:24 92 10 40 01/30/20 12:00 96.2 97 18 100/49 (66) 98 01/30/20 12:00 96 01/30/20 12:00 Mechanical Ventilator 01/30/20 12:00 40 01/30/20 10:59 97 10 40 01/30/20 08:00 40 01/30/20 08:00 105 01/30/20 08:00 96.4 106 18 90/52 (65) 98 01/30/20 08:00 Mechanical Ventilator 01/30/20 07:02 104 10 40 01/30/20 05:10 99.9 01/30/20 04:00 101.0 116 16 102/63 (76) 98 01/30/20 04:00 40 01/30/20 04:00 Mechanical Ventilator 01/30/20 03:51 116 01/30/20 03:12 113 15 40 01/30/20 00:00 40 01/30/20 00:00 Mechanical Ventilator 01/30/20 00:00 96.6 99 16 101/67 (78) 98 01/29/20 23:29 98 01/29/20 23:26 88 12 40 Intake and Output 01/29/20 01/30/20 19:00 07:00 Intake Total 660 ml 760 ml Output Total 1700 ml Balance 660 ml -940 ml Intake Free Water 120 ml 50 ml IV Total 110 ml Tube Feeding 540 ml 600 ml Output Urine Total 1700 ml # Bowel Movements 1 Laboratory Tests 01/29/20 22:50: POC Whole Blood Glucose 146H 01/30/20 03:30: White Blood Count 20.6H, Red Blood Count 3.64L, Hemoglobin 10.3L, Hematocrit 32.2L, Mean Corpuscular Volume 88, Mean Corpuscular Hemoglobin 28.3, Mean Corpuscular Hemoglobin Concent 32.0, Red Cell Distribution Width 15.4H, Platelet Count 479H, Mean Platelet Volume 5.8L, Neutrophils (%) (Auto) , Lymphocytes (%) (Auto) , Monocytes (%) (Auto) , Eosinophils (%) (Auto) , Basophils (%) (Auto) , Differential Total Cells Counted 100, Neutrophils % (Manual) 86H, Lymphocytes % (Manual) 12L, Monocytes % (Manual) 2, Eosinophils % (Manual) 0, Basophils % (Manual) 0, Band Neutrophils 0, Platelet Estimate Adequate, Platelet Morphology Normal, Hypochromasia 1+, Anisocytosis 1+, Sodium Level 136, Potassium Level 4.5, Chloride Level 97L, Carbon Dioxide Level 40H, Anion Gap -1L, Blood Urea Nitrogen 13, Creatinine 0.3L, Estimat Glomerular Filtration Rate > 60, Glucose Level 183H, Calcium Level 9.0, Magnesium Level 1.9, Pro-B-Type Natriuretic Peptide 341H 01/30/20 04:42: POC Whole Blood Glucose 182H 01/30/20 12:02: POC Whole Blood Glucose [Pending] 01/30/20 18:28: POC Whole Blood Glucose [Pending] Height (Feet): 5 Height (Inches): 2.00 Weight (Pounds): 103 Objective Thin AA woman NCAT (+) trach CTA Tachy abd soft, flat, GT no edema Assessment/Plan Assessment/Plan: Assessment - Melena / GIB - gastric bumper lesion - Anemia - malnutrition , albumin 1.2 - Resp failure, trach - s/p Suprapubic catheter - pyuria - CVA / OBS Recommendations - Continue TF - Abx - PPI - follow nutritional status Kelton Hernandez MD Jan 30, 2020 21:10
--- NOTE | 2020-01-30 23:30 | NUR ---
NURSE NOTES: bed bath given, oral care provided, full bed bath given- pt. appears to be tolerating current vent settings well- all needs attended to -will continue with plan of care.
[2020-01-31] VITALS: BP 101/56
[2020-01-31] MEDS ORDERED: Vancomycin 500mg/D5W 110ml IVPB SCH ×2
[2020-01-31] MEDS: Vancomycin 500mg/D5W 110ml IVPB SCH ×4 (03:00→12:07)
[2020-01-31 04:00] VITALS: BP 107/64
[2020-01-31 04:21] LABS: BASOPHILS % (AUTO) 1.2 % (0.0-2.0); EOSINOPHILS % (AUTO) 1.1 % (0.0-3.0); HEMATOCRIT 29.3 % (37.0-47.0); HEMOGLOBIN 9.3 G/DL (12.0-16.0); MEAN CORPUSCULAR VOLUME 88 FL (80-99); MONOCYTES % (AUTO) 6.5 % (1.0-10.0); NEUTROPHILS % (AUTO) 72.2 % (45.0-75.0); PLATELET COUNT 406 K/UL (150-450); RED BLOOD COUNT 3.32 M/UL (4.20-5.40); RED CELL DISTRIBUTION WIDTH 15.8 % (11.6-14.8); WHITE BLOOD COUNT 10.5 K/UL (4.8-10.8)
[2020-01-31 04:54] LABS: ALANINE AMINOTRANSFERASE 10 U/L (12-78); ALBUMIN 1.3 G/DL (3.4-5.0); ALBUMIN/GLOBULIN RATIO 0.3 (1.0-2.7); ALKALINE PHOSPHATASE 128 U/L (46-116); AMYLASE 40 U/L (25-115); ANION GAP -2 mmol/L (5-15); ASPARTATE AMINO TRANSFERASE 16 U/L (15-37); BILIRUBIN,TOTAL 0.3 MG/DL (0.2-1.0); BLOOD UREA NITROGEN 14 mg/dL (7-18); CALCIUM 8.8 MG/DL (8.5-10.1); CARBON DIOXIDE 39 MMOL/L (21-32); CHLORIDE 101 MMOL/L (98-107); CREATININE 0.3 MG/DL (0.55-1.30); POTASSIUM 4.6 MMOL/L (3.5-5.1); SODIUM 140 MMOL/L (136-145)
[2020-01-31] MEDS: NovoLOG Insulin Flexpen SUBQ SCH ×2 (05:56→12:00)
--- NOTE | 2020-01-31 07:03 | NUR ---
NURSE HAND-OFF REPORT: Important Events on Shift:none Patient Status: stable Diet: Glucerna 1.2 Pending Orders: Pending Results/Labs: Pending MD notification: Latest Vital Signs: Temperature 98.8 , Pulse 97 , B/P 107 /64 , Respiratory Rate 16 , O2 SAT 99 , Mechanical Ventilator, O2 Flow Rate . Vital Sign Comment: EKG Rhythm: Sinus Rhythm Rhythm change?: N MD Notified?: N -Dr Gloria BASS Response: Latest Colon Fall Score: 35 Fall Risk: Medium Risk Safety Measures: Call light Within Reach, Bed Alarm Zone 2, Side Rails Side Rails x2, Bed position Low and Locked. Fall Precautions: Yellow Socks Report given to Lorie Rn, pt. remains stable and no signs of distress noted. Aware to f/u on any abnormal am labs.
--- NOTE | 2020-01-31 07:06 | NUR ---
NURSE NOTES: Received patient from [facility] under the care of Dr. Castro for the admitting dx. of sepsis. Patient is obtunded. Tolerating vent settings well, with no sign of pain or discomfort at this time. GT feeding tolerating well. [facility] current plan of care.
[2020-01-31 08:00] VITALS: BP 93/58
[2020-01-31] MEDS: Meropenem 1 GM in NS 55 ML IVPB SCH (08:02)
--- NOTE | 2020-01-31 08:10 | General Progress Note ---
Subjective Allergies: Coded Allergies: No Known Allergies (Unverified , 01/20/20) Subjective events noted consultants appreciated low grade fevers and elevated wbc now better CXR same Objective Last 24 Hour Vital Signs Date Time Temp Pulse Resp B/P (MAP) Pulse Ox O2 Delivery O2 Flow Rate FiO2 01/31/20 04:00 40 01/31/20 04:00 Mechanical Ventilator 01/31/20 04:00 98.8 97 16 107/64 (78) 99 01/31/20 03:34 96 01/31/20 03:30 95 10 40 01/31/20 00:00 97.2 86 16 101/56 (71) 99 01/31/20 00:00 Mechanical Ventilator 01/31/20 00:00 40 01/30/20 23:30 80 01/30/20 23:30 80 12 40 01/30/20 20:00 98.5 97 16 108/57 (74) 97 01/30/20 20:00 Mechanical Ventilator 01/30/20 20:00 40 01/30/20 19:40 98.5 01/30/20 19:30 95 10 40 01/30/20 19:03 103 01/30/20 16:10 92 10 99 Mechanical Ventilator 40 01/30/20 16:00 Mechanical Ventilator 01/30/20 16:00 40 01/30/20 16:00 99.5 101 16 95/61 (72) 99 01/30/20 16:00 95 01/30/20 15:24 92 10 40 01/30/20 12:00 96.2 97 18 100/49 (66) 98 01/30/20 12:00 96 01/30/20 12:00 Mechanical Ventilator 01/30/20 12:00 40 01/30/20 10:59 97 10 40 Intake and Output 01/30/20 01/31/20 19:00 07:00 Intake Total 320 ml 980 ml Output Total 1500 ml 1150 ml Balance -1180 ml -170 ml Intake Free Water 200 ml 50 ml IV Total 330 ml Tube Feeding 120 ml 600 ml Output Urine Total 1500 ml 1150 ml # Bowel Movements 1 Laboratory Tests 01/30/20 12:02: POC Whole Blood Glucose [Pending] 01/30/20 18:28: POC Whole Blood Glucose [Pending] 01/30/20 22:35: POC Whole Blood Glucose [Pending] 01/31/20 03:30: White Blood Count 10.5, Red Blood Count 3.32L, Hemoglobin 9.3L, Hematocrit 29.3L , Mean Corpuscular Volume 88, Mean Corpuscular Hemoglobin 28.0, Mean Corpuscular Hemoglobin Concent 31.7L, Red Cell Distribution Width 15.8H, Platelet Count 406, Mean Platelet Volume 5.7L, Neutrophils (%) (Auto) 72.2, Lymphocytes (%) (Auto) 19.0L, Monocytes (%) (Auto) 6.5, Eosinophils (%) (Auto) 1.1, Basophils (%) (Auto) 1.2, Erythrocyte Sedimentation Rate [Pending], Sodium Level 140, Potassium Level 4.6, Chloride Level 101, Carbon Dioxide Level 39H, Anion Gap -2L , Blood Urea Nitrogen 14, Creatinine 0.3L, Estimat Glomerular Filtration Rate > 60, Glucose Level 206H, Calcium Level 8.8, Total Bilirubin 0.3, Aspartate Amino Transf (AST/SGOT) 16, Alanine Aminotransferase (ALT/SGPT) 10L, Alkaline Phosphatase 128H, C-Reactive Protein, Quantitative 11.4H, Total Protein 6.4, Albumin 1.3L, Globulin 5.1, Albumin/Globulin Ratio 0.3L, Amylase Level 40, Lipase 113 01/31/20 04:41: POC Whole Blood Glucose 206H Height (Feet): 5 Height (Inches): 2.00 Weight (Pounds): 103 Objective WDWN NAD reduced breath sounds bilaterally without rhonchi or wheeze [id number] tachy without MRG NABS nontender no CCE poor LOC trach and GT Assessment/Plan Assessment/Plan: IMPRESSION leukocytosis possible sepsis anemia rectal bleeding palpitations pulmonary infiltrates UTI bacteremia sepsis PLAN Iv antibiotics per ID- complete at snf monitor wbc- now normal ID care reviewed SNF meds repeat CXR likely layering effusions monitor HH monitor labs maintain vent optimize dc to snf impression, plan, and exam edited and reviewed in detail care discussed with Chi Hodge MD Jan 31, 2020 08:10
[2020-01-31] MEDS: Pantoprazole Inj IVP SCH (08:49)
[2020-01-31] MEDS: Zinc Sulfate 220mg ORAL SCH (08:49)
[2020-01-31] MEDS: Ascorbic Acid 500mg tab GT SCH (08:49)
[2020-01-31] MEDS: Docusate 100mg/10ml Liq GT SCH (08:49)
[2020-01-31] MEDS: Multivitamins W/Minerals 15 ML UDC GT SCH (08:49)
--- NOTE | 2020-01-31 09:01 | NUR ---
INSURANCE 01/30 PROGRESS NOTE AND DC NOTIFICATION FAXED TO [phone]
--- NOTE | 2020-01-31 09:02 | NUR ---
DISCHARGE PLANNING: NOTE CLINICALS FAXED TO KATHARINE AT [facility]. AWAITING BED ASSIGNMENT
--- NOTE | 2020-01-31 10:08 | NUR ---
RADIOLOGY DEPT., ABDOMEN X-RAY COMPLETED.-P,DYE
--- NOTE | 2020-01-31 10:42 | Diagnostic Imaging Report ---
EXAM: XRAY Abdomen 1v HISTORY: Abdominal distention. COMPARISON: None. TECHNIQUE: Frontal view of the abdomen obtained. FINDINGS: There is a nonobstructed bowel gas pattern. G-tube remains in place. No definite pathologic calcifications identified. There is no sign of free air. No acute abnormality noted of the visualized osseous structures. IMPRESSION: NO CHANGE COMPARED PREVIOUS EXAM. NO SIGN OF ACUTE DISEASE.
--- NOTE | 2020-01-31 11:16 | Infectious Diseases Prog Note ---
"Assessment/Plan Assessment/Plan antibiotics : vancomycin iv, meropenem A 1. enterobacter | staph aureus UTI 2. acenitoabcter | serratia | staph aureus pneumonia COVID 19 negative 3. + blood culture with coag neg staph likely contaminated 4. respiratory failure 5. CVA 6. diabetes mellitus 7. hypertension P 1. continue vancomycin iv, meropenem 1 more day 2. will follow up cultures Subjective ROS Limited/Unobtainable: Yes Allergies: Coded Allergies: No Known Allergies (Unverified , 01/20/20) Objective Last 24 Hour Vital Signs Date Time Temp Pulse Resp B/P (MAP) Pulse Ox O2 Delivery O2 Flow Rate FiO2 01/31/20 07:15 93 12 40 01/31/20 04:00 40 01/31/20 04:00 Mechanical Ventilator 01/31/20 04:00 98.8 97 16 107/64 (78) 99 01/31/20 03:34 96 01/31/20 03:30 95 10 40 01/31/20 00:00 97.2 86 16 101/56 (71) 99 01/31/20 00:00 Mechanical Ventilator 01/31/20 00:00 40 01/30/20 23:30 80 01/30/20 23:30 80 12 40 01/30/20 20:00 98.5 97 16 108/57 (74) 97 01/30/20 20:00 Mechanical Ventilator 01/30/20 20:00 40 01/30/20 19:40 98.5 01/30/20 19:30 95 10 40 01/30/20 19:03 103 01/30/20 16:10 92 10 99 Mechanical Ventilator 40 01/30/20 16:00 Mechanical Ventilator 01/30/20 16:00 40 01/30/20 16:00 99.5 101 16 95/61 (72) 99 01/30/20 16:00 95 01/30/20 15:24 92 10 40 01/30/20 12:00 96.2 97 18 100/49 (66) 98 01/30/20 12:00 96 01/30/20 12:00 Mechanical Ventilator 01/30/20 12:00 40 Height (Feet): 5 Height (Inches): 2.00 Weight (Pounds): 103 HEENT: status post trach Respiratory/Chest: lungs clear Cardiovascular: normal rate, regular rhythm, no gallop/murmur Abdomen: soft, non tender, other - GT Extremities: no edema Microbiology Date/Time Source Procedure Growth Status 01/30/20 17:40 Indwelling Cath Urine Culture - Preliminary NO GROWTH Resulted Laboratory Tests Test 01/30/20 12:02 01/30/20 18:28 01/30/20 22:35 01/31/20 03:30 POC Whole Blood Glucose Pending Pending Pending White Blood Count 10.5 K/UL (4.8-10.8) Red Blood Count 3.32 M/UL (4.20-5.40) L Hemoglobin 9.3 G/DL (12.0-16.0) L Hematocrit 29.3 % (37.0-47.0) L Mean Corpuscular Volume 88 FL (80-99) Mean Corpuscular Hemoglobin 28.0 PG (27.0-31.0) Mean Corpuscular Hemoglobin Concent 31.7 G/DL (32.0-36.0) L Red Cell Distribution Width 15.8 % (11.6-14.8) H Platelet Count 406 K/UL (150-450) Mean Platelet Volume 5.7 FL (6.5-10.1) L Neutrophils (%) (Auto) 72.2 % (45.0-75.0) Lymphocytes (%) (Auto) 19.0 % (20.0-45.0) L Monocytes (%) (Auto) 6.5 % (1.0-10.0) Eosinophils (%) (Auto) 1.1 % (0.0-3.0) Basophils (%) (Auto) 1.2 % (0.0-2.0) Erythrocyte Sedimentation Rate 120 MM/HR (0-30) H Sodium Level 140 MMOL/L (136-145) Potassium Level 4.6 MMOL/L (3.5-5.1) Chloride Level 101 MMOL/L (98-107) Carbon Dioxide Level 39 MMOL/L (21-32) H Anion Gap -2 mmol/L (5-15) L Blood Urea Nitrogen 14 mg/dL (7-18) Creatinine 0.3 MG/DL (0.55-1.30) L Estimat Glomerular Filtration Rate > 60 mL/min (>60) Glucose Level 206 MG/DL (74-106) H Calcium Level 8.8 MG/DL (8.5-10.1) Total Bilirubin 0.3 MG/DL (0.2-1.0) Aspartate Amino Transf (AST/SGOT) 16 U/L (15-37) Alanine Aminotransferase (ALT/SGPT) 10 U/L (12-78) L Alkaline Phosphatase 128 U/L (46-116) H C-Reactive Protein, Quantitative 11.4 mg/dL (0.00-0.90) H Total Protein 6.4 G/DL (6.4-8.2) Albumin 1.3 G/DL (3.4-5.0) L Globulin 5.1 g/dL Albumin/Globulin Ratio 0.3 (1.0-2.7) L Amylase Level 40 U/L (25-115) Lipase 113 U/L (73-393) Test 01/31/20 04:41 01/31/20 10:55 POC Whole Blood Glucose 206 MG/DL (74-106) H Vancomycin Level Trough Pending Current Medications Medications (Trade) Dose Ordered Sig/Elisa Route PRN Reason Start Time Stop Time Status Last Admin Dose Admin Acetaminophen (Tylenol) 650 mg Q4H PRN GT Mild Pain (Pain Scale 1-3) 01/20/20 17:00 02/19/20 16:59 01/27/20 21:10 Acetaminophen (Tylenol) 650 mg Q4H PRN GT Fever (T>100.5) 01/20/20 17:15 02/19/20 17:14 01/30/20 19:10 Al Hydroxide/Mg Hydroxide (Mylanta) 30 ml Q4HR PRN GT Abdominal cramps 01/26/20 18:45 02/19/20 20:59 Ascorbic Acid (Vitamin C) 500 mg DAILY GT 01/21/20 09:00 02/20/20 08:59 01/31/20 08:49 Dextrose (Dextrose 50%) 25 ml Q30M PRN IV Hypoglycemia 01/26/20 01:30 04/25/20 01:29 Dextrose (Dextrose 50%) 50 ml Q30M PRN IV Hypoglycemia 01/26/20 01:30 04/25/20 01:29 Docusate Sodium (Colace) 100 mg TWICE A DAY GT 01/21/20 18:00 02/20/20 17:59 01/31/20 08:49 Insulin Aspart (NovoLOG) Q6HR SUBQ 01/26/20 06:00 04/25/20 05:59 01/31/20 05:56 Levothyroxine Sodium (Synthroid) 50 mcg DAILY@0630 GT 01/21/20 06:30 02/20/20 06:29 01/31/20 05:59 Meropenem 1 gm/ Sodium Chloride 55 ml @ 110 mls/hr Q8H IVPB 01/26/20 16:00 02/04/20 23:59 01/31/20 08:02 Multivitamins (Multivitamins W/ Minerals 15ml Liquid) 15 ml DAILY GT 01/21/20 09:00 02/20/20 08:59 01/31/20 08:49 Pantoprazole (Protonix) 40 mg EVERY 12 HOURS IVP 01/20/20 21:00 02/19/20 20:59 01/31/20 08:49 Sodium Hypochlorite (Dakin's Half Strength) 1 applic DAILY TOPIC 01/20/20 20:00 02/19/20 19:59 01/30/20 09:56 Vancomycin HCl (Vanco pharmacy to dose) 1 ea DAILY PRN MISC Per rx protocol 01/30/20 10:45 02/29/20 10:44 Vancomycin HCl 500 mg/Dextrose 110 ml @ 110 mls/hr Q8H IVPB 01/30/20 20:00 02/04/20 19:59 01/31/20 03:00 Zinc Sulfate (Zinc Sulfate) 220 mg DAILY ORAL 01/25/20 09:00 02/04/20 08:59 01/31/20 08:49 Des San MD Jan 31, 2020 11:16"
--- NOTE | 2020-01-31 11:37 | NUR ---
discharge disposition: please read patient to be discharged to [facility] [address] [address] T: [phone]>> CALL FOR REPORT [facility] T: [phone] ETA IS 1330 VM LEFT FOR TAPABRATA MAKING HER AWARE OF DISCHARGE TRANSFER PACKE TTO BE DELIVERED
[2020-01-31 12:00] VITALS: BP 104/63
[2020-01-31] MEDS: Dakin's 0.25% (Half Strength) 16oz TOPIC SCH (12:02)
[2020-01-31] MEDS ORDERED: Tubing IV Secondary IV ONE (14:59)
--- NOTE | 2020-01-31 15:00 | NUR ---
HAND-OFF: Report given to Mitzy, staff nurse from [facility]. Patient was under the care of Dr. Castro for the admitting dx: sepsis and tachycardia. Patient has hx of HTN, Respiratory failure, anemia, DM, CVA, gastritis. Patient noted NKA and Full code. Fall and aspiration precaution observed and maintained at all times. Patient is obtunded and in a vegetative state. Noted sinus rhythm via security monitor. Patient tolerated vent settings well (AC-10 TV-450 PEEP-5 FiO2-40%). Patient trach site kept clean and dry at all times with Shiley [address] On GT feeding of Glucerna 1.2 60cc/hr. With blood sugar checks q6hrs performed. Patient has suprapubic catheter intact and draining well, noted with clear straw colored urine. Sacral pressure wound noted with UTD status, dressing dry and intact. Transferred to facility by [facility] assisted by RT and ambulance crew in stable condition. Family member (Spencer Menendez) made aware of transfer via telephone call. VS: b/p-104/63, p-96-, r-20, spo2-100%, t-98.1.
--- NOTE | 2020-01-31 15:23 | Surgery Progress Note ---
Surgery Progress Note Subjective Additional Comments ill appearing labs noted no acute events Objective Last 24 Hour Vital Signs Date Time Temp Pulse Resp B/P (MAP) Pulse Ox O2 Delivery O2 Flow Rate FiO2 01/31/20 12:00 100 01/31/20 12:00 98.1 102 20 104/63 (77) 100 01/31/20 12:00 40 01/31/20 12:00 Mechanical Ventilator 01/31/20 11:26 89 10 40 01/31/20 08:00 98.1 98 18 93/58 (70) 100 01/31/20 08:00 Mechanical Ventilator 01/31/20 08:00 98 01/31/20 08:00 40 01/31/20 07:15 93 12 40 01/31/20 04:00 40 01/31/20 04:00 Mechanical Ventilator 01/31/20 04:00 98.8 97 16 107/64 (78) 99 01/31/20 03:34 96 01/31/20 03:30 95 10 40 01/31/20 00:00 97.2 86 16 101/56 (71) 99 01/31/20 00:00 Mechanical Ventilator 01/31/20 00:00 40 01/30/20 23:30 80 01/30/20 23:30 80 12 40 01/30/20 20:00 98.5 97 16 108/57 (74) 97 01/30/20 20:00 Mechanical Ventilator 01/30/20 20:00 40 01/30/20 19:40 98.5 01/30/20 19:30 95 10 40 01/30/20 19:03 103 01/30/20 16:10 92 10 99 Mechanical Ventilator 40 01/30/20 16:00 Mechanical Ventilator 01/30/20 16:00 40 01/30/20 16:00 99.5 101 16 95/61 (72) 99 01/30/20 16:00 95 01/30/20 15:24 92 10 40 I&O Intake and Output 01/30/20 01/31/20 19:00 07:00 Intake Total 320 ml 980 ml Output Total 1500 ml 1150 ml Balance -1180 ml -170 ml Intake Free Water 200 ml 50 ml IV Total 330 ml Tube Feeding 120 ml 600 ml Output Urine Total 1500 ml 1150 ml # Bowel Movements 1 Dressing: other Wound: other Cardiovascular: RSR Respiratory: decreased breath sounds Abdomen: soft, non-tender, present bowel sounds Extremities: no tenderness, no cyanosis Laboratory Tests Test 01/30/20 18:28 01/30/20 22:35 01/31/20 03:30 01/31/20 04:41 POC Whole Blood Glucose Pending Pending 206 MG/DL (74-106) H White Blood Count 10.5 K/UL (4.8-10.8) Red Blood Count 3.32 M/UL (4.20-5.40) L Hemoglobin 9.3 G/DL (12.0-16.0) L Hematocrit 29.3 % (37.0-47.0) L Mean Corpuscular Volume 88 FL (80-99) Mean Corpuscular Hemoglobin 28.0 PG (27.0-31.0) Mean Corpuscular Hemoglobin Concent 31.7 G/DL (32.0-36.0) L Red Cell Distribution Width 15.8 % (11.6-14.8) H Platelet Count 406 K/UL (150-450) Mean Platelet Volume 5.7 FL (6.5-10.1) L Neutrophils (%) (Auto) 72.2 % (45.0-75.0) Lymphocytes (%) (Auto) 19.0 % (20.0-45.0) L Monocytes (%) (Auto) 6.5 % (1.0-10.0) Eosinophils (%) (Auto) 1.1 % (0.0-3.0) Basophils (%) (Auto) 1.2 % (0.0-2.0) Erythrocyte Sedimentation Rate 120 MM/HR (0-30) H Sodium Level 140 MMOL/L (136-145) Potassium Level 4.6 MMOL/L (3.5-5.1) Chloride Level 101 MMOL/L (98-107) Carbon Dioxide Level 39 MMOL/L (21-32) H Anion Gap -2 mmol/L (5-15) L Blood Urea Nitrogen 14 mg/dL (7-18) Creatinine 0.3 MG/DL (0.55-1.30) L Estimat Glomerular Filtration Rate > 60 mL/min (>60) Glucose Level 206 MG/DL (74-106) H Calcium Level 8.8 MG/DL (8.5-10.1) Total Bilirubin 0.3 MG/DL (0.2-1.0) Aspartate Amino Transf (AST/SGOT) 16 U/L (15-37) Alanine Aminotransferase (ALT/SGPT) 10 U/L (12-78) L Alkaline Phosphatase 128 U/L (46-116) H C-Reactive Protein, Quantitative 11.4 mg/dL (0.00-0.90) H Total Protein 6.4 G/DL (6.4-8.2) Albumin 1.3 G/DL (3.4-5.0) L Globulin 5.1 g/dL Albumin/Globulin Ratio 0.3 (1.0-2.7) L Amylase Level 40 U/L (25-115) Lipase 113 U/L (73-393) Test 01/31/20 10:55 01/31/20 11:57 Vancomycin Level Trough 15.2 ug/mL (5.0-12.0) H POC Whole Blood Glucose Pending Plan Problems: (1) Stage 4 skin ulcer of sacral region Assessment & Plan: Patient Presented on admission with GT, Suprapubic Cath, Multiple Pressure injuries. Unstageable Sacral Pressure injury that is Malodorous(L)10cm x (W)9.5cm. 90% soft necrosis, 10% mixed erythema with Biofilm at Base of wound. Moderate amt purulent exudate noted when base of wound minimally palpated. Periwound is black and indurated. likely stage 4 given over necrosis the bone is directly palpable. Full thickness Pressure Injury lateral L Tibia(L)3.8cm x (W)2.2cm . Base of wound is 10% necrotic, 25% slough ,65% pink epithelial. Edges are adherent to Base of wound. No odor or exudate noted. No erythema or induration periwound. DTPI Lateral R Tibia. (L)2.5cm x (W)1.5cm.Base of Pressure injury is purpuric with Maroon borders. Non-Blanchable erythema without induration/fluctuance medial L heel. R heel is blanchable with dry peeling skin. Purpuric area without induration /fluctuance R Hallux.(L)1.2cm x (W)0.6cm. Dry brown eschar medial R foot (L)0.4cm x (W)0.6cm. Tx.Plan: Cleanse Sacral wound with Dakin's 0.25% domingo. Apply Dakin's moist gauze to wound. Apply Moisture Barrier Past Periwound. Cover with drsg Twice daily and prn. Cleanse wound lateral L tibia with Saline. Apply TheraHoney. Apply Cavilon Skin BArrier periwound. Cover with Optifoam drsg. Change every 3 days and prn. Apply Cavilon Skin Barrier to Lateral R tibia and R Hallux. Cover with Optifoam drsg. Change very 7 days and prn. Apply Cavilon Skin Barrier to Bilat heels and Malleoli. Cover each site with Optifoam drsg. Change every 7 days and prn. Cover Bony Prominences as needed with Optifoam drsgs. Reposition at least every 2hours or as tolerated. Off-load heels with pillow. APMLAl Mattress overlay. DAILY ESTIMATED NEEDS: Needs based on Wound, critical care 44.1kg 27-32 kcals/kg 3875-9473 total kcals 1.25-2 g protein/kg 55-88 g total protein 25-30 mL/kg 2984-1264 total fluid mLs NUTRITION DIAGNOSIS: Increased kcal and pro needs r/t underweight status and wound healing as evidenced by BMI 16.7, pt is 81% of Kenvir Body Weight, generalized wasting noted, w/ wounds including full thickness and unstageable x1, refer to WC eval for full eval. CURRENT TF:Glucerna 1.2 @ 60ml/hr x 22 hrs ENTERAL NUTRITION RECOMMENDATIONS: Glucerna 1.2 goal of 50ml/hr x22 hrs to provide 1100ml, 1320 kcal, 66g pro, 886ml free H2O - LOWER goal rate to 50ml/hr x 22 hrs: meets 100% est kcal/prot needs, current goal rate exceeds est needs - Flush per MD. HOB Over 30 degrees. - HOLD TF 1 hr before and after synthroid meds. ADDITIONAL RECOMMENDATIONS: 1) Per SNF: 5'4" tall, 97 lbs/44.09kg Maintain calibrated bed scale wts 2) Wound care: add HALEY BID continue Vit C and ZnSO4 3) Lytes daily, replete as needed 4) Monitor BGs, need for long acting insulin (2) Anemia (3) UTI (urinary tract infection) (4) Pneumonia (5) LGI bleed (6) Palpitations (7) LGI bleed (8) GI bleeding Assessment & Plan: leukocytosis anemia guaiac positive no active bleeding currently trend h/h GI eval possible scope - results noted will follow with recs thank you There is a nonobstructed bowel gas pattern. Increased stool lucencies noted in the colon. There is a G-tube in place. No definite pathologic calcifications id entified. There is no sign of free air. No acute abnormality noted of the visualized osseous structures DAILY ESTIMATED NEEDS: Needs based on Wound, critical care 44.1kg 27-32 kcals/kg 0375-5797 total kcals 1.25-2 g protein/kg 55-88 g total protein 25-30 mL/kg 8546-2759 total fluid mLs NUTRITION DIAGNOSIS: Increased kcal and pro needs r/t underweight status and wound healing as evidenced by BMI 16.7, pt is 81% of Kenvir Body Weight, generalized wasting noted, w/ wounds including full thickness and unstageable x1, refer to WC eval for full eval. CURRENT TF:Glucerna 1.2 @ 60ml/hr x 22 hrs ENTERAL NUTRITION RECOMMENDATIONS: As medically able, rec Glucerna 1.2 goal of 50ml/hr x22 hrs to provide 1100ml, 1320 kcal, 66g pro, 886ml free H2O - LOWER goal rate to 50ml/hr x 22 hrs: meets 100% est kcal/prot needs, current goal rate exceeds est needs - Flush per MD. HOB Over 30 degrees. - HOLD TF 1 hr before and after synthroid meds. ADDITIONAL RECOMMENDATIONS: 1) Per SNF: 5'4" tall, 97 lbs/44.09kg Maintain calibrated bed scale wts 2) Wound care: add HALEY BID add ZnSo4 220mg qd x10 days continue Vit C 3) Lytes daily, replete as needed To Webb Jan 31, 2020 15:23
--- NOTE | 2020-01-31 23:38 | General Progress Note ---
Subjective Allergies: Coded Allergies: No Known Allergies (Unverified , 01/20/20) Subjective above noted on TF non communicative for d/c today Objective Last 24 Hour Vital Signs Date Time Temp Pulse Resp B/P (MAP) Pulse Ox O2 Delivery O2 Flow Rate FiO2 01/31/20 12:00 100 01/31/20 12:00 98.1 102 20 104/63 (77) 100 01/31/20 12:00 40 01/31/20 12:00 Mechanical Ventilator 01/31/20 11:26 89 10 40 01/31/20 08:00 98.1 98 18 93/58 (70) 100 01/31/20 08:00 Mechanical Ventilator 01/31/20 08:00 98 01/31/20 08:00 40 01/31/20 07:15 93 12 40 01/31/20 04:00 40 01/31/20 04:00 Mechanical Ventilator 01/31/20 04:00 98.8 97 16 107/64 (78) 99 01/31/20 03:34 96 01/31/20 03:30 95 10 40 01/31/20 00:00 97.2 86 16 101/56 (71) 99 01/31/20 00:00 Mechanical Ventilator 01/31/20 00:00 40 Intake and Output 01/30/20 01/31/20 19:00 07:00 Intake Total 320 ml 980 ml Output Total 1500 ml 1150 ml Balance -1180 ml -170 ml Intake Free Water 200 ml 50 ml IV Total 330 ml Tube Feeding 120 ml 600 ml Output Urine Total 1500 ml 1150 ml # Bowel Movements 1 Laboratory Tests 01/31/20 03:30: White Blood Count 10.5, Red Blood Count 3.32L, Hemoglobin 9.3L, Hematocrit 29.3L , Mean Corpuscular Volume 88, Mean Corpuscular Hemoglobin 28.0, Mean Corpuscular Hemoglobin Concent 31.7L, Red Cell Distribution Width 15.8H, Platelet Count 406, Mean Platelet Volume 5.7L, Neutrophils (%) (Auto) 72.2, Lymphocytes (%) (Auto) 19.0L, Monocytes (%) (Auto) 6.5, Eosinophils (%) (Auto) 1.1, Basophils (%) (Au to) 1.2, Erythrocyte Sedimentation Rate 120H, Sodium Level 140, Potassium Level 4.6, Chloride Level 101, Carbon Dioxide Level 39H, Anion Gap -2L, Blood Urea Nitrogen 14, Creatinine 0.3L, Estimat Glomerular Filtration Rate > 60, Glucose Level 206H, Calcium Level 8.8, Total Bilirubin 0.3, Aspartate Amino Transf (AST/SGOT) 16, Alanine Aminotransferase (ALT/SGPT) 10L, Alkaline Phosphatase 128H, C-Reactive Protein, Quantitative 11.4H, Total Protein 6.4, Albumin 1.3L, Globulin 5.1, Albumin/Globulin Ratio 0.3L, Amylase Level 40, Lipase 113 01/31/20 04:41: POC Whole Blood Glucose 206H 01/31/20 10:55: Vancomycin Level Trough 15.2H 01/31/20 11:57: POC Whole Blood Glucose [Pending] Height (Feet): 5 Height (Inches): 2.00 Weight (Pounds): 103 Objective Thin AA woman NCAT (+) trach CTA Tachy abd soft, flat, GT no edema Assessment/Plan Assessment/Plan: Assessment - Melena / GIB - gastric bumper lesion - Anemia - malnutrition , albumin 1.2 - Resp failure, trach - s/p Suprapubic catheter - pyuria - CVA / OBS Recommendations - Continue TF - Abx - PPI - follow nutritional status - d/c planning Kelton Hernandez MD Jan 31, 2020 23:38
--- NOTE | 2020-02-01 00:23 | Cardiology Progress Note ---
Subjective DATE OF SERVICE: Jan 31, 2020 s/p EGD with cauterized bleeding site near GTube; no new bleeding Remains on vent support via trach Feedings continued by Gtube; she remains off IVF +blood cultures noted 2D Echo: no valvular vegetations, severe pulm hypertension, normal ej fxn CXR (01/29) Unchanged infiltrate and effusions BNP decresed from 1193 to 341 yesterday. Objective Last 24 Hour Vital Signs Date Time Temp Pulse Resp B/P (MAP) Pulse Ox O2 Delivery O2 Flow Rate FiO2 01/31/20 12:00 100 01/31/20 12:00 98.1 102 20 104/63 (77) 100 01/31/20 12:00 40 01/31/20 12:00 Mechanical Ventilator 01/31/20 11:26 89 10 40 01/31/20 08:00 98.1 98 18 93/58 (70) 100 01/31/20 08:00 Mechanical Ventilator 01/31/20 08:00 98 01/31/20 08:00 40 01/31/20 07:15 93 12 40 01/31/20 04:00 40 01/31/20 04:00 Mechanical Ventilator 01/31/20 04:00 98.8 97 16 107/64 (78) 99 01/31/20 03:34 96 01/31/20 03:30 95 10 40 ROS: unchanged from my evaluation of 01/20/20 HEENT: Mechanically Ventilated, Thin Trach secretions RHYTHM: NSR, ST LUNGS: bilateral rhonchi, trach site clean ABDOMEN: normal bowel sounds, non tender, soft, no organomegaly, decreased bowel sounds, other - suprapubic cath EXTREMITIES: No edema Laboratory Tests Test 01/31/20 03:30 01/31/20 04:41 01/31/20 10:55 01/31/20 11:57 White Blood Count 10.5 K/UL (4.8-10.8) Red Blood Count 3.32 M/UL (4.20-5.40) L Hemoglobin 9.3 G/DL (12.0-16.0) L Hematocrit 29.3 % (37.0-47.0) L Mean Corpuscular Volume 88 FL (80-99) Mean Corpuscular Hemoglobin 28.0 PG (27.0-31.0) Mean Corpuscular Hemoglobin Concent 31.7 G/DL (32.0-36.0) L Red Cell Distribution Width 15.8 % (11.6-14.8) H Platelet Count 406 K/UL (150-450) Mean Platelet Volume 5.7 FL (6.5-10.1) L Neutrophils (%) (Auto) 72.2 % (45.0-75.0) Lymphocytes (%) (Auto) 19.0 % (20.0-45.0) L Monocytes (%) (Auto) 6.5 % (1.0-10.0) Eosinophils (%) (Auto) 1.1 % (0.0-3.0) Basophils (%) (Auto) 1.2 % (0.0-2.0) Erythrocyte Sedimentation Rate 120 MM/HR (0-30) H Sodium Level 140 MMOL/L (136-145) Potassium Level 4.6 MMOL/L (3.5-5.1) Chloride Level 101 MMOL/L (98-107) Carbon Dioxide Level 39 MMOL/L (21-32) H Anion Gap -2 mmol/L (5-15) L Blood Urea Nitrogen 14 mg/dL (7-18) Creatinine 0.3 MG/DL (0.55-1.30) L Estimat Glomerular Filtration Rate > 60 mL/min (>60) Glucose Level 206 MG/DL (74-106) H Calcium Level 8.8 MG/DL (8.5-10.1) Total Bilirubin 0.3 MG/DL (0.2-1.0) Aspartate Amino Transf (AST/SGOT) 16 U/L (15-37) Alanine Aminotransferase (ALT/SGPT) 10 U/L (12-78) L Alkaline Phosphatase 128 U/L (46-116) H C-Reactive Protein, Quantitative 11.4 mg/dL (0.00-0.90) H Total Protein 6.4 G/DL (6.4-8.2) Albumin 1.3 G/DL (3.4-5.0) L Globulin 5.1 g/dL Albumin/Globulin Ratio 0.3 (1.0-2.7) L Amylase Level 40 U/L (25-115) Lipase 113 U/L (73-393) POC Whole Blood Glucose 206 MG/DL (74-106) H Pending Vancomycin Level Trough 15.2 ug/mL (5.0-12.0) H Microbiology Date/Time Source Procedure Growth Status 01/30/20 17:40 Indwelling Cath Urine Culture - Preliminary NO GROWTH Resulted Assessment/Plan Assessment/Plan GI bleed Severe sepsis Bacteremia with low risk for endocarditis based on 2D echo findings Sinusitis Mastoiditis Sinus tachycardia HCA Pneumonia Vent dep respiratory failure UTI Severe protein calorie malnutrition Hypovolemia/dehydration/hypernatremia corrected IRDM with hyperglycemia Severe pulmonary hypertension Ac/chr diastolic CHF improved post diuresis Monitor hemoglobin at SNF Abx per ID Vent support Feedings with protein supplement; observe for residuals DVT prophylaxis Free water per GTube Protein supplement Maintain insulin regimen by Kumar Pichardo MD Feb 01, 2020 00:23
--- NOTE | 2020-02-02 12:21 | Discharge Summary ---
Discharge Summary Discharge Summary _ DATE OF ADMISSION: 01/20/2020 DATE OF DISCHARGE: 01/31/2020 DISCHARGED BY: Dr. Edna Castro CONSULTANTS: Dr. Kumar San BRIEF HOSPITAL COURSE: The patient is a 54-year-old female who presented due to tachycardia. Patient is nonverbal at baseline. She is on chronic trach and ventilator. She has history of CVA, hypertension, diabetes mellitus, suprapubic catheter and G-tube. Upon evaluation at ED, patient was febrile with temperature of 100.2. Blood work showed WBC elevated to 24.6. Hemoglobin 8.5 and hematocrit 25.8. Platelet count 501. Electrolytes were normal. Glucose level 239. Troponin was negative. proBNP 773. CRP was elevated to 22. Urinalysis showed 3+ leukocyte esterase, 20-30 urine RBC, too numerous to count urine WBC. Rapid COVID test negative. Guaiac positive. Chest x-ray showed bilateral infiltrates. Patient was initially hypotensive. Blood pressure improved with IV bolus. He was started on broad-spectrum antibiotics and was started on Protonix drip. Patient was then admitted for evaluation of GI bleed. Patient was admitted to SDU. He was hooked on ventilator support. He was given IV hydration. Patient was off antiplatelet and anticoagulants. He was given IV vancomycin and Zosyn. Upon admission, he was noted to have an unstageable, likely stage IV sacral pressure injury that is malodorous. He had full-thickness pressure injury on the left lateral tibia. Deep tissue pressure injury on the lateral right tibia. Dry brown eschar on the medial right foot. Non-blanchable erythema on the medial left heel. Right heel was blanchable with dry peeling skin. He was given local wound care. He was placed on APM/VAZQUEZ mattress overlay with frequent repositioning and offloading. Nutrition was optimized. Hemoglobin dropped to 6.8. Hematocrit 21.7. He was given 2 units packed RBC blood transfusion. Stool OB was positive. On 01/21/2020, he underwent upper endoscopy with biopsy and hemostasis by Dr. Gallardo. The patient had a lesion under the G-tube, possibly source of bleeding. He tolerated procedure well. Tube feeding was started. He was given proton pump inhibitors. Urine culture showed growth of Enterobacter. Sputum culture showed growth of staph aureus and gram-negative pneumonia. Zosyn was discontinued. He was given cefepime. IV vancomycin was continued. Blood culture with coagulase-negative staph likely contaminated. Blood counts were stable. He was tolerating G-tube feeding. IVF was discontinued. Sputum culture showed growth of a Citrobacter. Cefepime was changed to meropenem. Echocardiogram shows normal ejection fraction. Severe pulmonary hypertension. No valvular vegetations. Gastric pathology was negative for H. pylori. No evidence of intestinal metaplasia, dysplasia or malignancy. Chest CT showed bilateral scattered groundglass infiltrates along with posterior dependent consolidation with air bronchogram. Bilateral pleural effusion. Sputum culture showed growth of Serratia. IV vancomycin was discontinued. Patient was continued on cefepime. Chest x-ray on 01/26 showed worsening of infiltrate and effusion. Patient had low-grade fever of 100.2. Patient was placed back on IV vancomycin. Repeat blood culture done and urine culture did not isolate any growth. Leukocytosis resolved. Patient defervesced. Patient was discharged back to care home to continue antibiotics. FINAL DIAGNOSES: Possible sepsis GI bleed, secondary to gastric bumper lesion Enterobacter/staph aureus UTI Acinetobater/Serratia/staph aureus pneumonia Anemia status post blood transfusion Sinusitis Mastoiditis Gastritis Sinus tachycardia Chronic vent dependent respiratory failure Chronic suprapubic catheter Severe protein calorie malnutrition Hypovolemia/dehydration/hypernatremia, corrected IRDM with hyperglycemia Severe pulmonary hypertension Acute on chronic diastolic CHF, improved post diuresis Deep tissue injury, present on admission DISPOSITION: Patient was discharged back to care home. DISCHARGE MEDICATIONS: Refer to Discharge Medication List. I have been assigned to complete a discharge summary on this account, I was not involved with the patient's management.--NAYLA Burt Jacqueline Robles NP Feb 02, 2020 12:21
== END 2020-01-31 15:00 | DRG 720 ==
LOC: EDBD 08:34 → EMR 09:10 → EDBEDREQ 09:54 → 2W 10:48 → EDBEDREQ 13:05
PROC: 5A1955Z Respiratory Ventilation, Greater than 96 Consecutive Hours (ICD-10-PCS; principal; 2020-01-20)
PROC: 0W3P8ZZ Control Bleeding in Gastrointestinal Tract, Via Natural or Artificial Opening Endoscopic (ICD-10-PCS; 2020-01-21 12:05)
PROC: 3E0G8GC Introduction of Other Therapeutic Substance into Upper GI, Via Natural or Artificial Opening Endoscopic (ICD-10-PCS; 2020-01-21 12:05)
PROC: 0DD68ZX Extraction of Stomach, Via Natural or Artificial Opening Endoscopic, Diagnostic (ICD-10-PCS; 2020-01-21 12:05)
DX: A41.9 Sepsis, unspecified organism (principal); N39.0 Urinary tract infection, site not specified; L89.154 Pressure ulcer of sacral region, stage 4; E43 Unspecified severe protein-calorie malnutrition; R65.20 Severe sepsis without septic shock; D64.9 Anemia, unspecified; K62.5 Hemorrhage of anus and rectum; Z86.73 Personal history of transient ischemic attack (TIA), and cerebral infarction without residual deficits; R53.2 Functional quadriplegia; Z74.01 Bed confinement status; R40.20 Unspecified coma; Z93.0 Tracheostomy status; K94.21 Gastrostomy hemorrhage; E11.65 Type 2 diabetes mellitus with hyperglycemia; Z99.11 Dependence on respirator [ventilator] status; J96.10 Chronic respiratory failure, unspecified whether with hypoxia or hypercapnia; I11.0 Hypertensive heart disease with heart failure; I50.33 Acute on chronic diastolic (congestive) heart failure; R00.2 Palpitations; J15.211 Pneumonia due to Methicillin susceptible Staphylococcus aureus; E86.0 Dehydration; G93.40 Encephalopathy, unspecified; F45.8 Other somatoform disorders; J32.8 Other chronic sinusitis; I27.20 Pulmonary hypertension, unspecified; E87.0 Hyperosmolality and hypernatremia; K29.70 Gastritis, unspecified, without bleeding
CPT/HCPCS: 36415; 70450; 71045; 71250; 74018; 80048; 80053; 80202; 81003; 82150; 82270; 82550; 82553; 82728; 82962; 83605; 83615; 83690; 83735; 83880; 84484; 85007; 85025; 85379; 85610; 85651; 85730; 86140; 86850; 86900; 86901; 86920; 87040; 87045; 87070; 87081; 87086; 87181; 87205; 93005; 93306; 94002; 94003; 94150; 94664; 96361; 96365; 96366; 96368; 99291; J0171; J1815; J7030; U0002

== ENCOUNTER 2020-04-21 16:54 | Emergency (ER) | payer MEDICAID ==
[~2020-04-21] VITALS: Ht 165.1 cm; Wt 65.8 kg
[~2020-04-21 16:54] MED LIST: ACETAMINOPHEN325 M1 GT; DOCUSATE SODIU100 MG GT; FAMOTIDINE20 MG GT; MULTI-DELYN237 ML GT; MULTIVITAMINS1 EAC8 ORAL; NOVOLIN R100 UNIT/1 SUBQ; NOVOLOG100 UNIT/5 SQ; PRO-STAT LIQUID30 ML GT; SYNTHROID25 MCG GT; UTI-STAT L3875 MG/31 PO; VITAMIN C500 MG/11 GT
[2020-04-21 17:09] VITALS: BP 105/71
--- NOTE | 2020-04-21 17:18 | NUR ---
ED Nurse Note: Patient was brought in by [facility] from [facility] due to leakage of suprapubic catheter. Patient is vent dependent, vent settings are: O2 40%, PEEP 5, Vt 450, RR10. Patient AAO xo, incontinent, bed bound, has sacral preassure ulcers stage4, has bilaterall legs and arms edema.
--- NOTE | 2020-04-21 17:25 | NUR ---
ED Nurse Note: Patient presented with triple lumen PICC line on her right upper arm
--- NOTE | 2020-04-21 17:39 | NUR ---
ED Nurse Note: Suprapubic catheter was replaced by Dr. Beltran from 12F to 16F.
--- NOTE | 2020-04-21 17:40 | NUR ---
ED Nurse Note: blood and urine specimens were collected sent to lab
[2020-04-21] MEDS ORDERED: cefTRIAXone 1 GM in NS 55 ML IVPB ONE (17:45)
--- NOTE | 2020-04-21 17:51 | Emergency Room Report ---
History of Present Illness General Chief Complaint: Female Urogenital Problems Source: Patient Present Illness HPI 54-year-old female with history of chronic encephalopathy, tracheostomy, suprapubic catheter placement, G-tube placement, here for leakage from suprapubic catheter site. Per the retirement report over the past day nurses have noted a large amount of urine leaking around the patient's suprapubic catheter. The catheter had been placed years prior. It is a 12 Armenian catheter. Patient unable to participate in review systems. 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 COVID-19 Screening: Negative COVID-19 COVID-19 Testing Source: [facility] (04/13/20) Nursing Documentation-PMH Hx Hypertension: Yes Hx Diabetes: Yes Hx Gastrointestinal Problems: Yes - gastritis Hx Neurological Problems: Yes Review of Systems All Other Systems: limited - Chronic altered metal status Physical Exam Vital Signs Date Time Temp Pulse Resp B/P (MAP) Pulse Ox O2 Delivery O2 Flow Rate FiO2 04/21/20 16:56 97.9 100 27 105/71 (82) 96 Mechanical Ventilator 04/21/20 17:27 40 Sp02 EP Interpretation: reviewed, normal General Appearance: no apparent distress, other - Appears chronically ill, cachectic Head: normocephalic, atraumatic Eyes: bilateral eye normal inspection, bilateral eye PERRL ENT: hearing grossly normal, normal pharynx, no angioedema, normal voice Neck: supple/symm/no masses, other - Tracheostomy in place without any surrounding erythema or induration or bleeding Respiratory: chest non-tender, lungs clear, normal breath sounds, speaking full sentences, other - Mechanical breath sounds Cardiovascular #1: regular rate, rhythm, no edema Cardiovascular #2: 2+ carotid (R), 2+ carotid (L), 2+ radial (R), 2+ radial (L), 2+ dorsalis pedis (R), 2+ dorsalis pedis (L) Gastrointestinal: normal bowel sounds, non tender, soft, non-distended, no guarding, no rebound, other - Midline G-tube in place without any surrounding erythema or induration Rectal: deferred Genitourinary: normal inspection, no CVA tenderness, other - 12 Armenian suprapubic catheter in place with notable surrounding urine drainage. No urine in collection bag or tubing Musculoskeletal: back normal, normal range of motion, calf tenderness, gait/station normal, non-tender Neurologic: other - Nonverbal, unresponsive at baseline and unable to participate in neurologic examination Psychiatric: other - Nonverbal. Unable to participate Lymphatic: no adenopathy Procedures Additional Procedure Procedure Narrative Suprapubic catheter exchange Using sterile technique with sterile gloves and a sterile field. Balloon from previous catheter was deflated and catheter was easily removed. Area was sterilized with chlorhexidine. Using sterile technique a 16 Armenian catheter was placed and inflated with 10 cc of sterile water without any complications. New catheter was attached to drainage tubing and bag which was draining urine. No surrounding drainage. Medical Decision Making Diagnostic Impression: Primary Impression: Suprapubic catheter dysfunction ER Course Laboratory Tests Test 04/21/20 17:49 04/21/20 18:06 Creatine Kinase MB 4.6 NG/ML (0.0-3.6) H White Blood Count 11.2 K/UL (4.8-10.8) H Red Blood Count 2.94 M/UL (4.20-5.40) L Hemoglobin 8.9 G/DL (12.0-16.0) L Hematocrit 27.1 % (37.0-47.0) L Mean Corpuscular Volume 92 FL (80-99) Mean Corpuscular Hemoglobin 30.3 PG (27.0-31.0) Mean Corpuscular Hemoglobin Concent 32.9 G/DL (32.0-36.0) Red Cell Distribution Width 16.7 % (11.6-14.8) H Platelet Count 233 K/UL (150-450) Mean Platelet Volume 6.5 FL (6.5-10.1) Neutrophils (%) (Auto) 80.1 % (45.0-75.0) H Lymphocytes (%) (Auto) 14.1 % (20.0-45.0) L Monocytes (%) (Auto) 3.8 % (1.0-10.0) Eosinophils (%) (Auto) 1.5 % (0.0-3.0) Basophils (%) (Auto) 0.5 % (0.0-2.0) Urine Color Pale yellow Urine Appearance Turbid Urine pH 9 (4.5-8.0) Urine Specific [place] 1.015 (1.005-1.035) Urine Protein 3+ (NEGATIVE) H Urine Glucose (UA) Negative (NEGATIVE) Urine Ketones Negative (NEGATIVE) Urine Blood 4+ (NEGATIVE) H Urine Nitrite Negative (NEGATIVE) Urine Bilirubin Negative (NEGATIVE) Urine Urobilinogen Normal MG/DL (0.0-1.0) Urine Leukocyte Esterase 3+ (NEGATIVE) H Urine RBC 20-30 /HPF (0 - 2) H Urine WBC Tntc /HPF (0 - 2) H Urine Squamous Epithelial Cells Moderate /LPF (NONE/OCC) H Urine Bacteria Many /HPF (NONE) H Sodium Level 139 MMOL/L (136-145) Potassium Level 4.1 MMOL/L (3.5-5.1) Chloride Level 97 MMOL/L (98-107) L Carbon Dioxide Level 43 MMOL/L (21-32) *H Anion Gap 1 mmol/L (5-15) L Blood Urea Nitrogen 28 mg/dL (7-18) H Creatinine 0.3 MG/DL (0.55-1.30) L Estimated Glomerular Filtration Rate > 60 mL/min (>60) Glucose Level 172 MG/DL (74-106) H Lactic Acid Level 1.10 mmol/L (0.4-2.0) Calcium Level 9.6 MG/DL (8.5-10.1) Total Bilirubin 0.4 MG/DL (0.2-1.0) Aspartate Amino Transferase (AST) 13 U/L (15-37) L Alanine Aminotransferase (ALT) 15 U/L (12-78) Alkaline Phosphatase 134 U/L (46-116) H Total Protein 7.5 G/DL (6.4-8.2) Albumin 1.8 G/DL (3.4-5.0) L Globulin 5.7 g/dL Albumin/Globulin Ratio 0.3 (1.0-2.7) L 54-year-old female with chronic encephalopathy, trach, G-tube, suprapubic catheter in place here for leakage around suprapubic catheter. Patient had a 12 Armenian suprapubic catheter in place with a notable amount of active urine drainage on the catheter from the insertion site. This catheter was replaced with a 16 Armenian catheter with complete resolution of the surrounding leakage. The replacement catheter was working normally. CBC and CMP were largely unremarkable. Patient did not exhibit any leukocytosis or renal dysfunction. She had normal vital signs and was afebrile throughout her stay in the emergency department. The drained urine appeared cloudy and urinalysis showed bacteria and white blood cells, however this appears to be more likely colonization rather than active infection. Lactic acid normal. No indication for admission at this time. I discussed the case with the patient's primary care provider Dr. Castro who agreed with the patient's return back to the custodial facility. Patient discharged in stable condition. Last Vital Signs Date Time Temp Pulse Resp B/P (MAP) Pulse Ox O2 Delivery O2 Flow Rate FiO2 04/21/20 17:27 79 22 40 04/21/20 17:09 97.9 105/71 96 Mechanical Ventilator Referrals: Chi Castro MD (PCP) Milind Beltran M.D. Apr 21, 2020 17:51
[2020-04-21 18:10] VITALS: BP 107/70
[2020-04-21 18:38] LABS: APPEARANCE,URINE TURBID; BASOPHILS % (AUTO) 0.5 % (0.0-2.0); BILIRUBIN, URINE NEGATIVE (NEGATIVE); COLOR,URINE PALE YELLOW; EOSINOPHILS % (AUTO) 1.5 % (0.0-3.0); GLUCOSE, URINE (UA) NEGATIVE (NEGATIVE); HEMATOCRIT 27.1 % (37.0-47.0); HEMOGLOBIN 8.9 G/DL (12.0-16.0); KETONES,URINE NEGATIVE (NEGATIVE); LEUKOCYTE ESTERASE ,URINE 3+ (NEGATIVE); LYMPHOCYTES % (AUTO) 14.1 % (20.0-45.0); MEAN CORPUSCULAR VOLUME 92 FL (80-99); MONOCYTES % (AUTO) 3.8 % (1.0-10.0); NEUTROPHILS % (AUTO) 80.1 % (45.0-75.0); NITRITE,URINE NEGATIVE (NEGATIVE); PH,URINE 9 (4.5-8.0); PLATELET COUNT 233 K/UL (150-450); PROTEIN,URINE 3+ (NEGATIVE); RED BLOOD COUNT 2.94 M/UL (4.20-5.40); RED CELL DISTRIBUTION WIDTH 16.7 % (11.6-14.8); UROBILINOGEN,URINE NORMAL MG/DL (0.0-1.0); WHITE BLOOD COUNT 11.2 K/UL (4.8-10.8)
[2020-04-21 18:51] LABS: ALANINE AMINOTRANSFERASE 15 U/L (12-78); ALBUMIN 1.8 G/DL (3.4-5.0); ALBUMIN/GLOBULIN RATIO 0.3 (1.0-2.7); ALKALINE PHOSPHATASE 134 U/L (46-116); ANION GAP 1 mmol/L (5-15); ASPARTATE AMINO TRANSFERASE 13 U/L (15-37); BILIRUBIN,TOTAL 0.4 MG/DL (0.2-1.0); BLOOD UREA NITROGEN 28 mg/dL (7-18); CALCIUM 9.6 MG/DL (8.5-10.1); CHLORIDE 97 MMOL/L (98-107); CREATININE 0.3 MG/DL (0.55-1.30); POTASSIUM 4.1 MMOL/L (3.5-5.1); SODIUM 139 MMOL/L (136-145)
[2020-04-21 18:54] LABS: CARBON DIOXIDE 43 MMOL/L (21-32)
[2020-04-21 19:05] VITALS: BP 103/76
--- NOTE | 2020-04-21 19:05 | NUR ---
ED Nurse Note: Report received from PETE Pinon. Patient is in bed with eyes closed. Breathing is normal and unlabored on mechanical vent. No signs of distress. Safety measures met. Vital signs stable as documented.
[2020-04-21 22:01] VITALS: BP 118/51
--- NOTE | 2020-04-21 22:01 | NUR ---
ED Nurse Note: No signs of acute distress, does not appear to be in pain. Vital signs are stable. Awaiting on ambulance transport back to facility.
[2020-04-22 00:30] VITALS: BP 116/52
--- NOTE | 2020-04-22 00:30 | NUR ---
ED Nurse Note: No change in condition. No signs of distress. Vital signs are stable.
[2020-04-22 01:30] VITALS: BP 111/56
--- NOTE | 2020-04-22 01:30 | NUR ---
ED Nurse Note: Patient is stable for transport back to facility at this time. Patient being transported via [facility] CCT RN unit [id number]. Mechanical vent settings and report given to CCT RN and nursing facility is also aware of patient being sent back. Vital signs are stable. No signs of distress at time of ED departure.
--- NOTE | 2020-04-22 16:48 | Diagnostic Imaging Report ---
Indication: Shortness of breath Technique: One view of the chest Comparison: 01/30/2020 Findings: Interim placement right arm PICC. Tracheostomy is again demonstrated. Right greater than left pleural effusions are noted, both of which appears slightly smaller than on the prior exam. There is infiltrate in the left perihilar region which was not evident previously. Opacity at the right lung base probably mostly reflects pleural fluid, but there is probably some consolidation as well. Gastrostomy is noted Impression: Bilateral infiltrates and pleural effusions Other findings as noted
== END 2020-04-22 01:30 | disposition home or self-care (01) ==
LOC: EDBD 16:54 → EMR 17:22
DX: T83.038A Leakage of other urinary catheter, initial encounter (principal); I10 Essential (primary) hypertension; E11.9 Type 2 diabetes mellitus without complications
CPT/HCPCS: 36415; 51702; 71045; 80053; 81003; 82553; 83605; 85025; 87040; 87086; 87181; 94002; 94003; 96361; 96365; J0696; J7030; Z7502; 99284

== ENCOUNTER 2020-06-11 10:55 | Inpatient (IN) | payer MEDICAID ==
[2020-06-11] VITALS (15 sets, daily range): BP systolic 70–146; BP diastolic 47–89
[~2020-06-11] VITALS: Ht 152.4 cm; Wt 45.4 kg
[~2020-06-11 10:55] MED LIST changes: +CEPHALEXIN250 MG/5 M GT; +HEPARIN SO5000 UNIT2 SUBQ; +HUMULIN R100 UNIT/1 SUBQ; +MIDODRINE HCL5 MG GT; +PROTONIX40 M2 GT
[2020-06-11] MEDS ORDERED: Sodium Chloride 2,200 ML IVLG ONE (11:45)
--- NOTE | 2020-06-11 11:58 | NUR ---
ED Nurse Note:reported pt's hypotension to the ERMD x3. further orders given.
[2020-06-11 12:07] LABS: BASOPHILS % (AUTO) 0.7 % (0.0-2.0); EOSINOPHILS % (AUTO) 0.8 % (0.0-3.0); HEMATOCRIT 32.6 % (37.0-47.0); HEMOGLOBIN 9.9 G/DL (12.0-16.0); LYMPHOCYTES % (AUTO) 17.5 % (20.0-45.0); MEAN CORPUSCULAR VOLUME 104 FL (80-99); MONOCYTES % (AUTO) 5.6 % (1.0-10.0); NEUTROPHILS % (AUTO) 75.5 % (45.0-75.0); PLATELET COUNT 310 K/UL (150-450); RED BLOOD COUNT 3.13 M/UL (4.20-5.40); RED CELL DISTRIBUTION WIDTH 15.8 % (11.6-14.8); WHITE BLOOD COUNT 7.8 K/UL (4.8-10.8)
[2020-06-11 12:18] LABS: ANION GAP 3 mmol/L (5-15); BLOOD UREA NITROGEN 17 mg/dL (7-18); CALCIUM 9.3 MG/DL (8.5-10.1); CARBON DIOXIDE 38 MMOL/L (21-32); CHLORIDE 97 MMOL/L (98-107); CREATININE 0.4 MG/DL (0.55-1.30); POTASSIUM 4.7 MMOL/L (3.5-5.1); SODIUM 138 MMOL/L (136-145)
[2020-06-11 12:23] LABS: ALANINE AMINOTRANSFERASE 315 U/L (12-78); ALBUMIN 2.4 G/DL (3.4-5.0); ALBUMIN/GLOBULIN RATIO 0.4 (1.0-2.7); ALKALINE PHOSPHATASE 155 U/L (46-116); ASPARTATE AMINO TRANSFERASE 377 U/L (15-37); BILIRUBIN,TOTAL 0.4 MG/DL (0.2-1.0); CREATINE KINASE 118 U/L (26-308)
[2020-06-11 12:43] LABS: AMMONIA 36 umol/L (11-32)
--- NOTE | 2020-06-11 12:59 | Emergency Room Report ---
History of Present Illness General Chief Complaint: Altered Mental Status Source: EMS Present Illness HPI Disclaimer: Please note that this report is being documented using DRAGON technology. This can lead to erroneous entry secondary to incorrect interpretation by the dictating instrument. HPI: 55-year-old female history of intracerebral hemorrhage, coma, CHF hypothyroidism, diabetes, encephalopathy, presents for altered mental status. Apparently at baseline she is able to track, she is ventilator dependent, they noted her to be "more altered than usual "around 10 AM this morning. Further history unobtainable. 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 COVID-19 Screening: Negative COVID-19 COVID-19 Testing Source: nasal Patient History Now: No Reviewed Nursing Documentation: PMH: Agreed; PSxH: Agreed Nursing Documentation-PMH Past Medical History Deferred: Patient Unconscious Past Medical History: No Stated History Hx Hypertension: Yes Hx Diabetes: Yes Hx Gastrointestinal Problems: Yes - gastritis Hx Neurological Problems: Yes Review of Systems All Other Systems: limited - Limited due to patient's baseline altered mental status Physical Exam Vital Signs Date Time Temp Pulse Resp B/P (MAP) Pulse Ox O2 Delivery O2 Flow Rate FiO2 06/11/20 10:50 98.2 107 14 146/89 (108) 97 Ambu-Bag 15.0 06/11/20 10:55 50 Sp02 EP Interpretation: reviewed, normal General Appearance: cachetic, Chronically Ill Head: normocephalic, atraumatic Eyes: bilateral eye PERRL, bilateral eye EOMI ENT: hearing grossly normal, moist mucus membranes Neck: full range of motion, supple, other - Tracheostomy in place Respiratory: no retraction, no wheezing, other - Rhonchorous breath sounds bilaterally Cardiovascular #1: normal peripheral pulses, regular rate, rhythm, no murmur Gastrointestinal: non tender, soft, non-distended, no guarding Neurologic: other - At baseline patient nonverbal, only tracks, does not localize, Skin: normal color, warm/dry Procedures Critical Care Time Critical Care Time critical care is managed patient presentation with sepsis, hypotension requiring my acute intervention. Critical care time is 45 minutes and excludes procedures. Central Line Central Line : Consent: Emergent Central Line Lumen: triple Maximal Sterile Barrier Tech: yes cap, yes mask, yes sterile gown, yes s terile gloves, yes large sterile sheet, yes hand hygiene, yes chlorhexidine prep Central Line Postion: femoral (R) Anesthesia: local US Guided Line?: Yes Vessel visualized with U/S: Right Femoral Vein Ultrasound Findings: Collapsible Vessel, Vessel Patent, Visualize vessel puncture Complications: none Central Line Post Position: sutured, good blood return Attempts: One Patient Tolerated: Well Complications: None Medical Decision Making Diagnostic Impression: Primary Impression: Hospital-acquired pneumonia Additional Impression: Sepsis ER Course Patient presented from alf facility due to altered mental status. Differential diagnosis included but not limited to sepsis, UTI, pneumonia, anemia, dehydration, electrolyte disturbance to name a few. Initially she was hypotensive. This gradually improved after 3 L of IV fluids. Patient's blood pressure did remain borderline so I did place a right femoral central venous catheter. Chest x-ray did demonstrate bilateral infiltrates. Patient was Covid -2 days ago. Broad-spectrum IV antibiotics given. Patient will require admission to the ICU. Admitted under her primary care doctor, Dr. shine . White blood cell count elevated. Lactate was elevated. I did order a head CT due to patient's altered mental status however due to her unstable status she could not go to CT scan while in the ER. Laboratory Tests Test 06/11/20 11:25 White Blood Count 7.8 K/UL (4.8-10.8) Red Blood Count 3.13 M/UL (4.20-5.40) L Hemoglobin 9.9 G/DL (12.0-16.0) L Hematocrit 32.6 % (37.0-47.0) L Mean Corpuscular Volume 104 FL (80-99) H Mean Corpuscular Hemoglobin 31.6 PG (27.0-31.0) H Mean Corpuscular Hemoglobin Concent 30.4 G/DL (32.0-36.0) L Red Cell Distribution Width 15.8 % (11.6-14.8) H Platelet Count 310 K/UL (150-450) Mean Platelet Volume 7.3 FL (6.5-10.1) Neutrophils (%) (Auto) 75.5 % (45.0-75.0) H Lymphocytes (%) (Auto) 17.5 % (20.0-45.0) L Monocytes (%) (Auto) 5.6 % (1.0-10.0) Eosinophils (%) (Auto) 0.8 % (0.0-3.0) Basophils (%) (Auto) 0.7 % (0.0-2.0) Prothrombin Time 11.4 SEC (9.30-11.50) Prothrombin Time INR 1.0 (0.9-1.1) Activated Partial Thromboplast Time 28 SEC (23-33) Sodium Level 138 MMOL/L (136-145) Potassium Level 4.7 MMOL/L (3.5-5.1) Chloride Level 97 MMOL/L (98-107) L Carbon Dioxide Level 38 MMOL/L (21-32) H Anion Gap 3 mmol/L (5-15) L Blood Urea Nitrogen 17 mg/dL (7-18) Creatinine 0.4 MG/DL (0.55-1.30) L Estimated Glomerular Filtration Rate > 60 mL/min (>60) Glucose Level 251 MG/DL (74-106) H Lactic Acid Level 6.00 mmol/L (0.4-2.0) H Calcium Level 9.3 MG/DL (8.5-10.1) Magnesium Level 1.9 MG/DL (1.8-2.4) Total Bilirubin 0.4 MG/DL (0.2-1.0) Aspartate Amino Transferase (AST) 377 U/L (15-37) H Alanine Aminotransferase (ALT) 315 U/L (12-78) H Alkaline Phosphatase 155 U/L (46-116) H Ammonia 36 umol/L (11-32) H Total Creatine Kinase 118 U/L (26-308) Troponin I 0.000 ng/mL (0.000-0.056) Total Protein 8.0 G/DL (6.4-8.2) Albumin 2.4 G/DL (3.4-5.0) L Globulin 5.6 g/dL Albumin/Globulin Ratio 0.4 (1.0-2.7) L Sepsis reassessment after appropriate IV fluid bolus patient blood pressure did improve. EKG Diagnostic Results Rhythm: NSR ST Segments: no acute changes Rhythm Strip Diag. Results EP Interpretation: yes Rate: 62 Rhythm: NSR, no PVC's, no ectopy Chest X-Ray Diagnostic Results Chest X-Ray Diagnostic Results : Chest X-Ray Ordered: Yes Indication: Shortness of Breath EP Interpretation: Yes Interpretation: other - Bilateral infiltrates noted, no pneumothorax Last Vital Signs Date Time Temp Pulse Resp B/P (MAP) Pulse Ox O2 Delivery O2 Flow Rate FiO2 06/11/20 11:08 107 14 Ambu-Bag 15.0 06/11/20 11:05 98.2 146/89 97 06/11/20 10:55 50 Status: improved Disposition: ADMITTED INPATIENT Condition: Critical Orlando Christian M.D. Jun 11, 2020 12:59
--- NOTE | 2020-06-11 13:04 | Diagnostic Imaging Report ---
Procedure: XRAY Chest 1v Reason for study: Reason For Exam: SOB Comparison films: 05/25/2020. FINDINGS: Tracheostomy remains in place. There is worsening bilateral infiltrates. Cardiac and mediastinal silhouette are within normal limits. Small bilateral effusions again noted. The bony thorax appear unremarkable. IMPRESSION: Worsening of bilateral infiltrates.
[2020-06-11] MEDS ORDERED: Vancomycin 1 GM in NS 275 ML IVPB ONE (13:15)
[2020-06-11] MEDS ORDERED: Piperacillin/Tazobactam 3.375 GM in NS 110 ML IVPB ONE (13:15)
--- NOTE | 2020-06-11 14:18 | NUR ---
ED Nurse Note:pct RT to come and assess pt's vent
--- NOTE | 2020-06-11 14:45 | NUR ---
ED Nurse Note:RT at the bedside assessing pt's vent
--- NOTE | 2020-06-11 15:47 | NUR ---
ED Nurse Note:ERMD placed central line into the right groin area. ERMD stated that he didn't have a biopatch in the central line kit and the lines may be used. dressing intact. cleaned the area of where line was inserted. changed bedding under pt with x2 assist. placed clean brief. pt felt cool to the touch, axillary temp 96.9 F, rectum 96.1F. placed bare warmer on pt. no change in pt's mental status, she continues to not respond to stimulus.
--- NOTE | 2020-06-11 16:01 | NUR ---
ED Nurse Note:changed pt's brief. she had x2 wounds with dressing to #2 and #1 is open. wound #1 approx a quarter size with skin sloughed off, scant drainage. would #2 pt has a deep tissue ulcer to sacrum area approx [id number]. Edges are not defined, wound bed purple in color, macerated with sloughing present. no granulation noted. malodorous drainage to wound. pt needs urgent referral for wound care.
--- NOTE | 2020-06-11 16:57 | NUR ---
ED Nurse Note:VRE and MRSA swabs completed and sent to lab
--- NOTE | 2020-06-11 18:23 | NUR ---
ED Nurse Note:pt continues to have bare hugger on for warmth. pt appears comfortable. minimal amount of urine noted in patterson bag. will continue to monitor.
--- NOTE | 2020-06-11 18:50 | NUR ---
ED Nurse Note:attempted to call report, nurses are busy
--- NOTE | 2020-06-11 19:38 | NUR ---
ED Nurse Note: Received report from PETE Saavedra. Attempted to call report to floor, ICU unable to take report at this time. Assumed care of pt.
--- NOTE | 2020-06-11 19:54 | NUR ---
ED Nurse Note: 2nd attempt to call report, was advised nurse would return my call in 30 minutes.
--- NOTE | 2020-06-11 20:57 | History & Physical ---
History and Physical History & Physicial 55 year old admitted with bilateral infiltrates elevated liver enzymes vent dependent coma PMH GI bleed, secondary to gastric bumper lesion Enterobacter/staph aureus UTI Acinetobater/Serratia/staph aureus pneumonia Anemia status post blood transfusion Sinusitis Mastoiditis Gastritis Sinus tachycardia Chronic vent dependent respiratory failure Chronic suprapubic catheter Severe protein calorie malnutrition Hypovolemia/dehydration/hypernatremia, corrected IRDM with hyperglycemia Severe pulmonary hypertension Acute on chronic diastolic CHF, improved post diuresis Deep tissue injury, present on admission MEDS/ALLERGIES: reviewed and reconciled SOCIAL HISTORY: nonsmoker nondrinker PHYSICAL WDWN chronically ill trach reduced breath sounds bilaterally without rhonchi or wheeze [id number] without MRG NABS nontender GT no CCE poor LOC Laboratory Tests 06/11/20 11:25: White Blood Count 7.8, Red Blood Count 3.13L, Hemoglobin 9.9L, Hematocrit 32.6L, Mean Corpuscular Volume 104H, Mean Corpuscular Hemoglobin 31.6H, Mean Corpuscular Hemoglobin Concent 30.4L, Red Cell Distribution Width 15.8H, Platelet Count 310, Mean Platelet Volume 7.3, Neutrophils (%) (Auto) 75.5H, Lymphocytes (%) (Auto) 17.5L, Monocytes (%) (Auto) 5.6, Eosinophils (%) (Auto) 0.8, Basophils (%) (Auto) 0.7, Prothrombin Time 11.4, Prothromb Time International Ratio 1.0, Activated Partial Thromboplast Time 28, Sodium Level 138, Potassium Level 4.7, Chloride Level 97L, Carbon Dioxide Level 38H, Anion Gap 3L, Blood Urea Nitrogen 17, Creatinine 0.4L, Estimat Glomerular Filtration Rate > 60, Glucose Level 251H, Lactic Acid Level 6.00H, Calcium Level 9.3, Magnesium Level 1.9, Total Bilirubin 0.4, Aspartate Amino Transf (AST/SGOT) 377H , Alanine Aminotransferase (ALT/SGPT) 315H, Alkaline Phosphatase 155H, Ammonia 36H, Total Creatine Kinase 118, Troponin I 0.000, Total Protein 8.0, Albumin 2.4L, Globulin 5.6, Albumin/Globulin Ratio 0.4L IMPRESSION chronic respiratory failure trach pneumonia transaminitis CHF pulmonary hypertension PLAN iv antibiotics monitor liver enzymes resume snf meds gi and id to see impression, plan, and exam edited and reviewed in detail care discussed with Chi Hodge MD Jun 11, 2020 20:57
--- NOTE | 2020-06-11 21:23 | NUR ---
TRANSFER TO FLOOR: Patient transferred to [facility]- as ordered, per Dr. Noguera Report given to PETE Mast. Pt had no belongings, documented this on belongings inventory. RT assisted with transfer.
--- NOTE | 2020-06-11 21:30 | NUR ---
NURSE NOTES: Patient being admitted from ED with sepsis. Patient came up via gurney with ED RN and transport. Patient assess and changed into hospital gown. Patient has no belongings. Patient vitals stable at this time 133/88 HR 82. patient on vent AC of 14 tidal volume 450 PEEP 5 and FIO2 50% patient 02 sats 100%. Patient has 2 wounds to the sacral. with measure and take pictures and redress. Patient resting. Does not follow commands. RN notified admitting MD will continue to monitor.
--- NOTE | 2020-06-11 23:30 | NUR ---
NURSE NOTES: Patient resting. vitals are stable. patient repositioned. blood glucose checked and resulted 88. Received admission orders. RN will continue to monitor.
[2020-06-12] VITALS (25 sets, daily range): BP systolic 94–145; BP diastolic 60–83
--- NOTE | 2020-06-12 | NUR ---
NURSE NOTES: [facility] called to verify tube feeding formula and the nurse said it's glucerna 1.2 at 65ml/hr
--- NOTE | 2020-06-12 01:30 | NUR ---
NURSE NOTES: patient resting. Patient displays no s/s of pain. patient is nonverbal and on trach/vent. Patient vitals are stable. patient repositioned. RN will continue to monitor.
[2020-06-12] MEDS: Vancomycin 750 MG in NS 275 ML IVPB SCH ×3 (02:15→20:00)
--- NOTE | 2020-06-12 03:26 | NUR ---
NURSE NOTES: patient vitals are stable. patient resting. patient IV fluids and abx infusing. Patient repositioned for comfort. RN will continue to monitor.
[2020-06-12 04:47] LABS: HEMOGLOBIN 7.9 G/DL (12.0-16.0); MEAN CORPUSCULAR VOLUME 100 FL (80-99); PLATELET COUNT 242 K/UL (150-450); RED CELL DISTRIBUTION WIDTH 15.4 % (11.6-14.8); WHITE BLOOD COUNT 10.4 K/UL (4.8-10.8)
[2020-06-12 04:57] LABS: ANION GAP 3 mmol/L (5-15); BLOOD UREA NITROGEN 13 mg/dL (7-18); CALCIUM 8.3 MG/DL (8.5-10.1); CARBON DIOXIDE 34 MMOL/L (21-32); CHLORIDE 105 MMOL/L (98-107); CREATININE 0.3 MG/DL (0.55-1.30); POTASSIUM 3.1 MMOL/L (3.5-5.1); SODIUM 142 MMOL/L (136-145)
--- NOTE | 2020-06-12 05:30 | NUR ---
NURSE NOTES: patient vitals stable. Patient resting. Patient repositioned RN will continue to monitor.
[2020-06-12] MEDS: NovoLOG Insulin Flexpen SUBQ SCH ×3 (06:00→20:00)
[2020-06-12] MEDS: Piperacillin/Tazobactam 3.375 GM in NS 110 ML IVPB SCH ×3 (06:43→22:00)
--- NOTE | 2020-06-12 06:46 | NUR ---
CASE MANAGEMENT:REVIEW 55 YR OLD FEMALE BIBA FROM [facility] [place] PMH: TRACH/VENT/GTUBE. WOUNDS CC: AMS SI:SEPSIS. PNA 99.2 107 64/58 100% ON VENT SUPPORT H/H-9.9/32.6 CO2+38 LACTIC ACID+6.0 AST/ALT+377/315 IS: 2L NS BOLUS IV VANCOMYCIN IV ZOSYN X1 CT HEAD CXR BLOOD CX : TO ICU DCP: FROM LOCATED WITHIN [facility]
--- NOTE | 2020-06-12 07:17 | NUR ---
NURSE HAND-OFF REPORT: Latest Vital Signs: Temperature 97.9 , Pulse 97 , B/P 134 /72 , Respiratory Rate 10 , O2 SAT 100 , Room Air, O2 Flow Rate 50.0 . Vital Sign Comment: EKG Rhythm: sinus rhythym Rhythm change?: N MD Notified?: - MD Response: Latest Colon Fall Score: 50 Fall Risk: High Risk Safety Measures: Call light Within Reach, Bed Alarm Zone 1, Side Rails Side Rails x3, Bed position Low and Locked. Fall Precautions: Door Sign Report given to Hiren.
--- NOTE | 2020-06-12 08:15 | Critical Care Progress Note ---
Assessment/Plan Assessment/Plan IMPRESSION chronic respiratory failure trach pneumonia transaminitis CHF pulmonary hypertension anemia PLAN iv antibiotics monitor liver enzymes resume snf meds gi and id to see impression, plan, and exam edited and reviewed in detail care discussed with wrecker driver - Subjective Interval Events: ICU care noted vent reviewed labs noted ROS Limited/Unobtainable: Yes Condition: critical EKG Rhythm: Sinus Rhythm I&O: Intake and Output 06/11/20 06/12/20 19:00 07:00 Intake Total 1075 ml Output Total 250 ml 940 ml Balance -250 ml 135 ml Intake IV Total 1075 ml Output Urine Total 250 ml 940 ml # Bowel Movements 2 Critical Care - Objective Last 24 Hour Vital Signs Date Time Temp Pulse Resp B/P (MAP) Pulse Ox O2 Delivery O2 Flow Rate FiO2 06/12/20 07:00 97 10 134/72 (92) 100 06/12/20 06:30 88 12 06/12/20 06:00 100 10 133/71 (91) 100 06/12/20 05:00 97 10 133/73 (93) 100 06/12/20 04:00 Mechanical Ventilator 06/12/20 04:00 97.9 94 10 133/69 (90) 100 06/12/20 04:00 71 06/12/20 03:15 93 10 50 06/12/20 03:00 94 10 123/66 (85) 99 06/12/20 02:38 82 06/12/20 02:00 102 10 121/68 (85) 99 06/12/20 01:00 83 2 145/83 (103) 100 06/12/20 00:00 Mechanical Ventilator 06/12/20 00:00 98.9 82 10 121/62 (81) 100 06/11/20 23:24 84 10 50 06/11/20 23:00 81 10 109/65 (80) 99 06/11/20 22:45 83 10 100 06/11/20 22:30 82 10 100 06/11/20 22:15 85 10 100 06/11/20 22:00 85 11 118/67 (84) 100 06/11/20 21:45 85 15 100 06/11/20 21:30 84 12 133/88 (103) 100 06/11/20 21:26 50 06/11/20 21:26 Mechanical Ventilator 50.0 06/11/20 21:24 99.2 79 10 112/64 99 Room Air 06/11/20 21:09 84 10 50 06/11/20 20:12 97.9 80 10 115/56 99 Mechanical Ventilator 15.0 50 06/11/20 19:39 84 10 118/65 100 Mechanical Ventilator 15.0 50 06/11/20 18:22 97.9 77 10 103/65 100 Mechanical Ventilator 15.0 50 06/11/20 16:55 97.9 68 10 118/75 100 Mechanical Ventilator 06/11/20 15:46 96.1 62 10 124/72 100 Mechanical Ventilator 06/11/20 15:07 98.2 58 10 108/68 100 Ambu-Bag 15.0 50 06/11/20 14:56 59 10 50 06/11/20 14:24 58 10 109/69 100 Ambu-Bag 15.0 06/11/20 13:34 98.2 59 12 93/64 97 Ambu-Bag 15.0 06/11/20 12:00 98.2 62 14 70/47 97 Ambu-Bag 15.0 06/11/20 11:30 14 77/47 100 06/11/20 11:08 107 14 Ambu-Bag 15.0 06/11/20 11:05 98.2 14 146/89 97 Ambu-Bag 15.0 06/11/20 11:00 58 Mechanical Ventilator 06/11/20 11:00 97.9 59 12 64/58 (60) 100 Mechanical Ventilator 06/11/20 11:00 10 73/48 100 06/11/20 10:55 80 10 50 06/11/20 10:50 98.2 107 14 146/89 (108) 97 Ambu-Bag 15.0 Labs: Laboratory Tests 06/11/20 11:25: White Blood Count 7.8, Red Blood Count 3.13L, Hemoglobin 9.9L, Hematocrit 32.6L, Mean Corpuscular Volume 104H, Mean Corpuscular Hemoglobin 31.6H, Mean Corpuscular Hemoglobin Concent 30.4L, Red Cell Distribution Width 15.8H, Platel et Count 310, Mean Platelet Volume 7.3, Neutrophils (%) (Auto) 75.5H, Lymphocytes (%) (Auto) 17.5L, Monocytes (%) (Auto) 5.6, Eosinophils (%) (Auto) 0.8, Basophils (%) (Auto) 0.7, Prothrombin Time 11.4, Prothromb Time International Ratio 1.0, Activated Partial Thromboplast Time 28, Sodium Level 138, Potassium Level 4.7, Chloride Level 97L, Carbon Dioxide Level 38H, Anion Gap 3L, Blood Urea Nitrogen 17, Creatinine 0.4L, Estimat Glomerular Filtration Rate > 60, Glucose Level 251H, Lactic Acid Level 6.00H, Calcium Level 9.3, Magnesium Level 1.9, Total Bilirubin 0.4, Aspartate Amino Transf (AST/SGOT) 377H , Alanine Aminotransferase (ALT/SGPT) 315H, Alkaline Phosphatase 155H, Ammonia 36H, Total Creatine Kinase 118, Troponin I 0.000, Total Protein 8.0, Albumin 2.4L, Globulin 5.6, Albumin/Globulin Ratio 0.4L 06/12/20 03:20: White Blood Count 10.4, Red Blood Count 2.50L, Hemoglobin 7.9L, Hematocrit 25.0L , Mean Corpuscular Volume 100H, Mean Corpuscular Hemoglobin 31.7H, Mean Corpuscular Hemoglobin Concent 31.7L, Red Cell Distribution Width 15.4H, Platelet Count 242, Mean Platelet Volume 7.3, Neutrophils (%) (Auto) , Lymphocytes (%) (Auto) , Monocytes (%) (Auto) , Eosinophils (%) (Auto) , Basophils (%) (Auto) , Sodium Level 142, Potassium Level 3.1L, Chloride Level 105, Carbon Dioxide Level 34H, Anion Gap 3L, Blood Urea Nitrogen 13, Creatinine 0.3L, Estimat Glomerular Filtration Rate > 60, Glucose Level 83#, Lactic Acid Level 0.60, Calcium Level 8.3L Objective: WDWN trach reduced breath sounds bilaterally without rhonchi or wheeze [id number] without MRG NABS nontender GT no CCE nonfocal Accucheck: 81 Chi Castro MD Jun 12, 2020 08:15
[2020-06-12] MEDS: Heparin 5000 units/ml inj SUBQ SCH ×2 (09:00→20:55)
[2020-06-12] MEDS: Docusate 100mg cap ORAL SCH ×2 (09:00→18:00)
--- NOTE | 2020-06-12 09:08 | NUR ---
RD ASSESSMENT & RECOMMENDATIONS SEE CARE ACTIVITY FOR COMPLETE ASSESSMENT DAILY ESTIMATED NEEDS: Needs based on Advanced wounds, critical care 45kg 28-35 kcals/kg 0199-5806 total kcals 1.5-2 g protein/kg 67-90 g total protein 25-30 mL/kg 8316-3444 total fluid mLs NUTRITION DIAGNOSIS: Increased kcal and pro needs r/t underweight status and wound healing as evidenced by BMI 17.2, pt is 83% of [place] Body Weight, admitted w/ advanced wounds @ sacrum and lt buttock, pending eval. CURRENT TF:Glucerna 1.2 @ 65ml/hr x 22 hrs (On Synthroid) ENTERAL NUTRITION RECOMMENDATIONS: Glucerna 1.2 goal of 55ml/hr x22 hrs to provide 1210ml, 1452kcal, 73g prot, 974ml free water - LOWER goal rate to 55ml/hr x 22 hrs: meets 100% est kcal/prot needs, current goal rate exceeds est needs - Flush per MD. HOB Over 30 degrees. - HOLD TF 1 hr before and after synthroid med. ADDITIONAL RECOMMENDATIONS: 1) Maintain calibrated bed scale wts Ht per SNF= 64" 2) Wound care: TF @ goal will provide 100% RDI Add Vit C 500mg BID + ZnSO4 220mg QD x 10 days add HALEY BID 3) Lytes daily, replete as needed (low K)
--- NOTE | 2020-06-12 10:42 | Diagnostic Imaging Report ---
Indications: Altered mental status Technique: Spiral acquisitions obtained through the brain. Angled axial and coronal 5 x 5 mm slices were reconstructed. Total dose length product 1018 mGycm. CTDI vol(s) 53 mGy. Dose reduction achieved using automated exposure control Comparison: 01/23/2020 Findings: There is right parieto-occipital scalp soft tissue swelling, largely new since the prior exam although there was some soft tissue swelling seen previously in the upper right posterolateral neck. No acute intracranial hemorrhage or edema. No mass effect or midline shift. Ventricles and extra-axial CSF spaces are prominent for age. Bojorquez-white differentiation is normal. Again demonstrated is debris within the posterior nasopharynx. There is considerable opacification of the visualized sphenoid, ethmoid, and maxillary sinuses. Visualized orbits are unremarkable. There is extensive mastoid opacification bilaterally. Impression: Negative for acute intracranial bleed or mass effect Mild involutional changes, advanced for age Left parieto-occipital soft tissue swelling, etiology/significance uncertain, could represent inflammation or posttraumatic change. Correlate with any history of soft tissue trauma and with clinical findings Sphenoid, ethmoid, and nasopharyngeal disease, also evident previously but appearing increased Bilateral mastoid effusions, evident previously The CT scanner at [facility] is accredited by the [employer] and the scans are performed using protocols designed to limit radiation exposure to as low as reasonably achievable to attain images of sufficient resolution adequate for diagnostic evaluation.
--- NOTE | 2020-06-12 11:30 | NUR ---
NURSE NOTES; PT ACCOMPANIED TO CT SCAN BY THIS RN, RT BAILEY & ENVIRONMENTAL OFFICER AMANDA. PT ON PORTABLE COTTON STOMPER, SAFETY MAINTAINED. PT IN NAD, TRANSFERRED SAFELY BACK TO UNIT.
--- NOTE | 2020-06-12 12:23 | NUR ---
NURSE NOTES: PT TRANSFERRED TO P200 BED AND IS BEING ASSESSED BY WOUND CARE
--- NOTE | 2020-06-12 14:58 | NUR ---
NURSE NOTES:WOUND CARE NOTES:Pt presented on admission with Multiple Pressure Injuries, GT and Tracheostomy. Large tracheal stoma with ill-fitting cannula. Stoma of Gastrostomy is hypergranular with small amt bleeding noted. Full Thickness Sacral Pressure Injury (L)7cm x (W)7.5cm x (D)2.3cm. Beefy granulation at base ogf wound . Edges are flat and adherent to base of wound. Small amt sanguineous exudate noted. No odor noted. No evidence of skin breakdown periwound. Resolving Pressure Injury L ischium(L)3.8cm x (W) 2.6cm x(D)0.2cm.Beefy granulation with surrounding pink epithelial borders. No odor or exudate noted. Hyperpigmentation periwound. Bilat foot drop noted. Bilat feet are edematous. DTPI noted to protruding bony prominence dorso/flexor L foot (L)1.3cm x (W)1.5cm. Base of Pressure Injury is maroon/fluctuant with surrounding red/brown borders. DTPI lateral L Foot(L)1.5cm x (W)0.6cm. Base of Pressure Injury is maroon and fluctuant. No evidence of further skin breakdown periwound. DTPI L Heel(L)4.3cm x (W)3.5cm. Base of Pressure Injury is maroon and fluctuant. Periwound is blanchable but boggy. R Heel is boggy but blanchable. Non-Blanchable erythema dorsal R foot. Intervention: Silver Nitrate x1 application applied to hypergranular stoma of Gastrostomy.TRiad Paste applied to peristomal GT and covered with Optifoam drsg. Tx.Plan: Wash GT site daily with soap and water. Pat dry. Apply Zinc Oxide Paste. Cover with Optifoam drsg Daily and prn. Cleanse Sacral and L Ischial wounds with Saline. Loosely pack with Therahoney impregnated Kerlix. Apply Moisture Barrier Paste periwound. Cover each wound with Optifoam drsgs. Change Daily and prn. Apply Cavilon Skin Barrier to L Heel,Lateral L foot and dorso/flexor L foot. Cover each site with Optifoam drsg. Change every 7 days and prn. Apply Cavilon Skin Barrier to R Heel and dorsal R Foot. Cover each site with Optifoam drsg. Change every 7 days and prn. Reposition at least every 2hours or as tolerated. Off-load heels with Pillow. APM/VAZQUEZ Mattress overlay.
--- NOTE | 2020-06-12 15:04 | NUR ---
[employer]URANCE [employer]ICALS/REVIEW FAXED [facility] x [phone] ncm: Keri vasquez Fax clinicals: [phone]
--- NOTE | 2020-06-12 15:37 | NUR ---
NEON SIGN SERVICER NOTE PT is vent dependent. SW spoke w/ pt's son, Spencer Menendez (AKA MAURY) [phone] and obtained information. Pt currently resides at [facility]. Pt has only one son. Pt's resides in [place]. Pt does not have AD/POA. Pt does not have hx of mental illness. TN expresses full code for pt.
--- NOTE | 2020-06-12 19:10 | NUR ---
NURSE NOTES: Report received from PETE Torres Patient admitted from ED with sepsis. Patient is afebrile and VSS Patient is trech to vent AC 10 TV 450 PEEP 5, and FIO2 30% Patient O2 Sats 100%. Patient has 2 wounds to the sacral and take pictures are taken. G tube noted with Glucerna 1.2 at 65mL/hr. ACHS q6h. Central line on R femoral with TLC. NS 100mL/hr is infusing. Safety measures observed and no acute distress noted. Will continue to monitor.
--- NOTE | 2020-06-12 19:30 | NUR ---
NURSE NOTES: REPORT GIVEN TO PETE FRANCES Patient admitted from ED with sepsis. Patient is afebrile and VSS Patient is trech to vent AC 10 TV 450 PEEP 5, and FIO2 30% Patient O2 Sats 100%. Patient has 2 wounds to the sacral and take pictures are taken. G tube noted with Glucerna 1.2 at 65mL/hr. ACHS q6h. Central line on R femoral with TLC. NS 100mL/hr is infusing. Safety measures observed and no acute distress noted. Will continue to monitor.
[2020-06-12] MEDS: Dyna-Hex 2% Top Sol 2oz TOPIC SCH (20:00)
--- NOTE | 2020-06-12 21:00 | NUR ---
NURSE NOTES: PM meds given Turned and repositioned. Suctioned.
[2020-06-13] VITALS (24 sets, daily range): BP systolic 99–142; BP diastolic 57–79
--- NOTE | 2020-06-13 | NUR ---
NURSE NOTES: Patient remains afebrile and VSS Patient is trech to vent AC 10 TV 450 PEEP 5, and FIO2 30% Patient O2 Sats 100%. Patient has 2 wounds to the sacral and take pictures are taken. G tube noted with Glucerna 1.2 at 65mL/hr. ACHS q6h. Central line on R femoral with TLC. NS 100mL/hr is infusing. Safety measures observed and no acute distress noted. Will continue to monitor.
[2020-06-13] MEDS: Vancomycin 750 MG in NS 275 ML IVPB SCH ×3 (02:00→17:51)
--- NOTE | 2020-06-13 03:00 | NUR ---
NURSE NOTES: AM care provided. CHG bath done. Turned and Repositioned.
[2020-06-13] MEDS: Piperacillin/Tazobactam 3.375 GM in NS 110 ML IVPB SCH ×3 (05:30→22:00)
[2020-06-13] MEDS: NovoLOG Insulin Flexpen SUBQ SCH ×4 (05:44→18:12)
--- NOTE | 2020-06-13 06:38 | Pulmonolgy Critical Care Note ---
Critical Care - Asmt/Plan Assessment/Plan: Pulmonary CCM Progress Note Assessment/Plan Assessment/Plan IMPRESSION chronic respiratory failure trach pneumonia transaminitis CHF pulmonary hypertension anemia GIB PLAN iv antibiotics monitor liver enzymes resume snf meds gi and id following impression, plan, and exam edited and reviewed in detail care discussed with coremaker machine - Subjective Interval Events: ICU care noted vent reviewed labs noted ROS Limited/Unobtainable: Yes Condition: critical EKG Rhythm: Sinus Rhythm Critical Care - Objective Vital Signs noted Objective: WDWN trach reduced breath sounds bilaterally without rhonchi or wheeze [id number] without MRG NABS nontender GT no CCE nonfocal Labs: noted Imaging:noted Critical Care - Objective Last 24 Hour Vital Signs Date Time Temp Pulse Resp B/P (MAP) Pulse Ox O2 Delivery O2 Flow Rate FiO2 06/13/20 06:00 99.5 94 12 134/70 (91) 99 06/13/20 05:24 95 11 30 06/13/20 05:00 96 10 139/71 (93) 96 06/13/20 04:00 97 10 142/71 (94) 97 06/13/20 04:00 97 06/13/20 04:00 Mechanical Ventilator 06/13/20 03:30 94 10 30 06/13/20 03:00 95 10 141/69 (93) 97 06/13/20 02:00 97 10 133/68 (89) 97 06/13/20 01:30 97 10 30 06/13/20 01:00 96 10 133/64 (87) 96 06/13/20 00:00 Mechanical Ventilator 06/13/20 00:00 99.7 91 10 130/66 (87) 100 06/12/20 23:30 83 10 30 06/12/20 23:00 91 10 116/63 (80) 100 06/12/20 22:00 90 10 123/65 (84) 100 06/12/20 21:30 85 10 30 06/12/20 21:00 30 06/12/20 21:00 79 10 118/68 (85) 99 06/12/20 20:00 99.0 83 10 113/66 (82) 92 06/12/20 20:00 Mechanical Ventilator 06/12/20 20:00 83 06/12/20 19:30 92 11 30 06/12/20 19:00 95 10 113/60 (77) 94 2/5/21 18:00 101 10 125/66 (85) 95 06/12/20 17:00 99 10 142/69 (93) 96 06/12/20 17:00 99 10 142/69 (93) 96 06/12/20 16:37 94 10 138/71 (93) 96 06/12/20 16:00 79 10 97 06/12/20 16:00 71 06/12/20 16:00 79 10 94/60 (71) 97 06/12/20 16:00 Mechanical Ventilator 06/12/20 15:10 84 10 30 06/12/20 15:00 95 16 120/67 (84) 96 06/12/20 15:00 95 16 96 06/12/20 15:00 95 16 120/67 (84) 96 06/12/20 14:00 99 18 125/69 (87) 95 06/12/20 14:00 99 18 125/69 (87) 95 06/12/20 14:00 99 18 95 06/12/20 13:45 30 06/12/20 13:45 99 17 95 06/12/20 13:38 30 06/12/20 13:32 100 20 123/70 (87) 100 2 13:32 100 20 123/70 (87) 100 06/12/20 13:32 100 20 123/70 (87) 100 221 13:32 100 20 123/70 (87) 100 06/12/20 13:30 100 19 100 06/12/20 13:30 100 19 100 06/12/20 13:15 102 19 100 06/12/20 13:15 102 19 100 06/12/20 13:00 103 11 126/70 (88) 100 06/12/20 13:00 103 11 100 06/12/20 13:00 103 11 100 06/12/20 13:00 103 11 100 06/12/20 13:00 103 11 100 06/12/20 12:45 108 18 100 2 12:45 108 18 100 06/12/20 12:30 90 15 94 06/12/20 12:30 90 15 94 06/12/20 12:15 105 10 100 06/12/20 12:15 105 10 100 06/12/20 12:00 107 10 100 06/12/20 12:00 107 10 100 06/12/20 12:00 71 06/12/20 12:00 107 10 100 06/12/20 12:00 Mechanical Ventilator 06/12/20 12:00 95 10 139/77 (97) 100 06/12/20 12:00 107 10 100 06/12/20 12:00 50 06/12/20 11:45 106 10 100 06/12/20 11:30 101 12 98 06/12/20 11:15 97 10 100 06/12/20 11:05 86 10 40 06/12/20 11:00 90 10 100 06/12/20 11:00 90 10 100 06/12/20 11:00 90 10 100 06/12/20 11:00 90 10 100 06/12/20 10:45 88 10 100 06/12/20 10:30 86 10 99 06/12/20 10:00 88 10 135/79 (97) 100 06/12/20 10:00 88 10 135/79 (97) 100 06/12/20 10:00 88 10 135/79 (97) 100 06/12/20 10:00 88 10 135/79 (97) 100 06/12/20 09:45 88 10 100 06/12/20 09:30 88 10 100 06/12/20 09:15 88 10 100 06/12/20 09:00 89 10 135/77 (96) 100 06/12/20 09:00 89 10 135/77 (96) 100 06/12/20 09:00 89 10 135/77 (96) 100 06/12/20 09:00 89 10 100 06/12/20 08:45 90 10 100 06/12/20 08:30 93 10 100 06/12/20 08:20 40 06/12/20 08:15 93 10 100 06/12/20 08:00 97.9 94 10 133/69 (90) 100 06/12/20 08:00 95 10 139/77 (97) 100 06/12/20 08:00 95 10 139/77 (97) 100 06/12/20 08:00 71 06/12/20 08:00 50 06/12/20 08:00 Mechanical Ventilator 06/12/20 08:00 95 10 139/77 (97) 100 2/5/21 07:45 96 10 100 06/12/20 07:30 96 10 100 06/12/20 07:20 93 10 50 06/12/20 07:15 98 10 100 06/12/20 07:00 97 10 134/72 (92) 100 06/12/20 07:00 97 10 134/72 (92) 100 06/12/20 07:00 97 10 134/72 (92) 100 06/12/20 07:00 97 10 134/72 (92) 100 06/12/20 06:45 99 10 100 Accucheck: 198 Critical Care - Subjective ROS Limited/Unobtainable: Yes Condition: stable FI02: 30 Vent Support Breath Rate: 10 Vent Support Mode: AC Vent Tidal Volume: 450 Sputum Amount: Small PEEP: 5.0 PIP: 23 Tube Feeding Amount: 50 I&O: Intake and Output 0 06/12/20 06/13/20 19:00 07:00 Intake Total 620 ml 1450 ml Output Total 915 ml 550 ml Balance -295 ml 900 ml Intake IV Total 100 ml 900 ml Tube Feeding 520 ml 550 ml Output Urine Total 915 ml 550 ml # Bowel Movements 5 3 Kumar Dixon MD Jun 13, 2020 06:38
--- NOTE | 2020-06-13 07:47 | NUR ---
HAND OFF to PETE López. Endorsed POC.
--- NOTE | 2020-06-13 07:48 | NUR ---
NURSE NOTES: Received bedside report from PETE Mccall. Pt's VSS, no signs of distress noted. Pt withdraws to pain, does not open eyes spontaneously, does not follow commands. Pt NSR on the tectonophysicist, HR between 80-90. Pt trache to vent with the following settings: A/C 10, T/V 450, Peep 5, 30% FiO2, O2 sat between 95-100%, respirations even and unlabored. Pt has G-tube, no signs of infection or complication noted from site, Glucerna 1.2 running at 65 mL/hr. Pt has patterson catheter, draining well, dark yellow urine noted. Skin alterations noted in chart and protected with optifoam. Pt has Right Femoral TLC, no signs of infection or complication noted from site. Head of bed at 30 degrees. Bed rails up, bed locked and in lowest position. Safety precautions maintained. Will continue to monitor.
--- NOTE | 2020-06-13 09:15 | NUR ---
NURSE NOTES: No residual noted from G-tube. Scheduled midodrine not given due to pt's BP is 123/66, other scheduled medications given per MD order, pt tolerated well. Pt's temp is 99.5, cooling measures given, ice packs provided, will recheck temp.
[2020-06-13 09:52] LABS: HEMATOCRIT 24.7 % (37.0-47.0); HEMOGLOBIN 7.7 G/DL (12.0-16.0); MEAN CORPUSCULAR VOLUME 102 FL (80-99); PLATELET COUNT 213 K/UL (150-450); RED BLOOD COUNT 2.41 M/UL (4.20-5.40); RED CELL DISTRIBUTION WIDTH 15.1 % (11.6-14.8); WHITE BLOOD COUNT 10.8 K/UL (4.8-10.8)
[2020-06-13] MEDS: Docusate 100mg cap ORAL SCH ×2 (09:56→17:52)
[2020-06-13] MEDS: Heparin 5000 units/ml inj SUBQ SCH ×2 (09:57→21:00)
[2020-06-13 10:02] LABS: ANION GAP 4 mmol/L (5-15); BLOOD UREA NITROGEN 11 mg/dL (7-18); CALCIUM 8.2 MG/DL (8.5-10.1); CARBON DIOXIDE 32 MMOL/L (21-32); CHLORIDE 110 MMOL/L (98-107); CREATININE 0.4 MG/DL (0.55-1.30); POTASSIUM 3.6 MMOL/L (3.5-5.1); SODIUM 146 MMOL/L (136-145)
--- NOTE | 2020-06-13 10:50 | NUR ---
NURSE NOTES: MD Dixon at bedside to assess pt. Per MD Dixon, keep patient in ICU for one more day due to pt is still receiving midodrine. VSS at this time. Will continue to monitor.
--- NOTE | 2020-06-13 11:20 | NUR ---
NURSE NOTES: Pt's VSS, no signs of distress noted. Pt's temp re-checked, 99.4, cooling measures continued. Safety precautions maintained. Will continue to monitor.
--- NOTE | 2020-06-13 13:00 | NUR ---
NURSE NOTES: Scheduled medications given per MD order, pt tolerated well. Pt's VS remain stable, no signs of distress noted. Will continue to monitor.
--- NOTE | 2020-06-13 15:06 | NUR ---
NURSE NOTES: Pt's respiration even and unlabored, VSS, no signs of distress noted. Safety precautions maintained. Will continue to monitor.
--- NOTE | 2020-06-13 15:37 | Consultation ---
History of Present Illness General Date patient seen: Jun 13, 2020 Reason for Hospitalization: Altered Mental Status Present Illness HPI 55-year-old female history of intracerebral hemorrhage, coma, CHF hypothyroidism, diabetes, encephalopathy, presents for altered mental status. Apparently at baseline she is able to track, she is ventilator dependent, they noted her to be more altered than usual. Admitted for care and management. surgery called to evaluate and assist with care given prior issues. Further history unobtainable Allergies: Coded Allergies: No Known Allergies (Unverified , 01/20/20) COVID-19 Screening Contact w/high risk pt: Yes Experienced COVID-19 symptoms?: No Medication History Scheduled Amino Acids/Protein Hydrolys (Pro-Stat Liquid), 30 ML GT DAILY, (Reported) Cephalexin* (Keflex*), 5 ML GT FOUR TIMES A DAY Cran/Vitc/Mannose/Inulin/Brom (Uti-Stat Liquid), 30 ML PO BID, (Reported) Docusate Sodium* (Docusate Sodium*), 100 MG GT TWICE A DAY, (Reported) Famotidine* (Pepcid 20mg tablet*), 20 MG GT DAILY, (Reported) Heparin Sod (Porcine) (Heparin Sodium*), 5,000 UNITS SUBQ EVERY 12 HOURS, (Reported) Levothyroxine Sodium* (Synthroid*), 50 MCG GT DAILY, (Reported) Midodrine* (Proamatine*), 5 MG GT BID, (Reported) Multivitamin Liquid* (Multi-Delyn*), 15 ML GT DAILY, (Reported) Pantoprazole Sodium (Protonix), 40 MG GT DAILY, (Reported) Vit C/Ascorbate Ca/Ascorb Sod (Vitamin C 500 Mg/15 Ml Liquid), 500 MG GT DAILY, (Reported) Scheduled PRN Acetaminophen* (Acetaminophen 325MG Tablet*), 650 MG GT Q6H PRN for For Pain, (Reported) Insulin Aspart (Novolog), SQ for HYPERGLYCEMIA, (Reported) Miscellaneous Medications Insulin Regular, Human (Humulin R), 0 SUBQ, (Reported) Patient History Limited by: medical condition History Provided By: Medical Record, PMD Healthcare decision maker Resuscitation status Advanced Directive on File Past Medical/Surgical History Past Medical/Surgical History: (1) Anemia (2) Pneumonia (3) LGI bleed (4) Palpitations (5) GI bleeding (6) LGI bleed (7) Stage 4 skin ulcer of sacral region (8) UTI (urinary tract infection) (9) Suprapubic catheter dysfunction (10) Sepsis (11) Hospital-acquired pneumonia (12) AMS (altered mental status) Review of Systems Review of Symptoms -V-h-l-e-r-a-l- -R-O-S-:- -n-o- -j-z-x-g-h-t- -l-o-s-s- -o-r- -f-e-v-e-r- -B-h-n-h-c-f-p-k-f-i-c-a-l- -R-O-S-:- -n-o- -d--b-h-m-t-m-y-i-o-n- -o-r- -m-o-o-d- -z-i-y-n-g-e-s-,- -n-o- -b-h-p-o-r-y- -l-o-s-s- -M-m-n-o-g-r-l-m-i-c- -R-O-S-:- -n-o- -v-z-n-u-a-l- -o-d-d-n-g-e-s- -o-r- -e-y-e- -i-l-u-l-h-c-t-i-o-n- -E-N-T- -R-O-S-:- -n-o- -n-a-s-a-l- -s-j-n-e-i-a-t-i-o-n-,- -s-j-e-r-i-n-g- -l-o-s-s-,- -z-q-f-c-r-h-e-s-s- -E-f-n-e-r-g-y- -a-n-d- -I-w-i-s-f-h-l-o-g-y- -R-O-S-:- -n-o- -k-j-m-e-r-g-i-c- -n-z-b-p-t-o-m-s- -o-r- -g-a-m-k-i-p-r-i-a- -J-r-h-e-s-w-s-u-b-i-c-a-l- -a-n-d- -V-d-s-h-q-s-t-i-c- -R-O-S-:- -n-o- -m-c-a-l-l-e-n- -f-u-s-n-d-s-,- -m-j-h-s-u-a-l- -q-q-x-e-d-i--n-g- -o-r- -y-l-k-i-s-i-n-g- -R-i-p-r-u-b-i-n-e- -R-O-S-:- -n-o- -a-v-v-y-u-r-i-a-,- -q-c-a-x-u-a-p-s-i-a-,- -i-y-t-g-h-t- -x-d-j-n-g-e-s-,- -e-o-g-a-o-s-a-t-u-r-e- -i-z-l-x-u-r-r-a-n-c-e- -P-n-u-f-r-b-a-t-o-r-y- -R-O-S-:- -n-o- -c-o-u-g-h-,- -d-a-e-u-z-f-e-s-s- -o-f- -x-a-v-a-t-h-,- -o-r- -l-t-w-e-z-i-n-g- -X-m-p-a-h-o-j-q-r-c-u-l-a-r- -R-O-S-:- -n-o- -c-h-e-s-t- -p-a-i-n- -o-r- -i-y-w-p-n-e-a- -o-n- -z-o-l-r-t-i-o-n- -S-f-p-w-m-v-d-p-s-t-d-m-i-n-a-l- -R-O-S-:- -h-c-v-i-e-s- -p-z-z-s-k-p-n-a-l- -p-a-i-n-,- -b-i-x-g-h-t- -r-e-d- -b-l-o-o-d- -i-n- -s-t-o-o-l-.- -P-l-o-b-c-g-w-i-r-b-j-s-t-a-l- -R-O-S-:- -n-o- -x-a-x-l-g-i-a-s- -o-r- -h-p-i-p-p-j-l-g-i-a-s- -X-s-m-p-l-f-i-r-o-c-a-l- -R-O-S-:- -n-o- -T-I-A- -o-r- -p-w-z-o-k-e- -e-b-b-p-t-o-m-s- -F-i-r-i-d-o-s-w-w-g-i-c-a-l- -R-O-S-:- -n-o- -n-e-w- -o-r- -q-n-i-n-g-i-n-g- -s-k-i-n- -q-b-t-i-o-n-s-,- -f-a-w-h-e-s- -o-r- -i-k-b-r-i-t-i-s- -q-e-g--b-l-e- -t-o- -k-p-p-a-i-n- -g-i-v-e-n- -k-w-a-i-c-a-l- -i-h-s-w-x-e-i-o-n- Physical Exam Physical Exam General Appearance: cachetic, Chronically Ill Head: normocephalic, atraumatic Eyes: bilateral eye PERRL, bilateral eye EOMI ENT: hearing grossly normal, moist mucus membranes Neck: full range of motion, supple, other - Tracheostomy in place Respiratory: no retraction, no wheezing, other - Rhonchorous breath sounds bilaterally Cardiovascular #1: normal peripheral pulses, regular rate, rhythm, no murmur Gastrointestinal: non tender, soft, non-distended, no guarding Neurologic: other - At baseline patient nonverbal, only tracks, does not localize, Skin: normal color, warm/dry Last 24 Hour Vital Signs Date Time Temp Pulse Resp B/P (MAP) Pulse Ox O2 Delivery O2 Flow Rate FiO2 06/13/20 13:14 83 12 30 06/13/20 13:00 78 12 111/61 (78) 100 06/13/20 12:00 Mechanical Ventilator 06/13/20 12:00 30 06/13/20 12:00 99.4 75 12 99/57 (71) 99 06/13/20 11:26 81 06/13/20 11:15 82 10 30 06/13/20 11:00 83 12 108/60 (76) 99 06/13/20 10:00 94 12 135/67 (89) 100 06/13/20 09:30 95 14 30 06/13/20 09:00 93 13 123/66 (85) 100 06/13/20 08:00 30 06/13/20 08:00 99.5 94 12 133/65 (87) 100 06/13/20 08:00 Mechanical Ventilator 06/13/20 07:40 95 06/13/20 07:10 94 12 30 06/13/20 07:00 95 12 133/76 (95) 100 06/13/20 06:30 94 12 06/13/20 06:00 99.5 94 12 134/70 (91) 99 06/13/20 05:24 95 11 30 06/13/20 05:00 96 10 139/71 (93) 96 06/13/20 04:00 97 10 142/71 (94) 97 06/13/20 04:00 97 06/13/20 04:00 Mechanical Ventilator 06/13/20 03:30 94 10 30 06/13/20 03:00 95 10 141/69 (93) 97 06/13/20 02:00 97 10 133/68 (89) 97 06/13/20 01:30 97 10 30 06/13/20 01:00 96 10 133/64 (87) 96 06/13/20 00:00 Mechanical Ventilator 06/13/20 00:00 99.7 91 10 130/66 (87) 100 06/12/20 23:30 83 10 30 06/12/20 23:00 91 10 116/63 (80) 100 06/12/20 22:00 90 10 123/65 (84) 100 06/12/20 21:30 85 10 30 06/12/20 21:00 30 06/12/20 21:00 79 10 118/68 (85) 99 06/12/20 20:00 99.0 83 10 113/66 (82) 92 06/12/20 20:00 Mechanical Ventilator 06/12/20 20:00 83 06/12/20 19:30 92 11 30 06/12/20 19:00 95 10 113/60 (77) 94 06/12/20 18:00 101 10 125/66 (85) 95 06/12/20 17:00 99 10 142/69 (93) 96 06/12/20 17:00 99 10 142/69 (93) 96 06/12/20 16:37 94 10 138/71 (93) 96 06/12/20 16:00 79 10 97 06/12/20 16:00 71 06/12/20 16:00 79 10 94/60 (71) 97 06/12/20 16:00 Mechanical Ventilator Intake and Output 06/12/20 06/13/20 19:00 07:00 Intake Total 620 ml 1500 ml Output Total 915 ml 600 ml Balance -295 ml 900 ml IV Total 100 ml 900 ml Tube Feeding 520 ml 600 ml Output Urine Total 915 ml 600 ml # Bowel Movements 5 3 Laboratory Tests Test 06/13/20 00:55 06/13/20 09:30 Vancomycin Level Trough 20.1 ug/mL (5.0-12.0) H White Blood Count 10.8 K/UL (4.8-10.8) Red Blood Count 2.41 M/UL (4.20-5.40) L Hemoglobin 7.7 G/DL (12.0-16.0) L Hematocrit 24.7 % (37.0-47.0) L Mean Corpuscular Volume 102 FL (80-99) H Mean Corpuscular Hemoglobin 31.8 PG (27.0-31.0) H Mean Corpuscular Hemoglobin Concent 31.0 G/DL (32.0-36.0) L Red Cell Distribution Width 15.1 % (11.6-14.8) H Platelet Count 213 K/UL (150-450) Mean Platelet Volume 7.4 FL (6.5-10.1) Neutrophils (%) (Auto) % (45.0-75.0) Lymphocytes (%) (Auto) % (20.0-45.0) Monocytes (%) (Auto) % (1.0-10.0) Eosinophils (%) (Auto) % (0.0-3.0) Basophils (%) (Auto) % (0.0-2.0) Sodium Level 146 MMOL/L (136-145) H Potassium Level 3.6 MMOL/L (3.5-5.1) Chloride Level 110 MMOL/L (98-107) H Carbon Dioxide Level 32 MMOL/L (21-32) Anion Gap 4 mmol/L (5-15) L Blood Urea Nitrogen 11 mg/dL (7-18) Creatinine 0.4 MG/DL (0.55-1.30) L Estimat Glomerular Filtration Rate > 60 mL/min (>60) Glucose Level 128 MG/DL (74-106) H Calcium Level 8.2 MG/DL (8.5-10.1) L Height (Feet): 5 Weight (Pounds): 100 Medications Current Medications Medications (Trade) Dose Ordered Sig/Elisa Route PRN Reason Start Time Stop Time Status Last Admin Dose Admin Acetaminophen (Tylenol) 650 mg Q6H PRN ORAL For Pain 06/12/20 00:45 07/12/20 00:44 06/13/20 11:06 Chlorhexidine Gluconate ([place]-Hex 2%) 1 applic DAILY@2000 TOPIC 06/12/20 20:00 09/10/20 19:59 06/12/20 20:00 Dextrose (Dextrose 50%) 25 ml Q30M PRN IV Hypoglycemia 06/12/20 00:45 09/10/20 00:44 Dextrose (Dextrose 50%) 50 ml Q30M PRN IV Hypoglycemia 06/12/20 00:45 09/10/20 00:44 Docusate Sodium (Colace) 100 mg TWICE A DAY ORAL 06/12/20 09:00 07/12/20 08:59 06/13/20 09:56 Famotidine (Pepcid) 20 mg DAILY GT 06/12/20 09:00 09/10/20 08:59 06/13/20 09:55 Heparin Sodium (Porcine) (Heparin 5000 units/ml) 5,000 units EVERY 12 HOURS SUBQ 06/12/20 09:00 07/27/20 08:59 06/13/20 09:57 Insulin Aspart (NovoLOG) EVERY 6 HOURS SUBQ 06/12/20 06:00 09/10/20 05:59 06/13/20 05:44 Levothyroxine Sodium (Synthroid) 50 mcg DAILY@0630 GT 06/12/20 06:30 07/12/20 06:29 06/13/20 05:44 Midodrine (Pro-Amatine) 5 mg BID GT 06/12/20 09:00 09/10/20 08:59 06/12/20 18:00 Piperacillin Sod/ Tazobactam Sod 3.375 gm/Sodium Chloride 110 ml @ 27.5 mls/hr EVERY 8 HOURS IVPB 06/12/20 06:00 06/17/20 05:59 06/13/20 14:45 Sodium Chloride 1,000 ml @ 100 mls/hr Q10H IV 06/12/20 00:15 07/12/20 00:14 06/13/20 06:00 Vancomycin HCl (Vanco pharmacy to dose) 1 ea DAILY PRN MISC Per rx protocol 06/12/20 00:30 07/12/20 00:29 Vancomycin HCl 750 mg/Sodium Chloride 275 ml @ 184 mls/hr Q8H IVPB 06/12/20 02:00 06/17/20 01:59 06/13/20 09:56 Assessment/Plan Problem List: (1) Sepsis Assessment & Plan: 55-year-old female with medical comorbidities very ill presented with significant lactic acidosis in intensive care unit on treatment. Wound evaluated unlikely source of lactic acidosis and patient is well-appearing status. Micro noted labs noted. Continue antibiotics. Local wound care was provided. Nutritional optimization. DAILY ESTIMATED NEEDS: Needs based on Advanced wounds, critical care 45kg 28-35 kcals/kg 6006-0737 total kcals 1.5-2 g protein/kg 67-90 g total protein 25-30 mL/kg 9832-3115 total fluid mLs NUTRITION DIAGNOSIS: Increased kcal and pro needs r/t underweight status and wound healing as evidenced by BMI 17.2, pt is 83% of [place] Body Weight, admitted w/ advanced wounds @ sacrum and lt buttock, pending eval. CURRENT TF:Glucerna 1.2 @ 65ml/hr x 22 hrs (On Synthroid) ENTERAL NUTRITION RECOMMENDATIONS: Glucerna 1.2 goal of 55ml/hr x22 hrs to provide 1210ml, 1452kcal, 73g prot, 974ml free water - LOWER goal rate to 55ml/hr x 22 hrs: meets 100% est kcal/prot needs, current goal rate exceeds est needs - Flush per MD. HOB Over 30 degrees. - HOLD TF 1 hr before and after synthroid med. ADDITIONAL RECOMMENDATIONS: 1) Maintain calibrated bed scale wts Ht per SNF= 64" 2) Wound care: TF @ goal will provide 100% RDI Add Vit C 500mg BID + ZnSO4 220mg QD x 10 days add HALEY BID 3) Lytes daily, replete as needed (low K) ICD Codes: A41.9 - Sepsis, unspecified organism SNOMED: 15393164 (2) Palpitations ICD Codes: R00.2 - Palpitations SNOMED: 42450724 (3) Anemia ICD Codes: D64.9 - Anemia, unspecified SNOMED: 713639532 (4) GI bleeding ICD Codes: K92.2 - Gastrointestinal hemorrhage, unspecified SNOMED: 04710708 (5) UTI (urinary tract infection) ICD Codes: N39.0 - Urinary tract infection, site not specified SNOMED: 11716594 (6) Pneumonia ICD Codes: J18.9 - Pneumonia, unspecified organism SNOMED: 251319708 (7) LGI bleed ICD Codes: K92.2 - Gastrointestinal hemorrhage, unspecified SNOMED: 87529107 (8) LGI bleed ICD Codes: K92.2 - Gastrointestinal hemorrhage, unspecified SNOMED: 40531445 (9) Hospital-acquired pneumonia ICD Codes: J18.9 - Pneumonia, unspecified organism; Y95 - Nosocomial condition SNOMED: 785890715 (10) Suprapubic catheter dysfunction ICD Codes: T83.010A - Breakdown (mechanical) of cystostomy catheter, initial encounter SNOMED: 316124381 (11) Stage 4 skin ulcer of sacral region Assessment & Plan: Pt presented on admission with Multiple Pressure Injuries, GT and Tracheostomy. Large tracheal stoma with ill-fitting cannula. Stoma of Gastrostomy is hypergranular with small amt bleeding noted. Full Thickness stage 4 Sacral Pressure Injury (L)7cm x (W)7.5cm x (D)2.3cm. Beefy granulation at base ogf wound . Edges are flat and adherent to base of wound. Small amt sanguineous exudate noted. No odor noted. No evidence of skin breakdown periwound. Resolving Pressure Injury L ischium(L)3.8cm x (W) 2.6cm x(D)0.2cm.Beefy granulation with surrounding pink epithelial borders. No odor or exudate noted. Hyperpigmentation periwound. Bilat foot drop noted. Bilat feet are edematous. DTPI noted to protruding bony prominence dorso/flexor L foot (L)1.3cm x (W)1.5cm. Base of Pressure Injury is maroon/fluctuant with surrounding red/brown borders. DTPI lateral L Foot(L)1.5cm x (W)0.6cm. Base of Pressure Injury is maroon and fluctuant. No evidence of further skin breakdown periwound. DTPI L Heel(L)4.3cm x (W)3.5cm. Base of Pressure Injury is maroon and fluctuant. Periwound is blanchable but boggy. R Heel is boggy but blanchable. Non-Blanchable erythema dorsal R foot. Intervention: Silver Nitrate x1 application applied to hypergranular stoma of Gastrostomy.TRiad Paste applied to peristomal GT and covered with Optifoam drsg. Tx.Plan: Wash GT site daily with soap and water. Pat dry. Apply Zinc Oxide Paste. Cover with Optifoam drsg Daily and prn. Cleanse Sacral and L Ischial wounds with Saline. Loosely pack with Therahoney impregnated Kerlix. Apply Moisture Barrier Paste periwound. Cover each wound with Optifoam drsgs. Change Daily and prn. Apply Cavilon Skin Barrier to L Heel,Lateral L foot and dorso/flexor L foot. Cover each site with Optifoam drsg. Change every 7 days and prn. Apply Cavilon Skin Barrier to R Heel and dorsal R Foot. Cover each site with Optifoam drsg. Change every 7 days and prn. Reposition at least every 2hours or as tolerated. Off-load heels with Pillow. APM/VAZQUEZ Mattress overlay. ICD Codes: L98.429 - Non-pressure chronic ulcer of back with unspecified severity SNOMED: 44482782, 622089900 (12) AMS (altered mental status) ICD Codes: R41.82 - Altered mental status, unspecified SNOMED: 239229865 To Webb Jun 13, 2020 15:37
--- NOTE | 2020-06-13 17:30 | NUR ---
NURSE NOTES: Pt's VSS, no signs of distress noted. Oral care provided, gown and linens changed. Safety precautions maintained. Will continue to monitor.
--- NOTE | 2020-06-13 17:43 | NUR ---
CASE MANAGEMENT: REVIEW 06/13/2020 SI:SEPSIS. PNA VS: T 99.4 HR 75 RR 12 B//P 99/57 SATS 99% ON MECH VENT FIO2 30 LABS: HGB 7.7 HCT 24.7 NA 146 CL 110 CR 0.4 GLU 128 CA 8.2 IS: NS @ 100 mL/HR INSULIN ASPART SUBQ AC/HS ZOSYN IV Q8H MIDODRINE GT BID VANCO IV Q8H : TO ICU DCP: FROM [facility]
[2020-06-13] MEDS: Ascorbic Acid 500mg tab GT SCH (17:52)
--- NOTE | 2020-06-13 18:30 | NUR ---
NURSE NOTES: Pt's temp re-checked again, 100.5 F, ice packs given. Other VS remain stable. Safety precautions maintained. Will endorse to shift supervisor film processing RN.
--- NOTE | 2020-06-13 19:05 | NUR ---
NURSE HAND-OFF REPORT: Latest Vital Signs: Temperature 100.1 , Pulse 81 , B/P 133 /63 , Respiratory Rate 13 , O2 SAT 100 , Trache to Vent, 30% FiO2. . Vital Sign Comment: EKG Rhythm: Sinus Rhythm Rhythm change?: N MD Notified?: - MD Response: Latest Colon Fall Score: 50 Fall Risk: High Risk Safety Measures: Call light Within Reach, Bed Alarm Zone 1, Side Rails Side Rails x3, Bed position Low and Locked. Fall Precautions: Door Sign Report given to PETE Mccall for continuity of care. Pt stable. Endorsed wound pictures..
[2020-06-13] MEDS: Dyna-Hex 2% Top Sol 2oz TOPIC SCH (20:00)
--- NOTE | 2020-06-13 20:00 | NUR ---
NURSE NOTES: Bath given and picture taken. Large amout of stool noted. Retal tube inserted. Pt is hot to touch.
--- NOTE | 2020-06-13 20:10 | NUR ---
NURSE NOTES: Central dressing changed and added biopatch
--- NOTE | 2020-06-13 21:00 | NUR ---
NURSE NOTES: Pt temp still 100.5. Cooling blanket ordered.
--- NOTE | 2020-06-13 21:45 | NUR ---
NURSE NOTES: Cooling blanket set and rectal probe inserted. Temp 101.5 with rectal.
--- NOTE | 2020-06-13 21:55 | NUR ---
NURSE NOTES: Report received from PETE Stark Patient admitted from ED with sepsis. Patient has a fever. Cooling measure started. Patient is trech to vent AC 10 TV 450 PEEP 5, and FIO2 30% Patient O2 Sats 100%. Patient has 2 wounds to the sacral. Will take pictures today. G tube noted with Glucerna 1.2 at 65mL/hr. ACHS q6h. Central line on R femoral with TLC. NS 100mL/hr is infusing. Safety measures observed and no acute distress noted. Will continue to monitor.
[2020-06-14] VITALS (21 sets, daily range): BP systolic 121–151; BP diastolic 64–82
--- NOTE | 2020-06-14 | NUR ---
NURSE NOTES: Pt remains obtunded. Patient temp is 98.5 Cooling blanket ON. Patient is trech to vent AC 10 TV 450 PEEP 5, and FIO2 30% Patient O2 Sats 100%. Patient has 2 wounds to the sacral. Will take pictures today. G tube noted with Glucerna 1.2 at 65mL/hr. ACHS q6h. Central line on R femoral with TLC. NS 100mL/hr is infusing. Safety measures observed and no acute distress noted. Will continue to monitor.
--- NOTE | 2020-06-14 02:00 | NUR ---
NURSE NOTES: AM care given. Turned and repositioned Oral care provided
[2020-06-14] MEDS: Vancomycin 750 MG in NS 275 ML IVPB SCH ×2 (02:30→09:26)
--- NOTE | 2020-06-14 05:00 | NUR ---
NURSE NOTES: Temp is 98 Rectal
[2020-06-14] MEDS: Piperacillin/Tazobactam 3.375 GM in NS 110 ML IVPB SCH ×3 (06:00→21:18)
[2020-06-14] MEDS: NovoLOG Insulin Flexpen SUBQ SCH ×4 (06:00→17:59)
--- NOTE | 2020-06-14 07:20 | NUR ---
HAND OFF to PETE López. Endorsed POC.
--- NOTE | 2020-06-14 07:20 | NUR ---
RESPIRATORY NOTE: PT received on AC/VC: 10, 450 30%, +5. Alarms are on and audible. Vent circuit is secure and out of the way. Airway is secure and patent. No s/s of respiratory distress noted at this time. Will continue to closely monitor.
--- NOTE | 2020-06-14 07:21 | NUR ---
NURSE NOTES: Received bedside report from PETE Mccall. Pt's VSS, no signs of distress noted. Pt withdraws to pain, grimaces, does not open eyes spontaneously, does not follow commands. Pt NSR on the ekg monitor tech, HR between 80-90. Pt trache to vent with the following settings: A/C 10, T/V 450, Peep 5, 30% FiO2, O2 sat between 95-100%, respirations even and unlabored. Pt has G-tube, no signs of infection or complication noted from site, Glucerna 1.2 running at 65 mL/hr. Pt has patterson catheter, draining well, dark yellow urine noted. Skin alterations noted in chart and protected with optifoam. Pt has Right Femoral TLC, no signs of infection or complication noted from site. Pt currently has cooling blanket, temp at 99.0 F. Head of bed at 30 degrees. Bed rails up, bed locked and in lowest position. Safety precautions maintained. Will continue to monitor.
--- NOTE | 2020-06-14 07:23 | Pulmonolgy Critical Care Note ---
Critical Care - Asmt/Plan Assessment/Plan: Pulmonary CCM Progress Note Assessment/Plan Assessment/Plan IMPRESSION chronic respiratory failure trach pneumonia transaminitis CHF pulmonary hypertension anemia GIB PLAN iv antibiotics monitor liver enzymes resume snf meds gi and id following impression, plan, and exam edited and reviewed in detail care discussed with yard cleaner - Subjective Interval Events: ICU care noted vent reviewed labs noted ROS Limited/Unobtainable: Yes Condition: critical EKG Rhythm: Sinus Rhythm Critical Care - Objective Vital Signs noted Objective: WDWN trach reduced breath sounds bilaterally without rhonchi or wheeze [id number] without MRG NABS nontender GT no CCE nonfocal Labs: noted Imaging:noted Critical Care - Objective Last 24 Hour Vital Signs Date Time Temp Pulse Resp B/P (MAP) Pulse Ox O2 Delivery O2 Flow Rate FiO2 06/14/20 06:00 79 14 133/72 (92) 100 06/14/20 05:00 79 13 125/75 (92) 100 06/14/20 04:00 75 06/14/20 04:00 75 13 143/76 (98) 100 06/14/20 04:00 Mechanical Ventilator 06/14/20 03:00 73 13 131/76 (94) 100 06/14/20 02:00 73 15 132/77 (95) 100 06/14/20 01:22 82 10 30 06/14/20 01:00 74 16 137/82 (100) 06/14/20 00:00 Mechanical Ventilator 06/14/20 00:00 81 16 143/73 (96) 06/13/20 23:00 89 16 140/74 (96) 100 06/13/20 22:00 98 16 141/76 (97) 100 06/13/20 21:00 30 06/13/20 21:00 101 16 141/79 (99) 99 06/13/20 20:00 80 10 113/69 (84) 100 06/13/20 20:00 Mechanical Ventilator 06/13/20 20:00 80 06/13/20 19:00 81 13 133/63 (86) 100 06/13/20 18:58 81 10 30 06/13/20 18:00 84 12 122/61 (81) 99 06/13/20 17:16 83 10 30 06/13/20 17:00 79 12 112/64 (80) 99 06/13/20 16:00 Mechanical Ventilator 06/13/20 16:00 30 06/13/20 16:00 100.1 79 12 121/64 (83) 98 06/13/20 15:44 82 06/13/20 15:30 85 12 30 06/13/20 15:00 81 13 117/67 (84) 97 06/13/20 14:00 83 13 116/64 (81) 98 06/13/20 13:14 83 12 30 06/13/20 13:00 78 12 111/61 (78) 100 06/13/20 12:00 Mechanical Ventilator 06/13/20 12:00 30 06/13/20 12:00 99.4 75 12 99/57 (71) 99 06/13/20 11:26 81 06/13/20 11:15 82 10 30 06/13/20 11:00 83 12 108/60 (76) 99 06/13/20 10:00 94 12 135/67 (89) 100 06/13/20 09:30 95 14 30 06/13/20 09:00 93 13 123/66 (85) 100 06/13/20 08:00 30 06/13/20 08:00 99.5 94 12 133/65 (87) 100 06/13/20 08:00 Mechanical Ventilator 06/13/20 07:40 95 Micro: Microbiology Date/Time Source Procedure Growth Status 06/11/20 11:40 Blood Blood Culture - Preliminary NO GROWTH AFTER 48 HOURS Resulted 06/11/20 11:20 Blood Blood Culture - Preliminary NO GROWTH AFTER 48 HOURS Resulted Accucheck: 166 Critical Care - Subjective ROS Limited/Unobtainable: Yes Condition: stable FI02: 30 Vent Support Breath Rate: 10 Vent Support Mode: AC Vent Tidal Volume: 450 Sputum Amount: Small PEEP: 5.0 PIP: 22 Tube Feeding Amount: 65 I&O: Intake and Output 06/13/20 06/14/20 19:00 07:00 Intake Total 2589.0 ml 1906 ml Output Total 530 ml 550 ml Balance 2059.0 ml 1356 ml Intake Free Water 40 ml IV Total 1769.0 ml 1191 ml Tube Feeding 780 ml 715 ml Output Urine Total 530 ml 550 ml # Bowel Movements 4 3 Kumar Dixon MD Jun 14, 2020 07:23
[2020-06-14] MEDS: Docusate 100mg cap ORAL SCH ×2 (09:00→17:43)
--- NOTE | 2020-06-14 09:20 | NUR ---
NURSE NOTES: Pt's tube feeding residual checked, no residual noted. Scheduled medications given per MD order, pt tolerated well. Pt's VSS, afebrile, no signs of distress noted. Will continue to monitor.
[2020-06-14] MEDS: Zinc Sulfate 220mg GT SCH (09:22)
[2020-06-14] MEDS: Ascorbic Acid 500mg tab GT SCH ×2 (09:22→17:44)
[2020-06-14] MEDS: Heparin 5000 units/ml inj SUBQ SCH ×2 (09:23→21:20)
--- NOTE | 2020-06-14 10:00 | NUR ---
NURSE HAND-OFF REPORT: Latest Vital Signs: Temperature 97.0 , Pulse 76 , B/P 130 /77 , Respiratory Rate 12 , O2 SAT 100 , Mechanical Ventilator, 30% FiO2. . Vital Sign Comment: EKG Rhythm: Sinus Rhythm Rhythm change?: N MD Notified?: - MD Response: Latest Colon Fall Score: 50 Fall Risk: High Risk Safety Measures: Call light Within Reach, Bed Alarm Zone 1, Side Rails Side Rails x3, Bed position Low and Locked. Fall Precautions: Door Sign Report given to CHINO Thao for continuity of care. Pt stable..
[2020-06-14 10:23] LABS: HEMATOCRIT 23.8 % (37.0-47.0); HEMOGLOBIN 7.5 G/DL (12.0-16.0); MEAN CORPUSCULAR VOLUME 102 FL (80-99); PLATELET COUNT 186 K/UL (150-450); RED BLOOD COUNT 2.33 M/UL (4.20-5.40); RED CELL DISTRIBUTION WIDTH 15.2 % (11.6-14.8); WHITE BLOOD COUNT 8.5 K/UL (4.8-10.8)
[2020-06-14 10:47] LABS: ANION GAP 6 mmol/L (5-15); BLOOD UREA NITROGEN 11 mg/dL (7-18); CALCIUM 8.1 MG/DL (8.5-10.1); CARBON DIOXIDE 30 MMOL/L (21-32); CHLORIDE 111 MMOL/L (98-107); CREATININE 0.3 MG/DL (0.55-1.30); POTASSIUM 3.1 MMOL/L (3.5-5.1); SODIUM 147 MMOL/L (136-145)
--- NOTE | 2020-06-14 12:26 | NUR ---
V/S CONDITION WNL DOWNGRADE TO [facility] WILLFOLLOW
--- NOTE | 2020-06-14 13:43 | Surgery Progress Note ---
Surgery Progress Note Subjective Additional Comments ill appearing in ICU electrolytes being replaced no n/v dressing going well Objective Last 24 Hour Vital Signs Date Time Temp Pulse Resp B/P (MAP) Pulse Ox O2 Delivery O2 Flow Rate FiO2 06/14/20 13:00 81 11 123/73 (90) 100 06/14/20 12:00 98.3 79 10 139/81 (100) 100 06/14/20 12:00 Mechanical Ventilator 06/14/20 12:00 84 06/14/20 11:00 82 12 129/75 (93) 100 06/14/20 10:00 76 12 130/77 (94) 100 06/14/20 09:00 72 15 143/78 (99) 100 06/14/20 08:00 97.0 78 16 151/64 (93) 100 06/14/20 08:00 30 06/14/20 08:00 Mechanical Ventilator 06/14/20 07:28 81 06/14/20 07:00 78 11 121/73 (89) 100 06/14/20 06:30 79 14 06/14/20 06:00 99.0 79 14 133/72 (92) 100 06/14/20 05:00 79 13 125/75 (92) 100 06/14/20 04:00 75 06/14/20 04:00 98.0 75 13 143/76 (98) 100 06/14/20 04:00 Mechanical Ventilator 06/14/20 03:00 73 13 131/76 (94) 100 06/14/20 02:00 99.0 73 15 132/77 (95) 100 06/14/20 01:22 82 10 30 06/14/20 01:00 74 16 137/82 (100) 06/14/20 00:00 Mechanical Ventilator 06/14/20 00:00 100.5 81 16 143/73 (96) 06/13/20 23:00 89 16 140/74 (96) 100 06/13/20 22:00 101.5 98 16 141/76 (97) 100 06/13/20 21:00 30 06/13/20 21:00 99.0 101 16 141/79 (99) 99 06/13/20 20:00 80 10 113/69 (84) 100 06/13/20 20:00 Mechanical Ventilator 06/13/20 20:00 80 06/13/20 19:00 81 13 133/63 (86) 100 06/13/20 18:58 81 10 30 06/13/20 18:00 84 12 122/61 (81) 99 06/13/20 17:16 83 10 30 06/13/20 17:00 79 12 112/64 (80) 99 06/13/20 16:00 Mechanical Ventilator 06/13/20 16:00 30 06/13/20 16:00 100.1 79 12 121/64 (83) 98 06/13/20 15:44 82 06/13/20 15:30 85 12 30 06/13/20 15:00 81 13 117/67 (84) 97 06/13/20 14:00 83 13 116/64 (81) 98 I&O Intake and Output 06/13/20 06/14/20 19:00 07:00 Intake Total 2589.0 ml 1998.5 ml Output Total 530 ml 600 ml Balance 2059.0 ml 1398.5 ml Intake Free Water 40 ml IV Total 1769.0 ml 1218.5 ml Tube Feeding 780 ml 780 ml Output Urine Total 530 ml 600 ml # Bowel Movements 4 3 Dressing: saturated Cardiovascular: RSR Respiratory: decreased breath sounds Abdomen: soft, flat, non-tender, present bowel sounds Extremities: no tenderness, no cyanosis Laboratory Tests Test 06/14/20 09:35 White Blood Count 8.5 K/UL (4.8-10.8) Red Blood Count 2.33 M/UL (4.20-5.40) L Hemoglobin 7.5 G/DL (12.0-16.0) L Hematocrit 23.8 % (37.0-47.0) L Mean Corpuscular Volume 102 FL (80-99) H Mean Corpuscular Hemoglobin 32.4 PG (27.0-31.0) H Mean Corpuscular Hemoglobin Concent 31.7 G/DL (32.0-36.0) L Red Cell Distribution Width 15.2 % (11.6-14.8) H Platelet Count 186 K/UL (150-450) Mean Platelet Volume 7.2 FL (6.5-10.1) Neutrophils (%) (Auto) % (45.0-75.0) Lymphocytes (%) (Auto) % (20.0-45.0) Monocytes (%) (Auto) % (1.0-10.0) Eosinophils (%) (Auto) % (0.0-3.0) Basophils (%) (Auto) % (0.0-2.0) Differential Total Cells Counted 100 Neutrophils % (Manual) 82 % (45-75) H Lymphocytes % (Manual) 12 % (20-45) L Monocytes % (Manual) 4 % (1-10) Eosinophils % (Manual) 2 % (0-3) Basophils % (Manual) 0 % (0-2) Band Neutrophils 0 % (0-8) Platelet Estimate Adequate Platelet Morphology Normal Hypochromasia 1+ Anisocytosis 1+ Macrocytosis 1+ Sodium Level 147 MMOL/L (136-145) H Potassium Level 3.1 MMOL/L (3.5-5.1) L Chloride Level 111 MMOL/L (98-107) H Carbon Dioxide Level 30 MMOL/L (21-32) Anion Gap 6 mmol/L (5-15) Blood Urea Nitrogen 11 mg/dL (7-18) Creatinine 0.3 MG/DL (0.55-1.30) L Estimat Glomerular Filtration Rate > 60 mL/min (>60) Glucose Level 156 MG/DL (74-106) H Calcium Level 8.1 MG/DL (8.5-10.1) L Vancomycin Level Trough 23.1 ug/mL (5.0-12.0) H Plan Problems: (1) Sepsis Assessment & Plan: 55-year-old female with medical comorbidities very ill presented with significant lactic acidosis in intensive care unit on treatment. Wound evaluated unlikely source of lactic acidosis and patient is well-appearing status. Micro noted labs noted. Continue antibiotics. Local wound care was provided. Nutritional optimization. DAILY ESTIMATED NEEDS: Needs based on Advanced wounds, critical care 45kg 28-35 kcals/kg 2358-8277 total kcals 1.5-2 g protein/kg 67-90 g total protein 25-30 mL/kg 0900-6236 total fluid mLs NUTRITION DIAGNOSIS: Increased kcal and pro needs r/t underweight status and wound healing as evidenced by BMI 17.2, pt is 83% of [place] Body Weight, admitted w/ advanced wounds @ sacrum and lt buttock, pending eval. CURRENT TF:Glucerna 1.2 @ 65ml/hr x 22 hrs (On Synthroid) ENTERAL NUTRITION RECOMMENDATIONS: Glucerna 1.2 goal of 55ml/hr x22 hrs to provide 1210ml, 1452kcal, 73g prot, 974ml free water - LOWER goal rate to 55ml/hr x 22 hrs: meets 100% est kcal/prot needs, current goal rate exceeds est needs - Flush per MD. HOB Over 30 degrees. - HOLD TF 1 hr before and after synthroid med. ADDITIONAL RECOMMENDATIONS: 1) Maintain calibrated bed scale wts Ht per SNF= 64" 2) Wound care: TF @ goal will provide 100% RDI Add Vit C 500mg BID + ZnSO4 220mg QD x 10 days add HALEY BID 3) Lytes daily, replete as needed (low K) (2) Palpitations (3) Anemia (4) GI bleeding (5) UTI (urinary tract infection) (6) Pneumonia (7) LGI bleed (8) LGI bleed (9) Hospital-acquired pneumonia (10) Suprapubic catheter dysfunction (11) Stage 4 skin ulcer of sacral region Assessment & Plan: Pt presented on admission with Multiple Pressure Injuries, GT and Tracheostomy. Large tracheal stoma with ill-fitting cannula. Stoma of Gastrostomy is hypergranular with small amt bleeding noted. Full Thickness stage 4 Sacral Pressure Injury (L)7cm x (W)7.5cm x (D)2.3cm. Beefy granulation at base ogf wound . Edges are flat and adherent to base of wound. Small amt sanguineous exudate noted. No odor noted. No evidence of skin breakdown periwound. Resolving Pressure Injury L ischium(L)3.8cm x (W) 2.6cm x(D)0.2cm.Beefy granulation with surrounding pink epithelial borders. No odor or exudate noted. Hyperpigmentation periwound. Bilat foot drop noted. Bilat feet are edematous. DTPI noted to protruding bony prominence dorso/flexor L foot (L)1.3cm x (W)1.5cm. Base of Pressure Injury is maroon/fluctuant with surrounding red/brown borders. DTPI lateral L Foot(L)1.5cm x (W)0.6cm. Base of Pressure Injury is maroon and fluctuant. No evidence of further skin breakdown periwound. DTPI L Heel(L)4.3cm x (W)3.5cm. Base of Pressure Injury is maroon and fluctuant. Periwound is blanchable but boggy. R Heel is boggy but blanchable. Non-Blanchable erythema dorsal R foot. Intervention: Silver Nitrate x1 application applied to hypergranular stoma of Gastrostomy.TRiad Paste applied to peristomal GT and covered with Optifoam drsg. Tx.Plan: Wash GT site daily with soap and water. Pat dry. Apply Zinc Oxide Paste. Cover with Optifoam drsg Daily and prn. Cleanse Sacral and L Ischial wounds with Saline. Loosely pack with Therahoney impregnated Kerlix. Apply Moisture Barrier Paste periwound. Cover each wound with Optifoam drsgs. Change Daily and prn. Apply Cavilon Skin Barrier to L Heel,Lateral L foot and dorso/flexor L foot. Cover each site with Optifoam drsg. Change every 7 days and prn. Apply Cavilon Skin Barrier to R Heel and dorsal R Foot. Cover each site with Optifoam drsg. Change every 7 days and prn. Reposition at least every 2hours or as tolerated. Off-load heels with Pillow. APM/VAZQUEZ Mattress overlay. (12) AMS (altered mental status) To Webb Jun 14, 2020 13:43
[2020-06-14] MEDS ORDERED: NS 275ml ONE (17:02)
[2020-06-14] MEDS ORDERED: Tubing IV Secondary IV ONE (17:02)
[2020-06-14] MEDS: Vancomycin 500mg/D5W 110ml IVPB SCH ×2 (17:44)
--- NOTE | 2020-06-14 19:30 | NUR ---
NURSE NOTES: Received report from [facility]. Patient asleep in bed, able to arouse to deep pain and verbal stimulation, afebrile in bed and no respiratory distress noted. Trache to vent AC 10, TV 450, FiO2 30% and PEEP of 5 saturating at 100%. On Glucerna 1.2 at 65cc/hr via GT intact, flushing and no residual noted. With right femoral TLC intact, patent and asymptomatic. Needs were attended. HOB elevated.Handy light within reach. Bed rails and wheels are locked. Continue plan of care. Addendum: 06/14/20 at 1957 by LEONARDO Sinha RN Addendum: Per MARCIA Thao AM nurse, Dr Castro doesn't want to give Potassium supplement for 3.1 level. No s/sx of hypokalemia. Continue to monitor the patient.
[2020-06-14] MEDS: Dyna-Hex 2% Top Sol 2oz TOPIC SCH (21:22)
[2020-06-15] VITALS: BP 123/67
[2020-06-15] MEDS: NovoLOG Insulin Flexpen SUBQ SCH ×5 (00:04→23:08)
[2020-06-15] MEDS: Vancomycin 500mg/D5W 110ml IVPB SCH ×6 (02:11→17:28)
--- NOTE | 2020-06-15 02:30 | NUR ---
NURSE NOTES: Pt was given partial bed bath. Gown and linen were changed. Pt tolerated well. Pt saturating at 100% on vent settings.
[2020-06-15 04:00] VITALS: BP 126/75
[2020-06-15] MEDS: Piperacillin/Tazobactam 3.375 GM in NS 110 ML IVPB SCH ×3 (05:40→22:13)
[2020-06-15 06:33] LABS: HEMOGLOBIN 7.2 G/DL (12.0-16.0); MEAN CORPUSCULAR VOLUME 102 FL (80-99); PLATELET COUNT 189 K/UL (150-450); RED BLOOD COUNT 2.25 M/UL (4.20-5.40); RED CELL DISTRIBUTION WIDTH 14.9 % (11.6-14.8); WHITE BLOOD COUNT 8.4 K/UL (4.8-10.8)
[2020-06-15 07:04] LABS: ALANINE AMINOTRANSFERASE 36 U/L (12-78); ALBUMIN 1.6 G/DL (3.4-5.0); ALBUMIN/GLOBULIN RATIO 0.4 (1.0-2.7); ALKALINE PHOSPHATASE 92 U/L (46-116); ANION GAP 5 mmol/L (5-15); ASPARTATE AMINO TRANSFERASE 58 U/L (15-37); BILIRUBIN,TOTAL 0.3 MG/DL (0.2-1.0); BLOOD UREA NITROGEN 8 mg/dL (7-18); CALCIUM 8.1 MG/DL (8.5-10.1); CARBON DIOXIDE 30 MMOL/L (21-32); CHLORIDE 112 MMOL/L (98-107); CREATININE 0.3 MG/DL (0.55-1.30); POTASSIUM 2.8 MMOL/L (3.5-5.1); SODIUM 147 MMOL/L (136-145)
--- NOTE | 2020-06-15 07:05 | NUR ---
NURSE NOTES: received patient report from preston rn. patient is on bed asleep. not in acute distress. no acute events reported last night. on suprapubic, draining yellow urine. tube is patent.no retention. on tube feedings X 22 hrs. on vent at prescribed rate, setting tolerated. dvt & gi prophylaxis, contact isolation. will follow plan of care.
--- NOTE | 2020-06-15 07:20 | NUR ---
NURSE HAND-OFF REPORT: Important Events on Shift: icu to sdu Patient Status: stable Diet: glucerna 1.2 Pending Orders: n Pending Results/Labs:n Pending MD notification:n Latest Vital Signs: Temperature 99.9 , Pulse 81 , B/P 126 /75 , Respiratory Rate 10 , O2 SAT 100 , Room Air, O2 Flow Rate 50.0 . Vital Sign Comment: n EKG Rhythm: Sinus Rhythm Rhythm change?: N MD Notified?: - MD Response: Latest Colon Fall Score: 50 Fall Risk: High Risk Safety Measures: Call light Within Reach, Bed Alarm Zone 1, Side Rails Side Rails x3, Bed position Low and Locked. Fall Precautions: Door Sign Report given to PETE Francisco. Pt stabel in bed. Pt saturating at 100%
[2020-06-15 08:00] VITALS: BP 121/74
[2020-06-15] MEDS: Docusate 100mg cap ORAL SCH ×2 (08:10→17:23)
[2020-06-15] MEDS: Ascorbic Acid 500mg tab GT SCH ×2 (08:10→17:22)
[2020-06-15] MEDS: Zinc Sulfate 220mg GT SCH (08:10)
[2020-06-15] MEDS: Heparin 5000 units/ml inj SUBQ SCH ×2 (08:11→20:12)
--- NOTE | 2020-06-15 08:50 | General Progress Note ---
Subjective ROS Limited/Unobtainable: Yes Allergies: Coded Allergies: No Known Allergies (Unverified , 01/20/20) Subjective care noted anemic hypernatremic ct noted Objective Last 24 Hour Vital Signs Date Time Temp Pulse Resp B/P (MAP) Pulse Ox O2 Delivery O2 Flow Rate FiO2 06/15/20 08:00 99.1 81 10 121/74 (90) 100 06/15/20 07:25 80 10 30 06/15/20 04:00 Mechanical Ventilator 06/15/20 04:00 99.9 81 10 126/75 (92) 100 06/15/20 04:00 79 06/15/20 01:25 83 10 30 06/15/20 00:00 98.3 87 10 123/67 (85) 100 06/15/20 00:00 Mechanical Ventilator 06/14/20 23:03 84 06/14/20 20:37 82 06/14/20 20:00 30 06/14/20 20:00 Mechanical Ventilator 06/14/20 20:00 98.8 81 10 131/71 (91) 100 06/14/20 19:08 82 15 30 06/14/20 18:00 80 10 129/73 (91) 100 06/14/20 17:23 99.2 83 11 121/70 (87) 100 06/14/20 17:00 84 10 144/75 (98) 100 06/14/20 16:00 82 10 121/70 (87) 99 06/14/20 16:00 Mechanical Ventilator 06/14/20 16:00 83 06/14/20 15:10 80 10 30 06/14/20 15:00 81 10 121/72 (88) 99 06/14/20 14:00 79 10 122/70 (87) 100 06/14/20 13:00 81 11 123/73 (90) 100 06/14/20 12:00 98.3 79 10 139/81 (100) 100 06/14/20 12:00 Mechanical Ventilator 06/14/20 12:00 84 06/14/20 11:16 79 10 30 06/14/20 11:00 82 12 129/75 (93) 100 06/14/20 10:00 76 12 130/77 (94) 100 06/14/20 09:00 72 15 143/78 (99) 100 Intake and Output 06/14/20 06/15/20 19:00 07:00 Intake Total 1981.76 ml 2018.5 ml Output Total 690 ml 1800 ml Balance 1291.76 ml 218.5 ml Intake Free Water 70 ml 50 ml IV Total 1196.76 ml 1253.5 ml Tube Feeding 715 ml 715 ml Output Urine Total 690 ml 1800 ml # Bowel Movements 4 Laboratory Tests 06/14/20 09:35: White Blood Count 8.5, Red Blood Count 2.33L, Hemoglobin 7.5L, Hematocrit 23.8L, Mean Corpuscular Volume 102H, Mean Corpuscular Hemoglobin 32.4H, Mean Corpuscular Hemoglobin Concent 31.7L, Red Cell Distribution Width 15.2H, Platelet Count 186, Mean Platelet Volume 7.2, Neutrophils (%) (Auto) , Lymphocytes (%) (Auto) , Monocytes (%) (Auto) , Eosinophils (%) (Auto) , Basophils (%) (Auto) , Differential Total Cells Counted 100, Neutrophils % (Manual) 82H, Lymphocytes % (Manual) 12L, Monocytes % (Manual) 4, Eosinophils % (Manual) 2, Basophils % (Manual) 0, Band Neutrophils 0, Platelet Estimate Adequate, Platelet Morphology Normal, Hypochromasia 1+, Anisocytosis 1+, Macro cytosis 1+, Sodium Level 147H, Potassium Level 3.1L, Chloride Level 111H, Carbon Dioxide Level 30, Anion Gap 6, Blood Urea Nitrogen 11, Creatinine 0.3L, Estimat Glomerular Filtration Rate > 60, Glucose Level 156H, Calcium Level 8.1L, Vancomycin Level Trough 23.1H 06/14/20 17:44: POC Whole Blood Glucose [Pending] 06/14/20 23:13: POC Whole Blood Glucose 157H 06/15/20 04:00: White Blood Count 8.4, Red Blood Count 2.25L, Hemoglobin 7.2L, Hematocrit 23.0L, Mean Corpuscular Volume 102H, Mean Corpuscular Hemoglobin 31.8H, Mean Corpuscular Hemoglobin Concent 31.2L, Red Cell Distribution Width 14.9H, Platelet Count 189, Mean Platelet Volume 6.5, Neutrophils (%) (Auto) , Lymphocytes (%) (Auto) , Monocytes (%) (Auto) , Eosinophils (%) (Auto) , Basophils (%) (Auto) , Sodium Level 147H, Potassium Level 2.8L, Chloride Level 112H, Carbon Dioxide Level 30, Anion Gap 5, Blood Urea Nitrogen 8, Creatinine 0.3L, Estimat Glomerular Filtration Rate > 60, Glucose Level 174H, Calcium Level 8.1L, Total Bilirubin 0.3, Aspartate Amino Transf (AST/SGOT) 58H, Alanine Aminotransferase (ALT/SGPT) 36, Alkaline Phosphatase 92, Total Protein 6.1L, Albumin 1.6L, Globulin 4.5, Albumin/Globulin Ratio 0.4L 06/15/20 05:35: POC Whole Blood Glucose 175H Height (Feet): 5 Weight (Pounds): 100 Assessment/Plan Assessment/Plan: IMPRESSION chronic respiratory failure trach pneumonia transaminitis CHF pulmonary hypertension anemia hypernatremia hypokalemia PLAN transfuse replace K iv antibiotics monitor liver enzymes [facility] meds gi and id follow up impression, plan, and exam edited and reviewed in detail care discussed with Chi Hodge MD Jun 15, 2020 08:50
--- NOTE | 2020-06-15 09:06 | NUR ---
RD ASSESSMENT & RECOMMENDATIONS SEE CARE ACTIVITY FOR COMPLETE ASSESSMENT DAILY ESTIMATED NEEDS: Needs based on Advanced wounds, critical care 45kg 28-35 kcals/kg 3057-5787 total kcals 1.5-2 g protein/kg 67-90 g total protein 25-30 mL/kg 5604-3885 total fluid mLs NUTRITION DIAGNOSIS: Increased kcal and pro needs r/t underweight status and wound healing as evidenced by BMI 17.2, pt is 83% of [place] Body Weight, admitted w/ advanced wounds including stage 4 wound @ sacrum, resolving pressure injury @ L ischium, DTPI wounds @ Lt foot and L heel. CURRENT TF:Glucerna 1.2 @ 65ml/hr x 22 hrs (On Synthroid) ENTERAL NUTRITION RECOMMENDATIONS: Glucerna 1.2 goal of 55ml/hr x22 hrs to provide 1210ml, 1452kcal, 73g prot, 974ml free water - LOWER goal rate to 55ml/hr x 22 hrs: meets 100% est kcal/prot needs, current goal rate exceeds est needs - Flush per MD. HOB Over 30 degrees. - HOLD TF 1 hr before and after Synthroid meds. ADDITIONAL RECOMMENDATIONS: 1) Maintain calibrated bed scale wts Ht per SNF= 64" 2) Wound care: TF @ goal will provide 100% RDI Continue Vit C and ZnSO4 add HALEY BID 3) Lytes daily, replete as needed (low K) 4) Adjust IVF: Na trending up, pt on NS IVF
--- NOTE | 2020-06-15 11:45 | NUR ---
CASE MANAGEMENT:REVIEW 06/15/20 SI: PNEUMONIA. TRACH/VENT/GTUBE 99.9 79 10 126/75 100% ON 30% FIO2 H/H-7.2/23.0 K-2.8 IS: IV VANCOMYCIN Q8HRS IV ZOSYN Q8HRS IVF NS@100/HR ZINC GT QD VIT C GT BID MIDODRINE GT BID HEPARIN SQ Q12 : STEP DOWN UNIT DCP: FROM [facility]
[2020-06-15 12:00] VITALS: BP 130/70
[2020-06-15 16:00] VITALS: BP 133/80
--- NOTE | 2020-06-15 17:58 | Surgery Progress Note ---
Surgery Progress Note Subjective Additional Comments ill appearing trach okay labs noted wbc okay h/h trending down Objective Last 24 Hour Vital Signs Date Time Temp Pulse Resp B/P (MAP) Pulse Ox O2 Delivery O2 Flow Rate FiO2 06/15/20 16:00 78 06/15/20 16:00 98.2 75 10 133/80 (97) 100 06/15/20 15:20 77 10 30 06/15/20 12:00 98.9 78 10 130/70 (90) 100 06/15/20 12:00 79 06/15/20 11:45 81 10 30 06/15/20 09:33 Mechanical Ventilator 06/15/20 08:00 99.1 81 10 121/74 (90) 100 06/15/20 08:00 80 06/15/20 07:25 80 10 30 06/15/20 04:00 Mechanical Ventilator 06/15/20 04:00 99.9 81 10 126/75 (92) 100 06/15/20 04:00 79 06/15/20 01:25 83 10 30 06/15/20 00:00 98.3 87 10 123/67 (85) 100 06/15/20 00:00 Mechanical Ventilator 06/14/20 23:03 84 06/14/20 20:37 82 06/14/20 20:00 30 06/14/20 20:00 Mechanical Ventilator 06/14/20 20:00 98.8 81 10 131/71 (91) 100 06/14/20 19:08 82 15 30 06/14/20 18:00 80 10 129/73 (91) 100 I&O Intake and Output 06/14/20 06/15/20 19:00 07:00 Intake Total 1981.76 ml 2018.5 ml Output Total 690 ml 1800 ml Balance 1291.76 ml 218.5 ml Intake Free Water 70 ml 50 ml IV Total 1196.76 ml 1253.5 ml Tube Feeding 715 ml 715 ml Output Urine Total 690 ml 1800 ml # Bowel Movements 4 Dressing: saturated Cardiovascular: RSR Respiratory: decreased breath sounds Abdomen: soft, non-tender, present bowel sounds, non-distended Extremities: no tenderness, no cyanosis Laboratory Tests Test 06/14/20 23:13 06/15/20 04:00 06/15/20 05:35 06/15/20 11:26 POC Whole Blood Glucose 157 MG/DL (74-106) H 175 MG/DL (74-106) H 159 MG/DL (74-106) H White Blood Count 8.4 K/UL (4.8-10.8) Red Blood Count 2.25 M/UL (4.20-5.40) L Hemoglobin 7.2 G/DL (12.0-16.0) L Hematocrit 23.0 % (37.0-47.0) L Mean Corpuscular Volume 102 FL (80-99) H Mean Corpuscular Hemoglobin 31.8 PG (27.0-31.0) H Mean Corpuscular Hemoglobin Concent 31.2 G/DL (32.0-36.0) L Red Cell Distribution Width 14.9 % (11.6-14.8) H Platelet Count 189 K/UL (150-450) Mean Platelet Volume 6.5 FL (6.5-10.1) Neutrophils (%) (Auto) % (45.0-75.0) Lymphocytes (%) (Auto) % (20.0-45.0) Monocytes (%) (Auto) % (1.0-10.0) Eosinophils (%) (Auto) % (0.0-3.0) Basophils (%) (Auto) % (0.0-2.0) Sodium Level 147 MMOL/L (136-145) H Potassium Level 2.8 MMOL/L (3.5-5.1) L Chloride Level 112 MMOL/L (98-107) H Carbon Dioxide Level 30 MMOL/L (21-32) Anion Gap 5 mmol/L (5-15) Blood Urea Nitrogen 8 mg/dL (7-18) Creatinine 0.3 MG/DL (0.55-1.30) L Estimat Glomerular Filtration Rate > 60 mL/min (>60) Glucose Level 174 MG/DL (74-106) H Calcium Level 8.1 MG/DL (8.5-10.1) L Total Bilirubin 0.3 MG/DL (0.2-1.0) Aspartate Amino Transf (AST/SGOT) 58 U/L (15-37) H Alanine Aminotransferase (ALT/SGPT) 36 U/L (12-78) Alkaline Phosphatase 92 U/L (46-116) Total Protein 6.1 G/DL (6.4-8.2) L Albumin 1.6 G/DL (3.4-5.0) L Globulin 4.5 g/dL Albumin/Globulin Ratio 0.4 (1.0-2.7) L Test 06/15/20 17:21 POC Whole Blood Glucose Pending Plan Problems: (1) Sepsis Assessment & Plan: 55-year-old female with medical comorbidities very ill presented with significant lactic acidosis in intensive care unit on treatment. Wound evaluated unlikely source of lactic acidosis and patient is well-appearing status. Micro noted labs noted. Continue antibiotics. Local wound care was provided. Nutritional optimization. DAILY ESTIMATED NEEDS: Needs based on Advanced wounds, critical care 45kg 28-35 kcals/kg 1899-1153 total kcals 1.5-2 g protein/kg 67-90 g total protein 25-30 mL/kg 7266-9171 total fluid mLs NUTRITION DIAGNOSIS: Increased kcal and pro needs r/t underweight status and wound healing as evidenced by BMI 17.2, pt is 83% of [place] Body Weight, admitted w/ advanced wounds including stage 4 wound @ sacrum, resolving pressure injury @ L ischium, DTPI wounds @ Lt foot and L heel. CURRENT TF:Glucerna 1.2 @ 65ml/hr x 22 hrs (On Synthroid) ENTERAL NUTRITION RECOMMENDATIONS: Glucerna 1.2 goal of 55ml/hr x22 hrs to provide 1210ml, 1452kcal, 73g prot, 974ml free water - LOWER goal rate to 55ml/hr x 22 hrs: meets 100% est kcal/prot needs, current goal rate exceeds est needs - Flush per MD. HOB Over 30 degrees. - HOLD TF 1 hr before and after Synthroid meds. ADDITIONAL RECOMMENDATIONS: 1) Maintain calibrated bed scale wts Ht per SNF= 64" 2) Wound care: TF @ goal will provide 100% RDI Continue Vit C and ZnSO4 add HALEY BID 3) Lytes daily, replete as needed (low K) 4) Adjust IVF: Na trending up, pt on NS IVF (2) Palpitations (3) Anemia (4) GI bleeding (5) UTI (urinary tract infection) (6) Pneumonia (7) LGI bleed (8) LGI bleed (9) Hospital-acquired pneumonia (10) Suprapubic catheter dysfunction (11) Stage 4 skin ulcer of sacral region Assessment & Plan: Pt presented on admission with Multiple Pressure Injuries, GT and Tracheostomy. Large tracheal stoma with ill-fitting cannula. Stoma of Gastrostomy is hypergranular with small amt bleeding noted. Full Thickness stage 4 Sacral Pressure Injury (L)7cm x (W)7.5cm x (D)2.3cm. Beefy granulation at base ogf wound . Edges are flat and adherent to base of wound. Small amt sanguineous exudate noted. No odor noted. No evidence of skin breakdown periwound. Resolving Pressure Injury L ischium(L)3.8cm x (W) 2.6cm x(D)0.2cm.Beefy granulation with surrounding pink epithelial borders. No odor or exudate noted. Hyperpigmentation periwound. Bilat foot drop noted. Bilat feet are edematous. DTPI noted to protruding bony prominence dorso/flexor L foot (L)1.3cm x (W)1.5cm. Base of Pressure Injury is maroon/fluctuant with surrounding red/brown borders. DTPI lateral L Foot(L)1.5cm x (W)0.6cm. Base of Pressure Injury is maroon and fluctuant. No evidence of further skin breakdown periwound. DTPI L Heel(L)4.3cm x (W)3.5cm. Base of Pressure Injury is maroon and fluctuant. Periwound is blanchable but boggy. R Heel is boggy but blanchable. Non-Blanchable erythema dorsal R foot. Intervention: Silver Nitrate x1 application applied to hypergranular stoma of Gastrostomy.TRiad Paste applied to peristomal GT and covered with Optifoam drsg. Tx.Plan: Wash GT site daily with soap and water. Pat dry. Apply Zinc Oxide Paste. Cover with Optifoam drsg Daily and prn. Cleanse Sacral and L Ischial wounds with Saline. Loosely pack with Therahoney impregnated Kerlix. Apply Moisture Barrier Paste periwound. Cover each wound with Optifoam drsgs. Change Daily and prn. Apply Cavilon Skin Barrier to L Heel,Lateral L foot and dorso/flexor L foot. Cover each site with Optifoam drsg. Change every 7 days and prn. Apply Cavilon Skin Barrier to R Heel and dorsal R Foot. Cover each site with Optifoam drsg. Change every 7 days and prn. Reposition at least every 2hours or as tolerated. Off-load heels with Pillow. APM/VAZQUEZ Mattress overlay. (12) AMS (altered mental status) To Webb Jun 15, 2020 17:58
--- NOTE | 2020-06-15 18:59 | NUR ---
NURSE HAND-OFF REPORT: Important Events on Shift:rectal tube dcd, pasty stool not passing in the tube. had 1 large bm and passed gas after rectal tube removal, 2 u prbc given k repleted, afebrile Patient Status: full code Diet: tube feeds Pending Orders: [] Pending Results/Labs:[] Pending MD notification:[] Latest Vital Signs: Temperature 98.2 , Pulse 78 , B/P 133 /80 , Respiratory Rate 10 , O2 SAT 100 , Room Air, O2 Flow Rate 50.0 . Vital Sign Comment: stable EKG Rhythm: Sinus Rhythm Rhythm change?: N MD Notified?: - MD Response: Latest Colon Fall Score: 50 Fall Risk: High Risk Safety Measures: Call light Within Reach, Bed Alarm Zone 2, Side Rails Side Rails x3, Bed position Low and Locked. Fall Precautions: Door Sign Report given to adelia rn.
--- NOTE | 2020-06-15 19:20 | NUR ---
NURSE NOTES: Received report from PETE Francisco. Patient asleep in bed, easy to arouse with light touch and voice. Afebrile in bed and in no apparent respiratory and cardiac distress noted. Trache to vent Portex 7, AC 10, TV 450, FiO2 30% and PEEP of 5 saturating at 100%. On Glucerna 1.2 at 65cc/hr. GT is intact,patent and flushed well, no residual noted. With right femoral TLC intact, patent and asymptomatic. Safety measures in place, bed in lowest positioned and locked. Call light within reach, will continue to monitor pt and plan of care.
[2020-06-15 20:00] VITALS: BP 134/79
[2020-06-15] MEDS: Dyna-Hex 2% Top Sol 2oz TOPIC SCH (20:11)
[2020-06-16] VITALS: BP 153/85
--- NOTE | 2020-06-16 02:10 | NUR ---
NURSE NOTES: Pt in bed, in no apparent acute respiratory and cardiac distress noted. Bed bad given, gown and linens change. Had 1 BM. Will continue to monitor.
[2020-06-16] MEDS: Vancomycin 500mg/D5W 110ml IVPB SCH ×4 (02:39→09:03)
[2020-06-16 04:00] VITALS: BP 144/80
[2020-06-16] MEDS: Piperacillin/Tazobactam 3.375 GM in NS 110 ML IVPB SCH ×3 (05:17→22:23)
[2020-06-16] MEDS: NovoLOG Insulin Flexpen SUBQ SCH ×3 (05:23→23:59)
[2020-06-16 05:34] LABS: BASOPHILS % (AUTO) 0.4 % (0.0-2.0); EOSINOPHILS % (AUTO) 3.3 % (0.0-3.0); HEMOGLOBIN 10.3 G/DL (12.0-16.0); LYMPHOCYTES % (AUTO) 24.2 % (20.0-45.0); MEAN CORPUSCULAR VOLUME 97 FL (80-99); MONOCYTES % (AUTO) 7.3 % (1.0-10.0); NEUTROPHILS % (AUTO) 64.8 % (45.0-75.0); PLATELET COUNT 167 K/UL (150-450); RED BLOOD COUNT 3.21 M/UL (4.20-5.40); RED CELL DISTRIBUTION WIDTH 16.2 % (11.6-14.8)
[2020-06-16 05:58] LABS: ANION GAP 5 mmol/L (5-15); BLOOD UREA NITROGEN 6 mg/dL (7-18); CALCIUM 8.3 MG/DL (8.5-10.1); CARBON DIOXIDE 30 MMOL/L (21-32); CHLORIDE 110 MMOL/L (98-107); CREATININE 0.3 MG/DL (0.55-1.30); POTASSIUM 3.4 MMOL/L (3.5-5.1); SODIUM 145 MMOL/L (136-145)
--- NOTE | 2020-06-16 07:28 | NUR ---
NURSE HAND-OFF REPORT: Important Events on Shift: Stable Patient Status: Stable Diet: Glucerna 1.2 Pending Orders: Pending Results/Labs: Pending MD notification: Latest Vital Signs: Temperature 99.5 , Pulse 77 , B/P 144 /80 , Respiratory Rate 15 , O2 SAT 97 , Room Air, O2 Flow Rate 50.0 . Vital Sign Comment: Stable EKG Rhythm: Sinus Rhythm Rhythm change?: N MD Notified?: - MD Response: Latest Colon Fall Score: 50 Fall Risk: High Risk Safety Measures: Call light Within Reach, Bed Alarm Zone 2, Side Rails Side Rails x3, Bed position Low and Locked. Fall Precautions: Door Sign Report given to Jey Britton RN .
[2020-06-16 08:00] VITALS: BP 154/80
--- NOTE | 2020-06-16 08:52 | General Progress Note ---
Subjective ROS Limited/Unobtainable: Yes Allergies: Coded Allergies: No Known Allergies (Unverified , 01/20/20) Subjective care noted noted fevers hypernatremic ct noted Objective Last 24 Hour Vital Signs Date Time Temp Pulse Resp B/P (MAP) Pulse Ox O2 Delivery O2 Flow Rate FiO2 06/16/20 08:00 67 06/16/20 08:00 102.0 12 154/80 (104) 100 06/16/20 08:00 Mechanical Ventilator 06/16/20 04:00 99.5 77 15 144/80 (101) 97 06/16/20 04:00 Mechanical Ventilator 06/16/20 03:26 72 06/16/20 03:05 72 10 30 06/16/20 00:00 98.4 77 12 153/85 (107) 99 06/16/20 00:00 Mechanical Ventilator 06/16/20 00:00 30 06/15/20 23:47 71 10 30 06/15/20 23:14 69 06/15/20 20:00 98.2 79 15 134/79 (97) 100 06/15/20 19:05 73 11 30 06/15/20 19:05 73 06/15/20 16:00 78 06/15/20 16:00 98.2 75 10 133/80 (97) 100 06/15/20 15:20 77 10 30 06/15/20 12:00 98.9 78 10 130/70 (90) 100 06/15/20 12:00 79 06/15/20 11:45 81 10 30 06/15/20 09:33 Mechanical Ventilator Intake and Output 06/15/20 06/16/20 19:00 07:00 Intake Total 2623.5 ml 1855 ml Output Total 550 ml 400 ml Balance 2073.5 ml 1455 ml Intake Free Water 20 ml 150 ml IV Total 1323.5 ml 1120 ml Tube Feeding 780 ml 585 ml Blood Product 500 ml Output Urine Total 550 ml 400 ml # Bowel Movements 2 2 Laboratory Tests 06/15/20 11:26: POC Whole Blood Glucose 159H 06/15/20 17:21: POC Whole Blood Glucose [Pending] 06/15/20 23:06: POC Whole Blood Glucose 152H 06/16/20 03:10: White Blood Count 7.0, Red Blood Count 3.21L, Hemoglobin 10.3#L, Hematocrit 31.0#L, Mean Corpuscular Volume 97, Mean Corpuscular Hemoglobin 32.2H, Mean Corpuscular Hemoglobin Concent 33.4, Red Cell Distribution Width 16.2H, Platelet Count 167, Mean Platelet Volume 6.8, Neutrophils (%) (Auto) 64.8, Lymphocytes (%) (Auto) 24.2, Monocytes (%) (Auto) 7.3, Eosinophils (%) (Auto) 3.3H, Basophils (%) (Auto) 0.4, Sodium Level 145, Potassium Level 3.4L, Chloride Level 110H, Carbon Dioxide Level 30, Anion Gap 5, Blood Urea Nitrogen 6L, Creatinine 0.3L, Estimat Glomerular Filtration Rate > 60, Glucose Level 162H, Calcium Level 8.3L Height (Feet): 5 Weight (Pounds): 100 Assessment/Plan Assessment/Plan: IMPRESSION chronic respiratory failure trach pneumonia transaminitis CHF pulmonary hypertension anemia hypernatremia hypokalemia fevers PLAN transfused ID to see replace K iv antibiotics monitor liver enzymes [facility] meds gi and id follow up impression, plan, and exam edited and reviewed in detail care discussed with Chi Hdoge MD Jun 16, 2020 08:52
[2020-06-16] MEDS: Heparin 5000 units/ml inj SUBQ SCH ×2 (09:01→21:24)
[2020-06-16] MEDS: Ascorbic Acid 500mg tab GT SCH ×2 (09:02→18:00)
[2020-06-16] MEDS: Docusate 100mg cap ORAL SCH ×2 (09:02→18:00)
[2020-06-16] MEDS: Zinc Sulfate 220mg GT SCH (09:02)
--- NOTE | 2020-06-16 09:46 | NUR ---
CASE MANAGEMENT:REVIEW 06/16/20 SI: PNEUMONIA. TRACH/VENT/GTUBE 102.0 67 12 154/80 100% ON 30% FIO2 H/H-10.3/31.0 K-3.4 IS: IV VANCOMYCIN Q8HRS IV ZOSYN Q8HRS IVF NS@100/HR ZINC GT QD VIT C GT BID MIDODRINE GT BID HEPARIN SQ Q12 : STEP DOWN UNIT DCP: FROM [facility] PLAN: DC RECTAL TUBE MONITOR TEMP
--- NOTE | 2020-06-16 11:44 | Surgery Progress Note ---
Surgery Progress Note Subjective Additional Comments febrile wbc okay labs noted wounds not infected on vent Objective Last 24 Hour Vital Signs Date Time Temp Pulse Resp B/P (MAP) Pulse Ox O2 Delivery O2 Flow Rate FiO2 06/16/20 08:00 67 06/16/20 08:00 102.0 12 154/80 (104) 100 06/16/20 08:00 Mechanical Ventilator 06/16/20 08:00 69 06/16/20 04:00 99.5 77 15 144/80 (101) 97 06/16/20 04:00 Mechanical Ventilator 06/16/20 03:26 72 06/16/20 03:05 72 10 30 06/16/20 00:00 98.4 77 12 153/85 (107) 99 06/16/20 00:00 Mechanical Ventilator 06/16/20 00:00 30 06/15/20 23:47 71 10 30 06/15/20 23:14 69 06/15/20 20:00 98.2 79 15 134/79 (97) 100 06/15/20 19:05 73 11 30 06/15/20 19:05 73 06/15/20 16:00 78 06/15/20 16:00 98.2 75 10 133/80 (97) 100 06/15/20 15:20 77 10 30 06/15/20 12:00 98.9 78 10 130/70 (90) 100 06/15/20 12:00 79 06/15/20 11:45 81 10 30 I&O Intake and Output 06/15/20 06/16/20 19:00 07:00 Intake Total 2623.5 ml 1982.5 ml Output Total 550 ml 400 ml Balance 2073.5 ml 1582.5 ml Intake Free Water 20 ml 150 ml IV Total 1323.5 ml 1247.5 ml Tube Feeding 780 ml 585 ml Blood Product 500 ml Output Urine Total 550 ml 400 ml # Bowel Movements 2 2 Dressing: saturated Cardiovascular: RSR Respiratory: decreased breath sounds Abdomen: soft, flat, non-tender, present bowel sounds Extremities: no edema, no tenderness, no cyanosis Laboratory Tests Test 06/15/20 17:21 06/15/20 23:06 06/16/20 03:10 06/16/20 09:30 POC Whole Blood Glucose Pending 152 MG/DL (74-106) H White Blood Count 7.0 K/UL (4.8-10.8) Red Blood Count 3.21 M/UL (4.20-5.40) L Hemoglobin 10.3 G/DL (12.0-16.0) #L Hematocrit 31.0 % (37.0-47.0) #L Mean Corpuscular Volume 97 FL (80-99) Mean Corpuscular Hemoglobin 32.2 PG (27.0-31.0) H Mean Corpuscular Hemoglobin Concent 33.4 G/DL (32.0-36.0) Red Cell Distribution Width 16.2 % (11.6-14.8) H Platelet Count 167 K/UL (150-450) Mean Platelet Volume 6.8 FL (6.5-10.1) Neutrophils (%) (Auto) 64.8 % (45.0-75.0) Lymphocytes (%) (Auto) 24.2 % (20.0-45.0) Monocytes (%) (Auto) 7.3 % (1.0-10.0) Eosinophils (%) (Auto) 3.3 % (0.0-3.0) H Basophils (%) (Auto) 0.4 % (0.0-2.0) Sodium Level 145 MMOL/L (136-145) Potassium Level 3.4 MMOL/L (3.5-5.1) L Chloride Level 110 MMOL/L (98-107) H Carbon Dioxide Level 30 MMOL/L (21-32) Anion Gap 5 mmol/L (5-15) Blood Urea Nitrogen 6 mg/dL (7-18) L Creatinine 0.3 MG/DL (0.55-1.30) L Estimat Glomerular Filtration Rate > 60 mL/min (>60) Glucose Level 162 MG/DL (74-106) H Calcium Level 8.3 MG/DL (8.5-10.1) L Vancomycin Level Trough 11.0 ug/mL (5.0-12.0) Plan Problems: (1) Sepsis Assessment & Plan: 55-year-old female with medical comorbidities very ill presented with significant lactic acidosis in intensive care unit on treatment. Wound evaluated unlikely source of lactic acidosis and patient is well-appearing status. Micro noted labs noted. Continue antibiotics. Local wound care was provided. Nutritional optimization. DAILY ESTIMATED NEEDS: Needs based on Advanced wounds, critical care 45kg 28-35 kcals/kg 8621-3220 total kcals 1.5-2 g protein/kg 67-90 g total protein 25-30 mL/kg 1828-1411 total fluid mLs NUTRITION DIAGNOSIS: Increased kcal and pro needs r/t underweight status and wound healing as evidenced by BMI 17.2, pt is 83% of [place] Body Weight, admitted w/ advanced wounds including stage 4 wound @ sacrum, resolving pressure injury @ L ischium, DTPI wounds @ Lt foot and L heel. CURRENT TF:Glucerna 1.2 @ 65ml/hr x 22 hrs (On Synthroid) ENTERAL NUTRITION RECOMMENDATIONS: Glucerna 1.2 goal of 55ml/hr x22 hrs to provide 1210ml, 1452kcal, 73g prot, 974ml free water - LOWER goal rate to 55ml/hr x 22 hrs: meets 100% est kcal/prot needs, current goal rate exceeds est needs - Flush per MD. HOB Over 30 degrees. - HOLD TF 1 hr before and after Synthroid meds. ADDITIONAL RECOMMENDATIONS: 1) Maintain calibrated bed scale wts Ht per SNF= 64" 2) Wound care: TF @ goal will provide 100% RDI Continue Vit C and ZnSO4 add HALEY BID 3) Lytes daily, replete as needed (low K) 4) Adjust IVF: Na trending up, pt on NS IVF (2) Palpitations (3) Anemia (4) GI bleeding (5) UTI (urinary tract infection) (6) Pneumonia (7) LGI bleed (8) LGI bleed (9) Hospital-acquired pneumonia (10) Suprapubic catheter dysfunction (11) Stage 4 skin ulcer of sacral region Assessment & Plan: Pt presented on admission with Multiple Pressure Injuries, GT and Tracheostomy. Large tracheal stoma with ill-fitting cannula. Stoma of Gastrostomy is hypergranular with small amt bleeding noted. Full Thickness stage 4 Sacral Pressure Injury (L)7cm x (W)7.5cm x (D)2.3cm. Beefy granulation at base ogf wound . Edges are flat and adherent to base of wound. Small amt sanguineous exudate noted. No odor noted. No evidence of skin breakdown periwound. Resolving Pressure Injury L ischium(L)3.8cm x (W) 2.6cm x(D)0.2cm.Beefy granulation with surrounding pink epithelial borders. No odor or exudate noted. Hyperpigmentation periwound. Bilat foot drop noted. Bilat feet are edematous. DTPI noted to protruding bony prominence dorso/flexor L foot (L)1.3cm x (W)1.5cm. Base of Pressure Injury is maroon/fluctuant with surrounding red/brown borders. DTPI lateral L Foot(L)1.5cm x (W)0.6cm. Base of Pressure Injury is maroon and fluctuant. No evidence of further skin breakdown periwound. DTPI L Heel(L)4.3cm x (W)3.5cm. Base of Pressure Injury is maroon and fluctuant. Periwound is blanchable but boggy. R Heel is boggy but blanchable. Non-Blanchable erythema dorsal R foot. Intervention: Silver Nitrate x1 application applied to hypergranular stoma of Gastrostomy.TRiad Paste applied to peristomal GT and covered with Optifoam drsg. Tx.Plan: Wash GT site daily with soap and water. Pat dry. Apply Zinc Oxide Paste. Cover with Optifoam drsg Daily and prn. Cleanse Sacral and L Ischial wounds with Saline. Loosely pack with Therahoney impregnated Kerlix. Apply Moisture Barrier Paste periwound. Cover each wound with Optifoam drsgs. Change Daily and prn. Apply Cavilon Skin Barrier to L Heel,Lateral L foot and dorso/flexor L foot. Cover each site with Optifoam drsg. Change every 7 days and prn. Apply Cavilon Skin Barrier to R Heel and dorsal R Foot. Cover each site with Optifoam drsg. Change every 7 days and prn. Reposition at least every 2hours or as tolerated. Off-load heels with Pillow. APM/VAZQUEZ Mattress overlay. (12) AMS (altered mental status) JonahTo mai Jun 16, 2020 11:44
[2020-06-16 12:00] VITALS: BP 154/80
--- NOTE | 2020-06-16 12:14 | Consultation ---
DATE OF CONSULTATION: 06/16/2020 INFECTIOUS DISEASES CONSULTATION CONSULTING PHYSICIAN: Des San MD. REFERRING PHYSICIAN: Chi Castro MD. REASON FOR CONSULTATION: Pneumonia. HISTORY OF PRESENTING ILLNESS: This is a 55-year-old female with history of sinusitis, mastoiditis, GI bleeding, respiratory failure status post tracheostomy, congestive heart failure who comes in and is found to have pneumonia. An Infectious Diseases consultation has been obtained for antibiotics. PAST MEDICAL HISTORY: 1. History of sinusitis. 2. Mastoiditis. 3. GI bleeding. 4. Respiratory failure status post tracheostomy. 5. History of chronic suprapubic catheter placement. 6. Diabetes. 7. Congestive heart failure. 8. Pulmonary hypertension. SOCIAL HISTORY: Unknown. FAMILY HISTORY: Unknown. REVIEW OF SYSTEMS: Unable to obtain currently. MEDICATIONS: As an inpatient, she is on IV vancomycin, zinc sulfate, ascorbic acid, chlorhexidine gluconate, midodrine, subcutaneous heparin, famotidine, docusate, levothyroxine, Zosyn, insulin, Tylenol. ALLERGIES: No known drug allergies. PHYSICAL EXAMINATION: VITAL SIGNS: Temperature 102, T-max of 102, pulse of 67, respiratory rate of 12, blood pressure 154/80, O2 saturation of 100%. HEENT: Pupils equally reactive to light and accommodation. NECK: Tracheostomy site is clean. CARDIOVASCULAR: Regular rate and rhythm. No murmurs. LUNGS: Clear to auscultation bilaterally. No crackles. No wheezes. ABDOMEN: Soft, nontender. No organomegaly. G-tube site is clean. EXTREMITIES: No cyanosis, no clubbing, no edema. LABORATORY AND DIAGNOSTIC DATA: White count of 7, hemoglobin 10.3, hematocrit 31, MCV 97, platelet count of 167 with neutrophils of 64%. Sodium 145, potassium 3.4, chloride 110, bicarb 30, BUN 6, creatinine 0.3, glucose 152, calcium 8.3. AST 58, ALT 36, alkaline phosphatase 92, total protein 6.1, albumin 1.6. Blood cultures are negative. Chest x-ray showing worsening of bilateral infiltrates. CT head showing negative for acute intracranial bleed or mass effect, left parieto-occipital soft tissue swelling. Sphenoid, ethmoid, and nasopharyngeal disease, bilateral mastoid effusions. ASSESSMENT: This is a 55-year-old lady with history of respiratory failure status post tracheostomy, GI bleeding, diabetes, pulmonary hypertension who comes in and is found to have: 1. Pneumonia. 2. Respiratory failure status post tracheostomy. 3. History of GI bleeding. PLAN: 1. Continue IV vancomycin and Zosyn. 2. We will order COVID-19 testing. [address]. We will place the patient on isolation. 4. We will order sputum for Gram stain and culture. 5. We will follow up cultures and adjust antibiotics accordingly. I would like to thank, Dr. Castro, for this consultation. Des San M.D. DR: Freddy JOB#: [id number] CC: Chi Castro M.D.; Fax#: [phone] [facility]
--- NOTE | 2020-06-16 13:59 | NUR ---
INSURANCE CLINICALS/REVIEW FAXED [facility] (06/13-06/16) x [phone] ncm: Keri vasquez
[2020-06-16] MEDS: Vancomycin 750mg/NS 275ml IVPB SCH ×2 (18:00)
--- NOTE | 2020-06-16 19:30 | NUR ---
NURSE NOTES: Received report from day PETE Maradiaga. Patient sleeping. Patient vitals stable at this time. Patient has Vanco and maintenance IV fluids infusing. All IV are patent. Patient with a trach on a mechanical ventilator. Settings are Assist control 10. Tidal Volume 450. PEEP of 5 and 40%FIO2. Patient has a PEG tube infusing Glucerna 1.2 @65ml/hr which is goal. Patient displays no s/s of pain. Patient repositioned. Rn will continue to monitor.
[2020-06-16 20:00] VITALS: BP 144/94
[2020-06-16] MEDS: Dyna-Hex 2% Top Sol 2oz TOPIC SCH (20:24)
[2020-06-17] VITALS: BP 151/74
--- NOTE | 2020-06-17 | NUR ---
NURSE NOTES: Patient vitals stable at this time. Patient sleeping at this time. Patient PEG tube clogged. RN troubleshooting PEG tube. solar sales assessor unclogged tube. RN flushed PEG tibe with 100cc of free water and reconnected tube feeding. Patient shows no s/s of pain. RN will continue to monitor.
--- NOTE | 2020-06-17 02:03 | Cardiology Report ---
APPROVED REPORT EKG Measurement Heart [id number] AK 108P-2 [id number] <Conclusion> Sinus rhythm with short AK Otherwise normal ECG
[2020-06-17] MEDS: Vancomycin 750mg/NS 275ml IVPB SCH ×6 (02:32→17:23)
[2020-06-17 04:00] VITALS: BP 160/87
[2020-06-17] MEDS: Piperacillin/Tazobactam 3.375 GM in NS 110 ML IVPB SCH ×3 (05:49→22:20)
[2020-06-17] MEDS: NovoLOG Insulin Flexpen SUBQ SCH ×3 (06:17→18:00)
[2020-06-17 07:05] LABS: BASOPHILS % (AUTO) 0.2 % (0.0-2.0); EOSINOPHILS % (AUTO) 1.9 % (0.0-3.0); HEMATOCRIT 32.5 % (37.0-47.0); HEMOGLOBIN 10.6 G/DL (12.0-16.0); LYMPHOCYTES % (AUTO) 17.8 % (20.0-45.0); MEAN CORPUSCULAR VOLUME 97 FL (80-99); MONOCYTES % (AUTO) 5.2 % (1.0-10.0); NEUTROPHILS % (AUTO) 74.9 % (45.0-75.0); PLATELET COUNT 157 K/UL (150-450); RED BLOOD COUNT 3.33 M/UL (4.20-5.40); RED CELL DISTRIBUTION WIDTH 15.2 % (11.6-14.8); WHITE BLOOD COUNT 8.2 K/UL (4.8-10.8)
--- NOTE | 2020-06-17 07:07 | NUR ---
NURSE HAND-OFF REPORT: Important Events on Shift: Patient Status: Diet: Pending Orders: Pending Results/Labs: Pending MD notification: Latest Vital Signs: Temperature 97.0 , Pulse 66 , B/P 160 /87 , Respiratory Rate 18 , O2 SAT 97 , Room Air, O2 Flow Rate 50.0 . Vital Sign Comment: EKG Rhythm: Sinus Rhythm Rhythm change?: N MD Notified?: - MD Response: Latest Colon Fall Score: 50 Fall Risk: High Risk Safety Measures: Call light Within Reach, Bed Alarm Zone 2, Side Rails Side Rails x3, Bed position Low and Locked. Fall Precautions: Door Sign Report given to Raulito FREEMAN.
--- NOTE | 2020-06-17 07:20 | NUR ---
NURSE NOTES: Received patient report from PETE Carmichael. patient is AOx1, in bed asleep at this time. No pain or discomfort noted at this time. Patient on trach to vent Shiley 7, AC 10 TV 450, PEEP 5 FiO2 40%. Patient with GT running Glucerna 1.2 @ 65ml/hr. Bed in lowest position, locked with side rails x2 up. Call light within reach.
[2020-06-17 07:28] LABS: ALANINE AMINOTRANSFERASE 24 U/L (12-78); ALBUMIN 1.6 G/DL (3.4-5.0); ALBUMIN/GLOBULIN RATIO 0.4 (1.0-2.7); ALKALINE PHOSPHATASE 90 U/L (46-116); ANION GAP 3 mmol/L (5-15); ASPARTATE AMINO TRANSFERASE 55 U/L (15-37); BILIRUBIN,TOTAL 0.5 MG/DL (0.2-1.0); BLOOD UREA NITROGEN 8 mg/dL (7-18); CALCIUM 8.1 MG/DL (8.5-10.1); CARBON DIOXIDE 33 MMOL/L (21-32); CHLORIDE 107 MMOL/L (98-107); CREATININE 0.4 MG/DL (0.55-1.30); SODIUM 143 MMOL/L (136-145)
[2020-06-17 08:00] VITALS: BP 140/78
[2020-06-17] MEDS: Ascorbic Acid 500mg tab GT SCH ×2 (09:17→17:23)
[2020-06-17] MEDS: Docusate 100mg cap ORAL SCH ×2 (09:17→17:23)
[2020-06-17] MEDS: Zinc Sulfate 220mg GT SCH (09:17)
[2020-06-17] MEDS: Heparin 5000 units/ml inj SUBQ SCH ×2 (09:17→21:19)
--- NOTE | 2020-06-17 09:38 | NUR ---
CASE MANAGEMENT:REVIEW 06/17/20 SI: PNEUMONIA. TRACH/VENT/GTUBE 97.0 71 18 160/87 97% ON 30% FIO2 K-3.0 IS: IV VANCOMYCIN Q8HRS IV ZOSYN Q8HRS IVF NS@100/HR ZINC GT QD VIT C GT BID MIDODRINE GT BID HEPARIN SQ Q12 : STEP DOWN UNIT DCP: FROM [facility] PLAN: MONITOR TEMP....LAST TEMP WAS YESTERDAY @ 1200
--- NOTE | 2020-06-17 09:46 | General Progress Note ---
Subjective ROS Limited/Unobtainable: Yes Allergies: Coded Allergies: No Known Allergies (Unverified , 01/20/20) Subjective care noted noted fevers hypernatremic ct noted Objective Last 24 Hour Vital Signs Date Time Temp Pulse Resp B/P (MAP) Pulse Ox O2 Delivery O2 Flow Rate FiO2 06/17/20 08:51 71 13 30 06/17/20 06:55 70 12 30 06/17/20 04:00 Mechanical Ventilator 06/17/20 04:00 97.0 71 18 160/87 (111) 97 06/17/20 04:00 66 06/17/20 03:21 68 12 30 06/17/20 00:00 Mechanical Ventilator 06/17/20 00:00 30 06/17/20 00:00 98.6 16 151/74 (99) 100 06/17/20 00:00 71 06/16/20 23:19 68 13 30 06/16/20 20:00 78 06/16/20 20:00 Mechanical Ventilator 06/16/20 20:00 99.1 12 144/94 (111) 100 06/16/20 19:24 76 15 30 06/16/20 15:53 70 06/16/20 15:14 71 18 30 06/16/20 12:41 71 06/16/20 12:00 71 06/16/20 12:00 99.9 12 154/80 (104) 100 06/16/20 12:00 Mechanical Ventilator 06/16/20 11:38 69 10 30 Intake and Output 06/16/20 06/17/20 19:00 07:00 Intake Total 592.5 ml 715 ml Output Total 2200 ml Balance 592.5 ml -1485 ml IV Total 592.5 ml Tube Feeding 715 ml Output Urine Total 2200 ml Laboratory Tests 06/17/20 03:57: White Blood Count 8.2, Red Blood Count 3.33L, Hemoglobin 10.6L, Hematocrit 32.5L , Mean Corpuscular Volume 97, Mean Corpuscular Hemoglobin 31.7H, Mean Corpuscular Hemoglobin Concent 32.5, Red Cell Distribution Width 15.2H, Platelet Count 157, Mean Platelet Volume 6.8, Neutrophils (%) (Auto) 74.9, Lymphocytes (%) (Auto) 17.8L, Monocytes (%) (Auto) 5.2, Eosinophils (%) (Auto) 1.9, Basophils (%) (Auto) 0.2, Sodium Level 143, Potassium Level 3.0L, Chloride Level 107, Carbon Dioxide Level 33H, Anion Gap 3L, Blood Urea Nitrogen 8, Creatinine 0.4L, Estimat Glomerular Filtration Rate > 60, Glucose Level 198H, Calcium Level 8.1L, Total Bilirubin 0.5, Aspartate Amino Transf (AST/SGOT) 55H, Alanine Aminotransferase (ALT/SGPT) 24, Alkaline Phosphatase 90, Total Protein 6.1L, Albumin 1.6L, Globulin 4.5, Albumin/Globulin Ratio 0.4L Height (Feet): 5 Weight (Pounds): 100 Assessment/Plan Assessment/Plan: IMPRESSION chronic respiratory failure trach pneumonia transaminitis CHF pulmonary hypertension anemia hypernatremia hypokalemia fevers PLAN transfused ID to see replace K iv antibiotics monitor liver enzymes snf meds gi and id follow up impression, plan, and exam edited and reviewed in detail care discussed with Chi Hodge MD Jun 17, 2020 09:46
--- NOTE | 2020-06-17 10:54 | Infectious Diseases Prog Note ---
Assessment/Plan Assessment/Plan antibiotics : vancomycin iv, zosyn A 1. pneumonia 2. CHF 3. pulmonary hypertension 4. respiratory failure s/p tracheostomy P 1. continue iv vancomycin 2. continue zosyn 3. continue isolation Subjective ROS Limited/Unobtainable: Yes Allergies: Coded Allergies: No Known Allergies (Unverified , 01/20/20) Objective Last 24 Hour Vital Signs Date Time Temp Pulse Resp B/P (MAP) Pulse Ox O2 Delivery O2 Flow Rate FiO2 06/17/20 08:51 71 13 30 06/17/20 06:55 70 12 30 06/17/20 04:00 Mechanical Ventilator 06/17/20 04:00 97.0 71 18 160/87 (111) 97 06/17/20 04:00 66 06/17/20 03:21 68 12 30 06/17/20 00:00 Mechanical Ventilator 06/17/20 00:00 30 06/17/20 00:00 98.6 16 151/74 (99) 100 06/17/20 00:00 71 06/16/20 23:19 68 13 30 06/16/20 20:00 78 06/16/20 20:00 Mechanical Ventilator 06/16/20 20:00 99.1 12 144/94 (111) 100 06/16/20 19:24 76 15 30 06/16/20 15:53 70 06/16/20 15:14 71 18 30 06/16/20 12:41 71 06/16/20 12:00 71 06/16/20 12:00 99.9 12 154/80 (104) 100 06/16/20 12:00 Mechanical Ventilator 06/16/20 11:38 69 10 30 Height (Feet): 5 Weight (Pounds): 100 HEENT: status post trach Respiratory/Chest: lungs clear Cardiovascular: normal rate, regular rhythm, no gallop/murmur Abdomen: soft, non tender, other - GT Extremities: no edema Laboratory Tests Test 06/17/20 03:57 White Blood Count 8.2 K/UL (4.8-10.8) Red Blood Count 3.33 M/UL (4.20-5.40) L Hemoglobin 10.6 G/DL (12.0-16.0) L Hematocrit 32.5 % (37.0-47.0) L Mean Corpuscular Volume 97 FL (80-99) Mean Corpuscular Hemoglobin 31.7 PG (27.0-31.0) H Mean Corpuscular Hemoglobin Concent 32.5 G/DL (32.0-36.0) Red Cell Distribution Width 15.2 % (11.6-14.8) H Platelet Count 157 K/UL (150-450) Mean Platelet Volume 6.8 FL (6.5-10.1) Neutrophils (%) (Auto) 74.9 % (45.0-75.0) Lymphocytes (%) (Auto) 17.8 % (20.0-45.0) L Monocytes (%) (Auto) 5.2 % (1.0-10.0) Eosinophils (%) (Auto) 1.9 % (0.0-3.0) Basophils (%) (Auto) 0.2 % (0.0-2.0) Sodium Level 143 MMOL/L (136-145) Potassium Level 3.0 MMOL/L (3.5-5.1) L Chloride Level 107 MMOL/L (98-107) Carbon Dioxide Level 33 MMOL/L (21-32) H Anion Gap 3 mmol/L (5-15) L Blood Urea Nitrogen 8 mg/dL (7-18) Creatinine 0.4 MG/DL (0.55-1.30) L Estimat Glomerular Filtration Rate > 60 mL/min (>60) Glucose Level 198 MG/DL (74-106) H Calcium Level 8.1 MG/DL (8.5-10.1) L Total Bilirubin 0.5 MG/DL (0.2-1.0) Aspartate Amino Transf (AST/SGOT) 55 U/L (15-37) H Alanine Aminotransferase (ALT/SGPT) 24 U/L (12-78) Alkaline Phosphatase 90 U/L (46-116) Total Protein 6.1 G/DL (6.4-8.2) L Albumin 1.6 G/DL (3.4-5.0) L Globulin 4.5 g/dL Albumin/Globulin Ratio 0.4 (1.0-2.7) L Current Medications Medications (Trade) Dose Ordered Sig/Elisa Route PRN Reason Start Time Stop Time Status Last Admin Dose Admin Acetaminophen (Tylenol) 650 mg Q6H PRN ORAL For Pain 06/12/20 00:45 3/7/21 00:44 06/13/20 11:06 Ascorbic Acid (Vitamin C) 250 mg TWICE A DAY GT 06/13/20 18:00 07/13/20 17:59 06/17/20 09:17 Chlorhexidine Gluconate ([place]-Hex 2%) 1 applic DAILY@2000 TOPIC 06/12/20 20:00 09/10/20 19:59 06/16/20 20:24 Dextrose (Dextrose 50%) 25 ml Q30M PRN IV Hypoglycemia 06/12/20 00:45 09/10/20 00:44 Dextrose (Dextrose 50%) 50 ml Q30M PRN IV Hypoglycemia 06/12/20 00:45 09/10/20 00:44 Docusate Sodium (Colace) 100 mg TWICE A DAY ORAL 06/12/20 09:00 07/12/20 08:59 06/17/20 09:17 Famotidine (Pepcid) 20 mg DAILY GT 06/12/20 09:00 09/10/20 08:59 06/17/20 09:17 Heparin Sodium (Porcine) (Heparin 5000 units/ml) 5,000 units EVERY 12 HOURS SUBQ 06/12/20 09:00 07/27/20 08:59 06/17/20 09:17 Insulin Aspart (NovoLOG) EVERY 6 HOURS SUBQ 06/12/20 06:00 09/10/20 05:59 06/17/20 06:17 Levothyroxine Sodium (Synthroid) 50 mcg DAILY@0630 GT 06/12/20 06:30 07/12/20 06:29 06/17/20 06:17 Midodrine (Pro-Amatine) 5 mg BID GT 06/12/20 09:00 09/10/20 08:59 06/17/20 09:17 Piperacillin Sod/ Tazobactam Sod 3.375 gm/Sodium Chloride 110 ml @ 27.5 mls/hr EVERY 8 HOURS IVPB 06/12/20 06:00 06/17/20 23:59 06/17/20 05:49 Potassium Chloride (K-Dur) 40 meq ONCE GT 06/17/20 11:00 06/17/20 12:00 Sodium Chloride 1,000 ml @ 100 mls/hr Q10H IV 06/15/20 09:30 07/15/20 09:29 06/17/20 01:30 Vancomycin HCl (Vanco pharmacy to dose) 1 ea DAILY PRN MISC Per rx protocol 06/12/20 00:30 07/12/20 00:29 Vancomycin HCl 750 mg/Sodium Chloride 275 ml @ 183.333 mls/hr Q8H IVPB 06/16/20 18:00 06/21/20 17:59 06/17/20 10:14 Zinc Sulfate (Zinc Sulfate) 220 mg DAILY GT 06/14/20 09:00 06/24/20 08:59 06/17/20 09:17 Des San MD Jun 17, 2020 10:54
--- NOTE | 2020-06-17 11:58 | NUR ---
RADIOLOGY DEPT., CHEST X-RAY DONE.-P.DYE
[2020-06-17 12:00] VITALS: BP 145/84
--- NOTE | 2020-06-17 12:40 | NUR ---
INSURANCE CLINICALS/REVIEW FAXED [facility] x [phone] ncm: Keri vasquez
[2020-06-17] MEDS: Dakin's 0.125% Soln (Quarter Strength) 16oz TOPIC SCH (13:00)
--- NOTE | 2020-06-17 13:05 | Surgery Progress Note ---
Surgery Progress Note Subjective Symptoms: improved, tolerating diet, passing flatus Objective Last 24 Hour Vital Signs Date Time Temp Pulse Resp B/P (MAP) Pulse Ox O2 Delivery O2 Flow Rate FiO2 06/17/20 12:00 98.8 70 14 145/84 (104) 98 06/17/20 12:00 Mechanical Ventilator 06/17/20 10:54 69 14 30 06/17/20 08:51 71 13 30 06/17/20 08:00 99.0 75 14 140/78 (98) 97 06/17/20 08:00 Mechanical Ventilator 06/17/20 07:26 68 06/17/20 06:55 70 12 30 06/17/20 04:00 Mechanical Ventilator 06/17/20 04:00 97.0 71 18 160/87 (111) 97 06/17/20 04:00 66 06/17/20 03:21 68 12 30 06/17/20 00:00 Mechanical Ventilator 06/17/20 00:00 30 06/17/20 00:00 98.6 16 151/74 (99) 100 06/17/20 00:00 71 06/16/20 23:19 68 13 30 06/16/20 20:00 78 06/16/20 20:00 Mechanical Ventilator 06/16/20 20:00 99.1 12 144/94 (111) 100 06/16/20 19:24 76 15 30 06/16/20 15:53 70 06/16/20 15:14 71 18 30 I&O Intake and Output 06/16/20 06/17/20 19:00 07:00 Intake Total 592.5 ml 715 ml Output Total 2200 ml Balance 592.5 ml -1485 ml IV Total 592.5 ml Tube Feeding 715 ml Output Urine Total 2200 ml Dressing: saturated Cardiovascular: RSR Respiratory: decreased breath sounds Abdomen: soft, flat, non-tender, present bowel sounds Extremities: no tenderness, no cyanosis Laboratory Tests Test 06/17/20 03:57 White Blood Count 8.2 K/UL (4.8-10.8) Red Blood Count 3.33 M/UL (4.20-5.40) L Hemoglobin 10.6 G/DL (12.0-16.0) L Hematocrit 32.5 % (37.0-47.0) L Mean Corpuscular Volume 97 FL (80-99) Mean Corpuscular Hemoglobin 31.7 PG (27.0-31.0) H Mean Corpuscular Hemoglobin Concent 32.5 G/DL (32.0-36.0) Red Cell Distribution Width 15.2 % (11.6-14.8) H Platelet Count 157 K/UL (150-450) Mean Platelet Volume 6.8 FL (6.5-10.1) Neutrophils (%) (Auto) 74.9 % (45.0-75.0) Lymphocytes (%) (Auto) 17.8 % (20.0-45.0) L Monocytes (%) (Auto) 5.2 % (1.0-10.0) Eosinophils (%) (Auto) 1.9 % (0.0-3.0) Basophils (%) (Auto) 0.2 % (0.0-2.0) Sodium Level 143 MMOL/L (136-145) Potassium Level 3.0 MMOL/L (3.5-5.1) L Chloride Level 107 MMOL/L (98-107) Carbon Dioxide Level 33 MMOL/L (21-32) H Anion Gap 3 mmol/L (5-15) L Blood Urea Nitrogen 8 mg/dL (7-18) Creatinine 0.4 MG/DL (0.55-1.30) L Estimat Glomerular Filtration Rate > 60 mL/min (>60) Glucose Level 198 MG/DL (74-106) H Calcium Level 8.1 MG/DL (8.5-10.1) L Total Bilirubin 0.5 MG/DL (0.2-1.0) Aspartate Amino Transf (AST/SGOT) 55 U/L (15-37) H Alanine Aminotransferase (ALT/SGPT) 24 U/L (12-78) Alkaline Phosphatase 90 U/L (46-116) Total Protein 6.1 G/DL (6.4-8.2) L Albumin 1.6 G/DL (3.4-5.0) L Globulin 4.5 g/dL Albumin/Globulin Ratio 0.4 (1.0-2.7) L Plan Problems: (1) Sepsis Assessment & Plan: 55-year-old female with medical comorbidities very ill presented with significant lactic acidosis in intensive care unit on treatment. Wound evaluated unlikely source of lactic acidosis and patient is well-appearing status. Micro noted labs noted. Continue antibiotics. Local wound care was provided. Nutritional optimization. DAILY ESTIMATED NEEDS: Needs based on Advanced wounds, critical care 45kg 28-35 kcals/kg 2425-7220 total kcals 1.5-2 g protein/kg 67-90 g total protein 25-30 mL/kg 7343-4215 total fluid mLs NUTRITION DIAGNOSIS: Increased kcal and pro needs r/t underweight status and wound healing as evidenced by BMI 17.2, pt is 83% of [place] Body Weight, admitted w/ advanced wounds including stage 4 wound @ sacrum, resolving pressure injury @ L ischium, DTPI wounds @ Lt foot and L heel. CURRENT TF:Glucerna 1.2 @ 65ml/hr x 22 hrs (On Synthroid) ENTERAL NUTRITION RECOMMENDATIONS: Glucerna 1.2 goal of 55ml/hr x22 hrs to provide 1210ml, 1452kcal, 73g prot, 974 ml free water - LOWER goal rate to 55ml/hr x 22 hrs: meets 100% est kcal/prot needs, current goal rate exceeds est needs - Flush per MD. HOB Over 30 degrees. - HOLD TF 1 hr before and after Synthroid meds. ADDITIONAL RECOMMENDATIONS: 1) Maintain calibrated bed scale wts Ht per SNF= 64" 2) Wound care: TF @ goal will provide 100% RDI Continue Vit C and ZnSO4 add HALEY BID 3) Lytes daily, replete as needed (low K) 4) Adjust IVF: Na trending up, pt on NS IVF (2) Palpitations (3) Anemia (4) GI bleeding (5) UTI (urinary tract infection) (6) Pneumonia (7) LGI bleed (8) LGI bleed (9) Hospital-acquired pneumonia (10) Suprapubic catheter dysfunction (11) Stage 4 skin ulcer of sacral region Assessment & Plan: Pt presented on admission with Multiple Pressure Injuries, GT and Tracheostomy. Large tracheal stoma with ill-fitting cannula. Stoma of Gastrostomy is hypergranular with small amt bleeding noted. Full Thickness stage 4 Sacral Pressure Injury (L)7cm x (W)7.5cm x (D)2.3cm. Beefy granulation at base ogf wound . Edges are flat and adherent to base of w ound. Small amt sanguineous exudate noted. No odor noted. No evidence of skin breakdown periwound. Resolving Pressure Injury L ischium(L)3.8cm x (W) 2.6cm x(D)0.2cm.Beefy granulation with surrounding pink epithelial borders. No odor or exudate noted. Hyperpigmentation periwound. Bilat foot drop noted. Bilat feet are edematous. DTPI noted to protruding bony prominence dorso/flexor L foot (L)1.3cm x (W)1.5cm. Base of Pressure Injury is maroon/fluctuant with surrounding red/brown borders. DTPI lateral L Foot(L)1.5cm x (W)0.6cm. Base of Pressure Injury is maroon and fluctuant. No evidence of further skin breakdown periwound. DTPI L Heel(L)4.3cm x (W)3.5cm. Base of Pressure Injury is maroon and fluctuant. Periwound is blanchable but boggy. R Heel is boggy but blanchable. Non-Blanchable erythema dorsal R foot. Intervention: Silver Nitrate x1 application applied to hypergranular stoma of G astrostomy.TRiad Paste applied to peristomal GT and covered with Optifoam drsg. Tx.Plan: Wash GT site daily with soap and water. Pat dry. Apply Zinc Oxide Paste. Cover with Optifoam drsg Daily and prn. Cleanse Sacral and L Ischial wounds with Saline. Loosely pack with Therahoney impregnated Kerlix. Apply Moisture Barrier Paste periwound. Cover each wound with Optifoam drsgs. Change Daily and prn. Apply Cavilon Skin Barrier to L Heel,Lateral L foot and dorso/flexor L foot. Cover each site with Optifoam drsg. Change every 7 days and prn. Apply Cavilon Skin Barrier to R Heel and dorsal R Foot. Cover each site with Optifoam drsg. Change every 7 days and prn. Reposition at least every 2hours or as tolerated. Off-load heels with Pillow. APM/VAZQUEZ Mattress overlay. (12) AMS (altered mental status) ShadTo cai Jun 17, 2020 13:05
--- NOTE | 2020-06-17 14:22 | Diagnostic Imaging Report ---
Indication: Cough Technique: One view of the chest Comparison: 06/11/2020 Findings: Again demonstrated are bilateral pleural effusions, stable on the right, slightly increased on the left. Bilateral hazy parenchymal opacity appears slightly increased. The heart is upper limits normal in size. There is a tracheostomy Impression: Stable right and increased left pleural fluid Increased bilateral hazy parenchymal opacities
--- NOTE | 2020-06-17 15:17 | NUR ---
NURSE NOTES:WOUND CARE FOLLOW-UP NOTES:Pt presented on admission with Multiple Pressure Injuries. Full Thickness Sacral Pressure Injury (L)5.5cm x (W)7.3cmx (D)2cm. Beefy granulation at base of wound. Edges are flat and adherent to base of wound.Small amt sanguineous exudate noted. No odor noted. No evidence of additional skin breakdown periwound. Full Thickness Pressure Injury L Ischium resolving(L)3cm x (W)3.5cm. Moist,Red granulation with surrounding pink epithelial at base of wound. No odor or exudate. No evidence of additional skin breakdown periwound. Hypergranular GT site previously noted on initial assessment has resolved.GT site washed with soap and water. Zinc Oxide Paste applied to peristomal skin. R and L Heels are both dry and easily blanchable. Wound Tx are effective and continued as care-planned. All wound prevention protocols continued as care-planned.
[2020-06-17] MEDS ORDERED: 1/2 NS 1000ml IV ONE (15:47)
[2020-06-17 16:00] VITALS: BP 153/85
--- NOTE | 2020-06-17 19:05 | NUR ---
NURSE HAND-OFF REPORT: Important Events on Shift:NA Patient Status: Stable/ Full code Diet: Glucerna 1.2 @65/hr Pending Orders: NA Pending Results/Labs:NA Pending MD notification:NA Latest Vital Signs: Temperature 98.4 , Pulse 69 , B/P 153 /85 , Respiratory Rate 10 , O2 SAT 99 , Room Air, O2 Flow Rate 50.0 . Vital Sign Comment: Stable EKG Rhythm: Sinus Rhythm Rhythm change?: N MD Notified?: - MD Response: Latest Colon Fall Score: 50 Fall Risk: High Risk Safety Measures: Call light Within Reach, Bed Alarm Zone 2, Side Rails Side Rails x3, Bed position Low and Locked. Fall Precautions: Door Sign Report given to PETE Carmichael.
--- NOTE | 2020-06-17 19:30 | NUR ---
NURSE NOTES: Received report from day PETE Cabezas. Patient sleeping. Patient vitals stable at this time. Patient has Vanco and maintenance IV fluids infusing. All IVs are patent. Patient with a trach on a mechanical ventilator. Settings are Assist control 10. Tidal Volume 450. PEEP of 5 and 30%FIO2. Patient has a PEG tube infusing Glucerna 1.2 @65ml/hr which is goal. Patient displays no s/s of pain. Patient repositioned. Rn will continue to monitor.
[2020-06-17 20:00] VITALS: BP 153/76
[2020-06-17] MEDS: Dyna-Hex 2% Top Sol 2oz TOPIC SCH (20:00)
[2020-06-18] VITALS: BP 158/96
--- NOTE | 2020-06-18 | NUR ---
NURSE NOTES: Patient vitals stable at this time. Patient sleeping at this time. Patient shows no s/s of pain. Patient repositioned. RN will continue to monitor.
[2020-06-18] MEDS: NovoLOG Insulin Flexpen SUBQ SCH ×4 (00:15→18:00)
[2020-06-18] MEDS: Vancomycin 750mg/NS 275ml IVPB SCH ×6 (02:29→17:44)
[2020-06-18 04:00] VITALS: BP 138/88
[2020-06-18 04:38] LABS: BASOPHILS % (AUTO) 0.3 % (0.0-2.0); EOSINOPHILS % (AUTO) 2.3 % (0.0-3.0); HEMATOCRIT 33.2 % (37.0-47.0); HEMOGLOBIN 10.6 G/DL (12.0-16.0); LYMPHOCYTES % (AUTO) 16.8 % (20.0-45.0); MEAN CORPUSCULAR VOLUME 98 FL (80-99); MONOCYTES % (AUTO) 5.4 % (1.0-10.0); NEUTROPHILS % (AUTO) 75.2 % (45.0-75.0); PLATELET COUNT 158 K/UL (150-450); RED BLOOD COUNT 3.39 M/UL (4.20-5.40); WHITE BLOOD COUNT 8.5 K/UL (4.8-10.8)
[2020-06-18 04:53] LABS: ALANINE AMINOTRANSFERASE 19 U/L (12-78); ALBUMIN 1.6 G/DL (3.4-5.0); ALBUMIN/GLOBULIN RATIO 0.4 (1.0-2.7); ALKALINE PHOSPHATASE 92 U/L (46-116); ANION GAP 3 mmol/L (5-15); ASPARTATE AMINO TRANSFERASE 49 U/L (15-37); BILIRUBIN,TOTAL 0.5 MG/DL (0.2-1.0); BLOOD UREA NITROGEN 7 mg/dL (7-18); CALCIUM 8.2 MG/DL (8.5-10.1); CARBON DIOXIDE 33 MMOL/L (21-32); CHLORIDE 107 MMOL/L (98-107); CREATININE 0.3 MG/DL (0.55-1.30); POTASSIUM 3.5 MMOL/L (3.5-5.1); SODIUM 143 MMOL/L (136-145)
[2020-06-18] MEDS: Piperacillin/Tazobactam 3.375 GM in NS 110 ML IVPB SCH ×3 (05:33→21:25)
--- NOTE | 2020-06-18 06:37 | NUR ---
NURSE NOTES: Patient had large bowel movement. All patients dressing and wounds were cleaned and redressed. Patient bathed and repositioned. RN will continue to monitor.
--- NOTE | 2020-06-18 07:07 | NUR ---
NURSE HAND-OFF REPORT: Important Events on Shift: Patient Status: Diet: Pending Orders: Pending Results/Labs: Pending MD notification: Latest Vital Signs: Temperature 97.3 , Pulse 66 , B/P 138 /88 , Respiratory Rate 14 , O2 SAT 100 , Room Air, O2 Flow Rate 50.0 . Vital Sign Comment: EKG Rhythm: Sinus Rhythm Rhythm change?: N MD Notified?: - MD Response: Latest Colon Fall Score: 50 Fall Risk: High Risk Safety Measures: Call light Within Reach, Bed Alarm Zone 2, Side Rails Side Rails x3, Bed position Low and Locked. Fall Precautions: Door Sign Report given to Aurelio
[2020-06-18 08:00] VITALS: BP 158/90
[2020-06-18] MEDS: Dakin's 0.125% Soln (Quarter Strength) 16oz TOPIC SCH (09:00)
--- NOTE | 2020-06-18 09:20 | General Progress Note ---
Subjective ROS Limited/Unobtainable: Yes Allergies: Coded Allergies: No Known Allergies (Unverified , 01/20/20) Subjective care noted noted fever curve hypernatremia improved ct noted Objective Last 24 Hour Vital Signs Date Time Temp Pulse Resp B/P (MAP) Pulse Ox O2 Delivery O2 Flow Rate FiO2 06/18/20 08:00 98.2 73 12 158/90 (112) 100 06/18/20 07:30 69 11 30 06/18/20 04:00 Mechanical Ventilator 06/18/20 04:00 66 06/18/20 04:00 97.3 74 14 138/88 (105) 100 06/18/20 01:31 66 10 30 06/18/20 00:00 97.7 70 12 158/96 (116) 100 06/18/20 00:00 64 06/18/20 00:00 Mechanical Ventilator 06/18/20 00:00 30 06/17/20 20:00 Mechanical Ventilator 06/17/20 20:00 98.1 68 12 153/76 (101) 100 06/17/20 20:00 68 06/17/20 19:01 69 10 30 06/17/20 16:00 98.4 77 12 153/85 (107) 99 06/17/20 16:00 78 06/17/20 16:00 Mechanical Ventilator 06/17/20 15:05 70 10 30 06/17/20 12:00 98.8 70 14 145/84 (104) 98 06/17/20 12:00 77 06/17/20 12:00 Mechanical Ventilator 06/17/20 10:54 69 14 30 Intake and Output 06/17/20 06/18/20 19:00 07:00 Intake Total 1080 ml 1705.0 ml Output Total 2000 ml Balance -920 ml 1705.0 ml Intake Free Water 300 ml IV Total 1185.0 ml Tube Feeding 780 ml 520 ml Output Urine Total 2000 ml Laboratory Tests 06/17/20 17:20: Vancomycin Level Trough 17.4H 06/18/20 02:50: White Blood Count 8.5, Red Blood Count 3.39L, Hemoglobin 10.6L, Hematocrit 33.2L , Mean Corpuscular Volume 98, Mean Corpuscular Hemoglobin 31.4H, Mean Corpuscular Hemoglobin Concent 32.0, Red Cell Distribution Width 15.0H, Platelet Count 158, Mean Platelet Volume 7.4, Neutrophils (%) (Auto) 75.2H, Lymphocytes (%) (Auto) 16.8L, Monocytes (%) (Auto) 5.4, Eosinophils (%) (Auto) 2.3, Basophils (%) (Auto) 0.3, Sodium Level 143, Potassium Level 3.5, Chloride Level 107, Carbon Dioxide Level 33H, Anion Gap 3L, Blood Urea Nitrogen 7, Creatinine 0.3L, Estimat Glomerular Filtration Rate > 60, Glucose Level 239H, Calcium Level 8.2L, Total Bilirubin 0.5, Aspartate Amino Transf (AST/SGOT) 49H, Alanine Aminotransferase (ALT/SGPT) 19, Alkaline Phosphatase 92, Total Protein 6.1L, Albumin 1.6L, Globulin 4.5, Albumin/Globulin Ratio 0.4L Height (Feet): 5 Weight (Pounds): 100 Assessment/Plan Assessment/Plan: IMPRESSION chronic respiratory failure trach pneumonia transaminitis CHF pulmonary hypertension anemia hypernatremia hypokalemia fevers PLAN dc planning ID to see iv antibiotics monitor liver enzymes [facility] meds gi and id follow up vent support impression, plan, and exam edited and reviewed in detail care discussed with Chi Hodge MD Jun 18, 2020 09:20
[2020-06-18] MEDS: Docusate 100mg cap ORAL SCH ×2 (09:35→17:44)
[2020-06-18] MEDS: Zinc Sulfate 220mg GT SCH (09:35)
[2020-06-18] MEDS: Ascorbic Acid 500mg tab GT SCH ×2 (09:35→17:44)
[2020-06-18] MEDS: Heparin 5000 units/ml inj SUBQ SCH ×2 (09:38→20:46)
[2020-06-18 12:00] VITALS: BP 158/90
--- NOTE | 2020-06-18 12:41 | NUR ---
RD ASSESSMENT & RECOMMENDATIONS SEE CARE ACTIVITY FOR COMPLETE ASSESSMENT DAILY ESTIMATED NEEDS: Needs based on Advanced wounds, critical care 45kg 28-35 kcals/kg 4522-3638 total kcals 1.5-2 g protein/kg 67-90 g total protein 25-30 mL/kg 1670-7102 total fluid mLs NUTRITION DIAGNOSIS: Increased kcal and pro needs r/t underweight status and wound healing as evidenced by BMI 17.2, pt is 83% of [place] Body Weight, admitted w/ advanced wounds including stage 4 wound @ sacrum and L ischium, DTPI wounds @ Lt foot and L heel. CURRENT TF:Glucerna 1.2 @ 65ml/hr x 22 hrs (On Synthroid) ENTERAL NUTRITION RECOMMENDATIONS: Glucerna 1.2 goal of 55ml/hr x22 hrs to provide 1210ml, 1452kcal, 73g prot, 974ml free water - LOWER goal rate to 55ml/hr x 22 hrs: meets 100% est kcal/prot needs, current goal rate exceeds est needs - Flush per MD. HOB Over 30 degrees. - HOLD TF 1 hr before and after synthroid meds. ADDITIONAL RECOMMENDATIONS: 1) Maintain calibrated bed scale wts Ht per SNF= 64" 2) Wound care: TF @ goal will provide 100% RDI Continue Vit C and ZnSO4 add HALEY BID 3) Lytes daily, replete as needed 4) Rec adding long acting insulin for improved BG control
--- NOTE | 2020-06-18 13:07 | NUR ---
CASE MANAGEMENT:REVIEW 06/18/20 SI: PNEUMONIA. TRACH/VENT/GTUBE 98.6 75 12 158/90 100% ON VENT SUPPORT W/30% FIO2 H/H-10.6/33.2 CO2+33 GLUCOSE+239 IS: IV VANCOMYCIN Q8HRS IV ZOSYN Q8HRS IVF NS@100/HR ZINC GT QD VIT C GT BID MIDODRINE GT BID HEPARIN SQ Q12 : STEP DOWN UNIT DCP: FROM [place] CONV PLAN: CXR (+) INCREASED BILATERAL OPACITIES CONTINUE IV ABX X2
--- NOTE | 2020-06-18 13:19 | Surgery Progress Note ---
Surgery Progress Note Subjective Additional Comments no acute events non toxic labs noted dressings going well Objective Last 24 Hour Vital Signs Date Time Temp Pulse Resp B/P (MAP) Pulse Ox O2 Delivery O2 Flow Rate FiO2 06/18/20 12:00 Mechanical Ventilator 06/18/20 12:00 98.6 75 12 158/90 (112) 100 06/18/20 11:37 65 10 30 06/18/20 08:00 Mechanical Ventilator 06/18/20 08:00 98.2 73 12 158/90 (112) 100 06/18/20 07:33 69 06/18/20 07:30 69 11 30 06/18/20 04:00 Mechanical Ventilator 06/18/20 04:00 66 06/18/20 04:00 97.3 74 14 138/88 (105) 100 06/18/20 01:31 66 10 30 06/18/20 00:00 97.7 70 12 158/96 (116) 100 06/18/20 00:00 64 06/18/20 00:00 Mechanical Ventilator 06/18/20 00:00 30 06/17/20 20:00 Mechanical Ventilator 06/17/20 20:00 98.1 68 12 153/76 (101) 100 06/17/20 20:00 68 06/17/20 19:01 69 10 30 06/17/20 16:00 98.4 77 12 153/85 (107) 99 06/17/20 16:00 78 06/17/20 16:00 Mechanical Ventilator 06/17/20 15:05 70 10 30 I&O Intake and Output 06/17/20 06/18/20 19:00 07:00 Intake Total 1080 ml 1705.0 ml Output Total 2000 ml Balance -920 ml 1705.0 ml Intake Free Water 300 ml IV Total 1185.0 ml Tube Feeding 780 ml 520 ml Output Urine Total 2000 ml Dressing: saturated Cardiovascular: RSR Respiratory: decreased breath sounds Abdomen: soft, non-tender, present bowel sounds Extremities: no edema, no tenderness, no cyanosis Laboratory Tests Test 06/17/20 17:20 06/18/20 02:50 Vancomycin Level Trough 17.4 ug/mL (5.0-12.0) H White Blood Count 8.5 K/UL (4.8-10.8) Red Blood Count 3.39 M/UL (4.20-5.40) L Hemoglobin 10.6 G/DL (12.0-16.0) L Hematocrit 33.2 % (37.0-47.0) L Mean Corpuscular Volume 98 FL (80-99) Mean Corpuscular Hemoglobin 31.4 PG (27.0-31.0) H Mean Corpuscular Hemoglobin Concent 32.0 G/DL (32.0-36.0) Red Cell Distribution Width 15.0 % (11.6-14.8) H Platelet Count 158 K/UL (150-450) Mean Platelet Volume 7.4 FL (6.5-10.1) Neutrophils (%) (Auto) 75.2 % (45.0-75.0) H Lymphocytes (%) (Auto) 16.8 % (20.0-45.0) L Monocytes (%) (Auto) 5.4 % (1.0-10.0) Eosinophils (%) (Auto) 2.3 % (0.0-3.0) Basophils (%) (Auto) 0.3 % (0.0-2.0) Sodium Level 143 MMOL/L (136-145) Potassium Level 3.5 MMOL/L (3.5-5.1) Chloride Level 107 MMOL/L (98-107) Carbon Dioxide Level 33 MMOL/L (21-32) H Anion Gap 3 mmol/L (5-15) L Blood Urea Nitrogen 7 mg/dL (7-18) Creatinine 0.3 MG/DL (0.55-1.30) L Estimat Glomerular Filtration Rate > 60 mL/min (>60) Glucose Level 239 MG/DL (74-106) H Calcium Level 8.2 MG/DL (8.5-10.1) L Total Bilirubin 0.5 MG/DL (0.2-1.0) Aspartate Amino Transf (AST/SGOT) 49 U/L (15-37) H Alanine Aminotransferase (ALT/SGPT) 19 U/L (12-78) Alkaline Phosphatase 92 U/L (46-116) Total Protein 6.1 G/DL (6.4-8.2) L Albumin 1.6 G/DL (3.4-5.0) L Globulin 4.5 g/dL Albumin/Globulin Ratio 0.4 (1.0-2.7) L Plan Problems: (1) Sepsis Assessment & Plan: 55-year-old female with medical comorbidities very ill presented with significant lactic acidosis in intensive care unit on treatment. Wound evaluated unlikely source of lactic acidosis and patient is well-appearing status. Micro noted labs noted. Continue antibiotics. Local wound care was provided. Nutritional optimization. DAILY ESTIMATED NEEDS: Needs based on Advanced wounds, critical care 45kg 28-35 kcals/kg 8630-5722 total kcals 1.5-2 g protein/kg 67-90 g total protein 25-30 mL/kg 7353-9885 total fluid mLs NUTRITION DIAGNOSIS: Increased kcal and pro needs r/t underweight status and wound healing as evidenced by BMI 17.2, pt is 83% of [place] Body Weight, admitted w/ advanced wounds including stage 4 wound @ sacrum, resolving pressure injury @ L ischium, DTPI wounds @ Lt foot and L heel. CURRENT TF:Glucerna 1.2 @ 65ml/hr x 22 hrs (On Synthroid) ENTERAL NUTRITION RECOMMENDATIONS: Glucerna 1.2 goal of 55ml/hr x22 hrs to provide 1210ml, 1452kcal, 73g prot, 974ml free water - LOWER goal rate to 55ml/hr x 22 hrs: meets 100% est kcal/prot needs, current goal rate exceeds est needs - Flush per MD. HOB Over 30 degrees. - HOLD TF 1 hr before and after Synthroid meds. ADDITIONAL RECOMMENDATIONS: 1) Maintain calibrated bed scale wts Ht per SNF= 64" 2) Wound care: TF @ goal will provide 100% RDI Continue Vit C and ZnSO4 add HALEY BID 3) Lytes daily, replete as needed (low K) 4) Adjust IVF: Na trending up, pt on NS IVF (2) Palpitations (3) Anemia (4) GI bleeding (5) UTI (urinary tract infection) (6) Pneumonia (7) LGI bleed (8) LGI bleed (9) Hospital-acquired pneumonia (10) Suprapubic catheter dysfunction (11) Stage 4 skin ulcer of sacral region Assessment & Plan: Pt presented on admission with Multiple Pressure Injuries, GT and Tracheostomy. Large tracheal stoma with ill-fitting cannula. Stoma of Gastrostomy is hypergranular with small amt bleeding noted. Full Thickness stage 4 Sacral Pressure Injury (L)7cm x (W)7.5cm x (D)2.3cm. Beefy granulation at base ogf wound . Edges are flat and adherent to base of wound. Small amt sanguineous exudate noted. No odor noted. No evidence of skin breakdown periwound. Resolving Pressure Injury L ischium(L)3.8cm x (W) 2.6cm x(D)0.2cm.Beefy granulation with surrounding pink epithelial borders. No odor or exudate noted. Hyperpigmentation periwound. Bilat foot drop noted. Bilat feet are edematous. DTPI noted to protruding bony prominence dorso/flexor L foot (L)1.3cm x (W)1.5cm. Base of Pressure Injury is maroon/fluctuant with surrounding red/brown borders. DTPI lateral L Foot(L)1.5cm x (W)0.6cm. Base of Pressure Injury is maroon and fluctuant. No evidence of further skin breakdown periwound. DTPI L Heel(L)4.3cm x (W)3.5cm. Base of Pressure Injury is maroon and fluctuant. Periwound is blanchable but boggy. R Heel is boggy but blanchable. Non-Blanchable erythema dorsal R foot. Intervention: Silver Nitrate x1 application applied to hypergranular stoma of Gastrostomy.TRiad Paste applied to peristomal GT and covered with Optifoam drsg. Tx.Plan: Wash GT site daily with soap and water. Pat dry. Apply Zinc Oxide Paste. Cover with Optifoam drsg Daily and prn. Cleanse Sacral and L Ischial wounds with Saline. Loosely pack with Therahoney impregnated Kerlix. Apply Moisture Barrier Paste periwound. Cover each wound with Optifoam drsgs. Change Daily and prn. Apply Cavilon Skin Barrier to L Heel,Lateral L foot and dorso/flexor L foot. Cover each site with Optifoam drsg. Change every 7 days and prn. Apply Cavilon Skin Barrier to R Heel and dorsal R Foot. Cover each site with Optifoam drsg. Change every 7 days and prn. Reposition at least every 2hours or as tolerated. Off-load heels with Pillow. APM/VAZQUEZ Mattress overlay. (12) AMS (altered mental status) To Webbb 11, 2021 13:19
--- NOTE | 2020-06-18 15:14 | Infectious Diseases Prog Note ---
Assessment/Plan Assessment/Plan A 1. pneumonia 2. CHF 3. pulmonary hypertension 4.Ventilator dependent respiratory failure 5. s/p tracheostomy 6. Anemia P 1. continue iv vancomycin 2. continue Zosyn 3. continue isolation Subjective ROS Limited/Unobtainable: Yes Allergies: Coded Allergies: No Known Allergies (Unverified , 01/20/20) Objective Last 24 Hour Vital Signs Date Time Temp Pulse Resp B/P (MAP) Pulse Ox O2 Delivery O2 Flow Rate FiO2 06/18/20 12:00 Mechanical Ventilator 06/18/20 12:00 67 06/18/20 12:00 98.6 75 12 158/90 (112) 100 06/18/20 11:37 65 10 30 06/18/20 08:00 Mechanical Ventilator 06/18/20 08:00 98.2 73 12 158/90 (112) 100 06/18/20 07:33 69 06/18/20 07:30 69 11 30 06/18/20 04:00 Mechanical Ventilator 06/18/20 04:00 66 06/18/20 04:00 97.3 74 14 138/88 (105) 100 06/18/20 01:31 66 10 30 06/18/20 00:00 97.7 70 12 158/96 (116) 100 06/18/20 00:00 64 06/18/20 00:00 Mechanical Ventilator 06/18/20 00:00 30 06/17/20 20:00 Mechanical Ventilator 06/17/20 20:00 98.1 68 12 153/76 (101) 100 06/17/20 20:00 68 06/17/20 19:01 69 10 30 06/17/20 16:00 98.4 77 12 153/85 (107) 99 06/17/20 16:00 78 06/17/20 16:00 Mechanical Ventilator Height (Feet): 5 Weight (Pounds): 100 HEENT: status post trach Respiratory/Chest: other - on ventilator Cardiovascular: normal rate Abdomen: soft, non tender, other - GT feeding Neurologic/Psychiatric: aphasia Microbiology Date/Time Source Procedure Growth Status 06/17/20 17:30 Sputum Gram Stain - Final Resulted 06/17/20 17:30 Sputum Sputum Culture Pending Resulted Laboratory Tests Test 06/17/20 17:20 06/18/20 02:50 Vancomycin Level Trough 17.4 ug/mL (5.0-12.0) H White Blood Count 8.5 K/UL (4.8-10.8) Red Blood Count 3.39 M/UL (4.20-5.40) L Hemoglobin 10.6 G/DL (12.0-16.0) L Hematocrit 33.2 % (37.0-47.0) L Mean Corpuscular Volume 98 FL (80-99) Mean Corpuscular Hemoglobin 31.4 PG (27.0-31.0) H Mean Corpuscular Hemoglobin Concent 32.0 G/DL (32.0-36.0) Red Cell Distribution Width 15.0 % (11.6-14.8) H Platelet Count 158 K/UL (150-450) Mean Platelet Volume 7.4 FL (6.5-10.1) Neutrophils (%) (Auto) 75.2 % (45.0-75.0) H Lymphocytes (%) (Auto) 16.8 % (20.0-45.0) L Monocytes (%) (Auto) 5.4 % (1.0-10.0) Eosinophils (%) (Auto) 2.3 % (0.0-3.0) Basophils (%) (Auto) 0.3 % (0.0-2.0) Sodium Level 143 MMOL/L (136-145) Potassium Level 3.5 MMOL/L (3.5-5.1) Chloride Level 107 MMOL/L (98-107) Carbon Dioxide Level 33 MMOL/L (21-32) H Anion Gap 3 mmol/L (5-15) L Blood Urea Nitrogen 7 mg/dL (7-18) Creatinine 0.3 MG/DL (0.55-1.30) L Estimat Glomerular Filtration Rate > 60 mL/min (>60) Glucose Level 239 MG/DL (74-106) H Calcium Level 8.2 MG/DL (8.5-10.1) L Total Bilirubin 0.5 MG/DL (0.2-1.0) Aspartate Amino Transf (AST/SGOT) 49 U/L (15-37) H Alanine Aminotransferase (ALT/SGPT) 19 U/L (12-78) Alkaline Phosphatase 92 U/L (46-116) Total Protein 6.1 G/DL (6.4-8.2) L Albumin 1.6 G/DL (3.4-5.0) L Globulin 4.5 g/dL Albumin/Globulin Ratio 0.4 (1.0-2.7) L Current Medications Medications (Trade) Dose Ordered Sig/Elisa Route PRN Reason Start Time Stop Time Status Last Admin Dose Admin Acetaminophen (Tylenol) 650 mg Q6H PRN ORAL For Pain 06/12/20 00:45 07/12/20 00:44 06/13/20 11:06 Ascorbic Acid (Vitamin C) 250 mg TWICE A DAY GT 06/13/20 18:00 07/13/20 17:59 06/18/20 09:35 Chlorhexidine Gluconate (Carolina-Hex 2%) 1 applic DAILY@2000 TOPIC 06/12/20 20:00 09/10/20 19:59 06/17/20 20:00 Dextrose (Dextrose 50%) 25 ml Q30M PRN IV Hypoglycemia 06/12/20 00:45 09/10/20 00:44 Dextrose (Dextrose 50%) 50 ml Q30M PRN IV Hypoglycemia 06/12/20 00:45 09/10/20 00:44 Docusate Sodium (Colace) 100 mg TWICE A DAY ORAL 06/12/20 09:00 07/12/20 08:59 06/18/20 09:35 Famotidine (Pepcid) 20 mg DAILY GT 06/12/20 09:00 09/10/20 08:59 06/18/20 09:35 Heparin Sodium (Porcine) (Heparin 5000 units/ml) 5,000 units EVERY 12 HOURS SUBQ 06/12/20 09:00 07/27/20 08:59 06/18/20 09:38 Insulin Aspart (NovoLOG) EVERY 6 HOURS SUBQ 06/12/20 06:00 09/10/20 05:59 06/18/20 13:25 Levothyroxine Sodium (Synthroid) 50 mcg DAILY@0630 GT 06/12/20 06:30 07/12/20 06:29 06/18/20 06:21 Midodrine (Pro-Amatine) 5 mg BID GT 06/12/20 09:00 09/10/20 08:59 06/17/20 17:23 Piperacillin Sod/ Tazobactam Sod 3.375 gm/Sodium Chloride 110 ml @ 27.5 mls/hr EVERY 8 HOURS IVPB 06/12/20 06:00 06/22/20 05:59 06/18/20 13:26 Sodium Hypochlorite (Dakin's Quarter Strength) 1 applic DAILY TOPIC 06/17/20 13:00 07/17/20 12:59 06/18/20 09:00 Sodium Chloride 1,000 ml @ 100 mls/hr Q10H IV 06/15/20 09:30 07/15/20 09:29 06/18/20 07:30 Vancomycin HCl (Vanco pharmacy to dose) 1 ea DAILY PRN MISC Per rx protocol 06/12/20 00:30 07/12/20 00:29 Vancomycin HCl 750 mg/Sodium Chloride 275 ml @ 183.333 mls/hr Q8H IVPB 06/16/20 18:00 06/21/20 17:59 06/18/20 09:37 Zinc Sulfate (Zinc Sulfate) 220 mg DAILY GT 06/14/20 09:00 06/24/20 08:59 06/18/20 09:35 Jaspal Cintron MD Jun 18, 2020 15:14
[2020-06-18 16:00] VITALS: BP 155/95
--- NOTE | 2020-06-18 17:09 | NUR ---
INSURANCE CLINICALS/REVIEW FAXED [facility] x [phone] ncm: Keri vasquez
--- NOTE | 2020-06-18 19:36 | NUR ---
NURSE NOTES: RN received report from Jae RFEEMAN. Patient resting in bed. Patient vent alarming. Notified RT to assess vent. Patient in no distress at this time. RN will continue to monitor.
[2020-06-18 20:00] VITALS: BP 143/74
[2020-06-18] MEDS: Dyna-Hex 2% Top Sol 2oz TOPIC SCH (20:00)
[2020-06-19] VITALS: BP 132/85
[2020-06-19] MEDS: NovoLOG Insulin Flexpen SUBQ SCH ×5 (00:02→23:57)
--- NOTE | 2020-06-19 01:49 | NUR ---
NURSE NOTES: Patient in acclerated junctial rhythym at rate of 63. Patient asymptomatic and vitals stable at this time. Patient repositioned and resting. RN will continue to monitor.
[2020-06-19] MEDS: Vancomycin 750mg/NS 275ml IVPB SCH ×4 (01:51→09:23)
[2020-06-19 04:00] VITALS: BP 156/91
[2020-06-19] MEDS: Piperacillin/Tazobactam 3.375 GM in NS 110 ML IVPB SCH ×3 (05:49→21:14)
--- NOTE | 2020-06-19 07:30 | NUR ---
NURSE HAND-OFF REPORT: Important Events on Shift: Patient Status: Diet: Pending Orders: Pending Results/Labs: Pending MD notification: Latest Vital Signs: Temperature 98.8 , Pulse 84 , B/P 129 /76 , Respiratory Rate 10 , O2 SAT 98 , Room Air, O2 Flow Rate 50.0 . Vital Sign Comment: EKG Rhythm: Sinus Rhythm Rhythm change?: N MD Notified?: - MD Response: Latest Colon Fall Score: 50 Fall Risk: High Risk Safety Measures: Call light Within Reach, Bed Alarm Zone 2, Side Rails Side Rails x3, Bed position Low and Locked. Fall Precautions: Door Sign Report given to Shane Huizar
[2020-06-19 08:00] VITALS: BP 140/82
--- NOTE | 2020-06-19 08:07 | General Progress Note ---
Subjective ROS Limited/Unobtainable: Yes Allergies: Coded Allergies: No Known Allergies (Unverified , 01/20/20) Subjective care noted noted fever curve nontoxic Objective Last 24 Hour Vital Signs Date Time Temp Pulse Resp B/P (MAP) Pulse Ox O2 Delivery O2 Flow Rate FiO2 06/19/20 07:00 73 11 30 06/19/20 05:15 67 10 30 06/19/20 04:00 97.5 64 12 156/91 (112) 100 06/19/20 04:00 Mechanical Ventilator 06/19/20 04:00 67 06/19/20 03:31 70 14 30 06/19/20 01:06 66 11 30 06/19/20 00:00 Mechanical Ventilator 06/19/20 00:00 30 06/19/20 00:00 97.8 68 12 132/85 (101) 100 06/19/20 00:00 66 06/18/20 23:18 61 10 30 06/18/20 21:52 67 10 30 06/18/20 20:00 98.3 70 12 143/74 (97) 98 06/18/20 20:00 Mechanical Ventilator 06/18/20 19:48 66 06/18/20 19:23 70 11 30 06/18/20 16:00 98.2 71 12 155/95 (115) 99 06/18/20 16:00 69 06/18/20 16:00 Mechanical Ventilator 06/18/20 15:29 69 12 30 06/18/20 12:00 Mechanical Ventilator 06/18/20 12:00 67 06/18/20 12:00 98.6 75 12 158/90 (112) 100 06/18/20 11:37 65 10 30 Intake and Output 06/18/20 06/19/20 19:00 07:00 Intake Total 780 ml 1550.0 ml Output Total 1100 ml Balance 780 ml 450.0 ml IV Total 835.0 ml Tube Feeding 780 ml 715 ml Output Urine Total 1100 ml # Bowel Movements 1 Height (Feet): 5 Weight (Pounds): 100 Assessment/Plan Assessment/Plan: IMPRESSION chronic respiratory failure trach pneumonia transaminitis CHF pulmonary hypertension anemia hypernatremia hypokalemia fevers PLAN dc planning ID to see iv antibiotics- vanco and zosyn monitor liver enzymes snf meds gi and id follow up vent support impression, plan, and exam edited and reviewed in detail care discussed with Chi Hodge MD Jun 19, 2020 08:07
[2020-06-19] MEDS: Docusate 100mg cap ORAL SCH ×2 (09:00→17:37)
[2020-06-19] MEDS: Zinc Sulfate 220mg GT SCH (09:11)
[2020-06-19] MEDS: Ascorbic Acid 500mg tab GT SCH ×2 (09:11→17:50)
[2020-06-19] MEDS: Heparin 5000 units/ml inj SUBQ SCH ×2 (09:13→21:14)
[2020-06-19] MEDS: Dakin's 0.125% Soln (Quarter Strength) 16oz TOPIC SCH (09:15)
--- NOTE | 2020-06-19 10:18 | Infectious Diseases Prog Note ---
Assessment/Plan Assessment/Plan antibiotics : vancomycin iv, zosyn A 1. gram negative pneumonia 2. CHF 3. pulmonary hypertension 4. respiratory failure s/p tracheostomy P 1. d/c iv vancomycin 2. continue zosyn 3. continue isolation Subjective ROS Limited/Unobtainable: Yes Allergies: Coded Allergies: No Known Allergies (Unverified , 01/20/20) Objective Last 24 Hour Vital Signs Date Time Temp Pulse Resp B/P (MAP) Pulse Ox O2 Delivery O2 Flow Rate FiO2 06/19/20 08:00 73 06/19/20 07:00 73 11 30 06/19/20 05:15 67 10 30 06/19/20 04:00 97.5 64 12 156/91 (112) 100 06/19/20 04:00 Mechanical Ventilator 06/19/20 04:00 67 06/19/20 03:31 70 14 30 06/19/20 01:06 66 11 30 06/19/20 00:00 Mechanical Ventilator 06/19/20 00:00 30 06/19/20 00:00 97.8 68 12 132/85 (101) 100 06/19/20 00:00 66 06/18/20 23:18 61 10 30 06/18/20 21:52 67 10 30 06/18/20 20:00 98.3 70 12 143/74 (97) 98 06/18/20 20:00 Mechanical Ventilator 06/18/20 19:48 66 06/18/20 19:23 70 11 30 06/18/20 16:00 98.2 71 12 155/95 (115) 99 06/18/20 16:00 69 06/18/20 16:00 Mechanical Ventilator 06/18/20 15:29 69 12 30 06/18/20 12:00 Mechanical Ventilator 06/18/20 12:00 67 06/18/20 12:00 98.6 75 12 158/90 (112) 100 06/18/20 11:37 65 10 30 Height (Feet): 5 Weight (Pounds): 100 HEENT: status post trach Microbiology Date/Time Source Procedure Growth Status 06/17/20 17:30 Sputum Gram Stain - Final Resulted 06/17/20 17:30 Sputum Culture - Preliminary Gram Negative Calvin Resulted Current Medications Medications (Trade) Dose Ordered Sig/Elisa Route PRN Reason Start Time Stop Time Status Last Admin Dose Admin Acetaminophen (Tylenol) 650 mg Q6H PRN ORAL For Pain 06/12/20 00:45 07/12/20 00:44 06/13/20 11:06 Ascorbic Acid (Vitamin C) 250 mg TWICE A DAY GT 06/13/20 18:00 07/13/20 17:59 06/19/20 09:11 Chlorhexidine Gluconate (Carolina-Hex 2%) 1 applic DAILY@2000 TOPIC 06/12/20 20:00 09/10/20 19:59 06/18/20 20:00 Dextrose (Dextrose 50%) 25 ml Q30M PRN IV Hypoglycemia 06/12/20 00:45 09/10/20 00:44 Dextrose (Dextrose 50%) 50 ml Q30M PRN IV Hypoglycemia 06/12/20 00:45 09/10/20 00:44 Docusate Sodium (Colace) 100 mg TWICE A DAY ORAL 06/12/20 09:00 07/12/20 08:59 06/18/20 17:44 Famotidine (Pepcid) 20 mg DAILY GT 06/12/20 09:00 09/10/20 08:59 06/19/20 09:11 Heparin Sodium (Porcine) (Heparin 5000 units/ml) 5,000 units EVERY 12 HOURS SUBQ 06/12/20 09:00 07/27/20 08:59 06/19/20 09:13 Insulin Aspart (NovoLOG) EVERY 6 HOURS SUBQ 06/12/20 06:00 09/10/20 05:59 06/19/20 05:49 Levothyroxine Sodium (Synthroid) 50 mcg DAILY@0630 GT 06/12/20 06:30 07/12/20 06:29 06/19/20 05:49 Midodrine (Pro-Amatine) 5 mg BID GT 06/12/20 09:00 09/10/20 08:59 06/17/20 17:23 Piperacillin Sod/ Tazobactam Sod 3.375 gm/Sodium Chloride 110 ml @ 27.5 mls/hr EVERY 8 HOURS IVPB 06/12/20 06:00 06/22/20 05:59 06/19/20 05:49 Sodium Hypochlorite (Dakin's Quarter Strength) 1 applic DAILY TOPIC 06/17/20 13:00 07/17/20 12:59 06/19/20 09:15 Sodium Chloride 1,000 ml @ 100 mls/hr Q10H IV 06/15/20 09:30 07/15/20 09:29 06/19/20 04:52 Vancomycin HCl (Vanco pharmacy to dose) 1 ea DAILY PRN MISC Per rx protocol 06/12/20 00:30 07/12/20 00:29 Vancomycin HCl 750 mg/Sodium Chloride 275 ml @ 183.333 mls/hr Q8H IVPB 06/16/20 18:00 06/21/20 17:59 06/19/20 09:23 Zinc Sulfate (Zinc Sulfate) 220 mg DAILY GT 06/14/20 09:00 06/24/20 08:59 06/19/20 09:11 Des San MD Jun 19, 2020 10:18
--- NOTE | 2020-06-19 10:46 | NUR ---
CASE MANAGEMENT:REVIEW 06/19/20 SI: PNEUMONIA. TRACH/VENT/GTUBE 97.5 67 12 156/91 100% ON VENT SUPPORT W/30% FIO2 IS: IV ZOSYN Q8HRS IVF NS@100/HR ZINC GT QD VIT C GT BID MIDODRINE GT BID HEPARIN SQ Q12 : STEP DOWN UNIT DCP: FROM [facility] PLAN: DC VANCOMYCIN CONTINUE ZOSYN CONTINUE ISOLATION
[2020-06-19 12:00] VITALS: BP 154/95
--- NOTE | 2020-06-19 12:52 | Surgery Progress Note ---
Surgery Progress Note Subjective Additional Comments doing okay comfortable will obtain peripheral line and if functional plan to remove TLC from groin Objective Last 24 Hour Vital Signs Date Time Temp Pulse Resp B/P (MAP) Pulse Ox O2 Delivery O2 Flow Rate FiO2 06/19/20 08:00 73 06/19/20 08:00 97.7 66 12 140/82 (101) 99 06/19/20 07:00 73 11 30 06/19/20 05:15 67 10 30 06/19/20 04:00 97.5 64 12 156/91 (112) 100 06/19/20 04:00 Mechanical Ventilator 06/19/20 04:00 67 06/19/20 03:31 70 14 30 06/19/20 01:06 66 11 30 06/19/20 00:00 Mechanical Ventilator 06/19/20 00:00 30 06/19/20 00:00 97.8 68 12 132/85 (101) 100 06/19/20 00:00 66 06/18/20 23:18 61 10 30 06/18/20 21:52 67 10 30 06/18/20 20:00 98.3 70 12 143/74 (97) 98 06/18/20 20:00 Mechanical Ventilator 06/18/20 19:48 66 06/18/20 19:23 70 11 30 06/18/20 16:00 98.2 71 12 155/95 (115) 99 06/18/20 16:00 69 06/18/20 16:00 Mechanical Ventilator 06/18/20 15:29 69 12 30 I&O Intake and Output 06/18/20 06/19/20 19:00 07:00 Intake Total 780 ml 1550.0 ml Output Total 1100 ml Balance 780 ml 450.0 ml IV Total 835.0 ml Tube Feeding 780 ml 715 ml Output Urine Total 1100 ml # Bowel Movements 1 Dressing: saturated Cardiovascular: RSR Respiratory: decreased breath sounds Abdomen: soft, non-tender, present bowel sounds, non-distended Extremities: no edema, no tenderness, no cyanosis Plan Problems: (1) Sepsis Assessment & Plan: 55-year-old female with medical comorbidities very ill presented with significant lactic acidosis in intensive care unit on treatment. Wound evaluated unlikely source of lactic acidosis and patient is well-appearing status. Micro noted labs noted. Continue antibiotics. Local wound care was provided. Nutritional optimization. DAILY ESTIMATED NEEDS: Needs based on Advanced wounds, critical care 45kg 28-35 kcals/kg 9241-1274 total kcals 1.5-2 g protein/kg 67-90 g total protein 25-30 mL/kg 3443-5920 total fluid mLs NUTRITION DIAGNOSIS: Increased kcal and pro needs r/t underweight status and wound healing as evidenced by BMI 17.2, pt is 83% of [place] Body Weight, admitted w/ advanced wounds including stage 4 wound @ sacrum, resolving pressure injury @ L ischium, DTPI wounds @ Lt foot and L heel. CURRENT TF:Glucerna 1.2 @ 65ml/hr x 22 hrs (On Synthroid) ENTERAL NUTRITION RECOMMENDATIONS: Glucerna 1.2 goal of 55ml/hr x22 hrs to provide 1210ml, 1452kcal, 73g prot, 974ml free water - LOWER goal rate to 55ml/hr x 22 hrs: meets 100% est kcal/prot needs, current goal rate exceeds est needs - Flush per MD. HOB Over 30 degrees. - HOLD TF 1 hr before and after Synthroid meds. ADDITIONAL RECOMMENDATIONS: 1) Maintain calibrated bed scale wts Ht per SNF= 64" 2) Wound care: TF @ goal will provide 100% RDI Continue Vit C and ZnSO4 add HALEY BID 3) Lytes daily, replete as needed (low K) 4) Adjust IVF: Na trending up, pt on NS IVF (2) Palpitations (3) Anemia (4) GI bleeding (5) UTI (urinary tract infection) (6) Pneumonia (7) LGI bleed (8) LGI bleed (9) Hospital-acquired pneumonia (10) Suprapubic catheter dysfunction (11) Stage 4 skin ulcer of sacral region Assessment & Plan: Pt presented on admission with Multiple Pressure Injuries, GT and Tracheostomy. Large tracheal stoma with ill-fitting cannula. Stoma of Gastrostomy is hypergranular with small amt bleeding noted. Full Thickness stage 4 Sacral Pressure Injury (L)7cm x (W)7.5cm x (D)2.3cm. Beefy granulation at base ogf wound . Edges are flat and adherent to base of wound. Small amt sanguineous exudate noted. No odor noted. No evidence of skin breakdown periwound. Resolving Pressure Injury L ischium(L)3.8cm x (W) 2.6cm x(D)0.2cm.Beefy granulation with surrounding pink epithelial borders. No odor or exudate noted. Hyperpigmentation periwound. Bilat foot drop noted. Bilat feet are edematous. DTPI noted to protruding bony prominence dorso/flexor L foot (L)1.3cm x (W)1.5cm. Base of Pressure Injury is maroon/fluctuant with surrounding red/brown borders. DTPI lateral L Foot(L)1.5cm x (W)0.6cm. Base of Pressure Injury is maroon and fluctuant. No evidence of further skin breakdown periwound. DTPI L Heel(L)4.3cm x (W)3.5cm. Base of Pressure Injury is maroon and fluctuant. Periwound is blanchable but boggy. R Heel is boggy but blanchable. Non-Blanchable erythema dorsal R foot. Intervention: Silver Nitrate x1 application applied to hypergranular stoma of Gastrostomy.TRiad Paste applied to peristomal GT and covered with Optifoam drsg. Tx.Plan: Wash GT site daily with soap and water. Pat dry. Apply Zinc Oxide Paste. Cover with Optifoam drsg Daily and prn. Cleanse Sacral and L Ischial wounds with Saline. Loosely pack with Therahoney impregnated Kerlix. Apply Moisture Barrier Paste periwound. Cover each wound with Optifoam drsgs. Change Daily and prn. Apply Cavilon Skin Barrier to L Heel,Lateral L foot and dorso/flexor L foot. Cover each site with Optifoam drsg. Change every 7 days and prn. Apply Cavilon Skin Barrier to R Heel and dorsal R Foot. Cover each site with Optifoam drsg. Change every 7 days and prn. Reposition at least every 2hours or as tolerated. Off-load heels with Pillow. APM/VAZQUEZ Mattress overlay. (12) AMS (altered mental status) JonTo Jun 19, 2020 12:52
--- NOTE | 2020-06-19 15:54 | NUR ---
INSURANCE CLINICALS/REVIEW FAXED [facility] x [phone] ncm: Keri vasquez
[2020-06-19 16:00] VITALS: BP 129/76
[2020-06-19 20:00] VITALS: BP 119/68
[2020-06-19] MEDS: Dyna-Hex 2% Top Sol 2oz TOPIC SCH (20:02)
[2020-06-20] VITALS (8 sets, daily range): BP systolic 113–174; BP diastolic 60–101
--- NOTE | 2020-06-20 | NUR ---
NURSE NOTES: Patient vitals stable at this time. Patient sleeping. patient repositioned for comfort. RN will continue to monitor.
[2020-06-20] MEDS: Piperacillin/Tazobactam 3.375 GM in NS 110 ML IVPB SCH (06:15)
[2020-06-20] MEDS: NovoLOG Insulin Flexpen SUBQ SCH ×4 (06:15→23:42)
--- NOTE | 2020-06-20 07:24 | NUR ---
NURSE NOTES: Received report from PETE Carmichael. Pt is sleeping in bed, semi fowlers. Pt is on ventilator saturating 100% on vitals machine. Pt gtube feed at 65cc, tolerating well. Pt has supruabuic catheter draining clear yellow urine. Pt Has R femoral triple lumen. LFA 20g SL. stage 4 coxyx noted, stage 2 ishial noted. Pt bed low and locked, call light in reach and bed alarm on.
[2020-06-20] MEDS: Docusate 100mg cap ORAL SCH ×2 (08:29→17:12)
[2020-06-20] MEDS: Zinc Sulfate 220mg GT SCH (08:30)
[2020-06-20] MEDS: Ascorbic Acid 500mg tab GT SCH ×2 (08:30→17:18)
[2020-06-20] MEDS: Dakin's 0.125% Soln (Quarter Strength) 16oz TOPIC SCH (08:31)
[2020-06-20] MEDS: Heparin 5000 units/ml inj SUBQ SCH ×2 (08:32→22:20)
--- NOTE | 2020-06-20 09:53 | Infectious Diseases Prog Note ---
Assessment/Plan Assessment/Plan A 1. Pseudomonas & Acinetobacter pneumonia 2. CHF 3. pulmonary hypertension 4.Ventilator dependent respiratory failure 5. s/p tracheostomy 6. Anemia P 1. Start on Colistin inhaler 2. change Zosyn to Meropenem 3. continue isolation Subjective ROS Limited/Unobtainable: Yes Allergies: Coded Allergies: No Known Allergies (Unverified , 01/20/20) Objective Last 24 Hour Vital Signs Date Time Temp Pulse Resp B/P (MAP) Pulse Ox O2 Delivery O2 Flow Rate FiO2 06/20/20 08:30 66 06/20/20 08:02 Mechanical Ventilator 06/20/20 08:01 30 06/20/20 08:00 97.7 65 16 145/84 (104) 100 06/20/20 04:00 68 06/20/20 04:00 Mechanical Ventilator 06/20/20 04:00 30 06/20/20 04:00 97.7 68 11 134/72 (92) 100 06/20/20 03:49 68 10 30 06/20/20 00:00 65 06/20/20 00:00 98.1 67 11 129/66 (87) 100 06/20/20 00:00 30 06/20/20 00:00 Mechanical Ventilator 06/19/20 23:59 63 10 30 06/19/20 20:00 85 06/19/20 20:00 98.6 82 12 119/68 (85) 98 06/19/20 20:00 Mechanical Ventilator 06/19/20 19:08 84 10 30 06/19/20 16:00 76 06/19/20 16:00 98.8 80 12 129/76 (93) 98 06/19/20 16:00 Mechanical Ventilator 06/19/20 15:15 76 10 30 06/19/20 12:00 74 06/19/20 12:00 97.2 77 12 154/95 (114) 100 06/19/20 12:00 Mechanical Ventilator 06/19/20 11:45 68 10 30 Height (Feet): 5 Weight (Pounds): 100 HEENT: status post trach Respiratory/Chest: other - on ventilator Cardiovascular: normal rate Abdomen: soft, non tender, other - GT feeding Extremities: other - edema Neurologic/Psychiatric: aphasia Microbiology Date/Time Source Procedure Growth Status 06/17/20 17:30 Sputum Gram Stain - Final Resulted 06/17/20 17:30 Sputum Culture - Preliminary Pseudomonas Aeruginosa - Mdr [email or web address] Complx - Mdr Resulted Current Medications Medications (Trade) Dose Ordered Sig/Elisa Route PRN Reason Start Time Stop Time Status Last Admin Dose Admin Acetaminophen (Tylenol) 650 mg Q6H PRN ORAL For Pain 06/12/20 00:45 07/12/20 00:44 06/13/20 11:06 Ascorbic Acid (Vitamin C) 250 mg TWICE A DAY GT 06/13/20 18:00 07/13/20 17:59 06/20/20 08:30 Chlorhexidine Gluconate (Carolina-Hex 2%) 1 applic DAILY@2000 TOPIC 06/12/20 20:00 09/10/20 19:59 06/19/20 20:02 Dextrose (Dextrose 50%) 25 ml Q30M PRN IV Hypoglycemia 06/12/20 00:45 09/10/20 00:44 Dextrose (Dextrose 50%) 50 ml Q30M PRN IV Hypoglycemia 06/12/20 00:45 09/10/20 00:44 Docusate Sodium (Colace) 100 mg TWICE A DAY ORAL 06/12/20 09:00 07/12/20 08:59 06/18/20 17:44 Famotidine (Pepcid) 20 mg DAILY GT 06/12/20 09:00 09/10/20 08:59 06/20/20 08:30 Heparin Sodium (Porcine) (Heparin 5000 units/ml) 5,000 units EVERY 12 HOURS SUBQ 06/12/20 09:00 07/27/20 08:59 06/20/20 08:32 Insulin Aspart (NovoLOG) EVERY 6 HOURS SUBQ 06/12/20 06:00 09/10/20 05:59 06/20/20 06:15 Levothyroxine Sodium (Synthroid) 50 mcg DAILY@0630 GT 06/12/20 06:30 07/12/20 06:29 06/20/20 06:32 Midodrine (Pro-Amatine) 5 mg BID GT 06/12/20 09:00 09/10/20 08:59 06/17/20 17:23 Piperacillin Sod/ Tazobactam Sod 3.375 gm/Sodium Chloride 110 ml @ 27.5 mls/hr EVERY 8 HOURS IVPB 2/5/21 06:00 06/22/20 05:59 06/20/20 06:15 Sodium Hypochlorite (Dakin's Quarter Strength) 1 applic DAILY TOPIC 06/17/20 13:00 07/17/20 12:59 06/20/20 08:31 Sodium Chloride 1,000 ml @ 100 mls/hr Q10H IV 06/15/20 09:30 07/15/20 09:29 06/20/20 08:32 Zinc Sulfate (Zinc Sulfate) 220 mg DAILY GT 06/14/20 09:00 06/24/20 08:59 06/20/20 08:30 Jaspal Cintron MD Jun 20, 2020 09:53
[2020-06-20] MEDS ORDERED: NS 275ml ONE (10:13)
[2020-06-20] MEDS ORDERED: Sterile Water Irrig 1000ml IRRIG ONE (10:13)
[2020-06-20] MEDS ORDERED: NS 500ML ONE (10:13)
[2020-06-20] MEDS: Colistin for inhalation INH SCH ×2 (11:13→22:27)
[2020-06-20] MEDS: Meropenem 1gm/NS 55ml IVPB SCH ×4 (11:24→22:20)
--- NOTE | 2020-06-20 11:55 | NUR ---
NURSE NOTES: Pt covid results negative, called Dr Nunez to report and receive isolation orders. voicemail left, awaiting call back.
--- NOTE | 2020-06-20 11:57 | NUR ---
NURSE NOTES: Pt elevated blood pressure. contacted Dr taylor for PRN medication. awaiting call back
--- NOTE | 2020-06-20 11:58 | Surgery Progress Note ---
Surgery Progress Note Subjective Additional Comments no acute events resting comfortable labs noted micro reviewed Objective Last 24 Hour Vital Signs Date Time Temp Pulse Resp B/P (MAP) Pulse Ox O2 Delivery O2 Flow Rate FiO2 06/20/20 08:30 66 06/20/20 08:02 Mechanical Ventilator 06/20/20 08:01 30 06/20/20 08:00 97.7 65 16 145/84 (104) 100 06/20/20 04:00 68 06/20/20 04:00 Mechanical Ventilator 06/20/20 04:00 30 06/20/20 04:00 97.7 68 11 134/72 (92) 100 06/20/20 03:49 68 10 30 06/20/20 00:00 65 06/20/20 00:00 98.1 67 11 129/66 (87) 100 06/20/20 00:00 30 06/20/20 00:00 Mechanical Ventilator 06/19/20 23:59 63 10 30 06/19/20 20:00 85 06/19/20 20:00 98.6 82 12 119/68 (85) 98 06/19/20 20:00 Mechanical Ventilator 06/19/20 19:08 84 10 30 06/19/20 16:00 76 06/19/20 16:00 98.8 80 12 129/76 (93) 98 06/19/20 16:00 Mechanical Ventilator 06/19/20 15:15 76 10 30 06/19/20 12:00 74 06/19/20 12:00 97.2 77 12 154/95 (114) 100 06/19/20 12:00 Mechanical Ventilator I&O Intake and Output 06/19/20 06/20/20 19:00 07:00 Intake Total 880 ml 1445.0 ml Output Total 2500 ml 1200 ml Balance -1620 ml 245.0 ml Intake Oral 715 ml Free Water 100 ml IV Total 730.0 ml Tube Feeding 65 ml 715 ml Output Urine Total 2500 ml 1200 ml # Bowel Movements 3 Dressing: saturated Cardiovascular: RSR Respiratory: decreased breath sounds Abdomen: soft, non-tender, present bowel sounds Extremities: no tenderness, no cyanosis Plan Problems: (1) Sepsis Assessment & Plan: 55-year-old female with medical comorbidities very ill presented with significant lactic acidosis in intensive care unit on treatment. Wound evaluated unlikely source of lactic acidosis and patient is well-appearing status. Micro noted labs noted. Continue antibiotics. Local wound care was provided. Nutritional optimization. DAILY ESTIMATED NEEDS: Needs based on Advanced wounds, critical care 45kg 28-35 kcals/kg 6847-3959 total kcals 1.5-2 g protein/kg 67-90 g total protein 25-30 mL/kg 7462-1685 total fluid mLs NUTRITION DIAGNOSIS: Increased kcal and pro needs r/t underweight status and wound healing as evidenced by BMI 17.2, pt is 83% of [place] Body Weight, admitted w/ advanced wounds including stage 4 wound @ sacrum, resolving pressure injury @ L ischium, DTPI wounds @ Lt foot and L heel. CURRENT TF:Glucerna 1.2 @ 65ml/hr x 22 hrs (On Synthroid) ENTERAL NUTRITION RECOMMENDATIONS: Glucerna 1.2 goal of 55ml/hr x22 hrs to provide 1210ml, 1452kcal, 73g prot, 974ml free water - LOWER goal rate to 55ml/hr x 22 hrs: meets 100% est kcal/prot needs, current goal rate exceeds est needs - Flush per MD. HOB Over 30 degrees. - HOLD TF 1 hr before and after Synthroid meds. ADDITIONAL RECOMMENDATIONS: 1) Maintain calibrated bed scale wts Ht per SNF= 64" 2) Wound care: TF @ goal will provide 100% RDI Continue Vit C and ZnSO4 add HALEY BID 3) Lytes daily, replete as needed (low K) 4) Adjust IVF: Na trending up, pt on NS IVF (2) Palpitations (3) Anemia (4) GI bleeding (5) UTI (urinary tract infection) (6) Pneumonia (7) LGI bleed (8) LGI bleed (9) Hospital-acquired pneumonia (10) Suprapubic catheter dysfunction (11) Stage 4 skin ulcer of sacral region Assessment & Plan: Pt presented on admission with Multiple Pressure Injuries, GT and Tracheostomy. Large tracheal stoma with ill-fitting cannula. Stoma of Gastrostomy is hypergranular with small amt bleeding noted. Full Thickness stage 4 Sacral Pressure Injury (L)7cm x (W)7.5cm x (D)2.3cm. Beefy granulation at base ogf wound . Edges are flat and adherent to base of wound. Small amt sanguineous exudate noted. No odor noted. No evidence of skin breakdown periwound. Resolving Pressure Injury L ischium(L)3.8cm x (W) 2.6cm x(D)0.2cm.Beefy granulation with surrounding pink epithelial borders. No odor or exudate noted. Hyperpigmentation periwound. Bilat foot drop noted. Bilat feet are edematous. DTPI noted to protruding bony p rominence dorso/flexor L foot (L)1.3cm x (W)1.5cm. Base of Pressure Injury is maroon/fluctuant with surrounding red/brown borders. DTPI lateral L Foot(L)1.5cm x (W)0.6cm. Base of Pressure Injury is maroon and fluctuant. No evidence of further skin breakdown periwound. DTPI L Heel(L)4.3cm x (W)3.5cm. Base of Pressure Injury is maroon and fluctuant. Periwound is blanchable but boggy. R Heel is boggy but blanchable. Non-Blanchable erythema dorsal R foot. Intervention: Silver Nitrate x1 application applied to hypergranular stoma of Gastrostomy.TRiad Paste applied to peristomal GT and covered with Optifoam drsg. Tx.Plan: Wash GT site daily with soap and water. Pat dry. Apply Zinc Oxide Paste. Cover with Optifoam drsg Daily and prn. Cleanse Sacral and L Ischial wounds with Saline. Loosely pack with Therahoney impregnated Kerlix. Apply Moisture Barrier Paste periwound. Cover each wound with Optifoam drsgs. Change Daily and prn. Apply Cavilon Skin Barrier to L Heel,Lateral L foot and dorso/flexor L foot. Cover each site with Optifoam drsg. Change every 7 days and prn. Apply Cavilon Skin Barrier to R Heel and dorsal R Foot. Cover each site with Optifoam drsg. Change every 7 days and prn. Reposition at least every 2hours or as tolerated. Off-load heels with Pillow. APM/VAZQUEZ Mattress overlay. (12) AMS (altered mental status) JonTo Jun 20, 2020 11:58
--- NOTE | 2020-06-20 13:54 | General Progress Note ---
Subjective ROS Limited/Unobtainable: Yes Allergies: Coded Allergies: No Known Allergies (Unverified , 01/20/20) Subjective care noted and discussed with son noted fever curve improved nontoxic Objective Last 24 Hour Vital Signs Date Time Temp Pulse Resp B/P (MAP) Pulse Ox O2 Delivery O2 Flow Rate FiO2 06/20/20 12:19 174/101 06/20/20 12:00 30 06/20/20 12:00 97.4 68 17 174/101 (125) 100 06/20/20 12:00 Mechanical Ventilator 06/20/20 12:00 60 06/20/20 08:30 66 06/20/20 08:02 Mechanical Ventilator 06/20/20 08:01 30 06/20/20 08:00 97.7 65 16 145/84 (104) 100 06/20/20 04:00 68 06/20/20 04:00 Mechanical Ventilator 06/20/20 04:00 30 06/20/20 04:00 97.7 68 11 134/72 (92) 100 06/20/20 03:49 68 10 30 06/20/20 00:00 65 06/20/20 00:00 98.1 67 11 129/66 (87) 100 06/20/20 00:00 30 06/20/20 00:00 Mechanical Ventilator 06/19/20 23:59 63 10 30 06/19/20 20:00 85 06/19/20 20:00 98.6 82 12 119/68 (85) 98 06/19/20 20:00 Mechanical Ventilator 06/19/20 19:08 84 10 30 06/19/20 16:00 76 06/19/20 16:00 98.8 80 12 129/76 (93) 98 06/19/20 16:00 Mechanical Ventilator 06/19/20 15:15 76 10 30 Intake and Output 06/19/20 06/20/20 19:00 07:00 Intake Total 880 ml 1445.0 ml Output Total 2500 ml 1200 ml Balance -1620 ml 245.0 ml Intake Oral 715 ml Free Water 100 ml IV Total 730.0 ml Tube Feeding 65 ml 715 ml Output Urine Total 2500 ml 1200 ml # Bowel Movements 3 Height (Feet): 5 Weight (Pounds): 100 Assessment/Plan Assessment/Plan: IMPRESSION chronic respiratory failure trach pneumonia transaminitis CHF pulmonary hypertension anemia hypernatremia hypokalemia fevers PLAN dc planning to snf ID follow up iv antibiotics- vanco and zosyn monitor liver enzymes snf meds monitor as is overall prognosis poor impression, plan, and exam edited and reviewed in detail care discussed with Chi Hodge MD Jun 20, 2020 13:54
--- NOTE | 2020-06-20 17:52 | NUR ---
NURSE HAND-OFF REPORT: Important Events on Shift: D/C planning// wound care // elevated BP, PRN clonidine. Patient Status: fc, stable Diet: glucerna 1.2 at 60cc for 22hr, flush Pending Orders: Pending Results/Labs: Pending MD notification: Latest Vital Signs: Temperature 98.3 , Pulse 71 , B/P 140 /85 , Respiratory Rate 16 , O2 SAT 100 , Room Air, O2 Flow Rate 50.0 . Vital Sign Comment: EKG Rhythm: Sinus Rhythm Rhythm change?: N MD Notified?: - MD Response: Latest Colon Fall Score: 50 Fall Risk: High Risk Safety Measures: Call light Within Reach, Bed Alarm Zone 2, Side Rails Side Rails x3, Bed position Low and Locked. Fall Precautions: Door Sign Report to be given. Addendum: 06/20/20 at 1933 by Faviola Kenny RN RN Report given to PETE Flores
[2020-06-20] MEDS: Dyna-Hex 2% Top Sol 2oz TOPIC SCH (22:19)
[2020-06-21] VITALS: BP 101/66
--- NOTE | 2020-06-21 00:30 | NUR ---
NURSE NOTES: Patient asleep with no acute distress noted.Tolerating well with current vent settings. o2 sat 98-100%. No s/s of pain at this time.
--- NOTE | 2020-06-21 03:00 | NUR ---
NURSE NOTES: Sponge bath given. Has large BM once. dressing changed on RT Femoral TLC.Suctioned with white secretions via trach and oral. oral care done.
[2020-06-21 04:00] VITALS: BP 110/75
[2020-06-21] MEDS: NovoLOG Insulin Flexpen SUBQ SCH ×4 (06:04→23:40)
[2020-06-21] MEDS: Meropenem 1gm/NS 55ml IVPB SCH ×6 (06:05→21:17)
[2020-06-21 06:57] LABS: BASOPHILS % (AUTO) 0.6 % (0.0-2.0); EOSINOPHILS % (AUTO) 4.7 % (0.0-3.0); HEMATOCRIT 30.9 % (37.0-47.0); HEMOGLOBIN 9.8 G/DL (12.0-16.0); LYMPHOCYTES % (AUTO) 14.4 % (20.0-45.0); MEAN CORPUSCULAR VOLUME 99 FL (80-99); MONOCYTES % (AUTO) 5.8 % (1.0-10.0); NEUTROPHILS % (AUTO) 74.5 % (45.0-75.0); PLATELET COUNT 196 K/UL (150-450); RED BLOOD COUNT 3.12 M/UL (4.20-5.40); RED CELL DISTRIBUTION WIDTH 14.9 % (11.6-14.8); WHITE BLOOD COUNT 6.3 K/UL (4.8-10.8)
[2020-06-21 07:24] LABS: ALANINE AMINOTRANSFERASE 20 U/L (12-78); ALBUMIN 1.7 G/DL (3.4-5.0); ALBUMIN/GLOBULIN RATIO 0.4 (1.0-2.7); ALKALINE PHOSPHATASE 106 U/L (46-116); ANION GAP 3 mmol/L (5-15); ASPARTATE AMINO TRANSFERASE 38 U/L (15-37); BILIRUBIN,TOTAL 0.3 MG/DL (0.2-1.0); BLOOD UREA NITROGEN 11 mg/dL (7-18); CALCIUM 9.2 MG/DL (8.5-10.1); CARBON DIOXIDE 34 MMOL/L (21-32); CHLORIDE 107 MMOL/L (98-107); CREATININE 0.4 MG/DL (0.55-1.30); POTASSIUM 3.9 MMOL/L (3.5-5.1); SODIUM 144 MMOL/L (136-145)
--- NOTE | 2020-06-21 07:45 | NUR ---
NURSE NOTES: Report received from Sandra Douglas RN.Pt asleep noted no resp distress with trach tube to vent,ordered vent settings tolerated,no signs of pain or discomfort,SR on the monitor,GTF Glucerna 1.2 at 65ml/hr no residual,Supra pubic catheter draining yellow urine,skin warm and dry,with IV site to LT Femoral TLC,site intact,SR up x2 HOB elevated ,bed lock in lowest position will continue with plans of care.
--- NOTE | 2020-06-21 07:50 | NUR ---
NURSE HAND-OFF REPORT: Important Events on Shift: Patient Status: STABLE Diet: GTF with Glucerna1.2 at 65cc/hr Pending Orders: n Pending Results/Labs:n Pending MD notification:n Latest Vital Signs: Temperature 97.5 , Pulse 68 , B/P 110 /75 , Respiratory Rate 16 , O2 SAT 98 , Room Air, O2 Flow Rate 50.0 . Vital Sign Comment: stable EKG Rhythm: Sinus Rhythm Rhythm change?: N MD Notified?: - MD Response: Latest Colon Fall Score: 50 Fall Risk: High Risk Safety Measures: Call light Within Reach, Bed Alarm Zone 2, Side Rails Side Rails x3, Bed position Low and Locked. Fall Precautions: Door Sign Report given to PETE CARY.
[2020-06-21 08:00] VITALS: BP 129/76
[2020-06-21] MEDS: Zinc Sulfate 220mg GT SCH (09:20)
[2020-06-21] MEDS: Docusate 100mg cap ORAL SCH ×2 (09:20→17:22)
[2020-06-21] MEDS: Ascorbic Acid 500mg tab GT SCH ×2 (09:20→17:22)
[2020-06-21] MEDS: Heparin 5000 units/ml inj SUBQ SCH ×2 (09:23→20:52)
[2020-06-21] MEDS: Dakin's 0.125% Soln (Quarter Strength) 16oz TOPIC SCH (09:23)
--- NOTE | 2020-06-21 09:30 | NUR ---
NURSE NOTES: Dr San at bedside,ordered to discontinue airborne Isolation.
--- NOTE | 2020-06-21 09:30 | General Progress Note ---
Subjective ROS Limited/Unobtainable: Yes Allergies: Coded Allergies: No Known Allergies (Unverified , 01/20/20) Subjective care noted and discussed with son noted fever curve improved nontoxic dc order written Objective Last 24 Hour Vital Signs Date Time Temp Pulse Resp B/P (MAP) Pulse Ox O2 Delivery O2 Flow Rate FiO2 06/21/20 07:55 58 10 30 06/21/20 04:00 72 06/21/20 04:00 30 06/21/20 04:00 Mechanical Ventilator 06/21/20 04:00 97.5 68 16 110/75 (87) 98 06/21/20 03:21 71 10 30 06/21/20 00:00 30 06/21/20 00:00 60 06/21/20 00:00 97.2 60 16 101/66 (78) 100 06/21/20 00:00 Mechanical Ventilator 06/20/20 22:27 63 10 100 Mechanical Ventilator 30 60 10 30 06/20/20 20:00 Mechanical Ventilator 06/20/20 20:00 97.2 61 16 113/60 (77) 100 06/20/20 20:00 64 06/20/20 20:00 30 06/20/20 18:52 67 10 30 06/20/20 17:20 71 16 140/85 (103) 100 06/20/20 16:16 Mechanical Ventilator 06/20/20 16:00 98.3 66 17 158/91 (113) 100 06/20/20 16:00 74 06/20/20 16:00 30 06/20/20 15:05 63 10 30 06/20/20 13:00 16 149/67 (94) 100 06/20/20 12:19 174/101 06/20/20 12:00 30 06/20/20 12:00 97.4 68 17 174/101 (125) 100 06/20/20 12:00 Mechanical Ventilator 06/20/20 12:00 60 06/20/20 11:28 64 12 100 Mechanical Ventilator 30 62 11 30 Intake and Output 06/20/20 06/21/20 19:00 07:00 Intake Total 1735 ml 1835 ml Output Total 3830 ml 2400 ml Balance -2095 ml -565 ml Free Water 1150 ml 100 ml IV Total 955 ml Tube Feeding 585 ml 780 ml Output Urine Total 3830 ml 2400 ml # Bowel Movements 2 Laboratory Tests 06/21/20 04:50: White Blood Count 6.3, Red Blood Count 3.12L, Hemoglobin 9.8L, Hematocrit 30.9L, Mean Corpuscular Volume 99, Mean Corpuscular Hemoglobin 31.5H, Mean Corpuscular Hemoglobin Concent 31.8L, Red Cell Distribution Width 14.9H, Platelet Count 196, Mean Platelet Volume 8.2, Neutrophils (%) (Auto) 74.5, Lymphocytes (%) (Auto) 14.4L, Monocytes (%) (Auto) 5.8, Eosinophils (%) (Auto) 4.7H, Basophils (%) (Auto) 0.6, Sodium Level 144, Potassium Level 3.9, Chloride Level 107, Carbon Dioxide Level 34H, Anion Gap 3L, Blood Urea Nitrogen 11, Creatinine 0.4L, Estimat Glomerular Filtration Rate > 60, Glucose Level 165H, Calcium Level 9.2, Total Bilirubin 0.3, Aspartate Amino Transf (AST/SGOT) 38H, Alanine Aminotransferase (ALT/SGPT) 20, Alkaline Phosphatase 106, Total Protein 6.5, Albumin 1.7L, Globulin 4.8, Albumin/Globulin Ratio 0.4L Height (Feet): 5 Weight (Pounds): 100 Assessment/Plan Assessment/Plan: IMPRESSION chronic respiratory failure trach pneumonia transaminitis CHF pulmonary hypertension anemia hypernatremia hypokalemia fevers PLAN dc planning to snf written ID follow up iv antibiotics- vanco and zosyn; taper monitor liver enzymes snf meds monitor as is overall prognosis poor impression, plan, and exam edited and reviewed in detail care discussed with Chi Hodge MD Jun 21, 2020 09:30
[2020-06-21] MEDS: Colistin for inhalation INH SCH ×2 (10:09→21:31)
--- NOTE | 2020-06-21 11:13 | NUR ---
RD ASSESSMENT & RECOMMENDATIONS SEE CARE ACTIVITY FOR COMPLETE ASSESSMENT DAILY ESTIMATED NEEDS: Needs based on Advanced wounds, critical care 45kg 28-35 kcals/kg 5486-5088 total kcals 1.5-2 g protein/kg 67-90 g total protein 25-30 mL/kg 0383-3816 total fluid mLs NUTRITION DIAGNOSIS: Increased kcal and pro needs r/t underweight status and wound healing as evidenced by BMI 17.2, pt is 83% of [place] Body Weight, admitted w/ advanced wounds including stage 4 wound @ sacrum and L ischium, DTPI wounds @ Lt foot and L heel. CURRENT TF:Glucerna 1.2 @ 65ml/hr x 22 hrs (On Synthroid) ENTERAL NUTRITION RECOMMENDATIONS: Glucerna 1.2 goal of 55ml/hr x22 hrs to provide 1210ml, 1452kcal, 73g prot, 974ml free water - LOWER goal rate to 55ml/hr x 22 hrs: meets 100% est kcal/prot needs, current goal rate exceeds est needs - Flush per MD. HOB Over 30 degrees. - HOLD TF 1 hr before and after synthroid meds. With continued edema, rec TF change to lower free fluid formula. Rec Glucerna 1.5 goal of 45ml/hr x22 hrs: provides 990ml, 1485 kcal, 82g pro, 751ml free H2O. ADDITIONAL RECOMMENDATIONS: 1) Maintain calibrated bed scale wts Ht per SNF= 64" 2) Wound care: TF @ goal will provide 100% RDI Continue Vit C and ZnSO4 add HALEY BID 3) Lytes daily, replete as needed 4) Rec adding long acting insulin for improved BG control
--- NOTE | 2020-06-21 11:46 | Surgery Progress Note ---
Surgery Progress Note Subjective Symptoms: improved Additional Comments d/c planning cont dressings cont vent trach okay plan change later Objective Last 24 Hour Vital Signs Date Time Temp Pulse Resp B/P (MAP) Pulse Ox O2 Delivery O2 Flow Rate FiO2 06/21/20 10:24 67 10 100 Mechanical Ventilator 30 66 10 30 06/21/20 08:00 Mechanical Ventilator 06/21/20 08:00 59 06/21/20 08:00 98.4 63 16 129/76 (93) 100 06/21/20 08:00 30 06/21/20 07:55 58 10 30 06/21/20 04:00 72 06/21/20 04:00 30 06/21/20 04:00 Mechanical Ventilator 06/21/20 04:00 97.5 68 16 110/75 (87) 98 06/21/20 03:21 71 10 30 06/21/20 00:00 30 06/21/20 00:00 60 06/21/20 00:00 97.2 60 16 101/66 (78) 100 06/21/20 00:00 Mechanical Ventilator 06/20/20 22:27 63 10 100 Mechanical Ventilator 30 60 10 30 06/20/20 20:00 Mechanical Ventilator 06/20/20 20:00 97.2 61 16 113/60 (77) 100 06/20/20 20:00 64 06/20/20 20:00 30 06/20/20 18:52 67 10 30 06/20/20 17:20 71 16 140/85 (103) 100 06/20/20 16:16 Mechanical Ventilator 06/20/20 16:00 98.3 66 17 158/91 (113) 100 06/20/20 16:00 74 06/20/20 16:00 30 06/20/20 15:05 63 10 30 06/20/20 13:00 16 149/67 (94) 100 06/20/20 12:19 174/101 06/20/20 12:00 30 06/20/20 12:00 97.4 68 17 174/101 (125) 100 06/20/20 12:00 Mechanical Ventilator 06/20/20 12:00 60 I&O Intake and Output 06/20/20 06/21/20 19:00 07:00 Intake Total 1735 ml 1835 ml Output Total 3830 ml 2400 ml Balance -2095 ml -565 ml Free Water 1150 ml 100 ml IV Total 955 ml Tube Feeding 585 ml 780 ml Output Urine Total 3830 ml 2400 ml # Bowel Movements 2 Dressing: saturated Cardiovascular: RSR Respiratory: decreased breath sounds Abdomen: soft, non-tender, present bowel sounds Extremities: no tenderness, no cyanosis Laboratory Tests Test 06/21/20 04:50 White Blood Count 6.3 K/UL (4.8-10.8) Red Blood Count 3.12 M/UL (4.20-5.40) L Hemoglobin 9.8 G/DL (12.0-16.0) L Hematocrit 30.9 % (37.0-47.0) L Mean Corpuscular Volume 99 FL (80-99) Mean Corpuscular Hemoglobin 31.5 PG (27.0-31.0) H Mean Corpuscular Hemoglobin Concent 31.8 G/DL (32.0-36.0) L Red Cell Distribution Width 14.9 % (11.6-14.8) H Platelet Count 196 K/UL (150-450) Mean Platelet Volume 8.2 FL (6.5-10.1) Neutrophils (%) (Auto) 74.5 % (45.0-75.0) Lymphocytes (%) (Auto) 14.4 % (20.0-45.0) L Monocytes (%) (Auto) 5.8 % (1.0-10.0) Eosinophils (%) (Auto) 4.7 % (0.0-3.0) H Basophils (%) (Auto) 0.6 % (0.0-2.0) Sodium Level 144 MMOL/L (136-145) Potassium Level 3.9 MMOL/L (3.5-5.1) Chloride Level 107 MMOL/L (98-107) Carbon Dioxide Level 34 MMOL/L (21-32) H Anion Gap 3 mmol/L (5-15) L Blood Urea Nitrogen 11 mg/dL (7-18) Creatinine 0.4 MG/DL (0.55-1.30) L Estimat Glomerular Filtration Rate > 60 mL/min (>60) Glucose Level 165 MG/DL (74-106) H Calcium Level 9.2 MG/DL (8.5-10.1) Total Bilirubin 0.3 MG/DL (0.2-1.0) Aspartate Amino Transf (AST/SGOT) 38 U/L (15-37) H Alanine Aminotransferase (ALT/SGPT) 20 U/L (12-78) Alkaline Phosphatase 106 U/L (46-116) Total Protein 6.5 G/DL (6.4-8.2) Albumin 1.7 G/DL (3.4-5.0) L Globulin 4.8 g/dL Albumin/Globulin Ratio 0.4 (1.0-2.7) L Plan Problems: (1) Sepsis Assessment & Plan: 55-year-old female with medical comorbidities very ill presented with significant lactic acidosis in intensive care unit on treatment. Wound evaluated unlikely source of lactic acidosis and patient is well-appearing status. Micro noted labs noted. Continue antibiotics. Local wound care was provided. Nutritional optimization. DAILY ESTIMATED NEEDS: Needs based on Advanced wounds, critical care 45kg 28-35 kcals/kg 7270-3410 total kcals 1.5-2 g protein/kg 67-90 g total protein 25-30 mL/kg 0935-4389 total fluid mLs DAILY ESTIMATED NEEDS: Needs based on Advanced wounds, critical care 45kg 28-35 kcals/kg 6006-9534 total kcals 1.5-2 g protein/kg 67-90 g total protein 25-30 mL/kg 0715-7977 total fluid mLs Increased kcal and pro needs r/t underweight status and wound healing as evidenced by BMI 17.2, pt is 83% of [place] Body Weight, admitted w/ advanced wounds including stage 4 wound @ sacrum and L ischium, DTPI wounds @ Lt foot and L heel. CURRENT TF:Glucerna 1.2 @ 65ml/hr x 22 hrs (On Synthroid) ENTERAL NUTRITION RECOMMENDATIONS: Glucerna 1.2 goal of 55ml/hr x22 hrs to provide 1210ml, 1452kcal, 73g prot, 974ml free water - LOWER goal rate to 55ml/hr x 22 hrs: meets 100% est kcal/prot needs, current goal rate exceeds est needs - Flush per MD. HOB Over 30 degrees. - HOLD TF 1 hr before and after synthroid meds. With continued edema, rec TF change to lower free fluid formula. Rec Glucerna 1.5 goal of 45ml/hr x22 hrs: provides 990ml, 1485 kcal, 82g pro, 751ml free H2O. ADDITIONAL RECOMMENDATIONS: 1) Maintain calibrated bed scale wts Ht per SNF= 64" 2) Wound care: TF @ goal will provide 100% RDI Continue Vit C and ZnSO4 add HALEY BID 3) Lytes daily, replete as needed 4) Rec adding long acting insulin for improved BG control (2) Palpitations (3) Anemia (4) GI bleeding (5) UTI (urinary tract infection) (6) Pneumonia (7) LGI bleed (8) LGI bleed (9) Hospital-acquired pneumonia (10) Suprapubic catheter dysfunction (11) Stage 4 skin ulcer of sacral region Assessment & Plan: Pt presented on admission with Multiple Pressure Injuries, GT and Tracheostomy. Large tracheal stoma with ill-fitting cannula. Stoma of Gastrostomy is hypergranular with small amt bleeding noted. Full Thickness stage 4 Sacral Pressure Injury (L)7cm x (W)7.5cm x (D)2.3cm. Beefy granulation at base ogf wound . Edges are flat and adherent to base of wound. Small amt sanguineous exudate noted. No odor noted. No evidence of skin breakdown periwound. Resolving Pressure Injury L ischium(L)3.8cm x (W) 2.6cm x(D)0.2cm.Beefy granulation with surrounding pink epithelial borders. No odor or exudate noted. Hyperpigmentation periwound. Bilat foot drop noted. Bilat feet are edematous. DTPI noted to protruding bony prominence dorso/flexor L foot (L)1.3cm x (W)1.5cm. Base of Pressure Injury is maroon/fluctuant with surrounding red/brown borders. DTPI lateral L Foot(L)1.5cm x (W)0.6cm. Base of Pressure Injury is maroon and fluctuant. No evidence of further skin breakdown periwound. DTPI L Heel(L)4.3cm x (W)3.5cm. Base of Pressure Injury is maroon and fluctuant. Periwound is blanchable but boggy. R Heel is boggy but blanchable. Non-Blanchable erythema dorsal R foot. Intervention: Silver Nitrate x1 application applied to hypergranular stoma of Gastrostomy.TRiad Paste applied to peristomal GT and covered with Optifoam drsg. Tx.Plan: Wash GT site daily with soap and water. Pat dry. Apply Zinc Oxide Paste. Cover with Optifoam drsg Daily and prn. Cleanse Sacral and L Ischial wounds with Saline. Loosely pack with Therahoney impregnated Kerlix. Apply Moisture Barrier Paste periwound. Cover each wound with Optifoam drsgs. Change Daily and prn. Apply Cavilon Skin Barrier to L Heel,Lateral L foot and dorso/flexor L foot. Cover each site with Optifoam drsg. Change every 7 days and prn. Apply Cavilon Skin Barrier to R Heel and dorsal R Foot. Cover each site with Optifoam drsg. Change every 7 days and prn. Reposition at least every 2hours or as tolerated. Off-load heels with Pillow. APM/VAZQUEZ Mattress overlay. (12) AMS (altered mental status) To Webb Jun 21, 2020 11:46
[2020-06-21 12:00] VITALS: BP 125/76
--- NOTE | 2020-06-21 12:00 | NUR ---
NURSE NOTES: Pt stable no resp distress presented,oral /tracheal secretions suctioned PRN.
[2020-06-21 16:00] VITALS: BP 128/79
--- NOTE | 2020-06-21 16:00 | NUR ---
NURSE NOTES: Pt turned and repositioned for comfort.
--- NOTE | 2020-06-21 18:00 | NUR ---
NURSE NOTES: Bed bath given,pt with large diarrhea like stools,kept dry and clean,pulled up and repositioned.
--- NOTE | 2020-06-21 19:17 | NUR ---
NURSE HAND-OFF REPORT: Important Events on Shift: Patient Status: stable Diet: Glucerna 1.2 at 65ml/hr Pending Orders: n/a Pending Results/Labs: n/a Pending MD notification: Latest Vital Signs: Temperature 98.0 , Pulse 68 , B/P 128 /79 , Respiratory Rate 24 , O2 SAT 98 , Room Air, O2 Flow Rate 50.0 . Vital Sign Comment: stable EKG Rhythm: Sinus Rhythm Rhythm change?: N MD Notified?: - MD Response: Latest Colon Fall Score: 50 Fall Risk: High Risk Safety Measures: Call light Within Reach, Bed Alarm Zone 2, Side Rails Side Rails x3, Bed position Low and Locked. Fall Precautions: Door Sign Report given to Hola Dawson RN..
--- NOTE | 2020-06-21 19:30 | NUR ---
NURSE NOTES: Received pt in bed, obtunded, on vent via trach, not showing any signs of distress at present settings. TLC on right groin intact with 1/2 NS running at 100cc/hr. RAC #22 intact with NS running at TKO. Glucerna 1.2 running at 65cc/hr via GT with no residuals noted. Patterson cath in place draining yellow urine. VSS and pt is SR on the monitor. Addendum: 06/21/20 at 2251 by ANAMIKA DONOHUE RN RN Pt has a suprapubic catheter and not a patterson catheter.
[2020-06-21 20:00] VITALS: BP 150/86
[2020-06-21] MEDS: Dyna-Hex 2% Top Sol 2oz TOPIC SCH (20:51)
[2020-06-22] VITALS: BP 151/83
--- NOTE | 2020-06-22 | NUR ---
NURSE NOTES: Pt remains stable with stable VS. Pt repositioned for comfort. Pt remains SR on the monitor.
[2020-06-22 04:00] VITALS: BP 150/87
--- NOTE | 2020-06-22 04:00 | NUR ---
NURSE NOTES: Pt remains stable with stable VS. Pt repositioned for comfort. Pt remains SR on the monitor.
[2020-06-22] MEDS: Meropenem 1gm/NS 55ml IVPB SCH ×2 (05:14)
[2020-06-22] MEDS: NovoLOG Insulin Flexpen SUBQ SCH (05:19)
--- NOTE | 2020-06-22 07:08 | NUR ---
NURSE HAND-OFF REPORT: Important Events on Shift:[] Patient Status: [] Diet: [] Pending Orders: [] Pending Results/Labs:[] Pending MD notification:[] Latest Vital Signs: Temperature 97.5 , Pulse 64 , B/P 150 /87 , Respiratory Rate 10 , O2 SAT 100 , Room Air, O2 Flow Rate 50.0 . Vital Sign Comment: [] EKG Rhythm: Sinus Rhythm Rhythm change?: N MD Notified?: - MD Response: Latest Colon Fall Score: 50 Fall Risk: High Risk Safety Measures: Call light Within Reach, Bed Alarm Zone 2, Side Rails Side Rails x3, Bed position Low and Locked. Fall Precautions: Door Sign Report given to PETE Uriarte[].
--- NOTE | 2020-06-22 07:24 | NUR ---
NURSE NOTES: NURSE HAND-OFF REPORT: Important Events on Shift: Patient Status: Diet: Pending Orders: Pending Results/Labs: Pending MD notification: Latest Vital Signs: Temperature 97.5 , Pulse 64 , B/P 150 /87 , Respiratory Rate 10 , O2 SAT 100 , Room Air, O2 Flow Rate 50.0 . Vital Sign Comment: EKG Rhythm: Sinus Rhythm Rhythm change?: N MD Notified?: - MD Response: Latest Colon Fall Score: 50 Fall Risk: High Risk Safety Measures: Call light Within Reach, Bed Alarm Zone 2, Side Rails Side Rails x3, Bed position Low and Locked. Fall Precautions: Door Sign Report given to PETE Jensen .
--- NOTE | 2020-06-22 07:53 | General Progress Note ---
Subjective ROS Limited/Unobtainable: Yes Allergies: Coded Allergies: No Known Allergies (Unverified , 01/20/20) Subjective care noted and discussed with son noted fever curve improved nontoxic dc order written Objective Last 24 Hour Vital Signs Date Time Temp Pulse Resp B/P (MAP) Pulse Ox O2 Delivery O2 Flow Rate FiO2 06/22/20 07:18 64 10 30 06/22/20 05:29 64 10 30 06/22/20 04:00 30 06/22/20 04:00 68 06/22/20 04:00 Mechanical Ventilator 06/22/20 04:00 97.5 64 18 150/87 (108) 100 06/22/20 03:26 62 10 30 06/22/20 01:24 61 10 30 06/22/20 00:00 97.5 68 18 151/83 (105) 98 06/22/20 00:00 68 06/22/20 00:00 30 06/22/20 00:00 Mechanical Ventilator 06/21/20 23:20 67 10 30 06/21/20 21:35 72 10 100 Mechanical Ventilator 30 06/21/20 21:22 70 10 30 06/21/20 20:00 97.5 67 18 150/86 (107) 98 06/21/20 20:00 Mechanical Ventilator 06/21/20 20:00 66 06/21/20 20:00 30 06/21/20 19:23 61 10 30 06/21/20 16:00 70 06/21/20 16:00 30 06/21/20 16:00 Mechanical Ventilator 06/21/20 16:00 98.0 68 24 128/79 (95) 98 06/21/20 15:05 77 11 30 06/21/20 12:00 98.5 73 16 125/76 (92) 98 06/21/20 12:00 64 06/21/20 12:00 30 06/21/20 12:00 Mechanical Ventilator 06/21/20 10:24 67 10 100 Mechanical Ventilator 30 66 10 30 06/21/20 08:00 Mechanical Ventilator 06/21/20 08:00 59 06/21/20 08:00 98.4 63 16 129/76 (93) 100 06/21/20 08:00 30 06/21/20 07:55 58 10 30 Intake and Output 06/21/20 06/22/20 19:00 07:00 Intake Total 2240 ml 1750 ml Output Total 2100 ml 2900 ml Balance 140 ml -1150 ml Free Water 200 ml IV Total 1200 ml 1100 ml Tube Feeding 780 ml 650 ml Other 60 ml Output Urine Total 2100 ml 2900 ml Stool Total 0 ml # Bowel Movements 1 Height (Feet): 5 Weight (Pounds): 100 Assessment/Plan Assessment/Plan: IMPRESSION chronic respiratory failure trach pneumonia transaminitis CHF pulmonary hypertension anemia hypernatremia hypokalemia fevers PLAN dc planning to snf written ID follow up iv antibiotics- vanco and zosyn; taper monitor liver enzymes snf meds monitor as is overall prognosis poor impression, plan, and exam edited and reviewed in detail care discussed with Chi Hodge MD Jun 22, 2020 07:53
[2020-06-22 08:00] VITALS: BP 138/78
--- NOTE | 2020-06-22 08:32 | NUR ---
NURSE NOTES: Received patient report from PETE Simental. Patient is AO x0 obtunded. Patient shows no signs of distress or pain at the time. IV is intact and patent. There are no signs of erythema, infiltration, or bleeding at the time. Running 1/2 NS @ 100cc/hr. Patient is running G tube feeding Glucerna 1.2 @ 65 cc/hr. No residual noted at the time. Suprapubic catheter patent and draining. Bed is in the lowest position, call light is within reach, side rails up x3. Will continue to monitor.
[2020-06-22] MEDS: Zinc Sulfate 220mg GT SCH (09:14)
[2020-06-22] MEDS: Docusate 100mg cap ORAL SCH (09:14)
[2020-06-22] MEDS: Ascorbic Acid 500mg tab GT SCH (09:14)
[2020-06-22] MEDS: Heparin 5000 units/ml inj SUBQ SCH (09:17)
[2020-06-22] MEDS: Dakin's 0.125% Soln (Quarter Strength) 16oz TOPIC SCH (09:31)
[2020-06-22] MEDS: Colistin for inhalation INH SCH (09:59)
--- NOTE | 2020-06-22 10:15 | NUR ---
CASE MANAGEMENT:REVIEW 06/22/20 SI: PNEUMONIA. CHRONIC TRACH/VENT/GTUBE 96.8 69 15 138/78 100% ON VENT SUPPORT W/30% FIO2 IS: IV MEROPENEM Q8HRS IVF@100/HR COLISTIN INH Q12 ZINC GT QD VIT C GT BID MIDODRINE GT BID HEPARIN SQ Q12 PEPCID GT QD SYNTHROID GT QD : STEP DOWN UNIT DCP: FROM [facility] PLAN: DISCHARGE BACK TO [facility] TODAY
--- NOTE | 2020-06-22 10:20 | NUR ---
*-*DISCHARGE PLANNING*-* PATIENT HAS BEEN REFERRED BACK TO: [facility] P: [phone] S/W ANISA, ADMISSION IN A STAND UP MEETING, CALL BACK.
--- NOTE | 2020-06-22 11:13 | NUR ---
*-*DISCHARGE PLANNED*-* PATIENT HAS BEEN ACCEPTED AND WILL BE DISCHARGED BACK TO: [facility] P: [phone] FOR NURSE TO NURSE REPORT ROOM# 221.A [facility] SET FOR 12.PM S/W LUIS [id number]. S/W PATIENTS DAUGHTER SHERI , WHO IS IN AGREEMENT DISCHARGE PLAN.
--- NOTE | 2020-06-22 11:28 | Infectious Diseases Prog Note ---
"Assessment/Plan Assessment/Plan antibiotics : meropenem, inhaled colistin A 1. pseudomonas | acenitobacter pneumonia 2. CHF 3. pulmonary hypertension 4. respiratory failure s/p tracheostomy P 1. d/c iv meropenem 2. continue inhaled colistin 4 more days Subjective ROS Limited/Unobtainable: Yes Allergies: Coded Allergies: No Known Allergies (Unverified , 01/20/20) Objective Last 24 Hour Vital Signs Date Time Temp Pulse Resp B/P (MAP) Pulse Ox O2 Delivery O2 Flow Rate FiO2 06/22/20 10:00 68 10 100 Mechanical Ventilator 30 06/22/20 08:00 96.8 69 15 138/78 (98) 100 06/22/20 08:00 Mechanical Ventilator 06/22/20 08:00 30 06/22/20 07:18 64 10 30 06/22/20 05:29 64 10 30 06/22/20 04:00 30 06/22/20 04:00 68 06/22/20 04:00 Mechanical Ventilator 06/22/20 04:00 97.5 64 18 150/87 (108) 100 06/22/20 03:26 62 10 30 06/22/20 01:24 61 10 30 06/22/20 00:00 97.5 68 18 151/83 (105) 98 06/22/20 00:00 68 06/22/20 00:00 30 06/22/20 00:00 Mechanical Ventilator 06/21/20 23:20 67 10 30 06/21/20 21:35 72 10 100 Mechanical Ventilator 30 06/21/20 21:22 70 10 30 06/21/20 20:00 97.5 67 18 150/86 (107) 98 06/21/20 20:00 Mechanical Ventilator 06/21/20 20:00 66 06/21/20 20:00 30 06/21/20 19:23 61 10 30 06/21/20 16:00 70 06/21/20 16:00 30 06/21/20 16:00 Mechanical Ventilator 06/21/20 16:00 98.0 68 24 128/79 (95) 98 06/21/20 15:05 77 11 30 06/21/20 12:00 98.5 73 16 125/76 (92) 98 06/21/20 12:00 64 06/21/20 12:00 30 06/21/20 12:00 Mechanical Ventilator Height (Feet): 5 Weight (Pounds): 100 HEENT: status post trach Respiratory/Chest: lungs clear Cardiovascular: normal rate, regular rhythm, no gallop/murmur Abdomen: soft, non tender, other - GT Extremities: no edema Current Medications Medications (Trade) Dose Ordered Sig/Elisa Route PRN Reason Start Time Stop Time Status Last Admin Dose Admin Acetaminophen (Tylenol) 650 mg Q6H PRN ORAL For Pain 06/12/20 00:45 07/12/20 00:44 06/13/20 11:06 Ascorbic Acid (Vitamin C) 250 mg TWICE A DAY GT 06/13/20 18:00 07/13/20 17:59 06/22/20 09:14 Chlorhexidine Gluconate (Carolina-Hex 2%) 1 applic DAILY@1999 TOPIC 06/12/20 20:00 09/10/20 19:59 06/21/20 20:51 Clonidine HCl (Catapres Tab) 0.1 mg Q4H PRN GT HYPERTENSION 06/20/20 12:00 09/18/20 11:59 06/20/20 12:19 Colistimethate Sodium (Colistin *inhalation use only*) 75 mg Q12HR@ INH 06/20/20 10:00 06/27/20 09:59 06/22/20 09:59 Dextrose (Dextrose 50%) 25 ml Q30M PRN IV Hypoglycemia 06/12/20 00:45 09/10/20 00:44 Dextrose (Dextrose 50%) 50 ml Q30M PRN IV Hypoglycemia 06/12/20 00:45 09/10/20 00:44 Docusate Sodium (Colace) 100 mg TWICE A DAY ORAL 06/12/20 09:00 07/12/20 08:59 06/22/20 09:14 Famotidine (Pepcid) 20 mg DAILY GT 06/12/20 09:00 09/10/20 08:59 06/22/20 09:14 Heparin Sodium (Porcine) (Heparin 5000 units/ml) 5,000 units EVERY 12 HOURS SUBQ 06/12/20 09:00 07/27/20 08:59 06/22/20 09:17 Insulin Aspart (NovoLOG) EVERY 6 HOURS SUBQ 06/12/20 06:00 09/10/20 05:59 06/22/20 05:19 Levothyroxine Sodium (Synthroid) 50 mcg DAILY@0630 GT 06/12/20 06:30 07/12/20 06:29 06/22/20 06:30 Meropenem 1 gm/ Sodium Chloride 55 ml @ 110 mls/hr Q8HR IVPB 06/20/20 12:00 06/25/20 11:59 06/22/20 05:14 Midodrine (Pro-Amatine) 5 mg BID GT 06/12/20 09:00 09/10/20 08:59 06/22/20 09:14 Sodium Hypochlorite (Dakin's Quarter Strength) 1 applic DAILY TOPIC 06/17/20 13:00 07/17/20 12:59 06/22/20 09:31 Sodium Chloride 1,000 ml @ 100 mls/hr Q10H IV 06/15/20 09:30 07/15/20 09:29 06/22/20 02:39 Zinc Sulfate (Zinc Sulfate) 220 mg DAILY GT 06/14/20 09:00 06/24/20 08:59 06/22/20 09:14 Des San MD Jun 22, 2020 11:28"
[2020-06-22] MEDS ORDERED: COLISTIN150 MG HHN (11:50)
--- NOTE | 2020-06-22 12:10 | NUR ---
NURSE NOTES: Patient discharged to [facility]. EMS transport picked her up. Patient had femoral TL removed and IV removed. Tele box removed. Patient shows no signs of distress or pain at the time. Dr. Castro and Dr. Nunez gave orders for medications. Called [facility] to give report. Spoke to PETE Arboleda.
[2020-06-22] MEDS ORDERED: NS 275ml ONE ×2 (12:17)
[2020-06-22] MEDS ORDERED: 1/2 NS 1000ml IV ONE ×2 (12:17)
--- NOTE | 2020-06-22 13:03 | Surgery Progress Note ---
Surgery Progress Note Subjective Symptoms: improved, tolerating diet, voiding well, passing flatus, BM Objective Last 24 Hour Vital Signs Date Time Temp Pulse Resp B/P (MAP) Pulse Ox O2 Delivery O2 Flow Rate FiO2 06/22/20 10:00 68 10 100 Mechanical Ventilator 30 06/22/20 08:00 96.8 69 15 138/78 (98) 100 06/22/20 08:00 63 06/22/20 08:00 Mechanical Ventilator 06/22/20 08:00 30 06/22/20 07:18 64 10 30 06/22/20 05:29 64 10 30 06/22/20 04:00 30 06/22/20 04:00 68 06/22/20 04:00 Mechanical Ventilator 06/22/20 04:00 97.5 64 18 150/87 (108) 100 06/22/20 03:26 62 10 30 06/22/20 01:24 61 10 30 06/22/20 00:00 97.5 68 18 151/83 (105) 98 06/22/20 00:00 68 06/22/20 00:00 30 06/22/20 00:00 Mechanical Ventilator 06/21/20 23:20 67 10 30 06/21/20 21:35 72 10 100 Mechanical Ventilator 30 06/21/20 21:22 70 10 30 06/21/20 20:00 97.5 67 18 150/86 (107) 98 06/21/20 20:00 Mechanical Ventilator 06/21/20 20:00 66 06/21/20 20:00 30 06/21/20 19:23 61 10 30 06/21/20 16:00 70 06/21/20 16:00 30 06/21/20 16:00 Mechanical Ventilator 06/21/20 16:00 98.0 68 24 128/79 (95) 98 06/21/20 15:05 77 11 30 I&O Intake and Output 06/21/20 06/22/20 19:00 07:00 Intake Total 2240 ml 1750 ml Output Total 2100 ml 2900 ml Balance 140 ml -1150 ml Free Water 200 ml IV Total 1200 ml 1100 ml Tube Feeding 780 ml 650 ml Other 60 ml Output Urine Total 2100 ml 2900 ml Stool Total 0 ml # Bowel Movements 1 Dressing: saturated Wound: clean Cardiovascular: RSR Respiratory: clear, decreased breath sounds Abdomen: soft, non-tender, present bowel sounds Extremities: no edema, no tenderness, no cyanosis Plan Problems: (1) Sepsis Assessment & Plan: 55-year-old female with medical comorbidities very ill presented with significant lactic acidosis in intensive care unit on treatment. Wound evaluated unlikely source of lactic acidosis and patient is well-appearing status. Micro noted labs noted. Continue antibiotics. Local wound care was provided. Nutritional optimization. plan d/c today ready cont current care plan upon dc for nutritiona nd wounds DAILY ESTIMATED NEEDS: Needs based on Advanced wounds, critical care 45kg 28-35 kcals/kg 3212-2607 total kcals 1.5-2 g protein/kg 67-90 g total protein 25-30 mL/kg 2694-9529 total fluid mLs DAILY ESTIMATED NEEDS: Needs based on Advanced wounds, critical care 45kg 28-35 kcals/kg 5005-0974 total kcals 1.5-2 g protein/kg 67-90 g total protein 25-30 mL/kg 4924-8855 total fluid mLs Increased kcal and pro needs r/t underweight status and wound healing as evidenced by BMI 17.2, pt is 83% of [place] Body Weight, admitted w/ advanced wounds including stage 4 wound @ sacrum and L ischium, DTPI wounds @ Lt foot and L heel. CURRENT TF:Glucerna 1.2 @ 65ml/hr x 22 hrs (On Synthroid) ENTERAL NUTRITION RECOMMENDATIONS: Glucerna 1.2 goal of 55ml/hr x22 hrs to provide 1210ml, 1452kcal, 73g prot, 974ml free water - LOWER goal rate to 55ml/hr x 22 hrs: meets 100% est kcal/prot needs, current goal rate exceeds est needs - Flush per MD. HOB Over 30 degrees. - HOLD TF 1 hr before and after synthroid meds. With continued edema, rec TF change to lower free fluid formula. Rec Glucerna 1.5 goal of 45ml/hr x22 hrs: provides 990ml, 1485 kcal, 82g pro, 751ml free H2O. ADDITIONAL RECOMMENDATIONS: 1) Maintain calibrated bed scale wts Ht per SNF= 64" 2) Wound care: TF @ goal will provide 100% RDI Continue Vit C and ZnSO4 add HALEY BID 3) Lytes daily, replete as needed 4) Rec adding long acting insulin for improved BG control (2) Palpitations (3) Anemia (4) GI bleeding (5) UTI (urinary tract infection) (6) Pneumonia (7) LGI bleed (8) LGI bleed (9) Hospital-acquired pneumonia (10) Suprapubic catheter dysfunction (11) Stage 4 skin ulcer of sacral region Assessment & Plan: Pt presented on admission with Multiple Pressure Injuries, GT and Tracheostomy. Large tracheal stoma with ill-fitting cannula. Stoma of Gastrostomy is hypergranular with small amt bleeding noted. Full Thickness stage 4 Sacral Pressure Injury (L)7cm x (W)7.5cm x (D)2.3cm. Beefy granulation at base ogf wound . Edges are flat and adherent to base of wound. Small amt sanguineous exudate noted. No odor noted. No evidence of skin breakdown periwound. Resolving Pressure Injury L ischium(L)3.8cm x (W) 2.6cm x(D)0.2cm.Beefy granulation with surrounding pink epithelial borders. No odor or exudate noted. Hyperpigmentation periwound. Bilat foot drop noted. Bilat feet are edematous. DTPI noted to protruding bony prominence dorso/flexor L foot (L)1.3cm x (W)1.5cm. Base of Pressure Injury is maroon/fluctuant with surrounding red/brown borders. DTPI lateral L Foot(L)1.5cm x (W)0.6cm. Base of Pressure Injury is maroon and fluctuant. No evidence of further skin breakdown periwound. DTPI L Heel(L)4.3cm x (W)3.5cm. Base of Pressure Injury is maroon and fluctuant. Periwound is blanchable but boggy. R Heel is boggy but blanchable. Non-Blanchable erythema dorsal R foot. Intervention: Silver Nitrate x1 application applied to hypergranular stoma of Gastrostomy.TRiad Paste applied to peristomal GT and covered with Optifoam drsg. Tx.Plan: Wash GT site daily with soap and water. Pat dry. Apply Zinc Oxide Paste. Cover with Optifoam drsg Daily and prn. Cleanse Sacral and L Ischial wounds with Saline. Loosely pack with Therahoney impregnated Kerlix. Apply Moisture Barrier Paste periwound. Cover each wound with Optifoam drsgs. Change Daily and prn. Apply Cavilon Skin Barrier to L Heel,Lateral L foot and dorso/flexor L foot. Cover each site with Optifoam drsg. Change every 7 days and prn. Apply Cavilon Skin Barrier to R Heel and dorsal R Foot. Cover each site with Optifoam drsg. Change every 7 days and prn. Reposition at least every 2hours or as tolerated. Off-load heels with Pillow. APM/VAZQUEZ Mattress overlay. (12) AMS (altered mental status) To Webb Jun 22, 2020 13:03
--- NOTE | 2020-06-22 15:57 | NUR ---
INSURANCE CLINICALS/REVIEW FAXED [facility] x [phone] ncm: Keri vasquez
== END 2020-06-22 12:18 | DRG 130 ==
LOC: EDBD 10:55 → EDBEDREQ 11:11 → EMR 12:57 → ICU 13:37 → EDBEDREQ 18:01 → 2W 06-14 19:29
PROC: 5A1955Z Respiratory Ventilation, Greater than 96 Consecutive Hours (ICD-10-PCS; principal; 2020-06-11)
PROC: 06HM33Z Insertion of Infusion Device into Right Femoral Vein, Percutaneous Approach (ICD-10-PCS; 2020-06-11)
DX: J15.1 Pneumonia due to Pseudomonas (principal); J96.10 Chronic respiratory failure, unspecified whether with hypoxia or hypercapnia; I27.20 Pulmonary hypertension, unspecified; I11.0 Hypertensive heart disease with heart failure; K92.2 Gastrointestinal hemorrhage, unspecified; L89.154 Pressure ulcer of sacral region, stage 4; I50.32 Chronic diastolic (congestive) heart failure; Z93.0 Tracheostomy status; Z99.11 Dependence on respirator [ventilator] status; Z86.73 Personal history of transient ischemic attack (TIA), and cerebral infarction without residual deficits; E03.9 Hypothyroidism, unspecified; D64.9 Anemia, unspecified; E87.0 Hyperosmolality and hypernatremia; E87.6 Hypokalemia; Z20.822 Contact with and (suspected) exposure to COVID-19
CPT/HCPCS: 36415; 70450; 71045; 80048; 80053; 80202; 82140; 82550; 82962; 83605; 83735; 84484; 85007; 85025; 85610; 85730; 86850; 86900; 86901; 86920; 87040; 87070; 87181; 87205; 93005; 94002; 94003; 96360; 99291; J1815; J7030; J8499